=== PATIENT | male | born 1950 | race Hispanic/Latino ===

== ENCOUNTER 2023-02-06 12:44 | Emergency (ER) | payer MEDICARE ==
--- OUTSIDE RECORDS SUMMARY | 2023-02-06 12:53 | XMS REPORT | Continuity of Care Document ---
:1950 Author Organization [facility] t Address [address] [place] [address] [address] [place] [address] Care Team Providers Name Role Phone Teja Morin Primary Care Physician REYES RICHARDS Attending Clinician Unavailable CANDACE ARMAS Attending Clinician Unavailable Doctor Unassigned, [place] Attending Clinician Unavailable Jennifer DIALLO, Kemal Khan Attending Clinician Unavailable Leanna Messer DO Attending Clinician Juvencio Love MD Attending Clinician Jazmin Chandler MD Attending Clinician Jessica RAMSEY, Isak Attending Clinician LEANNA MESSER Attending Clinician Unavailable Jillian Cabrera Attending Clinician Unavailable Tejinder Macedo Attending Clinician Unavailable Reyes Richards MD Attending Clinician Candace Armas MD Attending Clinician Only, Adc Test Attending Clinician Unavailable Nakul RAMSEY, Jose Attending Clinician JOSE MOTA Attending Clinician Unavailable Johnathon TRANSMISSION BUILDER, Yandy Khan Attending Clinician Steven RAMSEY, Eva Attending Clinician EVA ALBRIGHT Attending Clinician Unavailable Sukhdev Ramirez DO Attending Clinician Christian DIALLO, Jennifer Tripathi Attending Clinician Unavailable Lab, Adc Fam Pob I Attending Clinician Unavailable Anene TRANSMISSION BUILDER, Janet Attending Clinician Pc, [facility] Vascular Room 1 - Attending Clinician Unavailable Khadar RAMSEY, Rachel Sherman Attending Clinician , [facility] Echo Room 1 - Attending Clinician Unavailable REYES RICHARDS Admitting Clinician Unavailable CANDACE ARMAS Admitting Clinician Unavailable Tawanna RAMSEY, Jazmin Admitting Clinician JAZMIN CHANDLER Admitting Clinician Unavailable Jillian Cabrera Admitting Clinician Unavailable FELIZ HENAO Admitting Clinician Unavailable Pawel RAMSEY, Candace Admitting Clinician Payers Payer Name Policy Type Policy Number Effective Date Expiration Date Khadra MCCARTHY/RAJI [id number] 2019 MEDICARE ADVANTAGE 00:00:00 [facility] [id number] 2022 (MEDICARE 00:00:00 REPLACEMENT HMO) Problems Condition Condition Condition Status Onset Resolution Last Treating Co mments Source Name Details Category Date Date Treatment Clinician Date Diarrhea, Diarrhea, Disease Active Uni vers unspecifie unspecifie 09-15 it y of d type d type 00:00: Medical Branch Elevated Elevated Disease Active Overview: Un jaida troponin troponin 7-04 Formattin ity of 00:00: g of this note Medical might be Branch different from the original. Added automatic ally from request for surgery [id number] Elevated Elevated Disease Active Overview: Un ja[place] troponin troponin 7-04 Formattin ity of 00:00: g of this note Medical might be Branch different from the original. Added automatic ally from request for surgery [id number] Acute pain Acute pain Disease Active 2020-03 Overview : Univers of right of right 1-18 Formattin ity of knee knee 00:00: g of this [place] 00 note Medical might be Branch different from the original. Added automatic ally from request for surgery [id number] Screening Screening Disease Active Overview: Univers for for 8-13 Formattin ity of colorectal colorectal 00:00: g of this [place] cancer cancer 00 note Medical might be Branch different from the original. Added automatic ally from request for surgery [id number] Allergies, Adverse Reactions, Alerts Allergy Allergy Status Severity Reaction(s) Onset Inactive Treating Comm ents Source Name Type Date Date Clinician No Known DA Active U [facility] Allergie 06-06 [facility] 00:00: [address] NO KNOWN Drug Active Univers ALLERGIE Class ity of S [facility] Social History Social Habit Start Date Stop Date Quantity Comments Source History SDOH University o f Alcohol Frequency [facility] edical Branch History SDOH University o f Alcohol Std Drinks [facility] History SDMA University o f Alcohol Binge [place] Medic al [place] [facility] to 2021-09-04 2021-09-14 Not sure [facility] SARS-CoV-2 (event) 00:00:00 01:36:00 [facility] Alcohol intake 2021-01-07 2021-01-07 Ex-drinker University 00:00:00 00:00:00 (finding) [facility] History of Social 2020-12-23 2020-12-23 Univers ity of function 00:00:00 00:00:00 [facility] Tobacco use and 2020-12-19 2020-12-19 Smokeless Universit y of exposure 00:00:00 00:00:00 tobacco non-user [facility] Alcohol Comment 2019-09-10 2019-09-10 social Universit y of 00:00:00 00:00:00 [facility] Sex Ass[birth year] At [birth year] Universit y of 00:00:00 00:00:00 [facility] Smoking Status Start Date Stop Date Source Never smoked tobacco [facility] Medications Ordered Filled Start Stop Current Ordering Indication Dosage Frequency Signature Comments Components Source Medication Medication Date Date Medication? Clinician (SIG) Name Name furosemide 2022-0 Yes 20mg Take 20 mg U nivers (LASIX) 20 7-10 by mouth ity o f mg tablet 05:15: daily. Medical Branch lansoprazol 2021-0 Yes 30mg Take 30 mg Univers e 30 mg 7-10 by mouth ity of capsule 05:15: daily. Medical Branch rOPINIRole 2021-0 Yes .5mg Take 0.5 Uni vers 0.5 mg 7-10 mg by ity of tablet 05:15: mouth [place] 05 daily. Medical Branch HYDROcodone 2021-0 Yes 1{tbl} Take 1 Un jaida -acetaminop 7-10 tablet by ity of hen (NORCO) 05:15: mouth [place] 5-325 mg 05 every 6 Medical tablet (six) Branch hours as needed. furosemide 2021-0 Yes 20mg Take 20 mg U nivers (LASIX) 20 7-10 by mouth ity o f mg tablet 05:15: daily. Medical Branch lansoprazol 2021-0 Yes 30mg Take 30 mg Univers e 30 mg 7-10 by mouth ity of capsule 05:15: daily. Medical Branch rOPINIRole 2021-0 Yes .5mg Take 0.5 Uni vers 0.5 mg 7-10 mg by ity of tablet 05:15: mouth [place] 05 daily. Medical Branch HYDROcodone 2021-0 Yes 1{tbl} Take 1 Un jaida -acetaminop 7-10 tablet by ity of hen (NORCO) 05:15: mouth [place] 5-325 mg 05 every 6 Medical tablet (six) Branch hours as needed. furosemide 2021-0 Yes 20mg Take 20 mg U nivers (LASIX) 20 7-10 by mouth ity o f mg tablet 05:15: daily. Medical Branch lansoprazol 2021-0 Yes 30mg Take 30 mg Univers e 30 mg 7-10 by mouth ity of capsule 05:15: daily. Medical Branch rOPINIRole 2021-0 Yes .5mg Take 0.5 Uni vers 0.5 mg 7-10 mg by ity of tablet 05:15: mouth [place] 05 daily. Medical Branch HYDROcodone 2021-0 Yes 1{tbl} Take 1 Un jaida -acetaminop 7-10 tablet by ity of hen (NORCO) 05:15: mouth [place] 5-325 mg 05 every 6 Medical tablet (six) Branch hours as needed. furosemide 2021-0 Yes 20mg Take 20 mg U nivers (LASIX) 20 7-10 by mouth ity o f mg tablet 05:15: daily. [place] Medical Branch lansoprazol 2021-0 Yes 30mg Take 30 mg Univers e 30 mg 7-10 by mouth ity of capsule 05:15: daily. [place] [address] Medical Branch rOPINIRole 0 Yes .5mg Take 0.5 Uni vers 0.5 mg 7-10 mg by ity of tablet 05:15: mouth [place] 05 daily. Medical Branch HYDROcodone 0 Yes 1{tbl} Take 1 Un jaida -acetaminop 7-10 tablet by ity of hen (NORCO) 05:15: mouth [place] 5-325 mg 05 every 6 Medical tablet (six) Branch hours as needed. furosemide 0 Yes 20mg Take 20 mg U nivers (LASIX) 20 7-10 by mouth ity o f mg tablet 05:15: daily. [place] [facility] Branch lansoprazol 0 Yes 30mg Take 30 mg Univers e 30 mg 7-10 by mouth ity of capsule 05:15: daily. [address] Branch rOPINIRole 2021-0 Yes .5mg Take 0.5 Uni vers 0.5 mg 7-10 mg by ity of tablet 05:15: mouth [place] 05 daily. Medical Branch HYDROcodone 0 Yes 1{tbl} Take 1 Un jaida -acetaminop 7-10 tablet by ity of hen (N[place]gate) 05:15: mouth [place] 5-325 mg 05 every 6 Medical tablet (six) Branch hours as needed. azithromyci 0 2021- No 500mg 500 mg, U nivers n 7-08 07-08 Oral, Q24H ity of (ZITHROMAX) 19:00: 21:19 ABX, 1 [place] as tablet 500 00 :00 dose, Medical mg First dose Branch (after last modificati on) on Tue09/18/21 at 1400, Routine&lt ;br>Reason for Anti-Infec tive: Documented Infection< br>Documen steve Infection Site: Abdominal< br>Duratio n of Therapy: Other (see Comments) metFORMIN 2-0 Yes 1000mg Take 1,000 Univers 1,000 mg 7-08 mg by ity of tablet 17:50: mouth 2 [place] 18 (two) Medical times Branch daily with meals. furosemide 2022-0 Yes 20mg Take 20 mg U nivers (LASIX) 20 7-08 by mouth ity o f mg tablet 17:50: daily. [place] [address] Medical Branch lansoprazol 2022-0 Yes 30mg Take 30 mg Univers e 30 mg 7-08 by mouth ity of capsule 17:50: daily. [place] [address] Medical Branch rOPINIRole 2-0 Yes .5mg Take 0.5 Uni vers 0.5 mg 7-08 mg by ity of tablet 17:50: mouth [place] 18 daily. Medical Branch HYDROcodone 2-0 Yes 1{tbl} Take 1 Un jaida -acetaminop 7-08 tablet by ity of hen (NORCO) 17:50: mouth [place] 5-325 mg 18 every 6 Medical tablet (six) Branch hours as needed. metFORMIN 2022-0 Yes 1000mg Take 1,000 Univers 1,000 mg 7-08 mg by ity of tablet 17:50: mouth 2 [place] [address] (two) Medical times Branch daily with meals. furosemide 2022-0 Yes 20mg Take 20 mg U nivers (LASIX) 20 7-08 by mouth ity o f mg tablet 17:50: daily. [place] [address] Medical Branch lansoprazol 2-0 Yes 30mg Take 30 mg Univers e 30 mg 7-08 by mouth ity of capsule 17:50: daily. [place] [address] Medical Branch rOPINIRole 2-0 Yes .5mg Take 0.5 Uni vers 0.5 mg 7-08 mg by ity of tablet 17:50: mouth [place] 18 daily. Medical Branch HYDROcodone 2022-0 Yes 1{tbl} Take 1 Un jaida -acetaminop 7-08 tablet by ity of hen (NORCO) 17:50: mouth [place] 5-325 mg 18 every 6 Medical tablet (six) Branch hours as needed. metFORMIN 2022-0 Yes 1000mg Take 1,000 Univers 1,000 mg 7-08 mg by ity of tablet 17:50: mouth 2 [place] 18 (two) Medical times Branch daily with meals. metFORMIN 2022-0 Yes 1000mg Take 1,000 Univers 1,000 mg 7-08 mg by ity of tablet 17:50: mouth 2 [place] 18 (two) Medical times Branch daily with meals. metFORMIN 2022-0 Yes 1000mg Take 1,000 Univers 1,000 mg 7-08 mg by ity of tablet 17:50: mouth 2 [place] 18 (two) Medical times Branch daily with meals. metFORMIN 2022-0 Yes 1000mg Take 1,000 Univers 1,000 mg 7-08 mg by ity of tablet 17:50: mouth 2 [place] 18 (two) Medical times Branch daily with meals. metFORMIN 2022-0 Yes 1000mg Take 1,000 Univers 1,000 mg 7-08 mg by ity of tablet 17:50: mouth 2 [place] 18 (two) Medical times Branch daily with meals. metFORMIN 2021-0 Yes 1000mg Take 1,000 Univers 1,000 mg 7-08 mg by ity of tablet 17:50: mouth 2 [place] 18 (two) Medical times Branch daily with meals. clopidogreL 2021-0 2021- No 75mg Take 75 mg Univers (PLAVIX) 75 7- 07-08 by mouth ity of mg tablet 07:52: 00:00 daily. [place] 57 :00 Medical Branch enalapril 2021-0 2021- No Take by [facility] ers 10 mg - 07-08 mouth ity of tablet 07:52: 00:00 daily. [place] 57 :00 Medical Branch clopidogreL 2-0 2022- No 75mg Take 75 mg Univers (PLAVIX) 75 - 07-08 by mouth ity of mg tablet 07:52: 00:00 daily. [place] 57 :00 Medical Branch enalapril 2021-0 2021- No Take by [facility] ers 10 mg 7-08 07-08 mouth ity of tablet 07:52: 00:00 daily. [place] 57 :00 Medical Branch benzonatate 2022-0 Yes [id number] 100mg Take 1 Univers 100 mg 7-08 capsule by ity of capsule 00:00: mouth [place] 00 every 8 Medical (eight) Branch hours as needed for Cough. benzonatate 2022-0 Yes [id number] 100mg Take 1 Univers 100 mg 7-08 capsule by ity of capsule 00:00: mouth [place] 00 every 8 Medical (eight) Branch hours as needed for Cough. benzonatate 2022-0 Yes [id number] 100mg Take 1 Univers 100 mg 7-08 capsule by ity of capsule 00:00: mouth [place] 00 every 8 Medical (eight) Branch hours as needed for Cough. benzonatate Yes [id number] 100mg Take 1 Univers 100 mg 7-08 capsule by ity of capsule 00:00: mouth [place] 00 every 8 Medical (eight) Branch hours as needed for Cough. benzonatate Yes [id number] 100mg Take 1 Univers 100 mg 7-08 capsule by ity of capsule 00:00: mouth [place] 00 every 8 Medical (eight) Branch hours as needed for Cough. benzonatate Yes [id number] 100mg Take 1 Univers 100 mg 7-08 capsule by ity of capsule 00:00: mouth [place] 00 every 8 Medical (eight) Branch hours as needed for Cough. benzonatate Yes [id number] 100mg Take 1 Univers 100 mg 7-08 capsule by ity of capsule 00:00: mouth [place] 00 every 8 Medical (eight) Branch hours as needed for Cough. aspirin 81 2021- No [id number] 81mg Take 1 Univers mg EC -10 21-07 tablet by ity of tablet 00:00: 04:59 mouth [place] 00 :00 daily for Medical 90 days. Branch atorvastati 2021- No [id number] 40mg Take 1 Univers n 40 mg - 10-07 tablet by ity of tablet 00:00: 04:59 mouth [place] 00 :00 daily for Medical 90 days. Branch clopidogreL 2021- No [id number] 75mg Take 1 Univers (PLAVIX) 75 09-18-07 tablet by it y of mg tablet 00:00: 04:59 mouth [place] 00 :00 daily for Medical 90 days. Branch enalapril 2021- No [id number] 10mg Take 1 U nivers 10 mg - 10-07 tablet by ity of tablet 00:00: 04:59 mouth [place] 00 :00 daily for Medical 90 days. Branch metoprolol 2021- No [id number] 12.5mg Take 0.5 Univers succinate -10 21-07 tablets by ity of XL 25 mg 24 00:00: 04:59 [place] hr tablet 00 :00 daily for Medic al 90 days. Branch aspirin 81 No [id number] 81mg Take 1 Univers mg EC 09-18 tablet by ity of tablet 00:00: 04:59 mouth [place] 00 :00 daily for Medical 90 days. Branch atorvastati No [id number] 40mg Take 1 Univers n 40 mg 09-18 tablet by ity of tablet 00:00: 04:59 mouth [place] 00 :00 daily for Medical 90 days. Branch clopidogreL No [id number] 75mg Take 1 Univers (PLAVIX) 75 09-18 tablet by it y of mg tablet 00:00: 04:59 mouth [place] 00 :00 daily for Medical 90 days. Branch enalapril No [id number] 10mg Take 1 U nivers 10 mg 09-18 tablet by ity of tablet 00:00: 04:59 mouth [place] 00 :00 daily for Medical 90 days. [place]on metoprolol No [id number] 12.5mg Take 0.5 Univers succinate 09-18 tablets by ity of XL 25 mg 24 00:00: 04:59 [place] hr tablet 00 :00 daily for Medic al 90 days. Branch aspirin 81 No [id number] 81mg Take 1 Univers mg EC 09-18 tablet by ity of tablet 00:00: 04:59 mouth [place] 00 :00 daily for Medical 90 days. Branch atorvastati No [id number] 40mg Take 1 Univers n 40 mg 09-18 tablet by ity of tablet 00:00: 04:59 mouth [place] 00 :00 daily for Medical 90 days. Branch clopidogreL No [id number] 75mg Take 1 Univers (PLAVIX) 75 09-18 tablet by it y of mg tablet 00:00: 04:59 mouth [place] 00 :00 daily for Medical 90 days. Branch enalapril No [id number] 10mg Take 1 U nivers 10 mg 09-18 tablet by ity of tablet 00:00: 04:59 mouth [place] 00 :00 daily for Medical 90 days. [place] metoprolol No [id number] 12.5mg Take 0.5 Univers succinate 09-18 tablets by ity of XL 25 mg 24 00:00: 04:59 [place] hr tablet 00 :00 daily for Medic al 90 days. Branch aspirin 81 No [id number] 81mg Take 1 Univers mg EC 09-18 tablet by ity of tablet 00:00: 04:59 mouth [place] 00 :00 daily for Medical 90 days. Branch atorvastati No [id number] 40mg Take 1 Univers n 40 mg 09-18 tablet by ity of tablet 00:00: 04:59 mouth [place] 00 :00 daily for Medical 90 days. Branch clopidogreL No [id number] 75mg Take 1 Univers (PLAVIX) 75 09-18 tablet by it y of mg tablet 00:00: 04:59 mouth [place] 00 :00 daily for Medical 90 days. [place]on enalapril No [id number] 10mg Take 1 U nivers 10 mg 09-18 tablet by ity of tablet 00:00: 04:59 mouth [place] 00 :00 daily for Medical 90 days. [place] metoprolol No [id number] 12.5mg Take 0.5 Univers succinate 09-18 tablets by ity of XL 25 mg 24 00:00: 04:59 [place] hr tablet 00 :00 daily for Medic al 90 days. Branch aspirin 81 No [id number] 81mg Take 1 Univers mg EC 09-18 tablet by ity of tablet 00:00: 04:59 mouth [place] 00 :00 daily for Medical 90 days. Branch atorvastati No [id number] 40mg Take 1 Univers n 40 mg 09-18 tablet by ity of tablet 00:00: 04:59 mouth [place] 00 :00 daily for Medical 90 days. Branch clopidogreL No [id number] 75mg Take 1 Univers (PLAVIX) 75 09-18 tablet by it y of mg tablet 00:00: 04:59 mouth [place] 00 :00 daily for Medical 90 days. Branch enalapril 2021- No [id number] 10mg Take 1 U nivers 10 mg 09-18 tablet by ity of tablet 00:00: 04:59 mouth [place] 00 :00 daily for Medical 90 days. Branch metoprolol 2021- No [id number] 12.5mg Take 0.5 Univers succinate 09-18 tablets by ity of XL 25 mg 24 00:00: 04:59 [place] hr tablet 00 :00 daily for Medic al 90 days. Branch aspirin 81 2021- No [id number] 81mg Take 1 Univers mg EC 09-18 tablet by ity of tablet 00:00: 04:59 mouth [place] 00 :00 daily for Medical 90 days. Branch atorvastati 2021- No [id number] 40mg Take 1 Univers n 40 mg 09-18 tablet by ity of tablet 00:00: 04:59 mouth [place] 00 :00 daily for Medical 90 days. Branch clopidogreL 2021- No [id number] 75mg Take 1 Univers (PLAVIX) 75 09-18 tablet by it y of mg tablet 00:00: 04:59 mouth [place] 00 :00 daily for Medical 90 days. Branch enalapril 2021- No [id number] 10mg Take 1 U nivers 10 mg 09-18 tablet by ity of tablet 00:00: 04:59 mouth [place] 00 :00 daily for Medical 90 days. Branch metoprolol 2021- No [id number] 12.5mg Take 0.5 Univers succinate 09-18 tablets by ity of XL 25 mg 24 00:00: 04:59 mouth [place] hr tablet 00 :00 daily for Medic al 90 days. Branch codeine Yes 15mg 15 mg, Univers tablet 15 09-17 Oral, ity of mg 15:48: Q6HPRN, [place] 48 Starting Medical on Kaylynn [place] 09/17/21 at 1048, Until Discontinu ed, Routine, Pain (scale 7-10) codeine 2021- No 15mg 15 mg, Univers tablet 15 09-17 Oral, ity of mg 15:48: 00:50 Q6HPRN, [place] 48 :21 Starting Medical on Kaylynn Branch 09/17/21 at 1048, Until Tue09/18/21 at 1950, Routine, Pain (scale 7-10) magnesium 0 2021- No 2g 2 g, IV Univ ers sulfate in 09-17 Piggyback, it y of water 2 13:00: 16:10 Administer [place] as gram/50 mL 00 :00 over 60 Medica l (4 %) Minutes, Branch infusion 2 Q1H, 2 g doses, First dose on Kaylynn 09/17/21 at 0800, Last dose on Tue09/17/21 at 0900, EMMIE benzonatate Yes 100mg 100 mg, Un jaida (TESSALON 09-17 Oral, ity of PERLES) 01:17: Q8HPRN, [place] capsule 100 00 Starting Medi ani mg on Tue Branch 09/16/21 at 2016, Until Discontinu ed, Routine, Cough benzonatate 2021- No 100mg 100 mg, U nivers (TESSALON 09-17 Oral, ity of PERLES) 01:17: 00:50 Q8HPRN, [place] capsule 100 00 :21 Starting Medi ani mg on Tue Branch 09/16/21 at 2016, Until Tue09/18/21 at 1950, Routine, Cough azithromyci 2021- No 500mg 500 mg, U nivers n 09-17 Oral, Q24H ity of (ZITHROMAX) 01:03: 14:59 ABX, 3 [place] as tablet 500 00 :49 doses, Medical mg First dose Branch (after last modificati on) on Tue09/16/21 at 2014, Last dose on Tue09/18/21 at 2014, EMMIE
Re ason for Anti-Infec tive: Documented Infection< br>Documen steve Infection Site: Abdominal< br>Duratio n of Therapy: Other (see Comments) heparin Yes 5000U 5,000 Univers (porcine) 09-17 Units, ity of injection 01:00: [place] 5,000 Units 00 us, Q12H, Med ical First dose Branch on Tue09/16/21 at 2000, Until Discontinu ed, Routine heparin 2021- No 5000U 5,000 Univers (porcine) 09-17 Units, ity of injection 01:00: 00:50 [place]cut[place] 5,000 Units 00 :21 us, Q12H, Med ical First dose Branch on Tue09/16/21 at 2000, Until Discontinu ed, Routine lactated 2021- No 1000mL at 100 Univ ers ringers IV 09-16 mL/hr, ity of infusion 21:00: 00:59 1,000 mL, [place] 1,000 mL 00 :00 IV Medical Infusion, Branch CONTINUOUS , Starting on Tue09/16/21 at 1600, Until Tue09/16/21 at 1959, Routine iopamidol 2021- No ONCE INTRA U nivers (ISOVUE 09-16 PROCEDURE, ity o f 370-500 mL) 15:37: 15:47 Starting [place] injection 01 :47 on Tue Medical 09/16/21 at Branch 1037, Until Tue09/16/21 at 1047, Routine, CV Intraproce dure adenosine 6 2021- No ONCE INTRA Univers mg/1000 mL 09-16 PROCEDURE, it y of INTRACORONA 15:20: 15:47 [place] RY 44 :47 on Tue Medical injection 09/16/21 at [facility] h for CATH 1020, LAB Until Tue09/16/21 at 1047, Routine, CV Intraproce dure nitroglycer 2021- No ONCE INTRA Univers in (TRIDIL) 09-16 PROCEDURE, i ty of 2 mg in 10 15:20: 15:47 [place] mL D5W for 33 :47 on Tue Medical Cardiac 09/16/21 at Branch Cath 1020, Until Tue09/16/21 at 1047, Routine, CV Intraproce dure heparin 2021- No ONCE INTRA Uni vers 1,000 09-16 PROCEDURE, ity of unit/mL 14:43: 15:47 Starting [place] injection 00 :47 on Tue Medical 09/16/21 at Branch 0943, Until Tue09/16/21 at 1047, Routine, CV Intraproce dure clopidogreL 2021- No ONCE INTRA Univers (PLAVIX) 09-16 PROCEDURE, ity of 300 mg 14:37: 15:47 Starting [place] tablet 16 :47 on Tue09/16/21 at Branch 0937, Until Tue09/16/21 at 1047, Routine, CV Intraproce dure NaCl 0.9% 2021- CONTINUOUS U nivers (NS) bolus 09-16 PRN, ity of infusion 14:08: 14:08 [place] 57 :57 on Tue09/16/21 at Branch 0908, Until Discontinu ed, STAT, CV Intraproce dure lidocaine ONCE INTRA U nivers 1% (PF) 09-16 PROCEDURE, ity o f (XYLOCAINE) 13:48: 15:47 Starting [place] injection 59 :47 on Tue09/16/21 at Branch 0848, Until Tue09/16/21 at 1047, Routine, CV Intraproce dure midazolam ONCE INTRA U nivers (VERSED) 09-16 PROCEDURE, ity of injection 13:45: 15:47 Starting [place] 24 :47 on Tue09/16/21 at Branch 0845, Until Tue09/16/21 at 1047, Routine, CV Intraproce dure FENTanyl PF ONCE INTRA Univers (SUBLIMAZE 09-16 PROCEDURE, it y of (PF)) 13:45: 15:47 Starting [place] injection 16 :47 on Tue09/16/21 at Branch 0845, Until Tue09/16/21 at 1047, Routine, CV Intraproce dure perflutren 2021- No [id number] 3mL 3 mL, IV Univers protein-A 09-15 Push, ity of microsphr 21:45: 08:45 ONCE, 1 [place] (OPTISON) 00 :00 dose, On Medica l injection 3 09/15/21 Br anch mL at 1645, Routine piperacilli 2021- No 3.375g 3.375 g, Univers n-tazobacta 09-15 07-06 IV ity of m (ZOSYN) 17:30: 18:57 Piggyback, [place] 3.375 g in 00 :43 Q8H ABX, Medic al NaCl 0.9% First dose Bran ch (NS) 50 mL on [facility] MINI-BAG 09/15/21 at 1230, Until Discontinu ed, Administer over 4 Hours, 50 mL
Reas on for Anti-Infec tive: Empiric Therapy for Suspected Infection< br>Empiric Therapy Site: Abdominal< br>Duratio n of therapy: 72 hours pantoprazol 2-0 Yes 40mg 40 mg, Univ ers e 09-15 Oral, ity of (PROTONIX) 14:00: DAILY, [place] EC tablet 00 First dose Medi ani 40 mg on [facility] 09/15/21 at 0900, Until Discontinu ed, Routine metoprolol 2021-0 Yes 12.5mg 12.5 mg, U nivers succinate 09-15 Oral, ity of XL (TOPROL 14:00: DAILY, [place] XL) tablet 00 First dose Med ical 12.5 mg (after Branch last modificati on) on [facility] 09/15/21 at 0900, Until Discontinu ed, Routine enalapril 2021-0 Yes 10mg 10 mg, Univer s (VASOTEC) 09-15 Oral, ity of tablet 10 14:00: DAILY, [place] mg 00 First dose Medical on [facility] 09/15/21 at 0900, Until Discontinu ed, Routine clopidogreL 2021-0 Yes 75mg 75 mg, Univ ers (PLAVIX) 75 09-15 Oral, ity of mg tablet 14:00: DAILY, [place] 75 mg 00 First dose Medical on [facility] 09/15/21 at 0900, Until Discontinu ed, Routine atorvastati 2021-0 Yes 40mg 40 mg, Univ ers n (LIPITOR) 09-15 Oral, ity of tablet 40 14:00: DAILY, [place] mg 00 First dose Medical on [facility] 09/15/21 at 0900, Until Discontinu ed, Routine aspirin EC 2021-0 Yes 81mg 81 mg, Unive rs tablet 81 09-15 Oral, ity of mg 14:00: DAILY, [place] 00 First dose Medical on [facility] 09/15/21 at 0900, Until Discontinu ed, Routine pantoprazol 2021- No 40mg 40 mg, Uni vers e 09-15 Oral, ity of (PROTONIX) 14:00: 00:50 DAILY, [place] EC tablet 00 :21 First dose Medi ani 40 mg on [facility] 09/15/21 at 0900, Until Discontinu ed, Routine metoprolol 2021- No 12.5mg 12.5 mg, Univers succinate 09-15 Oral, ity of XL (TOPROL 14:00: 00:50 DAILY, [place] XL) tablet 00 :21 First dose Med ical 12.5 mg (after Branch last modificati on) on [facility] 09/15/21 at 0900, Until Discontinu ed, Routine enalapril No 10mg 10 mg, Unive rs (VASOTEC) 09-15 Oral, ity of tablet 10 14:00: 00:50 DAILY, [place] mg 00 :21 First dose Medical on [facility] 09/15/21 at 0900, Until Discontinu ed, Routine clopidogreL No 75mg 75 mg, Uni vers (PLAVIX) 75 09-15 Oral, ity of mg tablet 14:00: 00:50 DAILY, [place] 75 mg 00 :21 First dose Medical on [facility] 09/15/21 at 0900, Until Discontinu ed, Routine atorvastati No 40mg 40 mg, Uni vers n (LIPITOR) 09-15 Oral, ity of tablet 40 14:00: 00:50 DAILY, [place] mg 00 :21 First dose Medical on [facility] 09/15/21 at 0900, Until Discontinu ed, Routine aspirin EC No 81mg 81 mg, Univ ers tablet 81 09-15 Oral, ity of mg 14:00: 00:50 DAILY, [place] 00 :21 First dose Medical on [facility] 09/15/21 at 0900, Until Discontinu ed, Routine furosemide No 20mg 20 mg, Univ ers (LASIX) 7-05 07-05 Oral, ity of tablet 20 14:00: 15:59 DAILY, [place] mg 00 :31 First dose Medical on [facility] 09/15/21 at 0900, Until Discontinu ed, Routine Sliding Yes Subcutaneo Univ ers Scale 09-15 , TID ity of Insulin - 13:00: MEALS+HS, [place] as Lispro 00 First dose Medical (HumaLOG) + on Tue Branch [facility] 09/15/21 at Testing 0800, Until Discontinu ed, Routine Sliding 2021- No Subcutaneo Uni vers Scale 09-15 07 , TID ity of Insulin - 13:00: 00:50 [place]ALS+HS[place] Lispro [place] :21 First dose Medical (HumaLOG) + on Tue Branch [facility] 09/15/21 at Testing 0800, Until Discontinu ed, Routine magnesium 2021- No 2g 2 g, IV Univ ers sulfate in 09-15 Piggyback, it y of water 2 11:00: 15:28 Administer [place] as gram/50 mL 00 :00 over 60 Medica l (4 %) Minutes, Branch infusion 2 Q2H, 3 g doses, First dose on Tue09/15/21 at 0600, Last dose on Tue09/15/21 at 1000, Routine HEPARIN 2021- No 4000U 4,000 Univers SODIUM 09-15 07-05 Units, IV ity of (PORCINE) 10:45: 10:54 Push, [place] 1,000 00 :00 ONCE, 1 Medical UNIT/ML dose, On Branch BOLUS ACS Tue09/15/21 ORDER SET at 0545, EMMIE heparin 2021- No 12U/kg/ 12 Univer s 25,000 09-15 07-06 h Units/kg/h ity of Units/250 10:42: 18:46 r ?66.7 kg [place] mL 15 :08 (8.004 Medical (Premixed mL/hr, Branch Bag) in rounded to 0.45 % NS 8 mL/hr), IV Infusion, TITRATE, Parameters in Admin. Instr., Starting on Tue09/15/21 at 0542
CA UTION - If LMWH given in ER, AVOID bolus and start next dose/drip 12 hrs after ER dosage.&nb sp; M ust program rate using programmab le infusion pump.&nbsp ; Alyce ck with the ordering provider first prior to any administra tion should the patient be on existing/a dditional anticoagul ant therapy. Rang e, Dosing and Testing: &nbs p;FOR [facility] ONLY &nbs p; - aPTT < 35: & nbsp;Bolus 5000 units, increase rate 300 units/hr&n bsp; - aPTT 35-44:&nbs p; Gareth sarai 3000 units, increase rate 200 units/hr&n bsp; - aPTT 45-54:&nbs p; In crease rate 100 units/hr&n bsp; - aPTT 55-85:&nbs p; NO CHANGE&nbs p; - aPTT 86-95:&nbs p; De crease rate 100 units/hr&n bsp; - aPTT 96-120:&nb sp; H old 30 minutes, decrease rate 150 units/hr&a mp;nbsp; - aPTT > 120: Hold 60 minutes, decrease rate 200 units/hr&n bsp; Check aPTT 6 hours after initiation , then Q6H after every change, aPTT Q12H once therapeuti c levels are reached.&n bsp; &nbs p; __ &n bsp;FOR [facility] ONLY - aPTT < 40: & nbsp;Bolus 5000 units, increase rate 300 units/hr&n bsp; - aPTT 40-49:&amp ;nbsp;&nbs p;Bolus 3000 units, increase rate 200 units/hr&n bsp; - aPTT 50-59:&nbs p; In crease rate 100 units/hr&n bsp; - aPTT 60-85:&nbs p; NO CHANGE&nbs p; - aPTT 86-95:&nbs p; De crease rate 100 units/hr&n bsp; - aPTT 96-120:&nb sp; H old 30 minutes, decrease rate 150 units/hr&n bsp; - aPTT > 120: Hold 60 minutes, decrease rate 200 units/hr&n bsp; Check aPTT 6 hours after initiation , then Q6H after every change, aPTT Q12H once therapeuti c levels are reached.&n bsp; DO NOT ADJUST INITIAL BOLUS OR INITIAL INFUSION RATE.
glucagon Yes 1mg 1 mg, Univers (GLUCAGEN 09-15 Intramuscu ity of DIAGNOSTIC 09:31: lar, PRN, [place] KIT) 38 Starting Medical injection 1 on e Branch mg 09/15/21 at 0431, Until Discontinu ed, EMMIE, Blood Glucose < or = 70 mg/dL and patient is unable to swallow or has mental changes. glucagon 2021- No 1mg 1 mg, Univers (GLUCAGEN 09-15 Intramuscu ity of DIAGNOSTIC 09:31: 00:50 lar, PRN, [place] KIT) 38 :21 Starting Medical injection 1 on e Branch mg 09/15/21 at 0431, Until 09/18/21 at 1950, EMMIE, Blood Glucose < or = 70 mg/dL and patient is unable to swallow or has mental changes. piperacilli 2021- No 3.375g 3.375 g, Univers n-tazobacta 09-15 IV ity of m (ZOSYN) 09:30: 10:49 Piggyback, [place] 3.375 g in 00 :00 ONCE, 1 Medica l NaCl 0.9% dose, On Branch (NS) 50 mL Tue09/15/21 MINI-BAG at 0430, Administer over 30 Minutes, 50 mL
R rick for Anti-Infec tive: Empiric Therapy for Suspected Infection< br>Empiric Therapy Site: Abdominal< br>Duratio n of therapy: 72 hours HYDROcodone 2021- No 1{tbl} 1 tablet, Univers -acetaminop 09-15 Oral, ity of hen (NORCO 08:32: 15:48 Q6HPRN, [place] as 5) 5-325 mg 14 :31 Starting Medi ani tablet 1 on Tue tablet 09/15/21 at 0332, Until Tue09/17/21 at 1048, Routine, Pain (scale 7-10) acetaminoph 2021- No 650mg 650 mg, U nivers en 09-15 Oral, ity of (TYLENOL) 08:24: 13:10 Q6HPRN, [place] tablet 650 52 :35 Starting Medic al mg on Tue Branch 09/15/21 at 0324, Until Tue09/17/21 at 0810, Routine, Pain (scale 1-3) NaCl 0.9% 2021- No 1000mL at 999 Uni vers (NS) bolus 09-15 mL/hr, ity of infusion 03:45: 04:35 1,000 mL, [place] as 1,000 mL 00 :00 IV Medical Infusion, Branch ONCE, 1 dose, On Tue09/14/21 at 2245, STAT aspirin No 324mg 324 mg, Unive rs chewable 09-15 Oral, ity of tablet 324 03:45: 02:47 ONCE, 1 [place] mg 00 :00 dose, On Medical Tue09/14/21 Branch at 2245, Routine ibuprofen 2021- No 600mg 600 mg, Uni vers (IBU) 09-15 Oral, ity of tablet 600 02:45: 02:47 ONCE, 1 [place] mg 00 :00 dose, On Medical Tue09/14/21 Branch at 2145, EMMIE NaCl 0.9% 2021- No 1000mL at 999 Uni vers (NS) bolus 09-1505 mL/hr, ity of infusion 02:30: 02:44 1,000 mL, [place] 1,000 mL 00 :00 IV Medical Infusion, Branch ONCE, 1 dose, On Tue09/14/21 at 2130, EMMIE acetaminoph 2021- No 650mg 650 mg, U nivers en 09-15 Oral, ity of (TYLENOL) 01:30: 01:34 ONCE, 1 [place] tablet 650 00 :00 dose, On Medic al mg Tue09/14/21 Branch at 2030, EMMIE NaCl 0.9% 2021- No 1000mL at 999 Uni vers (NS) bolus 09-14 mL/hr, ity of infusion 11:00: 12:03 1,000 mL, [place] as 1,000 mL 00 :00 IV Medical Infusion, Branch ONCE, 1 dose, On Tue09/14/21 at 0600, EMMIE iohexoL 2021- No [id number] 50mL 50 mL, Un jaida (OMNIPAQUE 09-14 Intravenou it y of 350 BULK-50 08:00: 07:49 s, ONCE, 1 [place] mL) 00 :00 dose, On Medical injection Tue09/14/21 Bran ch 50 mL at 0300, Routine NaCl 0.9% 2021- No 1000mL at 999 Uni vers (NS) bolus 09-14 mL/hr, ity of infusion 08:00: 07:59 1,000 mL, [place] 1,000 mL 00 :00 IV Medical Infusion, Branch ONCE, 1 dose, On Tue09/14/21 at 0300, EMMIE ibuprofen 0 2021- No 600mg 600 mg, Uni vers (IBU) 09-14 Oral, ity of tablet 600 07:00: 07:01 ONCE, 1 [place] mg 00 :00 dose, On Medical Tue09/14/21 Branch at 0200, EMMIE metFORMIN 2020- Yes 1000mg Take 1,000 Univers 1,000 mg 0-12 mg by ity of tablet 10:07: mouth 2 [place] 03 (two) Medical times Branch daily with meals. metFORMIN 2020-03 Yes 1000mg Take 1,000 Univers 1,000 mg 0-12 mg by ity of tablet 10:07: mouth 2 [place] 03 (two) Medical times Branch daily with meals. metoprolol Yes [id number] 25mg Take 1 Univers succinate 8-11 tablet by ity o f XL 25 mg 24 00:00: mouth [place] hr tablet 00 daily. Medical Branch metoprolol Yes [id number] 25mg Take 1 Univers succinate 8-11 tablet by ity o f XL 25 mg 24 00:00: mouth [place] hr tablet 00 daily. Medical Branch metoprolol 2021- No [id number] 25mg Take 1 Univers succinate 8-11 07-08 tablet by ity of XL 25 mg 24 00:00: 00:00 [place] hr tablet 00 :00 daily. Medical Branch metoprolol 2021- No [id number] 25mg Take 1 Univers succinate 8-11 07-08 tablet by ity of XL 25 mg 24 00:00: 00:00 [place] hr tablet 00 :00 daily. Medical Branch celecoxib Yes TAKE 1 Univer s 200 mg 7-14 CAPSULE BY ity of capsule 00:00: MOUTH ONCE [place] 00 DAILY Medical NEEDED Branch glimepiride Yes 2mg Take 2 mg U nivers 2 mg tablet 7-14 by mouth 2 it y of 00:00: (two) [place] 00 times Medical daily with Branch meals. celecoxib Yes TAKE 1 Univer s 200 mg 7-14 CAPSULE BY ity of capsule 00:00: MOUTH ONCE [place] 00 DAILY Medical NEEDED Branch glimepiride Yes 2mg Take 2 mg U nivers 2 mg tablet 7-14 by mouth 2 it y of 00:00: (two) [place] 00 times Medical daily with Branch meals. celecoxib Yes TAKE 1 Univer s 200 mg 7-14 CAPSULE BY ity of capsule 00:00: MOUTH ONCE [place] 00 DAILY Medical NEEDED Branch glimepiride 2020- Yes 2mg Take 2 mg U nivers 2 mg tablet 7-14 by mouth 2 it y of 00:00: (two) [place] 00 times Medical daily with Branch meals. celecoxib 2020-0 Yes TAKE 1 Univer s 200 mg 7-14 CAPSULE BY ity of capsule 00:00: MOUTH ONCE [place] 00 DAILY Medical NEEDED Branch glimepiride 1-0 Yes 2mg Take 2 mg U nivers 2 mg tablet 7-14 by mouth 2 it y of 00:00: (two) [place] 00 times Medical daily with Branch meals. celecoxib 2020-0 Yes TAKE 1 Univer s 200 mg 7-14 CAPSULE BY ity of capsule 00:00: MOUTH ONCE [place] 00 DAILY Medical NEEDED Branch glimepiride 1-0 Yes 2mg Take 2 mg U nivers 2 mg tablet 7-14 by mouth 2 it y of 00:00: (two) [place] 00 times Medical daily with Branch meals. celecoxib 2020-0 Yes TAKE 1 Univer s 200 mg 7-14 CAPSULE BY ity of capsule 00:00: MOUTH ONCE [place] 00 DAILY Medical NEEDED Branch glimepiride 2020-0 Yes 2mg Take 2 mg U nivers 2 mg tablet 7-14 by mouth 2 it y of 00:00: (two) [place] 00 times Medical daily with Branch meals. celecoxib 2020-0 Yes TAKE 1 Univer s 200 mg 7-14 CAPSULE BY ity of capsule 00:00: MOUTH ONCE [place] 00 DAILY Medical NEEDED Branch glimepiride 2020-0 Yes 2mg Take 2 mg U nivers 2 mg tablet 7-14 by mouth 2 it y of 00:00: (two) [place] 00 times Medical daily with Branch meals. celecoxib 2020-0 Yes TAKE 1 Univer s 200 mg 7-14 CAPSULE BY ity of capsule 00:00: MOUTH ONCE [place] 00 DAILY Medical NEEDED Branch glimepiride 1-0 Yes 2mg Take 2 mg U nivers 2 mg tablet 7-14 by mouth 2 it y of 00:00: (two) [place] 00 times Medical daily with Branch meals. celecoxib 1-0 Yes TAKE 1 Univer s 200 mg 7-14 CAPSULE BY ity of capsule 00:00: MOUTH ONCE [place] 00 DAILY Medical NEEDED Branch glimepiride 1-0 Yes 2mg Take 2 mg U nivers 2 mg tablet 7-14 by mouth 2 it y of 00:00: (two) [place] 00 times Medical daily with Branch meals. celecoxib 2021-0 Yes TAKE 1 Univer s 200 mg 7-14 CAPSULE BY ity of capsule 00:00: MOUTH ONCE [place] 00 DAILY Medical NEEDED Branch glimepiride Yes 2mg Take 2 mg U nivers 2 mg tablet 7-14 by mouth 2 it y of 00:00: (two) [place] 00 times Medical daily with Branch meals. aspirin 81 Yes [id number] 81mg Take 1 Univers mg EC 7-20 tablet by ity of tablet 00:00: mouth [place] 00 daily. Medical Branch atorvastati Yes [id number] 40mg Take 1 Univers n 40 mg 7-20 tablet by ity of tablet 00:00: mouth [place] 00 daily. Medical Branch aspirin 81 Yes [id number] 81mg Take 1 Univers mg EC 7-20 tablet by ity of tablet 00:00: mouth [place] 00 daily. Medical Branch atorvastati Yes [id number] 40mg Take 1 Univers n 40 mg 7-20 tablet by ity of tablet 00:00: mouth [place] 00 daily. Medical Branch aspirin 81 2021- No [id number] 81mg Take 1 Univers mg EC 7-20 07-08 tablet by ity of tablet 00:00: 00:00 mouth [place] 00 :00 daily. Medical Branch atorvastati 2021- No [id number] 40mg Take 1 Univers n 40 mg 7-20 07-08 tablet by ity of tablet 00:00: 00:00 mouth [place] 00 :00 daily. Medical Branch aspirin 81 2021- No [id number] 81mg Take 1 Univers mg EC 7-20 07-08 tablet by ity of tablet 00:00: 00:00 mouth [place] 00 :00 daily. Medical Branch atorvastati 2021- No [id number] 40mg Take 1 Univers n 40 mg 7-20 07-08 tablet by ity of tablet 00:00: 00:00 mouth [place] 00 :00 daily. Medical Branch Vital Signs Vital Name Observation Time Observation Value Comments Source Systolic blood 2021-09-18 17:06:00 119 mm[Hg] Univer sity of pressure [facility] Diastolic blood 2021-09-18 17:06:00 60 mm[Hg] Unive rsity of pressure [facility] Heart rate 2021-09-18 17:06:00 61 /min [facility] [place] [facility] Body temperature 2021-09-18 17:06:00 35.78 Meghan Univ ers[facility] [place] [facility] Respiratory rate 2021-09-18 17:06:00 18 /min [facility] ers[facility] [place] [facility] Oxygen saturation in 2021-09-18 17:06:00 98 /min University of Arterial blood by [place] SpecifiedBy ani Pulse oximetry Branch Body weight 2021-09-17 10:19:00 65 kg [facility] [place] [facility] BMI 2021-09-17 10:19:00 25.38 kg/m2 [facility] [place] [facility] Body height 2021-09-15 08:00:00 160 cm [facility] [place] [facility] Systolic blood 2021-09-16 15:39:06 115 mm[Hg] Univer sity of pressure [place] [facility] Diastolic blood 2021-09-16 15:39:06 67 mm[Hg] Unive rsity of pressure [place] [facility] Respiratory rate 2021-09-16 15:39:06 19 /min Univ ers[facility] [place] [facility] Oxygen saturation in 2021-09-16 15:39:06 97 /min University of Arterial blood by [place] SpecifiedBy ani Pulse oximetry Branch Heart rate 2021-09-16 09:15:00 79 /min [facility] [place] [facility] Body temperature 2021-09-16 09:15:00 36.94 Meghan Univ ers[facility] [place] [facility] Body height 2021-09-15 08:00:00 160 cm [facility] [place] [facility] Systolic blood 2021-09-14 11:00:00 110 mm[Hg] Univer sity of pressure [place] [facility] Diastolic blood 2021-09-14 11:00:00 65 mm[Hg] Unive rsity of pressure [place] [facility] Heart rate 2021-09-14 11:00:00 86 /min [facility] [place] [facility] Respiratory rate 2021-09-14 11:00:00 19 /min Univ ers[facility] [place] [facility] Oxygen saturation in 2021-09-14 11:00:00 98 /min University of Arterial blood by [place] SpecifiedBy ani Pulse oximetry Branch Body temperature 2021-09-14 07:58:00 37.33 Meghan Univ ersity [facility] [place] [facility] Body height 2021-09-14 06:38:00 172.7 cm Universi ty of [facility] Body weight 2021-09-14 06:38:00 66.679 kg Universi ty of [facility] BMI 2021-09-14 06:38:00 22.35 kg/m2 Universi ty of [facility] Systolic blood 2021-01-15 13:55:00 170 mm[Hg] Univer sity of pressure [facility] Diastolic blood 2021-01-15 13:55:00 65 mm[Hg] Unive rsity of pressure [facility] Heart rate 2021-01-15 13:55:00 78 /min Universi ty [facility] [place] [facility] Respiratory rate 2021-01-15 13:55:00 20 /min Univ ersity [facility] [place] [facility] Body height 2021-01-15 13:55:00 157.5 cm Universi ty [facility] [place] [facility] Body weight 2021-01-15 13:55:00 72.167 kg Universi ty [facility] [place] [facility] BMI 2021-01-15 13:55:00 29.10 kg/m2 Universi ty [facility] [place] [facility] Oxygen saturation in 2021-01-15 13:55:00 98 /min [facility] Arterial blood by [facility] [place] [facility] Pulse oximetry Branch Procedures Procedure Date / Time Performing Clinician Source Performed REFERRAL- REQUEST/RESPONSE 2021-10-14 05:01:00 Doctor Unassigned , [facility] Name [facility] EXTERNAL PROVIDER RECORDS 2021-10-01 05:01:00 Doctor Unassigned, [facility] Name [facility] EXTERNAL PROVIDER RECORDS 2021-09-23 05:01:00 Doctor Unassigned, [facility] Name [facility] POCT GLUCOSE (AUTOMATED) 2021-09-18 19:00:00 Anais Chandler [facility] POCT GLUCOSE (AUTOMATED) 2021-09-18 19:00:00 Anais Chandler [facility] POCT GLUCOSE (AUTOMATED) 2021-09-18 13:30:00 Tawanna Uni [facility] POCT GLUCOSE (AUTOMATED) 2021-09-18 13:30:00 Anais Chandler [facility] MAGNESIUM 2021-09-18 10:03:[address] [facility] BASIC METABOLIC PANEL (NA, 2021-09-18 10:03:00 Mykel [facility] K, CL, CO2, GLUCOSE, BUN, Medica l Branch CREATININE, [place]) MAGNESIUM 2021-09-18 10:03:[address] [facility] BASIC METABOLIC PANEL (NA, 2021-09-18 10:03:00 Mykel [facility] K, CL, CO2, GLUCOSE, BUN, Medica l Branch CREATININE, CA) POCT GLUCOSE (AUTOMATED) 2021-09-18 01:03:00 Zacknthan, [facility] POCT GLUCOSE (AUTOMATED) 2021-09-18 01:03:00 Zacknthan, [facility] POCT GLUCOSE (AUTOMATED) 2021-09-17 23:15:00 Zacknthan, [facility] POCT GLUCOSE (AUTOMATED) 2021-09-17 23:15:00 Zacknthan, [facility] MAGNESIUM 2021-09-17 21:45:[address] [facility] BASIC METABOLIC PANEL (NA, 2021-09-17 21:45:00 Mykel [facility] K, CL, CO2, GLUCOSE, BUN, Medica l Branch CREATININE, CA) MAGNESIUM 2021-09-17 21:45:[address] [facility] BASIC METABOLIC PANEL (NA, 2021-09-17 21:45:00 Mykel [facility] K, CL, CO2, GLUCOSE, BUN, Medica l Branch CREATININE, CA) POCT GLUCOSE (AUTOMATED) 2021-09-17 18:14:00 Zacknthan, [facility] POCT GLUCOSE (AUTOMATED) 2021-09-17 18:14:00 Srikanthan, [facility] POCT GLUCOSE (AUTOMATED) 2021-09-17 14:32:00 Sribangnthan, [facility] POCT GLUCOSE (AUTOMATED) 2021-09-17 14:32:00 Tawanna Uni [facility] MAGNESIUM 2021-09-17 10:05:00 Saravanan [facility] BASIC METABOLIC PANEL (NA, 2021-09-17 10:05:00 Saravanan [facility] K, CL, CO2, GLUCOSE, BUN, Medica l Branch CREATININE, CA) CBC WITH DIFF 2021-09-17 10:05:00 Saravanan [facility] MAGNESIUM 2021-09-17 10:05:00 Saravanan [facility] BASIC METABOLIC PANEL (NA, 2021-09-17 10:05:00 Saravanan [facility] K, CL, CO2, GLUCOSE, BUN, Medica l Branch CREATININE, CA) CBC WITH DIFF 2021-09-17 10:05:00 Saravanan [facility] POCT GLUCOSE (AUTOMATED) 2021-09-17 01:49:00 Tawanna [facility] POCT GLUCOSE (AUTOMATED) 2021-09-17 01:49:00 Tawanna [facility] POCT GLUCOSE (AUTOMATED) 2021-09-16 23:01:00 Tawanna [facility] POCT GLUCOSE (AUTOMATED) 2021-09-16 23:01:00 Tawanna [facility] CARDIAC CATHETERIZATION 2021-09-16 15:26:17 Cong [facility] CARDIAC CATHETERIZATION 2021-09-16 15:26:17 Cong [facility] CARDIAC CATHETERIZATION 2021-09-16 15:26:17 Cong [facility] CARDIAC CATHETERIZATION 2021-09-16 15:26:17 Cong [facility] CARDIAC CATHETERIZATION 2021-09-16 15:26:17 Cong [facility] CARDIAC CATHETERIZATION 2021-09-16 15:26:17 Chelsea [facility]ad [facility] CARDIAC CATHETERIZATION 2021-09-16 15:26[facility]17 [facility] 2021-09-16 15:26:[address] [facility] POCT ACT LOW RANGE 2021-09-16 15:14:00 [facility] POCT ACT LOW RANGE 2021-09-16 15:14:00 [facility] POCT ACT LOW RANGE 2021-09-16 14:42:00 [facility] POCT ACT LOW RANGE 2021-09-16 14:42:00 [facility] CATH PROCEDURE LOG 2021-09-16 13:49:09 [facility] 2021-09-16 13:49:09 [facility] [place] [facility] TROPONIN I 2021-09-16 08:42:00 Saravanan [facility] TROPONIN I 2021-09-16 08:42:00 Saravanan [facility] PHOSPHORUS 2021-09-16 05:15:00 Saravanan [facility] MAGNESIUM 2021-09-16 05:15:00 Saravanan [facility] BASIC METABOLIC PANEL (NA, 2021-09-16 05:15:00 Chilango [facility] K, CL, CO2, GLUCOSE, BUN, Medica l Branch CREATININE, CA) CBC WITH DIFF 2021-09-16 05:15:00 Saravanan [facility] PROTHROMBIN TIME / INR 2021-09-16 05:15:00 Saravanan [facility] ACTIVATED PARTIAL THRMPLAS 2021-09-16 05:15:00 Stanley Pearson [facility] PHOSPHORUS 2021-09-16 05:15:00 Saravanan [facility] MAGNESIUM 2021-09-16 05:15:00 Saravanan [facility] BASIC METABOLIC PANEL (NA, 2021-09-16 05:15:00 Chilango [facility] K, CL, CO2, GLUCOSE, BUN, Medica l Branch CREATININE, CA) CBC WITH DIFF 2021-09-16 05:15:00 Saravanan [facility] PROTHROMBIN TIME / INR 2021-09-16 05:15:00 [facility] ACTIVATED PARTIAL THRMPLAS 2021-09-16 05:15:00 Stanley Pearson [facility] HB ECG ROUTINE & RHYTHM 2021-09-16 04:05:[address] [facility] HB ECG ROUTINE & RHYTHM 2021-09-16 04:05:[address] [facility] POCT GLUCOSE (AUTOMATED) 2021-09-16 02:56:00 Leanna Messer [facility] POCT GLUCOSE (AUTOMATED) 2021-09-16 02:56:00 Leanna Messer [facility] TROPONIN I 2021-09-16 02:36:00 Saravanan [facility] TROPONIN I 2021-09-16 02:36:00 Saravanan [facility] FECAL PATHOGENS BY PCR 2021-09-16 01:59[facility] FECAL PATHOGENS BY PCR 2021-09-16 01:59:00 Tawanna [facility] POCT GLUCOSE (AUTOMATED) 2021-09-15 23:23:00 Leanna Messer [facility] POCT GLUCOSE (AUTOMATED) 2021-09-15 23:23:00 Leanna Messer [facility] TRANSTHORACIC ECHO (TTE) 2021-09-15 20:54:00 Urban Rubalcava [facility] W/ CONTRAST Medical [facility] TRANSTHORACIC ECHO (TTE) 2021-09-15 20:54:00 RubalcavaUrban marques Uni [facility] W/ CONTRAST Medical [facility] TROPONIN I 2021-09-15 20:30:00 Sulemankhil, [facility] TROPONIN I 2021-09-15 20:30:00 Carm[facility]il[facility] HB ECG ROUTINE & RHYTHM 2021-09-15 17:45:50 Anil Coe [facility] [place] HB ECG ROUTINE & RHYTHM 2021-09-15 17:45:50 Anil Coe [facility] [place] CLOSTRIDIUM DIFFICILE 2021-09-15 17:42:00 Anil Coe [facility] CLOSTRIDIUM DIFFICILE 2021-09-15 17:42:00 Anil Coe [facility] POCT GLUCOSE (AUTOMATED) 2021-09-15 17:34:00 Leanna Messer [facility] POCT GLUCOSE (AUTOMATED) 2021-09-15 17:34:00 Leanna Messer [facility] TROPONIN I 2021-09-15 16:29:00 [facility] [place] [facility] ACTIVATED PARTIAL THRMPLAS 2021-09-15 16:29:00 Stanley Pearson [facility] TROPONIN I 2021-09-15 16:29:00 [facility] ACTIVATED PARTIAL THRMPLAS 2021-09-15 16:29:00 Stanley Pearson [facility] POCT GLUCOSE (AUTOMATED) 2021-09-15 14:22:00 Leanna Messer [facility] POCT GLUCOSE (AUTOMATED) 2021-09-15 14:22:00 Leanna Messer [facility] HB ECG ROUTINE & RHYTHM 2021-09-15 13:36:[address] [facility] HB ECG ROUTINE & RHYTHM 2021-09-15 13:36:[address] [facility] XR KUB 2021-09-15 10:32:00 Michel [facility] XR KUB 2021-09-15 10:32:00 Michel [facility] LACTIC ACID WHOLE BLOOD 2021-09-15 09:06:00 Stanley Pearson [facility] LACTIC ACID WHOLE BLOOD 2021-09-15 09:06:00 Stanley Pearson [facility] BLOOD CULTURE SCREEN 2021-09-15 09:03:00 Stanley Pearson [facility] BLOOD CULTURE SCREEN 2021-09-15 09:03:00 Stanley Pearson [facility] BLOOD CULTURE SCREEN 2021-09-15 09:01:00 Stanley Pearson [facility] LIPASE 2021-09-15 09:01:00 Michel [facility] MAGNESIUM 2021-09-15 09:01:00 Michel [facility] C-REACTIVE PROTEIN 2021-09-15 09:01:00 Michel [facility] TROPONIN I 2021-09-15 09:01:00 Michel [facility] THYROID STIMULATING 2021-09-15 09:01:00 Stanley [facility] HORMONE [facility] HEPATIC FUNCTION PANEL 2021-09-15 09:01:00 Stanley Pearson [facility] ([id number]) (ALB,T.PRO,BILI Medical [place] T,BU/BC,ALT,AST,ALK PHOS) BASIC METABOLIC PANEL (NA, 2021-09-15 09:01:00 Stanley Pearson [facility] K, CL, CO2, GLUCOSE, BUN, Medica l Branch CREATININE, CA) SEDIMENTATION RATE 2021-09-15 09:01:00 Stanley Pearson [facility] CBC WITH DIFF 2021-09-15 09:01:00 Stanley Pearson [facility] GLYCOSYLATED HEMOGLOBIN 2021-09-15 09:01:00 Stanley Pearson [facility] (A1C) [facility] PROTHROMBIN TIME / INR 2021-09-15 09:01:00 Stanley Pearson [facility] ACTIVATED PARTIAL THRMPLAS 2021-09-15 09:01:00 Stanley Pearson [facility] RACHELL [facility] BLOOD CULTURE SCREEN 2021-09-15 09:01:00 Stanley Pearson [facility] LIPASE 2021-09-15 09:01:00 Michel [facility] MAGNESIUM 2021-09-15 09:01:00 Stanley Pearson [facility] C-REACTIVE PROTEIN 2021-09-15 09:01:00 Stanley Pearson [facility] TROPONIN I 2021-09-15 09:01:00 Stanley Pearson [facility] THYROID STIMULATING 2021-09-15 09:01:00 Stanley Pearson [facility] HORMONE [facility] HEPATIC FUNCTION PANEL 2021-09-15 09:01:00 Stanley Pearson [facility] ([id number]) (ALB,T.PRO,BILI Medical Branch T,BU/BC,ALT,AST,ALK PHOS) BASIC METABOLIC PANEL (NA, 2021-09-15 09:01:00 Stanley Pearson [facility] K, CL, CO2, GLUCOSE, BUN, Medica l Branch CREATININE, CA) SEDIMENTATION RATE 2021-09-15 09:01:00 Stanley Pearson [facility] CBC WITH DIFF 2021-09-15 09:01:00 Stanley Pearson [facility] GLYCOSYLATED HEMOGLOBIN 2021-09-15 09:01:00 Stanley Pearson [facility] (A1C) [facility] PROTHROMBIN TIME / INR 2021-09-15 09:01:00 Stanley Pearson [facility] ACTIVATED PARTIAL THRMPLAS 2021-09-15 09:01:00 Stanley Pearson [facility] HB ECG ROUTINE & RHYTHM 2021-09-15 08:48:[address] [facility] HB ECG ROUTINE & RHYTHM 2021-09-15 08:48:[address] [facility] LACTIC ACID WHOLE BLOOD 2021-09-15 05:36:00 Leanna Messer [facility] LACTIC ACID WHOLE BLOOD 2021-09-15 05:36:00 Leanna Messer [facility] RAPID INFLUENZA A/B 2021-09-15 01:44:00 [facility] RAPID INFLUENZA A/B 2021-09-15 01:44:00 [facility] LACTIC ACID WHOLE BLOOD 2021-09-15 01:41:00 Leanna Messer [facility] LACTIC ACID WHOLE BLOOD 2021-09-15 01:41:00 Leanna Messer [facility] TROPONIN I 2021-09-15 01:40:00 Leanna Messer [facility] COMP. METABOLIC PANEL 2021-09-15 01:40:00 Leanna Messer [facility] ([id number]) Medical Branch LIPID PANEL (13587)(TOTAL 2021-09-15 01:40:00 Stanley Pearson [facility] CHOLESTEROL, Medical Branch TRIGLYCERIDES, HDL) SALICYLATE 2021-09-15 01:40:00 [facility] 2021-09-15 01:40:00 Leanna Messer [facility] COMP. METABOLIC PANEL 2021-09-15 01:40:00 Leanna Messer [facility] ([id number]) Medical Branch LIPID PANEL (38039)(TOTAL 2021-09-15 01:40:00 Stanley Pearson [facility] CHOLESTEROL, Medical Branch TRIGLYCERIDES, HDL) SALICYLATE 2021-09-15 01:40:00 [facility] ROUTINE & RHYTHM 2021-09-15 01:36:49 Anil Coe [facility] [place] HB ECG ROUTINE & RHYTHM 2021-09-15 01:36:49 Anil Coe [facility] [place] CONSENT/REFUSAL FOR 2021-09-15 01:03:02 Doctor Unassigned, [facility] DIAGNOSIS AND TREATMENT [place] [facility] [place] CONSENT/REFUSAL FOR 2021-09-15 01:03:02 Doctor Unassigned, [facility] DIAGNOSIS AND TREATMENT [place] [facility] [place] LACTIC ACID WHOLE BLOOD 2021-09-14 11:56:00 Leanna Messer [facility] LACTIC ACID WHOLE BLOOD 2021-09-14 09:28:00 Leanna Messer [facility] CT ABDOMEN PELVIS W 2021-09-14 07:54:43 Leanna Messer [facility] XR CHEST 1 VW 2021-09-14 07:48:23 Leanna Messer [facility] TROPONIN I 2021-09-14 06:58:00 Leanna Messer [facility] COMP. METABOLIC PANEL 2021-09-14 06:58:00 Leanna Messer [facility] ([id number]) [facility] CBC WITH DIFF 2021-09-14 06:58:00 Leanna Messer [facility] URINALYSIS 2021-09-14 06:58:00 Leanna Messer [facility] COVID-19 (ID NOW RAPID 2021-09-14 06:58:00 [facility] LACTIC ACID WHOLE BLOOD 2021-09-14 06:57:00 [facility]REFUSAL FOR 2021-09-14 06:28:41 Doctor Unassigned, [facility] DIAGNOSIS AND TREATMENT [place] [facility] [id number] 2021-06-11 00:00:00 [facility] [id number] 2021-06-11 00:00:00 [facility] [id number] 2021-06-11 00:00[facility] [id number] 2021-06-11 00:00:00 [facility] [id number] 2021-06-11 00:00:00 KRO [facility] [id number] 2021-06-11 00:00:00 MCKRO [facility] [id number] 2021-06-11 00:00:00 KRO [facility] [id number] 2021-06-11 00:00:00 KRO [facility] [id number] 2021-06-11 00:00:00 [facility] [id number] 2021-06-11 00:00:00 [facility] [id number] 2021-06-11 00:00:00 SHASA.06 [facility] [id number] 2021-06-11 00:00:00 SHASA.06 [facility] Encounters Start End Encounter Admission Attending Care Care Encounter Source Date/Time Date/Time Type Type Clinicians Facility Department ID 2021-01-29 Outpatient SUSIE [facility] SOR [id number] Univers 16:44:26 REYES [facility] 2021-01-13 Outpatient Desean ARMAS [facility] DALY [id number] Univers 02:18:45 CANDACE [facility] 2022-07-17 2022-07-17 Outpatient DMG DM [id number] Devoted 00:00:00 00:00:00 [id number] [facility] 2022-07-17 2022-07-17 Outpatient DMG DMG [id number] [facility]oted 00:00:00 00:00:00 [id number] Medica l Group 2021-12-29 2021-12-29 Outpatient DMG DMG [id number] [facility] 00:00:00 00:00:00 [id number] Medica l Group 2021-10-23 2021-10-23 Patient Doctor [facility] 1.2.840.114 [id number] Univers 00:00:00 00:00:00 Secure Msg Unassigned, HEALTH 350.1.13.10 [place] of [place] ORR 4.2.7.2.686 Jerry as LENORE?BLEA [phone] [address] MEDICAL OFFICE BUILDING 2021-10-14 2021-10-14 Orders Doctor SG 1.2.840.114 [id number] Univers 00:00:00 00:00:00 Only Unassigned, NAHEED 350.1.13.10 it[place] [facility] [place] [facility] 4.2.7.2.686 Jerry as [phone] [address] 2021-10-01 2021-10-01 Orders Doctor SG 1.2.840.114 [id number] Univers 00:00:00 00:00:00 Only Unassigned, NAHEED 350.1.13.10 ity of [place] [facility] 4.2.7.2.686 Jerry as [phone] [address] 2021-09-23 2021-09-23 Orders Doctor SG 1.2.840.114 [id number] Univers 00:00:00 00:00:00 Only Unassigned, NAHEED 350.1.13.10 ity of [place] [facility] 4.2.7.2.686 Jerry as [phone] [facility] 009 Branch 2021-09-21 2021-09-21 Transition JUN Rodriguez 1.2.840.114 [id number] Univers 00:00:00 00:00:00 of Care Kemal MARQUEZ 350.1.13.10 ity of [place] [phone] [facility] 403 Branch 2021-09-14 2021-09-18 Hospital Leanna Messer 1.2.84 0.114 [id number] Univers 20:29:00 17:15:00 Encounter Juvencio Love 350.1.13. 10 ity of [facility] 4.2.7.2.[address] [place] [address] [id number] [facility] 089 Branch 2021-09-16 2021-09-16 Surgery SHALOM Lopez 1.2.007.952 [id number] Univers 08:40:00 10:40:00 Afaq NAHEED 350.1.13.10 [facility] 4.2.7.2.686 Jerry as [phone] [facility] 840 Branch 2021-09-14 2021-09-14 [facility] [id number] Univers 01:31:00 07:15:00 LEANNA ity [facility] 2021-09-14 2021-09-14 Emergency Ayde [facility] 1.2.840.114 [id number] Univers 01:31:00 07:15:00 Leanna CANO 350.1.13.10 it[place] [phone] [facility] 084 Branch 2021-09-14 2021-09-14 Emergency [facility] [id number] Univers 01:31:00 07:15:00 LEANNA ity of [facility] 2021-06-11 2021-06-17 Inpatient NOAM RojoWU INTE [id number] [facility] 11:58:00 11:50:00 Jillian 43 [facility] 2021-06-06 2021-06-06 Outpatient NOAM BecerraWU SURG [id number] [facility] 04:31:00 04:31:00 Salirandal 67 [facility] 2021-01-19 2021-01-19 Prep For [facility] 1.2.840.114 [id number] Univers 00:00:00 00:00:00 Surgery Reyes Chaney HEALTH 350.1.13.10 it y of [place] 4.2.7.2.686 Jerry as LENORE?BLEA [phone] La christian SKINNER [address] [place] MEDICAL OFFICE BUILDING 2021-01-19 2021-01-19 Orders Doctor SG 1.2.840.114 [id number] Univers 00:00:00 00:00:00 Only Unassigned, NAHEED 350.1.13.10 it[place] [facility] 4.2.7.2.686 Jerry as [phone] [address] 2021-01-15 2021-01-15 Hospital [facility] 1.2.840.114 [id number] Univers 08:56:03 23:59:00 Encounter Reyes Chaney HEALTH 350.1.13.10 ity of [place] 4.2.7.2.686 Jerry as LENORE?BLEA [phone] La christian WEEKS [address] [place] MEDICAL OFFICE BUILDING 2021-01-15 2021-01-15 [facility] [id number] Univers 09:30:00 09:16:48 REYES dutcharben [facility] 2021-01-15 2021-01-15 [facility] [id number] Univers 09:30:00 09:16:48 REYESFELIBERTO levine [facility] 2021-01-15 2021-01-15 Office [facility] [id number] [id number] Univers 08:46:00 09:16:48 Visit Reyes Chaney HEALTH 350.1.13.10 it y of [place] 4.2.7.2.686 Jerry as LENORE?BLEA [phone] La dical KNEY [address] [place] MEDICAL OFFICE BUILDING 2021-01-12 2021-01-12 [facility] [id number] Univers 10:12:52 23:59:00 CANDACE levine [facility] 2021-01-12 2021-01-12 [facility] 1.2.840.114 [id number] Univers 10:00:00 23:59:00 Encounter Candace BUSTAMANTEANY 350.1.13.10 ity of [place] C[place] [phone] [facility] [address] [place] 2021-01-10 2021-01-10 Patient Doctor SG 1.2.840.114 [id number] Univers 00:00:00 00:00:00 Secure Msg Unassigned, NAHEED 350.1.13.10 ity of [place] [facility] 4.2.7.2.686 Jerry as [phone] [facility] 019 [place] 2021-01-06 2021-01-06 Office [facility] 1.2.991.182 [id number] Univers 15:36:33 16:29:25 Visit Candace Bustamanteton 350.1.13.10 i ty [place] Profess[place] [phone] La christian nal 188 Branch [facility] 2021-01-06 2021-01-06 [facility] [id number] Univers 16:00:00 16:00:00 CANDACE levine [facility] 2020-12-23 2020-12-23 [facility] 1.2.840.114 [id number] Univers 06:43:00 10:05:00 Encounter Candace Bustamanteton 350.1.13.10 it[place] of [place] Surgical [phone] [facility] [address] [place] 2020-12-23 2020-12-23 Surgery [facility] [id number] Univers 07:30:00 08:25:00 Candace Cano 350.1.13.10 i ty [place] [phone] [facility] 020 Branch 2020-12-22 2020-12-22 Laboratory Only, Adc Test [facility] 1.2.840. 114 [id number] Univers 10:28:09 10:43:09 Only Jose oMta 350.1.13.10 ity of [place] [phone] [facility] [address] [place] 2020-12-22 2020-12-22 Outpatient R NAKUL [facility] [id number] Univers 10:00:00 10:00:00 JOSE levine [facility] 2020-12-19 2020-12-19 Laboratory Only, Adc Test [facility] 1.2.840. 114 [id number] Univers 09:09:28 09:24:28 Only Candace Armas 350.1.13.10 ity of [place] [phone] [facility] [address] [place] 2020-12-19 2020-12-19 Outpatient R PAWEL [facility] [id number] Univers 09:00:00 09:00:00 CANDACE levine [facility] 2020-12-19 2020-12-19 Orders Doctor SG 1.2.840.114 [id number] Univers 00:00:00 00:00:00 Only Unassigned, NAHEED 350.1.13.10 ity of [place] [facility] 4.2.7.2.686 Jerry as [phone] [facility] 009 Branch 2020-10-23 2020-10-23 Prep For Johnathon, [facility] 1.2.840.114 [id number] Univers 00:00:00 00:00:00 Surgery Yandy Cano 350.1.13.10 [place] of [place] [phone] La dicvalor health 204 [facility] 2020-10-22 2020-10-22 Office Steven, [facility] 1.2.840.114 [id number] Univers 10:57:14 11:22:47 Visit Jamisirena Cano 350.1.13.10 ity of [place] [phone] La dical nal 059 [facility] 2020-10-22 2020-10-22 Outpatient R STEVEN [facility] [id number] Univers 11:20:00 11:20:00 EVA juddy o f [facility] 2020-10-21 2020-10-21 [facility] [id number] [id number] [facility] 13:45:48 15:46:29 Visit Candace Cano 350.1.13.10 i ty of [place] [phone] La dical nal 188 [facility] 2020-10-21 2020-10-21 [facility] [id number] Univers 14:00:00 14:00:00 CANDACE levine [facility] 2020-10-21 2020-10-21 Orders Doctor SG 1.2.840.114 [id number] Univers 00:00:00 00:00:00 Only Unassigned, NAHEED 350.1.13.10 ity of [place] [facility] 4.2.7.2.686 Jerry as [phone] [facility] [address] [place] 2020-05-19 2020-05-19 Patient James [facility] 1.2.840.114 [id number] Univers 00:00:00 00:00:00 Outreach Sukhdev PRIMARY 350.1.13.10 i ty of [facility] 4.2.7.2.[place] [phone] La dical 388 Branch 2019-10-31 2019-10-31 Letter SG Gonzales 1.2.840.114 [id number] Univers 00:00:00 00:00:00 (Out) Jennifer FARFAN 350.1.13.10 [facility] 4.2.7.2.686 Jerry as [phone] [facility] [address] [place] 2019-10-30 2019-10-30 Laboratory Lab, Adc Fam Pob I [facility] 1.2. 840.114 [id number] Univers 09:16:13 09:36:13 Only Janet [facility] 350.1.13.10 ity of [place] 4.2.7.2.686 Jerry as Professio [phone] La dicny nal [address] [place] Office [facility] 2019-10-30 2019-10-30 Outpatient R [facility] [id number] Univers 09:20:00 09:20:00 ity of [facility] 2019-10-30 2019-10-30 Letter Doctor SG 1.2.840.114 [id number] Univers 00:00:00 00:00:00 (Out) Unassigned, NAHEED 350.1.13.10 [facility] 4.2.7.2.686 Jerry as [phone] [address] 2019-10-02 2019-10-05 Software Writer Pc, Adc Vascular Room 1 [facility] 1.2.840.114 [id number] Univers 13:03:11 13:58:39 Visit Rachel Rubalcava 350.1.13. 10 ity of [place] [phone] La dical nal 059 [facility] 2019-10-02 2019-10-02 Laboratory Pc, Adc Echo Room 1 - [facility] 1 .2.840.114 [id number] Univers 13:00:13 13:51:47 Only Rachel Rubalcava 350.1.13. 10 it[place] of [place] [phone] La dical nal 059 [facility] 2019-10-02 2019-10-02 Outpatient R [facility] [id number] Univers 13:00:00 13:00:00 ity of [facility] 2019-09-10 2019-10-01 Office Steven, [facility] 1.2.840.114 [id number] Univers 09:39:07 15:14:38 Visit Eva Cano 350.1.13.10 it[place] of [place] [phone] La dical nal 059 [facility] 2019-09-27 2019-09-27 Outpatient [facility] [id number] Univers 09:30:00 09:30:00 QIANGJUN ity o f [facility] 2019-09-27 2019-09-27 [facility] 1.2.840.114 [id number] Univers 08:54:00 08:58:00 Encounter Eva [place] 350.1.13.10 ity of [place] [phone] [address] 2019-09-27 2019-09-27 [facility] 1.2.840.114 [id number] Univers 08:52:00 08:53:00 Encounter Qiangjun [place] 350.1.13.10 ity of [place].2.[place] [phone] [address] 2019-09-27 2019-09-27 [facility] 1.2.840.114 [id number] Univers 08:51:00 08:51:00 Encounter Qiangjun [place] 350.1.13.10 ity of [place]2.[place].2.[place] [phone] [address] 2019-09-27 2019-09-27 [facility] 1.2.840.114 [id number] Univers 08:50:00 08:50:00 Encounter Qiangluis daniel [place] 350.1.13.10 ity of [place]2.[place].2.[place] [phone] [address] 2019-09-10 2019-09-10 Outpatient R [facility] [id number] Univers 10:40:00 10:40:00 QIAARNELJUN ity o f [facility] 2019-08-20 2019-08-20 Orders Doctor SG 1.2.840.114 [id number] Univers 00:00:00 00:00:00 Only Unassigned, NAHEED 350.1.13.10 it[place] of [place] [facility] 4.2.7.2.686 Jerry as [phone] [place] [address] Branch Results Test Description Test Time Test Comments Results Result Comments Source POCT GLUCOSE (AUTOMATED) 2021-09-18 19:20:02 Test Item Value Reference Range Interpretation Comme nts POCT GLU (test code = 5892006352) 201 mg/dL 70-110 H Lab Interpretation (test code = 93677-3) Abnormal [facility] GLUCOSE (AUTOMATED)2021-09-18 19:20:02 Test Item Value Reference Range Interpretation Comments POCT GLU (test code = 8016617557) 201 mg/dL 70-110 H Lab Interpretation (test code = Abnormal 31648-7) [facility] GLUCOSE (AUTOMATED)2021-09-18 13:30:51 Test Item Value Reference Range Interpretation Comments POCT GLU (test code = 4171586830) 156 mg/dL 70-110 H Lab Interpretation (test code = Abnormal 49756-0) [facility] GLUCOSE (AUTOMATED)2021-09-18 13:30:51 Test Item Value Reference Range Interpretation Comments POCT GLU (test code = 9054363504) 156 mg/dL 70-110 H Lab Interpretation (test code = Abnormal 84033-7) [facility] METABOLIC PANEL (NA, K, CL, CO2, GLUCOSE, BUN, CREATININE, CA)2021-09-18 11:12:49 Test Item Value Reference Range Interpretation Comments NA (test code = 138 mmol/L 135-145 8984259780) K (test code = 3.5 mmol/L 3.5-5.0 9654937092) CL (test code = 109 mmol/L 98-108 H 7787354395) CO2 TOTAL (test code = 20 mmol/L 23-31 L 6009696187) AGAP (test code = 2-16 9133865228) BUN (test code = 7 mg/dL 7-23 2180881408) GLUCOSE (test code = 133 mg/dL 70-110 H 1749400630) CREATININE (test code = 0.52 mg/dL 0.60-1.25 L 7943128351) CALCIUM (test code = 8.3 mg/dL 8.6-10.6 L 8536863459) eGFR (test code = mL/min/1.73m2 9005109147) ANGELA (test code = ANGELA) Association of Glomerular Filtration Rate (GFR) and Staging of Kidney Disease* + --+ --+ ------+| GFR (mL/min/1.73 m2) ?| With Kidney Damage ?| ?Without Kidney Damage+ --------+ --------+ +| ?>90 ?| ?Stage one ?| ? Normal ?+ ---+ ---+ -------+| ?60-89 ?| ?Stage two ?| ? Decreased GFR ? + --+ --+ ------+| ?30-59 ?| ?Stage three ?| ? Stage three ? + --+ --+ ------+| ?15-29 ?| ?Stage four ? | ? Stage four ?+ ---+ ---+ -------+| ?<15 (or dialysis) ? ?| ?Stage five ? | ? Stage five ?+ ---+ ---+ -------+ *Each stage assumes the associated GFR level has been in effect for at least three months. ?Stages 1 to 5, with or without kidney disease, indicate chronic kidney disease. Notes: Determination of stages one and two (with eGFR >59mL/min/1.73 m2) requires estimation of kidney damage for at least three months as defined by structural or functional abnormalities of the kidney, manifested by either:Pathological abnormalities or Markers of kidney damage (including abnormalities in the composition of the blood or urine or abnormalities in imaging tests). Lab Interpretation Abnormal (test code = 45838-2) [facility] 11:12:49 Test Item Value Reference Range Interpretation Comments MAGNESIUM (test code = 9262397144) 1.8 mg/dL 1.7-2.4 Lab Interpretation (test code = Normal 43367-5) [facility] (NA, K, CL, CO2, GLUCOSE, BUN, CREATININE, CA)2021-09-18 11:12:49 Test Item Value Reference Range Interpretation Comments NA (test code = 138 mmol/L 135-145 5221989496) K (test code = 3.5 mmol/L 3.5-5.0 8913849798) CL (test code = 109 mmol/L 98-108 H 3229011389) CO2 TOTAL (test code = 20 mmol/L 23-31 L 0092824206) AGAP (test code = 2-16 2613569217) BUN (test code = 7 mg/dL 7-23 8254303568) GLUCOSE (test code = 133 mg/dL 70-110 H 4478602598) CREATININE (test code = 0.52 mg/dL 0.60-1.25 L 5245699777) CALCIUM (test code = 8.3 mg/dL 8.6-10.6 L 4824230498) eGFR (test code = mL/min/1.73m2 3850036175) ANGELA (test code = ANGELA) Association of Glomerular Filtration Rate (GFR) and Staging of Kidney Disease* + --+ --+ ------+| GFR (mL/min/1.73 m2) ?| With Kidney Damage ?| ?Without Kidney Damage+ --------+ --------+ +| ?>90 ?| ?Stage one ?| ? Normal ?+ ---+ ---+ -------+| ?60-89 ?| ?Stage two ?| ? Decreased GFR ? + --+ --+ ------+| ?30-59 ?| ?Stage three ?| ? Stage three ? + --+ --+ ------+| ?15-29 ?| ?Stage four ? | ? Stage four ?+ ---+ ---+ -------+| ?<15 (or dialysis) ? ?| ?Stage five ? | ? Stage five ?+ ---+ ---+ -------+ *Each stage assumes the associated GFR level has been in effect for at least three months. ?Stages 1 to 5, with or without kidney disease, indicate chronic kidney disease. Notes: Determination of stages one and two (with eGFR >59mL/min/1.73 m2) requires estimation of kidney damage for at least three months as defined by structural or functional abnormalities of the kidney, manifested by either:Pathological abnormalities or Markers of kidney damage (including abnormalities in the composition of the blood or urine or abnormalities in imaging tests). Lab Interpretation Abnormal (test code = 88195-5) [facility] 11:12:49 Test Item Value Reference Range Interpretation Comments MAGNESIUM (test code = 7828427275) 1.8 mg/dL 1.7-2.4 Lab Interpretation (test code = Normal 96322-0) [facility]2021-09-18 01:03:42 Test Item Value Reference Range Interpretation Comments POCT GLU (test code = 2077806273) 275 mg/dL 70-110 H Lab Interpretation (test code = Abnormal 63299-5) [facility] GLUCOSE (AUTOMATED)2021-09-18 01:03:42 Test Item Value Reference Range Interpretation Comments POCT GLU (test code = 3499931036) 275 mg/dL 70-110 H Lab Interpretation (test code = Abnormal 69279-2) [facility] GLUCOSE (AUTOMATED)2021-09-17 23:17:19 Test Item Value Reference Range Interpretation Comments POCT GLU (test code = 1295821816) 179 mg/dL 70-110 H Lab Interpretation (test code = Abnormal 85299-8) [facility] GLUCOSE (AUTOMATED)2021-09-17 23:17:19 Test Item Value Reference Range Interpretation Comments POCT GLU (test code = 4072610871) 179 mg/dL 70-110 H Lab Interpretation (test code = Abnormal 04085-6) [facility] [facility] METABOLIC PANEL (NA, K, CL, CO2, GLUCOSE, BUN, CREATININE, CA)2021-09-17 22:42:54 Test Item Value Reference Range Interpretation Comments NA (test code = 135 mmol/L 135-145 9791086194) K (test code = 3.6 mmol/L 3.5-5.0 3439716506) CL (test code = 104 mmol/L 98-108 3140639757) CO2 TOTAL (test code = 22 mmol/L 23-31 L 8053616413) AGAP (test code = 2-16 1668901320) BUN (test code = 9 mg/dL 7-23 5549033432) GLUCOSE (test code = 203 mg/dL 70-110 H 5171093120) CREATININE (test code = 0.61 mg/dL 0.60-1.25 2617318526) CALCIUM (test code = 8.5 mg/dL 8.6-10.6 L 8882899482) eGFR (test code = mL/min/1.73m2 4640836501) ANGELA (test code = ANGELA) Association of Glomerular Filtration Rate (GFR) and Staging of Kidney Disease* + --+ --+ ------+| GFR (mL/min/1.73 m2) ?| With Kidney Damage ?| ?Without Kidney Damage+ --------+ --------+ +| ?>90 ?| ?Stage one ?| ? Normal ?+ ---+ ---+ -------+| ?60-89 ?| ?Stage two ?| ? Decreased GFR ? + --+ --+ ------+| ?30-59 ?| ?Stage three ?| ? Stage three ? + --+ --+ ------+| ?15-29 ?| ?Stage four ? | ? Stage four ?+ ---+ ---+ -------+| ?<15 (or dialysis) ? ?| ?Stage five ? | ? Stage five ?+ ---+ ---+ -------+ *Each stage assumes the associated GFR level has been in effect for at least three months. ?Stages 1 to 5, with or without kidney disease, indicate chronic kidney disease. Notes: Determination of stages one and two (with eGFR >59mL/min/1.73 m2) requires estimation of kidney damage for at least three months as defined by structural or functional abnormalities of the kidney, manifested by either:Pathological abnormalities or Markers of kidney damage (including abnormalities in the composition of the blood or urine or abnormalities in imaging tests). Lab Interpretation Abnormal (test code = 98647-0) [facility] Test Item Value Reference Range Interpretation Comments MAGNESIUM (test code = 5353869053) 2.2 mg/dL 1.7-2.4 Lab Interpretation (test code = Normal 00497-7) [facility] (NA, K, CL, CO2, GLUCOSE, BUN, CREATININE, CA)2021-09-17 22:42:54 Test Item Value Reference Range Interpretation Comments NA (test code = 135 mmol/L 135-145 2497975594) K (test code = 3.6 mmol/L 3.5-5.0 9072257325) CL (test code = 104 mmol/L 98-108 9280488142) CO2 TOTAL (test code = 22 mmol/L 23-31 L 8739084073) AGAP (test code = 2-16 0770865020) BUN (test code = 9 mg/dL 7-23 5581222670) GLUCOSE (test code = 203 mg/dL 70-110 H 6243819125) CREATININE (test code = 0.61 mg/dL 0.60-1.25 9700762472) CALCIUM (test code = 8.5 mg/dL 8.6-10.6 L 4374790289) eGFR (test code = mL/min/1.73m2 0284437621) ANGELA (test code = ANGELA) Association of Glomerular Filtration Rate (GFR) and Staging of Kidney Disease* + --+ --+ ------+| GFR (mL/min/1.73 m2) ?| With Kidney Damage ?| ?Without Kidney Damage+ --------+ --------+ +| ?>90 ?| ?Stage one ?| ? Normal ?+ ---+ ---+ -------+| ?60-89 ?| ?Stage two ?| ? Decreased GFR ? + --+ --+ ------+| ?30-59 ?| ?Stage three ?| ? Stage three ? + --+ --+ ------+| ?15-29 ?| ?Stage four ? | ? Stage four ?+ ---+ ---+ -------+| ?<15 (or dialysis) ? ?| ?Stage five ? | ? Stage five ?+ ---+ ---+ -------+ *Each stage assumes the associated GFR level has been in effect for at least three months. ?Stages 1 to 5, with or without kidney disease, indicate chronic kidney disease. Notes: Determination of stages one and two (with eGFR >59mL/min/1.73 m2) requires estimation of kidney damage for at least three months as defined by structural or functional abnormalities of the kidney, manifested by either:Pathological abnormalities or Markers of kidney damage (including abnormalities in the composition of the blood or urine or abnormalities in imaging tests). Lab Interpretation Abnormal (test code = 47536-5) [facility] 22:42:54 Test Item Value Reference Range Interpretation Comments MAGNESIUM (test code = 5568167863) 2.2 mg/dL 1.7-2.4 Lab Interpretation (test code = Normal 05405-2) [facility]21-[facility]-17 18:15:15 Test Item Value Reference Range Interpretation Comments POCT GLU (test code = 8429478237) 181 mg/dL 70-110 H Lab Interpretation (test code = Abnormal 58674-7) [facility] GLUCOSE (AUTOMATED)2021-09-17 18:15:15 Test Item Value Reference Range Interpretation Comments POCT GLU (test code = 1559187058) 181 mg/dL 70-110 H Lab Interpretation (test code = Abnormal 13347-4) [facility] GLUCOSE (AUTOMATED)2021-09-17 14:33:57 Test Item Value Reference Range Interpretation Comments POCT GLU (test code = 163 mg/dL 70-110 H Notifi ed Provider [id number]) Lab Interpretation (test Abnormal code = 30319-9) [facility] GLUCOSE (AUTOMATED)2021-09-17 14:33:57 Test Item Value Reference Range Interpretation Comments POCT GLU (test code = 163 mg/dL 70-110 H Notifi ed Provider [id number]) Lab Interpretation (test Abnormal code = 69813-2) [facility] WITH [id number] 11:34:12 Test Item Value Reference Range Interpretation Comments WBC (test code = See_Comment [Automated 6690-2) message] The system which generated this result transmitted reference range : 4.20 - 10.70 10*3/?L. The reference range was not used to interpret this result as normal/abnormal . RBC (test code = See_Comment L [Automated 789-8) message] The system which generated this result transmitted reference range : 4.26 - 5.52 10*6/?L. The reference range was not used to interpret this result as normal/abnormal . HGB (test code = 10.8 g/dL 12.2-16.4 L 718-7) HCT (test code = 31.5 % 38.4-49.3 L 4544-3) MCV (test code = 87.3 fL 81.7-95.6 787-2) MCH (test code = 29.9 pg 26.1-32.7 785-6) MCHC (test code = 34.3 g/dL 31.2-35.0 786-4) RDW-SD (test code = 45.2 fL 38.5-51.6 77909-4) RDW-CV (test code = 14.1 % 12.1-15.4 788-0) PLT (test code = See_Comment [Automated 777-3) message] The system which generated this result transmitted reference range : 150 - 328 10*3/?L. The reference range was not used to interpret this result as normal/abnormal . MPV (test code = 10.4 fL 9.8-13.0 67209-2) NRBC/100 WBC (test See_Comment [Automat ed code = 3521259280) message] The system which generated this result transmitted reference range : 0.0 - 10.0 /100 WBCs. The reference range was not used to interpret this result as normal/abnormal . NRBC x10^3 (test code <0.01 See_Comment [Auto mated = 7830589828) message] The system which generated this result transmitted reference range : 10*3/?L. The reference range was not used to interpret this result as normal/abnormal . GRAN MAT (NEUT) % 71.9 % (test code = 770-8) IMM GRAN % (test code 0.30 % = 4845514759) LYMPH % (test code = 18.1 % 736-9) MONO % (test code = 9.3 % 5905-5) EOS % (test code = 0.1 % 713-8) BASO % (test code = 0.3 % 706-2) GRAN MAT x10^3(ANC) 4.93 10*3/uL 1.99-6.95 (test code = 6825498586) IMM GRAN x10^3 (test <0.03 0.00-0.06 code = 7156588617) LYMPH x10^3 (test 1.24 10*3/uL 1.09-3.23 code = 731-0) MONO x10^3 (test code 0.64 10*3/uL 0.36-1.02 = 742-7) EOS x10^3 (test code <0.03 0.06-0.53 L = 711-2) BASO x10^3 (test code <0.03 0.01-0.09 = 704-7) NANCY CELLS (test code 2+ See_Comment A [Auto mated = 4790-9) message] The system which generated this result transmitted reference range : (none). The reference range was not used to interpret this result as normal/abnormal . BANDS (test code = MARKED INCREASED A 4597864070) DOHLE BODIES (test Present A code = 7792-5) Lab Interpretation Abnormal (test code = 34691-6) [facility] WITH [id number] 11:34:12 Test Item Value Reference Range Interpretation Comments WBC (test code = See_Comment [Automated 6690-2) message] The system which generated this result transmitted reference range : 4.20 - 10.70 10*3/?L. The reference range was not used to interpret this result as normal/abnormal . RBC (test code = See_Comment L [Automated 789-8) message] The system which generated this result transmitted reference range : 4.26 - 5.52 10*6/?L. The reference range was not used to interpret this result as normal/abnormal . HGB (test code = 10.8 g/dL 12.2-16.4 L 718-7) HCT (test code = 31.5 % 38.4-49.3 L 4544-3) MCV (test code = 87.3 fL 81.7-95.6 787-2) MCH (test code = 29.9 pg 26.1-32.7 785-6) MCHC (test code = 34.3 g/dL 31.2-35.0 786-4) RDW-SD (test code = 45.2 fL 38.5-51.6 15975-1) RDW-CV (test code = 14.1 % 12.1-15.4 788-0) PLT (test code = See_Comment [Automated 777-3) message] The system which generated this result transmitted reference range : 150 - 328 10*3/?L. The reference range was not used to interpret this result as normal/abnormal . MPV (test code = 10.4 fL 9.8-13.0 35636-9) NRBC/100 WBC (test See_Comment [Automat ed code = 7979161205) message] The system which generated this result transmitted reference range : 0.0 - 10.0 /100 WBCs. The reference range was not used to interpret this result as normal/abnormal . NRBC x10^3 (test code <0.01 See_Comment [Auto mated = 6217227113) message] The system which generated this result transmitted reference range : 10*3/?L. The reference range was not used to interpret this result as normal/abnormal . GRAN MAT (NEUT) % 71.9 % (test code = 770-8) IMM GRAN % (test code 0.30 % = 6106671371) LYMPH % (test code = 18.1 % 736-9) MONO % (test code = 9.3 % 5905-5) EOS % (test code = 0.1 % 713-8) BASO % (test code = 0.3 % 706-2) GRAN MAT x10^3(ANC) 4.93 10*3/uL 1.99-6.95 (test code = 1315944157) IMM GRAN x10^3 (test <0.03 0.00-0.06 code = 9898608644) LYMPH x10^3 (test 1.24 10*3/uL 1.09-3.23 code = 731-0) MONO x10^3 (test code 0.64 10*3/uL 0.36-1.02 = 742-7) EOS x10^3 (test code <0.03 0.06-0.53 L = 711-2) BASO x10^3 (test code <0.03 0.01-0.09 = 704-7) NANCY CELLS (test code 2+ See_Comment A [Auto mated = 0165-0) message] The system which generated this result transmitted reference range : (none). The reference range was not used to interpret this result as normal/abnormal . BANDS (test code = MARKED INCREASED A 9416409293) DOHLE BODIES (test Present A code = 7792-5) Lab Interpretation Abnormal (test code = 94821-1) [facility] METABOLIC PANEL (NA, K, CL, CO2, GLUCOSE, BUN, CREATININE, CA)2021-09-17 10:41:04 Test Item Value Reference Range Interpretation Comments NA (test code = 139 mmol/L 135-145 7690622310) K (test code = 3.8 mmol/L 3.5-5.0 5434815208) CL (test code = 110 mmol/L 98-108 H 1029462696) CO2 TOTAL (test code = 23 mmol/L 23-31 1639603213) AGAP (test code = 2-16 1776696966) BUN (test code = 7 mg/dL 7-23 3693631446) GLUCOSE (test code = 140 mg/dL 70-110 H 9883718181) CREATININE (test code = 0.63 mg/dL 0.60-1.25 8821060016) CALCIUM (test code = 8.4 mg/dL 8.6-10.6 L 8493140089) eGFR (test code = mL/min/1.73m2 8092734515) ANGELA (test code = ANGELA) Association of Glomerular Filtration Rate (GFR) and Staging of Kidney Disease* + --+ --+ ------+| GFR (mL/min/1.73 m2) ?| With Kidney Damage ?| ?Without Kidney Damage+ --------+ --------+ +| ?>90 ?| ?Stage one ?| ? Normal ?+ ---+ ---+ -------+| ?60-89 ?| ?Stage two ?| ? Decreased GFR ? + --+ --+ ------+| ?30-59 ?| ?Stage three ?| ? Stage three ? + --+ --+ ------+| ?15-29 ?| ?Stage four ? | ? Stage four ?+ ---+ ---+ -------+| ?<15 (or dialysis) ? ?| ?Stage five ? | ? Stage five ?+ ---+ ---+ -------+ *Each stage assumes the associated GFR level has been in effect for at least three months. ?Stages 1 to 5, with or without kidney disease, indicate chronic kidney disease. Notes: Determination of stages one and two (with eGFR >59mL/min/1.73 m2) requires estimation of kidney damage for at least three months as defined by structural or functional abnormalities of the kidney, manifested by either:Pathological abnormalities or Markers of kidney damage (including abnormalities in the composition of the blood or urine or abnormalities in imaging tests). Lab Interpretation Abnormal (test code = 94643-6) [facility] Test Item Value Reference Range Interpretation Comments MAGNESIUM (test code = 7492893754) 1.5 mg/dL 1.7-2.4 L Lab Interpretation (test code = Abnormal 64128-2) [facility] METABOLIC PANEL (NA, K, CL, CO2, GLUCOSE, BUN, CREATININE, CA)2021-09-17 10:41:04 Test Item Value Reference Range Interpretation Comments NA (test code = 139 mmol/L 135-145 2885768116) K (test code = 3.8 mmol/L 3.5-5.0 3821050659) CL (test code = 110 mmol/L 98-108 H 7459801393) CO2 TOTAL (test code = 23 mmol/L 23-31 0332300697) AGAP (test code = 2-16 4432237694) BUN (test code = 7 mg/dL 7-23 4564039456) GLUCOSE (test code = 140 mg/dL 70-110 H 4283367948) CREATININE (test code = 0.63 mg/dL 0.60-1.25 2953877768) CALCIUM (test code = 8.4 mg/dL 8.6-10.6 L 1767946588) eGFR (test code = mL/min/1.73m2 6617627716) ANGELA (test code = ANGELA) Association of Glomerular Filtration Rate (GFR) and Staging of Kidney Disease* + --+ --+ ------+| GFR (mL/min/1.73 m2) ?| With Kidney Damage ?| ?Without Kidney Damage+ --------+ --------+ +| ?>90 ?| ?Stage one ?| ? Normal ?+ ---+ ---+ -------+| ?60-89 ?| ?Stage two ?| ? Decreased GFR ? + --+ --+ ------+| ?30-59 ?| ?Stage three ?| ? Stage three ? + --+ --+ ------+| ?15-29 ?| ?Stage four ? | ? Stage four ?+ ---+ ---+ -------+| ?<15 (or dialysis) ? ?| ?Stage five ? | ? Stage five ?+ ---+ ---+ -------+ *Each stage assumes the associated GFR level has been in effect for at least three months. ?Stages 1 to 5, with or without kidney disease, indicate chronic kidney disease. Notes: Determination of stages one and two (with eGFR >59mL/min/1.73 m2) requires estimation of kidney damage for at least three months as defined by structural or functional abnormalities of the kidney, manifested by either:Pathological abnormalities or Markers of kidney damage (including abnormalities in the composition of the blood or urine or abnormalities in imaging tests). Lab Interpretation Abnormal (test code = 26405-8) [facility] Test Item Value Reference Range Interpretation Comments MAGNESIUM (test code = 9785125797) 1.5 mg/dL 1.7-2.4 L Lab Interpretation (test code = Abnormal 21516-1) [facility] GLUCOSE (AUTOMATED)2021-09-17 01:50:10 Test Item Value Reference Range Interpretation Comments POCT GLU (test code = 7869449486) 154 mg/dL 70-110 H Lab Interpretation (test code = Abnormal 13347-4) [facility] GLUCOSE (AUTOMATED)2021-09-17 01:50:10 Test Item Value Reference Range Interpretation Comments POCT GLU (test code = 7381969583) 154 mg/dL 70-110 H Lab Interpretation (test code = Abnormal 95810-2) [facility] GLUCOSE (AUTOMATED)2021-09-16 23:02:38 Test Item Value Reference Range Interpretation Comments POCT GLU (test code = 186 mg/dL 70-110 H Notifi ed Provider [id number]) Lab Interpretation (test Abnormal code = 78021-5) [facility] GLUCOSE (AUTOMATED)2021-09-16 23:02:38 Test Item Value Reference Range Interpretation Comments POCT GLU (test code = 186 mg/dL 70-110 H Notifi ed Provider [id number]) Lab Interpretation (test Abnormal code = 90059-1) [facility] ACT LOW [id number] 15:26:05 Test Item Value Reference Range Interpretation Comments ACTLR (test code = See_Comment H [Automat ed message] 9397568660) The system [employer] generated this result transmitted ref erence range: 89 - 169 Seconds. The reference range was not used to int erpret this result as normal/abnormal . Lab Interpretation (test Abnormal code = 60140-8) [facility] ACT LOW [id number] 15:26:05 Test Item Value Reference Range Interpretation Comments ACTLR (test code = See_Comment H [Automat ed message] 6552226275) The system [employer] generated this result transmitted ref erence range: 89 - 169 Seconds. The reference range was not used to int erpret this result as normal/abnormal . Lab Interpretation (test Abnormal code = 14545-2) [facility] ACT LOW [id number] 14:54:07 Test Item Value Reference Range Interpretation Comments ACTLR (test code = See_Comment H [Automat ed message] 2708970451) The system [employer] generated this result transmitted ref erence range: 89 - 169 Seconds. The reference range was not used to int erpret this result as normal/abnormal . Lab Interpretation (test Abnormal code = 63483-5) [facility] ACT LOW [id number] 14:54:07 Test Item Value Reference Range Interpretation Comments ACTLR (test code = See_Comment H [Automat ed message] 2070074855) The system [employer] generated this result transmitted ref erence range: 89 - 169 Seconds. The reference range was not used to int erpret this result as normal/abnormal . Lab Interpretation (test Abnormal code = 42431-0) [id number] 09:32:52 Test Item Value Reference Interpretation Comments Range TROPONIN I (test 6.630 ng/mL See_Comment H [Automated code = 3395360960) message] The system which generated this result transmitted reference range : <=0.034. The reference range was not used to interpret this result as normal/abnormal . ANGELA (test code = Reference (Normal) ANGELA) Range (defined by the 99th percentile reference limit): <= 0.034 ng/mL Note: Cardiac troponin begins to rise 3-4 hours after the onset of ischemia. Repeat in 4-6 hours if the sample was drawn within 3-4 hours of the onset of the symptom and found normal. Diagnosis of myocardial injury is made with acute changes in cTn concentrations with at least one serial sample above the 99th percentile upper reference limit (URL), taken together with the patient's clinical presentation. Biotin has been reported to cause a negative bias, interpret results relative to patient's use of biotin. Lab Interpretation Abnormal (test code = 17083-8) [facility] [id number] 09:32:52 Test Item Value Reference Interpretation Comments Range TROPONIN I (test 6.630 ng/mL See_Comment H [Automated code = 0009151229) message] The system which generated this result transmitted reference range : <=0.034. The reference range was not used to interpret this result as normal/abnormal . ANGELA (test code = Reference (Normal) ANGELA) Range (defined by the 99th percentile reference limit): <= 0.034 ng/mL Note: Cardiac troponin begins to rise 3-4 hours after the onset of ischemia. Repeat in 4-6 hours if the sample was drawn within 3-4 hours of the onset of the symptom and found normal. Diagnosis of myocardial injury is made with acute changes in cTn concentrations with at least one serial sample above the 99th percentile upper reference limit (URL), taken together with the patient's clinical presentation. Biotin has been reported to cause a negative bias, interpret results relative to patient's use of biotin. Lab Interpretation Abnormal (test code = 59763-9) [facility] WITH [id number] 06:14:40 Test Item Value Reference Range Interpretation Comments WBC (test code = See_Comment [Automated 2742-2) message] The system which generated this result transmitted reference range : 4.20 - 10.70 10*3/?L. The reference range was not used to interpret this result as normal/abnormal . RBC (test code = See_Comment L [Automated 399-8) message] The system which generated this result transmitted reference range : 4.26 - 5.52 10*6/?L. The reference range was not used to interpret this result as normal/abnormal . HGB (test code = 11.1 g/dL 12.2-16.4 L 718-7) HCT (test code = 32.3 % 38.4-49.3 L 4544-3) MCV (test code = 86.1 fL 81.7-95.6 787-2) MCH (test code = 29.6 pg 26.1-32.7 785-6) MCHC (test code = 34.4 g/dL 31.2-35.0 786-4) RDW-SD (test code = 45.2 fL 38.5-51.6 68670-8) RDW-CV (test code = 14.4 % 12.1-15.4 788-0) PLT (test code = See_Comment [Automated 777-3) message] The system which generated this result transmitted reference range : 150 - 328 10*3/?L. The reference range was not used to interpret this result as normal/abnormal . MPV (test code = 10.7 fL 9.8-13.0 58686-6) NRBC/100 WBC (test See_Comment [Automat ed code = 5244632527) message] The system which generated this result transmitted reference range : 0.0 - 10.0 /100 WBCs. The reference range was not used to interpret this result as normal/abnormal . NRBC x10^3 (test code <0.01 See_Comment [Auto mated = 2034359796) message] The system which generated this result transmitted reference range : 10*3/?L. The reference range was not used to interpret this result as normal/abnormal . GRAN MAT (NEUT) % 64.6 % (test code = 770-8) IMM GRAN % (test code 0.20 % = 3491073064) LYMPH % (test code = 25.1 % 736-9) MONO % (test code = 9.3 % 5905-5) EOS % (test code = 0.0 % 713-8) BASO % (test code = 0.8 % 706-2) GRAN MAT x10^3(ANC) 4.17 10*3/uL 1.99-6.95 (test code = 6240469527) IMM GRAN x10^3 (test <0.03 0.00-0.06 code = 8101667069) LYMPH x10^3 (test 1.62 10*3/uL 1.09-3.23 code = 731-0) MONO x10^3 (test code 0.60 10*3/uL 0.36-1.02 = 742-7) EOS x10^3 (test code <0.03 0.06-0.53 L = 711-2) BASO x10^3 (test code 0.05 10*3/uL 0.01-0.09 = 704-7) BANDS (test code = MARKED INCREASED A 7566668424) DOHLE BODIES (test Present A code = 7792-5) Lab Interpretation Abnormal (test code = 41792-2) [facility] WITH [id number] 06:14:40 Test Item Value Reference Range Interpretation Comments WBC (test code = See_Comment [Automated 6690-2) message] The system which generated this result transmitted reference range : 4.20 - 10.70 10*3/?L. The reference range was not used to interpret this result as normal/abnormal . RBC (test code = See_Comment L [Automated 789-8) message] The system which generated this result transmitted reference range : 4.26 - 5.52 10*6/?L. The reference range was not used to interpret this result as normal/abnormal . HGB (test code = 11.1 g/dL 12.2-16.4 L 718-7) HCT (test code = 32.3 % 38.4-49.3 L 4544-3) MCV (test code = 86.1 fL 81.7-95.6 787-2) MCH (test code = 29.6 pg 26.1-32.7 785-6) MCHC (test code = 34.4 g/dL 31.2-35.0 786-4) RDW-SD (test code = 45.2 fL 38.5-51.6 05332-5) RDW-CV (test code = 14.4 % 12.1-15.4 788-0) PLT (test code = See_Comment [Automated 777-3) message] The system which generated this result transmitted reference range : 150 - 328 10*3/?L. The reference range was not used to interpret this result as normal/abnormal . MPV (test code = 10.7 fL 9.8-13.0 18303-8) NRBC/100 WBC (test See_Comment [Automat ed code = 8580915826) message] The system which generated this result transmitted reference range : 0.0 - 10.0 /100 WBCs. The reference range was not used to interpret this result as normal/abnormal . NRBC x10^3 (test code <0.01 See_Comment [Auto mated = 4165144785) message] The system which generated this result transmitted reference range : 10*3/?L. The reference range was not used to interpret this result as normal/abnormal . GRAN MAT (NEUT) % 64.6 % (test code = 770-8) IMM GRAN % (test code 0.20 % = 2436800224) LYMPH % (test code = 25.1 % 736-9) MONO % (test code = 9.3 % 5905-5) EOS % (test code = 0.0 % 713-8) BASO % (test code = 0.8 % 706-2) GRAN MAT x10^3(ANC) 4.17 10*3/uL 1.99-6.95 (test code = 9289201883) IMM GRAN x10^3 (test <0.03 0.00-0.06 code = 2714567283) LYMPH x10^3 (test 1.62 10*3/uL 1.09-3.23 code = 731-0) MONO x10^3 (test code 0.60 10*3/uL 0.36-1.02 = 742-7) EOS x10^3 (test code <0.03 0.06-0.53 L = 711-2) BASO x10^3 (test code 0.05 10*3/uL 0.01-0.09 = 704-7) BANDS (test code = MARKED INCREASED A 7941403469) DOHLE BODIES (test Present A code = 7792-5) Lab Interpretation Abnormal (test code = 52353-6) [facility] METABOLIC PANEL (NA, K, CL, CO2, GLUCOSE, BUN, CREATININE, CA)2021-09-16 06:06:31 Test Item Value Reference Range Interpretation Comments NA (test code = 134 mmol/L 135-145 L 4332954501) K (test code = 3.5 mmol/L 3.5-5.0 8902022457) CL (test code = 109 mmol/L 98-108 H 4557571665) CO2 TOTAL (test code = 20 mmol/L 23-31 L 0720299124) AGAP (test code = 2-16 0256099490) BUN (test code = 8 mg/dL 7-23 8288402446) GLUCOSE (test code = 128 mg/dL 70-110 H 5554236275) CREATININE (test code = 0.66 mg/dL 0.60-1.25 4833443304) CALCIUM (test code = 8.0 mg/dL 8.6-10.6 L [id number]) eGFR (test code = mL/min/1.73m2 4046914046) ANGELA (test code = ANGELA) Association of Glomerular Filtration Rate (GFR) and Staging of Kidney Disease* + --+ --+ ------+| GFR (mL/min/1.73 m2) ?| With Kidney Damage ?| ?Without Kidney Damage+ --------+ --------+ +| ?>90 ?| ?Stage one ?| ? Normal ?+ ---+ ---+ -------+| ?60-89 ?| ?Stage two ?| ? Decreased GFR ? + --+ --+ ------+| ?30-59 ?| ?Stage three ?| ? Stage three ? + --+ --+ ------+| ?15-29 ?| ?Stage four ? | ? Stage four ?+ ---+ ---+ -------+| ?<15 (or dialysis) ? ?| ?Stage five ? | ? Stage five ?+ ---+ ---+ -------+ *Each stage assumes the associated GFR level has been in effect for at least three months. ?Stages 1 to 5, with or without kidney disease, indicate chronic kidney disease. Notes: Determination of stages one and two (with eGFR >59mL/min/1.73 m2) requires estimation of kidney damage for at least three months as defined by structural or functional abnormalities of the kidney, manifested by either:Pathological abnormalities or Markers of kidney damage (including abnormalities in the composition of the blood or urine or abnormalities in imaging tests). Lab Interpretation Abnormal (test code = 81181-7) [facility] Test Item Value Reference Range Interpretation Comments MAGNESIUM (test code = 8869807366) 1.9 mg/dL 1.7-2.4 Lab Interpretation (test code = Normal 94295-5) [facility] 06:06:31 Test Item Value Reference Range Interpretation Comments PHOSPHORUS (test code = 4866037638) 2.6 mg/dL 2.5-5.0 Lab Interpretation (test code = Normal 34381-0) [facility] METABOLIC PANEL (NA, K, CL, CO2, GLUCOSE, BUN, CREATININE, CA)2021-09-16 06:06:31 Test Item Value Reference Range Interpretation Comments NA (test code = 134 mmol/L 135-145 L 5805171858) K (test code = 3.5 mmol/L 3.5-5.0 2553346566) CL (test code = 109 mmol/L 98-108 H 9362394892) CO2 TOTAL (test code = 20 mmol/L 23-31 L 4802675372) AGAP (test code = 2-16 9152621030) BUN (test code = 8 mg/dL 7-23 0381453376) GLUCOSE (test code = 128 mg/dL 70-110 H 6159536628) CREATININE (test code = 0.66 mg/dL 0.60-1.25 7188488424) CALCIUM (test code = 8.0 mg/dL 8.6-10.6 L 3073553023) eGFR (test code = mL/min/1.73m2 6723705849) ANGLEA (test code = ANGELA) Association of Glomerular Filtration Rate (GFR) and Staging of Kidney Disease* + --+ --+ ------+| GFR (mL/min/1.73 m2) ?| With Kidney Damage ?| ?Without Kidney Damage+ --------+ --------+ +| ?>90 ?| ?Stage one ?| ? Normal ?+ ---+ ---+ -------+| ?60-89 ?| ?Stage two ?| ? Decreased GFR ? + --+ --+ ------+| ?30-59 ?| ?Stage three ?| ? Stage three ? + --+ --+ ------+| ?15-29 ?| ?Stage four ? | ? Stage four ?+ ---+ ---+ -------+| ?<15 (or dialysis) ? ?| ?Stage five ? | ? Stage five ?+ ---+ ---+ -------+ *Each stage assumes the associated GFR level has been in effect for at least three months. ?Stages 1 to 5, with or without kidney disease, indicate chronic kidney disease. Notes: Determination of stages one and two (with eGFR >59mL/min/1.73 m2) requires estimation of kidney damage for at least three months as defined by structural or functional abnormalities of the kidney, manifested by either:Pathological abnormalities or Markers of kidney damage (including abnormalities in the composition of the blood or urine or abnormalities in imaging tests). Lab Interpretation Abnormal (test code = 04950-0) [facility] Test Item Value Reference Range Interpretation Comments MAGNESIUM (test code = 3935625008) 1.9 mg/dL 1.7-2.4 Lab Interpretation (test code = Normal 67746-4) [facility] 06[facility]06:31 Test Item Value Reference Range Interpretation Comments PHOSPHORUS (test code = 4664176038) 2.6 mg/dL 2.5-5.0 Lab Interpretation (test code = Normal 63305-7) [facility]2021-09-16 05:44:45 Test Item Value Reference Range Interpretation Comments APTT Patient (test code See_Comment H [Au tomated message] = 3173-2) The system [employer] generated this result transmitted ref erence range: 26 - 36 Seconds. The reference range was not used to int erpret this result as normal/abnormal . Lab Interpretation (test Abnormal code = 75617-8) [facility]2021-09-16 05:44:45 Test Item Value Reference Range Interpretation Comments APTT Patient (test code See_Comment H [Au tomated message] = 3173-2) The system [employer] generated this result transmitted ref erence range: 26 - 36 Seconds. The reference range was not used to int erpret this result as normal/abnormal . Lab Interpretation (test Abnormal code = 36891-0) [facility] CenterProth[facility] / [id number] 05:44:25 Test Item Value Reference Range Interpretation Comments PROTIME PATIENT (test See_Comment H [Auto mated message] code = 5964-2) The system [employer] generated this result transmitted ref erence range: 10.1 - 1 2.6 Seconds. The reference range was not used to int erpret this result as normal/abnormal . INR (test code = 6301-6) Nor mal INR <1.1; Warfarin Therap eutic range 2.0 to 3. 0 or 2.5 to 3.5, dep ending upon the indica tions. Lab Interpretation (test Abnormal code = 69630-8) [facility] CenterProth[facility] / [id number] 05:44:25 Test Item Value Reference Range Interpretation Comments PROTIME PATIENT (test See_Comment H [Auto mated message] code = 5964-2) The system wh ich generated this result transmitted ref erence range: 10.1 - 1 2.6 Seconds. The reference range was not used to int erpret this result as normal/abnormal . INR (test code = 6301-6) Nor mal INR <1.1; Warfarin Therap eutic range 2.0 to 3. 0 or 2.5 to 3.5, dep ending upon the indica tions. Lab Interpretation (test Abnormal code = 18432-4) [facility] [id number] 03:12:11 Test Item Value Reference Interpretation Comments Range TROPONIN I (test 7.770 ng/mL See_Comment H [Automated code = 3826607632) message] The system which generated this result transmitted reference range : <=0.034. The reference range was not used to interpret this result as normal/abnormal . ANGELA (test code = Reference (Normal) ANGELA) Range (defined by the 99th percentile reference limit): <= 0.034 ng/mL Note: Cardiac troponin begins to rise 3-4 hours after the onset of ischemia. Repeat in 4-6 hours if the sample was drawn within 3-4 hours of the onset of the symptom and found normal. Diagnosis of myocardial injury is made with acute changes in cTn concentrations with at least one serial sample above the 99th percentile upper reference limit (URL), taken together with the patient's clinical presentation. Biotin has been reported to cause a negative bias, interpret results relative to patient's use of biotin. Lab Interpretation Abnormal (test code = 65177-7) [facility] [id number] 03:12:11 Test Item Value Reference Interpretation Comments Range TROPONIN I (test 7.770 ng/mL See_Comment H [Automated code = 6393490434) message] The system which generated this result transmitted reference range : <=0.034. The reference range was not used to interpret this result as normal/abnormal . ANGELA (test code = Reference (Normal) ANGELA) Range (defined by the 99th percentile reference limit): <= 0.034 ng/mL Note: Cardiac troponin begins to rise 3-4 hours after the onset of ischemia. Repeat in 4-6 hours if the sample was drawn within 3-4 hours of the onset of the symptom and found normal. Diagnosis of myocardial injury is made with acute changes in cTn concentrations with at least one serial sample above the 99th percentile upper reference limit (URL), taken together with the patient's clinical presentation. Biotin has been reported to cause a negative bias, interpret results relative to patient's use of biotin. Lab Interpretation Abnormal (test code = 00023-4) [facility] GLUCOSE (AUTOMATED)2021-09-16 02:57:44 Test Item Value Reference Range Interpretation Comments POCT GLU (test code = 2727907165) 144 mg/dL 70-110 H Lab Interpretation (test code = Abnormal 85721-7) [facility] GLUCOSE (AUTOMATED)2021-09-16 02:57:44 Test Item Value Reference Range Interpretation Comments POCT GLU (test code = 4119183144) 144 mg/dL 70-110 H Lab Interpretation (test code = Abnormal 70928-8) [facility] GLUCOSE (AUTOMATED)2021-09-15 23:36:41 Test Item Value Reference Range Interpretation Comments POCT GLU (test code = 5048927115) 128 mg/dL 70-110 H Lab Interpretation (test code = Abnormal 10591-1) [facility] GLUCOSE (AUTOMATED)2021-09-15 23:36:41 Test Item Value Reference Range Interpretation Comments POCT GLU (test code = 0486100793) 128 mg/dL 70-110 H Lab Interpretation (test code = Abnormal 88793-5) [facility] ([facility]2021-09-15 22:17:43 Test Item Value Reference Range Interpretation Comments Height (test code = in 7153986549) Weight (test code = lbs 9214163256) Systolic BP (test code = mmHg 8611180312) Diastolic BP (test code mmHg = 9558914781) Heart Rate (test code = bpm 0087652494) EF(Teich) (test code = 62.90 % 0863775788) LVIDD (test code = 4.30 cm 1095362739) LVIDS (test code = 2.90 cm 9903037519) IVS (test code = 0.92 cm 0708968441) LVPWD (test code = 0.92 cm 0453629081) LVOT diameter (test code 1.94 cm = 2035604319) FS (test code = 34 % 4879049232) MV Peak E Clarice (test code 71.6 cm/s = 9850431821) MV Peak A Clarice (test code 59.1 cm/s = 0460264408) E/A ratio (test code = ratio 5227070250) E wave decelartion time 0.15 s (test code = 1234001453) LA Volume Index (BP) 18.6 mL/m2 (test code = 2256295578) LA volume (BP) (test 31.5 mL code = 8090382707) LVOT peak clarice (test code 82.7 cm/s = 4686747109) BSA (test code = 1.70 m2 2276400840) LA size (test code = 4.0 cm 7506302126) LAV(MOD-sp2) (test code 29.30 mL = 9737857627) LAV(MOD-sp4) (test code 29.70 mL = 2742933829) Tapse (test code = 1.02 cm 5495744777) Ao peak clarice (test code = 109.4 cm/s 3649072816) AV LVOT peak gradient mmHg (test code = 4811103258) LVOT peak VTI (test code 12.5 cm = 2395441795) AV area peak clarice (test 2.2 cm2 code = 1324054199) Ao max PG (test code = 4.80 mm[Hg] 5105747821) MV Prop V (test code = 59.00 cm/s 8105528038) TR Peak Clarice (test code = 229.2 cm/s 2724112118) Triscuspid Valve mmHg Regurgitation Peak Gradient (test code = 5743503061) Ao root annulus (test 3.0 cm code = 3162728604) Ao root diam (test code 3.00 cm = 3288044934) AV peak gradient (test mmHg code = 8546778015) Aortic root (test code = 3.0 cm 1040020407) PW (test code = 0.92 cm 0.6-1.0 1544867914) EF - 2D (test code = 62.90 % 94289736) Interventricular Septum 0.92 cm Diastolic Thickness by 2D (test code = 3783736) Aortic valve mean 73.0 cm/s velocity (test code = 3849097063) Ao VTI (test code = 18.2 cm 4942705685) AV mean gradient (test mmHg code = 7305997273) LVOT stroke volume (test 36.70 cm3 code = 2580773842) LVOT mn grad (test code mmHg = 3750764284) LV V1 mean (test code = 52.10 cm/s 1775100706) Radiology Study observation (narrative) (test code = 78777-0) ANGELA (test code = ANGELA) ?Left?Ventricle: Left ventricle size is normal. LV mass 127 g, LVMI 74 g/m2 with 0.43, indicates concentric LV remodeling. Normal wall thickness. Regional wall motion abnormalities present. Please see diagram Normal systolic function with a visually estimated EF of 50 - 55%. There is grade 1 diastolic dysfunction. ?Right?Ventricle: Normal systolic function. Right ventricular systolic pressure is 20-25 mmHg. RA pressure is 0-5 mmHg. ?Left?Atrium: Left atrium size is normal. Left atrium volume index is 18.6 mL/m2. ?Tricuspid?Valve: Tricuspid valve structure is normal. Trace transvalvular regurgitation. Right ventricular systolic pressure is 20-25 mmHg. ?RA pressure is 0-5 mmHg. [facility]21-[facility]-15 22:17:43 Test Item Value Reference Range Interpretation Comments Height (test code = in 5145475242) Weight (test code = lbs 9711327847) Systolic BP (test code = mmHg 6373439672) Diastolic BP (test code mmHg = 8350594015) Heart Rate (test code = bpm 0624632817) EF(Teich) (test code = 62.90 % 6397968546) LVIDD (test code = 4.30 cm 7478246437) LVIDS (test code = 2.90 cm 4491561327) IVS (test code = 0.92 cm 8868571790) LVPWD (test code = 0.92 cm 3140113716) LVOT diameter (test code 1.94 cm = 8402482263) FS (test code = 34 % 4691498818) MV Peak E Clarice (test code 71.6 cm/s = 8472351730) MV Peak A Clarice (test code 59.1 cm/s = 1387485961) E/A ratio (test code = ratio 3800924907) E wave decelartion time 0.15 s (test code = 1553040311) LA Volume Index (BP) 18.6 mL/m2 (test code = 1716668159) LA volume (BP) (test 31.5 mL code = 4281111179) LVOT peak clarice (test code 82.7 cm/s = 2622240363) BSA (test code = 1.70 m2 4678240407) LA size (test code = 4.0 cm 8475049852) LAV(MOD-sp2) (test code 29.30 mL = 9550564794) LAV(MOD-sp4) (test code 29.70 mL = 9375528286) Tapse (test code = 1.02 cm 6969814075) Ao peak clarice (test code = 109.4 cm/s 9897805652) AV LVOT peak gradient mmHg (test code = 4864400720) LVOT peak VTI (test code 12.5 cm = 5400388832) AV area peak clarice (test 2.2 cm2 code = 5454840208) Ao max PG (test code = 4.80 mm[Hg] 7670248170) MV Prop V (test code = 59.00 cm/s 8776543053) TR Peak Clarice (test code = 229.2 cm/s 7296000950) Triscuspid Valve mmHg Regurgitation Peak Gradient (test code = 8769236268) Ao root annulus (test 3.0 cm code = 2753011122) Ao root diam (test code 3.00 cm = 3365398743) AV peak gradient (test mmHg code = 7935253861) Aortic root (test code = 3.0 cm 9243916554) PW (test code = 0.92 cm 0.6-1.0 7752715175) EF - 2D (test code = 62.90 % 24104889) Interventricular Septum 0.92 cm Diastolic Thickness by 2D (test code = 9048582) Aortic valve mean 73.0 cm/s velocity (test code = 6963131425) Ao VTI (test code = 18.2 cm 3158160243) AV mean gradient (test mmHg code = 5169118511) LVOT stroke volume (test 36.70 cm3 code = 9072602235) LVOT mn grad (test code mmHg = 4546678704) LV V1 mean (test code = 52.10 cm/s 7444949423) Radiology Study observation (narrative) (test code = 67074-2) ANGELA (test code = ANGELA) ?Left?Ventricle: Left ventricle size is normal. LV mass 127 g, LVMI 74 g/m2 with 0.43, indicates concentric LV remodeling. Normal wall thickness. Regional wall motion abnormalities present. Please see diagram Normal systolic function with a visually estimated EF of 50 - 55%. There is grade 1 diastolic dysfunction. ?Right?Ventricle: Normal systolic function. Right ventricular systolic pressure is 20-25 mmHg. RA pressure is 0-5 mmHg. ?Left?Atrium: Left atrium size is normal. Left atrium volume index is 18.6 mL/m2. ?Tricuspid?Valve: Tricuspid valve structure is normal. Trace transvalvular regurgitation. Right ventricular systolic pressure is 20-25 mmHg. ?RA pressure is 0-5 mmHg. [facility] [id number] 21:21:13 Test Item Value Reference Interpretation Comments Range TROPONIN I (test 4.460 ng/mL See_Comment H [Automated code = 4115248788) message] The system which generated this result transmitted reference range : <=0.034. The reference range was not used to interpret this result as normal/abnormal . ANGELA (test code = Reference (Normal) ANGELA) Range (defined by the 99th percentile reference limit): <= 0.034 ng/mL Note: Cardiac troponin begins to rise 3-4 hours after the onset of ischemia. Repeat in 4-6 hours if the sample was drawn within 3-4 hours of the onset of the symptom and found normal. Diagnosis of myocardial injury is made with acute changes in cTn concentrations with at least one serial sample above the 99th percentile upper reference limit (URL), taken together with the patient's clinical presentation. Biotin has been reported to cause a negative bias, interpret results relative to patient's use of biotin. Lab Interpretation Abnormal (test code = 10464-1) [facility] [id number] 21:21:13 Test Item Value Reference Interpretation Comments Range TROPONIN I (test 4.460 ng/mL See_Comment H [Automated code = 3394282431) message] The system which generated this result transmitted reference range : <=0.034. The reference range was not used to interpret this result as normal/abnormal . ANGELA (test code = Reference (Normal) ANGELA) Range (defined by the 99th percentile reference limit): <= 0.034 ng/mL Note: Cardiac troponin begins to rise 3-4 hours after the onset of ischemia. Repeat in 4-6 hours if the sample was drawn within 3-4 hours of the onset of the symptom and found normal. Diagnosis of myocardial injury is made with acute changes in cTn concentrations with at least one serial sample above the 99th percentile upper reference limit (URL), taken together with the patient's clinical presentation. Biotin has been reported to cause a negative bias, interpret results relative to patient's use of biotin. Lab Interpretation Abnormal (test code = 94076-4) [facility] GLUCOSE (AUTOMATED)2021-09-15 17:35:57 Test Item Value Reference Range Interpretation Comments POCT GLU (test code = 3399493788) 214 mg/dL 70-110 H Lab Interpretation (test code = Abnormal 93970-8) [facility] GLUCOSE (AUTOMATED)2021-09-15 17:35:57 Test Item Value Reference Range Interpretation Comments POCT GLU (test code = 9993481829) 214 mg/dL 70-110 H Lab Interpretation (test code = Abnormal 13719-8) [facility] [id number] 17:04:46 Test Item Value Reference Interpretation Comments Range TROPONIN I (test 3.170 ng/mL See_Comment H [Automated code = 6708750218) message] The system which generated this result transmitted reference range : <=0.034. The reference range was not used to interpret this result as normal/abnormal . ANGELA (test code = Reference (Normal) ANGELA) Range (defined by the 99th percentile reference limit): <= 0.034 ng/mL Note: Cardiac troponin begins to rise 3-4 hours after the onset of ischemia. Repeat in 4-6 hours if the sample was drawn within 3-4 hours of the onset of the symptom and found normal. Diagnosis of myocardial injury is made with acute changes in cTn concentrations with at least one serial sample above the 99th percentile upper reference limit (URL), taken together with the patient's clinical presentation. Biotin has been reported to cause a negative bias, interpret results relative to patient's use of biotin. Lab Interpretation Abnormal (test code = 51172-1) [facility] Center[facility] [id number] 17:04:46 Test Item Value Reference Interpretation Comments Range TROPONIN I (test 3.170 ng/mL See_Comment H [Automated code = 0693788641) message] The system which generated this result transmitted reference range : <=0.034. The reference range was not used to interpret this result as normal/abnormal . ANGELA (test code = Reference (Normal) ANGELA) Range (defined by the 99th percentile reference limit): <= 0.034 ng/mL Note: Cardiac troponin begins to rise 3-4 hours after the onset of ischemia. Repeat in 4-6 hours if the sample was drawn within 3-4 hours of the onset of the symptom and found normal. Diagnosis of myocardial injury is made with acute changes in cTn concentrations with at least one serial sample above the 99th percentile upper reference limit (URL), taken together with the patient's clinical presentation. Biotin has been reported to cause a negative bias, interpret results relative to patient's use of biotin. Lab Interpretation Abnormal (test code = 54371-4) [facility] (for use with [facility] In[facility]2021-09-15 16:51:24 Test Item Value Reference Range Interpretation Comments APTT Patient (test code See_Comment H [Au tomated message] = 3173-2) The system [employer] generated this result transmitted ref erence range: 26 - 36 Seconds. The reference range was not used to int erpret this result as normal/abnormal . Lab Interpretation (test Abnormal code = 84189-6) [facility] (for use with Heparin Infusion)2021-09-15 16:51:24 Test Item Value Reference Range Interpretation Comments APTT Patient (test code See_Comment H [Au tomated message] = 3173-2) The system [employer] generated this result transmitted ref erence range: 26 - 36 Seconds. The reference range was not used to int erpret this result as normal/abnormal . Lab Interpretation (test Abnormal code = 60574-8) [facility]-REACTIVE [id number] 15:50:09 Test Item Value Reference Range Interpretation Comments CRP (test code = 2500227628) 15.8 mg/dL <0.8 H Lab Interpretation (test code = Abnormal 72641-3) [facility]-REACTIVE [id number] 15:50:09 Test Item Value Reference Range Interpretation Comments CRP (test code = 9905965634) 15.8 mg/dL <0.8 H Lab Interpretation (test code = Abnormal 83927-1) [facility] GLUCOSE (AUTOMATED)2021-09-15 14:23:44 Test Item Value Reference Range Interpretation Comments POCT GLU (test code = 8023587997) 209 mg/dL 70-110 H Lab Interpretation (test code = Abnormal 49031-7) [facility] GLUCOSE (AUTOMATED)2021-09-15 14:23:44 Test Item Value Reference Range Interpretation Comments POCT GLU (test code = 4767542172) 209 mg/dL 70-110 H Lab Interpretation (test code = Abnormal 20333-7) [facility]EN[facility] 13:30:32 Test Item Value Reference Range Interpretation Comments ACETAMINOP (test code = <10.0 10.0-30.0 L 1207094977) ANGELA (test code = ANGELA) Toxic: Greater than 200 ug/mL @ 4 hour post ingestion or greater than 50 ug/mL @ 12 hour post ingestion Lab Interpretation (test Abnormal code = 59147-9) [facility] 13:30:32 Test Item Value Reference Range Interpretation Comments SALICYLATE (test code <10 mg/L = 7902263554) ANGELA (test code = ANGELA) Therapeutic Range: ? Analgesic and Antipyretic Use ? 20-100 mg/L ? ? Anti-Inflammatory Use ? 100-250 mg/L Toxic Range: ? Greater than 300 mg/L [facility] 13:30:32 Test Item Value Reference Range Interpretation Comments ACETAMINOP (test code = <10.0 10.0-30.0 L 9171487362) ANGELA (test code = ANGELA) Toxic: Greater than 200 ug/mL @ 4 hour post ingestion or greater than 50 ug/mL @ 12 hour post ingestion Lab Interpretation (test Abnormal code = 36473-0) [facility] 13:30:32 Test Item Value Reference Range Interpretation Comments SALICYLATE (test code <10 mg/L = 4374852710) ANGELA (test code = ANGELA) Therapeutic Range: ? Analgesic and Antipyretic Use ? 20-100 mg/L ? ? Anti-Inflammatory Use ? 100-250 mg/L Toxic Range: ? Greater than 300 mg/L [facility] CenterLIP[facility] PANEL (48105)(TOTAL CHOLESTEROL, TRIGLYCERIDES, HDL)2021-09-15 12:53:38 Test Item Value Reference Range Interpretation Comments CHOL (test code = 86 mg/dL 120-200 L 6476727347) HDL (test code = 40 mg/dL >40 L 7990497613) HDLC RATIO (test code = See_Comment [Au tomated message] 5365889537) The system [employer] generated this result transmitted ref erence range: <=5.0. T he reference range was not used to int erpret this result as normal/abnormal . TRIG (test code = 64 mg/dL 30-170 9699553894) LDL CHOL (test code = 33 mg/dL See_Comment [Auto mated message] 27865-9) The system [employer] generated this result transmitted ref erence range: <=160. T he reference range was not used to int erpret this result as normal/abnormal . VLDL (test code = 13 mg/dL 5-60 0227850093) Lab Interpretation (test Abnormal code = 37767-1) [facility] CenterL[facility] (90138)(TOTAL CHOLESTEROL, TRIGLYCERIDES, HDL)2021-09-15 12:53:38 Test Item Value Reference Range Interpretation Comments CHOL (test code = 86 mg/dL 120-200 L 5796145501) HDL (test code = 40 mg/dL >40 L 2145268357) HDLC RATIO (test code = See_Comment [Au tomated message] 1877427909) The system [employer] generated this result transmitted ref erence range: <=5.0. T he reference range was not used to int erpret this result as normal/abnormal . TRIG (test code = 64 mg/dL 30-170 9152964273) LDL CHOL (test code = 33 mg/dL See_Comment [Auto mated message] 67844-2) The system [employer] generated this result transmitted ref erence range: <=160. T he reference range was not used to int erpret this result as normal/abnormal . VLDL (test code = 13 mg/dL 5-60 1391145315) Lab Interpretation (test Abnormal code = 61344-1) [facility] Test Item Value Reference Range Interpretation Comments LIPASE (test code = 7949978950) 39 U/L 0-220 Lab Interpretation (test code = Normal 40901-5) [facility] 11[facility]04:34 Test Item Value Reference Range Interpretation Comments LIPASE (test code = 7639308646) 39 U/L 0-220 Lab Interpretation (test code = Normal 73168-4) [facility] [id number] 10:51:53 Test Item Value Reference Range Interpretation Comments ESR (test code = See_Comment H [Automated message] 3498690489) The system [employer] generated this result transmitted ref erence range: 0 - 10 m m/HR. The reference r bolivar was not used to interpret this result as normal/abnor mal. Lab Interpretation (test Abnormal code = 38384-1) [facility] [id number] 10:51:53 Test Item Value Reference Range Interpretation Comments ESR (test code = See_Comment H [Automated message] 9094185814) The system [employer] generated this result transmitted ref erence range: 0 - 10 m m/HR. The reference r bolivar was not used to interpret this result as normal/abnor mal. Lab Interpretation (test Abnormal code = 01808-2) [facility] [id number] 10:45:10 Test Item Value Reference Range Interpretation Comments TSH (test code = See_Comment [Automated message] 5667150937) The system [employer] generated this result transmitted ref erence range: 0.45 - 4 .70 mIU/L. The refe rence range was not u sed to interpret this result as normal/abnor mal. Lab Interpretation (test Normal code = 41531-3) [facility] [id number] 10:45:10 Test Item Value Reference Range Interpretation Comments TSH (test code = See_Comment [Automated message] 8378786420) The system [employer] generated this result transmitted ref erence range: 0.45 - 4 .70 mIU/L. The refe rence range was not u sed to interpret this result as normal/abnor mal. Lab Interpretation (test Normal code = 96134-4) [facility] WITH [id number] 10:37:17 Test Item Value Reference Range Interpretation Comments WBC (test code = See_Comment [Automated 6690-2) message] The system which generated this result transmitted reference range : 4.20 - 10.70 10*3/?L. The reference range was not used to interpret this result as normal/abnormal . RBC (test code = See_Comment L [Automated 789-8) message] The system which generated this result transmitted reference range : 4.26 - 5.52 10*6/?L. The reference range was not used to interpret this result as normal/abnormal . HGB (test code = 12.3 g/dL 12.2-16.4 718-7) HCT (test code = 36.6 % 38.4-49.3 L 4544-3) MCV (test code = 88.4 fL 81.7-95.6 787-2) MCH (test code = 29.7 pg 26.1-32.7 785-6) MCHC (test code = 33.6 g/dL 31.2-35.0 786-4) RDW-SD (test code = 45.2 fL 38.5-51.6 58469-4) RDW-CV (test code = 14.0 % 12.1-15.4 788-0) PLT (test code = See_Comment [Automated 777-3) message] The system which generated this result transmitted reference range : 150 - 328 10*3/?L. The reference range was not used to interpret this result as normal/abnormal . MPV (test code = 10.7 fL 9.8-13.0 11294-9) NRBC/100 WBC (test See_Comment [Automat ed code = 0417726575) message] The system which generated this result transmitted reference range : 0.0 - 10.0 /100 WBCs. The reference range was not used to interpret this result as normal/abnormal . NRBC x10^3 (test code <0.01 See_Comment [Auto mated = 2353966618) message] The system which generated this result transmitted reference range : 10*3/?L. The reference range was not used to interpret this result as normal/abnormal . GRAN MAT (NEUT) % 80.5 % (test code = 770-8) IMM GRAN % (test code 0.30 % = 2428162833) LYMPH % (test code = 9.3 % 736-9) MONO % (test code = 9.6 % 5905-5) EOS % (test code = 0.0 % 713-8) BASO % (test code = 0.3 % 706-2) GRAN MAT x10^3(ANC) 6.32 10*3/uL 1.99-6.95 (test code = 3210001230) IMM GRAN x10^3 (test <0.03 0.00-0.06 code = 3984992313) LYMPH x10^3 (test 0.73 10*3/uL 1.09-3.23 L code = 731-0) MONO x10^3 (test code 0.75 10*3/uL 0.36-1.02 = 742-7) EOS x10^3 (test code <0.03 0.06-0.53 L = 711-2) BASO x10^3 (test code <0.03 0.01-0.09 = 704-7) BANDS (test code = MARKED INCREASED A 6197267249) Lab Interpretation Abnormal (test code = 53902-7) [facility] WITH [id number] 10:37:17 Test Item Value Reference Range Interpretation Comments WBC (test code = See_Comment [Automated 6690-2) message] The system which generated this result transmitted reference range : 4.20 - 10.70 10*3/?L. The reference range was not used to interpret this result as normal/abnormal . RBC (test code = See_Comment L [Automated 789-8) message] The system which generated this result transmitted reference range : 4.26 - 5.52 10*6/?L. The reference range was not used to interpret this result as normal/abnormal . HGB (test code = 12.3 g/dL 12.2-16.4 718-7) HCT (test code = 36.6 % 38.4-49.3 L 4544-3) MCV (test code = 88.4 fL 81.7-95.6 787-2) MCH (test code = 29.7 pg 26.1-32.7 785-6) MCHC (test code = 33.6 g/dL 31.2-35.0 786-4) RDW-SD (test code = 45.2 fL 38.5-51.6 84081-1) RDW-CV (test code = 14.0 % 12.1-15.4 788-0) PLT (test code = See_Comment [Automated 777-3) message] The system which generated this result transmitted reference range : 150 - 328 10*3/?L. The reference range was not used to interpret this result as normal/abnormal . MPV (test code = 10.7 fL 9.8-13.0 65916-3) NRBC/100 WBC (test See_Comment [Automat ed code = 0521269382) message] The system which generated this result transmitted reference range : 0.0 - 10.0 /100 WBCs. The reference range was not used to interpret this result as normal/abnormal . NRBC x10^3 (test code <0.01 See_Comment [Auto mated = 3636529220) message] The system which generated this result transmitted reference range : 10*3/?L. The reference range was not used to interpret this result as normal/abnormal . GRAN MAT (NEUT) % 80.5 % (test code = 770-8) IMM GRAN % (test code 0.30 % = 3265875986) LYMPH % (test code = 9.3 % 736-9) MONO % (test code = 9.6 % 5905-5) EOS % (test code = 0.0 % 713-8) BASO % (test code = 0.3 % 706-2) GRAN MAT x10^3(ANC) 6.32 10*3/uL 1.99-6.95 (test code = 9683992398) IMM GRAN x10^3 (test <0.03 0.00-0.06 code = 7251578190) LYMPH x10^3 (test 0.73 10*3/uL 1.09-3.23 L code = 731-0) MONO x10^3 (test code 0.75 10*3/uL 0.36-1.02 = 742-7) EOS x10^3 (test code <0.03 0.06-0.53 L = 711-2) BASO x10^3 (test code <0.03 0.01-0.09 = 704-7) BANDS (test code = MARKED INCREASED A 1437174377) Lab Interpretation Abnormal (test code = 43960-7) [facility] Test Item Value Reference Range Interpretation Comments MAGNESIUM (test code = 7565280581) 1.1 mg/dL 1.7-2.4 L Lab Interpretation (test code = Abnormal 59780-7) [facility] Test Item Value Reference Range Interpretation Comments MAGNESIUM (test code = 6556799723) 1.1 mg/dL 1.7-2.4 L Lab Interpretation (test code = Abnormal 12209-7) [facility] Center[facility] [id number] 10:26:28 Test Item Value Reference Interpretation Comments Range TROPONIN I (test 0.786 ng/mL See_Comment H [Automated code = 5646330176) message] The system which generated this result transmitted reference range : <=0.034. The reference range was not used to interpret this result as normal/abnormal . ANGELA (test code = Reference (Normal) ANGELA) Range (defined by the 99th percentile reference limit): <= 0.034 ng/mL Note: Cardiac troponin begins to rise 3-4 hours after the onset of ischemia. Repeat in 4-6 hours if the sample was drawn within 3-4 hours of the onset of the symptom and found normal. Diagnosis of myocardial injury is made with acute changes in cTn concentrations with at least one serial sample above the 99th percentile upper reference limit (URL), taken together with the patient's clinical presentation. Biotin has been reported to cause a negative bias, interpret results relative to patient's use of biotin. Lab Interpretation Abnormal (test code = 04135-4) [facility] Center[facility] [id number] 10:26:28 Test Item Value Reference Interpretation Comments Range TROPONIN I (test 0.786 ng/mL See_Comment H [Automated code = 0462257012) message] The system which generated this result transmitted reference range : <=0.034. The reference range was not used to interpret this result as normal/abnormal . ANGELA (test code = Reference (Normal) ANGELA) Range (defined by the 99th percentile reference limit): <= 0.034 ng/mL Note: Cardiac troponin begins to rise 3-4 hours after the onset of ischemia. Repeat in 4-6 hours if the sample was drawn within 3-4 hours of the onset of the symptom and found normal. Diagnosis of myocardial injury is made with acute changes in cTn concentrations with at least one serial sample above the 99th percentile upper reference limit (URL), taken together with the patient's clinical presentation. Biotin has been reported to cause a negative bias, interpret results relative to patient's use of biotin. Lab Interpretation Abnormal (test code = 62345-9) [facility] CenterHEPAT[facility] FUNCTION PAN[facility] (57575) (ALB,T.PRO,BILI T,BU/BC,ALT,AST,ALK PHOS)2021-09-15 10:13:11 Test Item Value Reference Range Interpretation Comments TOTAL BILI (test code = 1623812112) 0.3 mg/dL 0.1-1.1 BILI UNCON (test code = 3044539383) 0.2 mg/dL 0.1-1.1 BILI CONJ (test code = 1683883451) 0.0 mg/dL 0.0-0.3 T PROTEIN (test code = 5618303459) 6.4 g/dL 6.3-8.2 ALBUMIN (test code = 3204675806) 3.8 g/dL 3.5-5.0 ALK PHOS (test code = 7540591266) 67 U/L 34-122 ALTv (test code = 1742-6) 20 U/L 5-50 AST(SGOT) (test code = 6241913479) 30 U/L 13-40 Lab Interpretation (test code = Normal 28951-2) [facility] METABOLIC PANEL (NA, K, CL, CO2, GLUCOSE, BUN, CREATININE, CA)2021-09-15 10:13:11 Test Item Value Reference Range Interpretation Comments NA (test code = 138 mmol/L 135-145 6230907376) K (test code = 3.7 mmol/L 3.5-5.0 2890296705) CL (test code = 110 mmol/L 98-108 H 1068898328) CO2 TOTAL (test code = 17 mmol/L 23-31 L 1164264852) AGAP (test code = 2-16 0676779337) BUN (test code = 10 mg/dL 7-23 6465360125) GLUCOSE (test code = 175 mg/dL 70-110 H 8502975410) CREATININE (test code = 0.66 mg/dL 0.60-1.25 4276447063) CALCIUM (test code = 8.5 mg/dL 8.6-10.6 L 7191483821) eGFR (test code = mL/min/1.73m2 4084458480) ANGELA (test code = ANGELA) Association of Glomerular Filtration Rate (GFR) and Staging of Kidney Disease* + --+ --+ ------+| GFR (mL/min/1.73 m2) ?| With Kidney Damage ?| ?Without Kidney Damage+ --------+ --------+ +| ?>90 ?| ?Stage one ?| ? Normal ?+ ---+ ---+ -------+| ?60-89 ?| ?Stage two ?| ? Decreased GFR ? + --+ --+ ------+| ?30-59 ?| ?Stage three ?| ? Stage three ? + --+ --+ ------+| ?15-29 ?| ?Stage four ? | ? Stage four ?+ ---+ ---+ -------+| ?<15 (or dialysis) ? ?| ?Stage five ? | ? Stage five ?+ ---+ ---+ -------+ *Each stage assumes the associated GFR level has been in effect for at least three months. ?Stages 1 to 5, with or without kidney disease, indicate chronic kidney disease. Notes: Determination of stages one and two (with eGFR >59mL/min/1.73 m2) requires estimation of kidney damage for at least three months as defined by structural or functional abnormalities of the kidney, manifested by either:Pathological abnormalities or Markers of kidney damage (including abnormalities in the composition of the blood or urine or abnormalities in imaging tests). Lab Interpretation Abnormal (test code = 20318-8) [facility] (13467[facility] (ALB,T.PRO,BILI T,BU/BC,ALT,AST,ALK PHOS)2021-09-15 10:13:11 Test Item Value Reference Range Interpretation Comments TOTAL BILI (test code = 0526485166) 0.3 mg/dL 0.1-1.1 BILI UNCON (test code = 5900083157) 0.2 mg/dL 0.1-1.1 BILI CONJ (test code = 8570578990) 0.0 mg/dL 0.0-0.3 T PROTEIN (test code = 2744538081) 6.4 g/dL 6.3-8.2 ALBUMIN (test code = 0210378290) 3.8 g/dL 3.5-5.0 ALK PHOS (test code = 9307522246) 67 U/L 34-122 ALTv (test code = 1742-6) 20 U/L 5-50 AST(SGOT) (test code = 8990936948) 30 U/L 13-40 Lab Interpretation (test code = Normal 00009-2) [facility] Center[facility] (NA, K, CL, CO2, GLUCOSE, BUN, CREATININE, CA)2021-09-15 10:13:11 Test Item Value Reference Range Interpretation Comments NA (test code = 138 mmol/L 135-145 5512658367) K (test code = 3.7 mmol/L 3.5-5.0 7633630776) CL (test code = 110 mmol/L 98-108 H 5602578166) CO2 TOTAL (test code = 17 mmol/L 23-31 L 1911684236) AGAP (test code = 2-16 8221503048) BUN (test code = 10 mg/dL 7-23 3184466724) GLUCOSE (test code = 175 mg/dL 70-110 H 1004886636) CREATININE (test code = 0.66 mg/dL 0.60-1.25 8400871076) CALCIUM (test code = 8.5 mg/dL 8.6-10.6 L 6142777719) eGFR (test code = mL/min/1.73m2 8822673523) ANGELA (test code = ANGELA) Association of Glomerular Filtration Rate (GFR) and Staging of Kidney Disease* + --+ --+ ------+| GFR (mL/min/1.73 m2) ?| With Kidney Damage ?| ?Without Kidney Damage+ --------+ --------+ +| ?>90 ?| ?Stage one ?| ? Normal ?+ ---+ ---+ -------+| ?60-89 ?| ?Stage two ?| ? Decreased GFR ? + --+ --+ ------+| ?30-59 ?| ?Stage three ?| ? Stage three ? + --+ --+ ------+| ?15-29 ?| ?Stage four ? | ? Stage four ?+ ---+ ---+ -------+| ?<15 (or dialysis) ? ?| ?Stage five ? | ? Stage five ?+ ---+ ---+ -------+ *Each stage assumes the associated GFR level has been in effect for at least three months. ?Stages 1 to 5, with or without kidney disease, indicate chronic kidney disease. Notes: Determination of stages one and two (with eGFR >59mL/min/1.73 m2) requires estimation of kidney damage for at least three months as defined by structural or functional abnormalities of the kidney, manifested by either:Pathological abnormalities or Markers of kidney damage (including abnormalities in the composition of the blood or urine or abnormalities in imaging tests). Lab Interpretation Abnormal (test code = 31134-8) [facility] CenterProthrombin Time / [id number] 10:12:11 Test Item Value Reference Range Interpretation Comments PROTIME PATIENT (test See_Comment H [Auto mated message] code = 5964-2) The system [employer] generated this result transmitted ref erence range: 10.1 - 1 2.6 Seconds. The reference range was not used to int erpret this result as normal/abnormal . INR (test code = 6301-6) Nor mal INR <1.1; Warfarin Therap eutic range 2.0 to 3. 0 or 2.5 to 3.5, dep ending upon the indica tions. Lab Interpretation (test Abnormal code = 59991-1) [facility] 10:12:11 Test Item Value Reference Range Interpretation Comments APTT Patient (test code = See_Comment [ Automated message] 3173-2) The system [employer] generated this result transmitted ref erence range: 26 - 36 Seconds. The re ference range was not u sed to interpret this result as normal/abnor mal. Lab Interpretation (test Normal code = 36151-7) [facility] CenterProthrombin Time / [id number] 10:12:11 Test Item Value Reference Range Interpretation Comments PROTIME PATIENT (test See_Comment H [Auto mated message] code = 5964-2) The system [employer] generated this result transmitted ref erence range: 10.1 - 1 2.6 Seconds. The reference range was not used to int erpret this result as normal/abnormal . INR (test code = 6301-6) Nor mal INR <1.1; Warfarin Therap eutic range 2.0 to 3. 0 or 2.5 to 3.5, dep ending upon the indica tions. Lab Interpretation (test Abnormal code = 34508-1) [facility] 10:12:11 Test Item Value Reference Range Interpretation Comments APTT Patient (test code = See_Comment [ Automated message] 3173-2) The system [employer] generated this result transmitted ref erence range: 26 - 36 Seconds. The re ference range was not u sed to interpret this result as normal/abnor mal. Lab Interpretation (test Normal code = 32814-4) [facility] CenterGlycosylated Hemoglobin (A1C)2021-09-15 10:06:37 Test Item Value Reference Range Interpretation Comments HGB A1C (test code = 8.0 % 4.0-5.7 H 4548-4) ANGELA (test code = ANGELA) Reference RangesNormal: <5.7%Prediabetes: 5.7 - 6.4%Diabetes: > 6.5% Lab Interpretation (test Abnormal code = 10216-5) [facility] CenterGlycosylated Hemoglobin (A1C)2021-09-15 10:06:37 Test Item Value Reference Range Interpretation Comments HGB A1C (test code = 8.0 % 4.0-5.7 H 4548-4) ANGELA (test code = ANGELA) Reference RangesNormal: <5.7%Prediabetes: 5.7 - 6.4%Diabetes: > 6.5% Lab Interpretation (test Abnormal code = 70764-6) [facility] CenterLactic Acid Whole [id number] 09:29:32 Test Item Value Reference Range Interpretation Comments LACTIC ACID (test code = 1.87 mmol/L 0.50-2.20 3563946242) Lab Interpretation (test code = Normal 55609-1) [facility] [id number] 09:29:32 Test Item Value Reference Range Interpretation Comments LACTIC ACID (test code = 1.87 mmol/L 0.50-2.20 7986789791) Lab Interpretation (test code = Normal 88898-3) [facility] CenterL[facility] Acid Whole [id number] 05:43:40 Test Item Value Reference Range Interpretation Comments LACTIC ACID (test code = 1.52 mmol/L 0.50-2.20 2960926398) Lab Interpretation (test code = Normal 10408-7) [facility] CenterL[facility] Acid Whole [id number] 05:43:40 Test Item Value Reference Range Interpretation Comments LACTIC ACID (test code = 1.52 mmol/L 0.50-2.20 7703484791) Lab Interpretation (test code = Normal 70436-8) [facility] CenterTROPONIN [id number] 02:28:48 Test Item Value Reference Interpretation Comments Range TROPONIN I (test 0.074 ng/mL See_Comment H [Automated code = 9323854608) message] The system which generated this result transmitted reference range : <=0.034. The reference range was not used to interpret this result as normal/abnormal . ANGELA (test code = Reference (Normal) ANGELA) Range (defined by the 99th percentile reference limit): <= 0.034 ng/mL Note: Cardiac troponin begins to rise 3-4 hours after the onset of ischemia. Repeat in 4-6 hours if the sample was drawn within 3-4 hours of the onset of the symptom and found normal. Diagnosis of myocardial injury is made with acute changes in cTn concentrations with at least one serial sample above the 99th percentile upper reference limit (URL), taken together with the patient's clinical presentation. Biotin has been reported to cause a negative bias, interpret results relative to patient's use of biotin. Lab Interpretation Abnormal (test code = 99544-0) [facility] CenterTROPONIN [id number] 02:28:48 Test Item Value Reference Interpretation Comments Range TROPONIN I (test 0.074 ng/mL See_Comment H [Automated code = 3167067315) message] The system which generated this result transmitted reference range : <=0.034. The reference range was not used to interpret this result as normal/abnormal . ANGELA (test code = Reference (Normal) ANGELA) Range (defined by the 99th percentile reference limit): <= 0.034 ng/mL Note: Cardiac troponin begins to rise 3-4 hours after the onset of ischemia. Repeat in 4-6 hours if the sample was drawn within 3-4 hours of the onset of the symptom and found normal. Diagnosis of myocardial injury is made with acute changes in cTn concentrations with at least one serial sample above the 99th percentile upper reference limit (URL), taken together with the patient's clinical presentation. Biotin has been reported to cause a negative bias, interpret results relative to patient's use of biotin. Lab Interpretation Abnormal (test code = 97554-9) [facility] CenterCOMP. METABOLIC PANEL (91690)2021-09-15 02:18:46 Test Item Value Reference Range Interpretation Comments NA (test code = 135 mmol/L 135-145 9840843086) K (test code = 4.6 mmol/L 3.5-5.0 9424739728) CL (test code = 101 mmol/L 98-108 8538922884) CO2 TOTAL (test code = 17 mmol/L 23-31 L 3233586225) AGAP (test code = 2-16 H 5048627471) BUN (test code = 11 mg/dL 7-23 3280533030) GLUCOSE (test code = 281 mg/dL 70-110 H 5824963515) CREATININE (test code = 0.80 mg/dL 0.60-1.25 4062244742) TOTAL BILI (test code = 0.4 mg/dL 0.1-1.2 6202176352) CALCIUM (test code = 9.2 mg/dL 8.6-10.6 5060672133) T PROTEIN (test code = 7.1 g/dL 6.3-8.2 8759577467) ALBUMIN (test code = 4.5 g/dL 3.5-5.0 6535754942) ALK PHOS (test code = 81 U/L 34-122 0664892339) ALTv (test code = 25 U/L 5-50 1741-6) AST(SGOT) (test code = 23 U/L 13-40 1080631686) eGFR (test code = mL/min/1.73m2 7378326330) ANGELA (test code = ANGELA) Association of Glomerular Filtration Rate (GFR) and Staging of Kidney Disease* + --+ --+ ------+| GFR (mL/min/1.73 m2) ?| With Kidney Damage ?| ?Without Kidney Damage+ --------+ --------+ +| ?>90 ?| ?Stage one ?| ? Normal ?+ ---+ ---+ -------+| ?60-89 ?| ?Stage two ?| ? Decreased GFR ? + --+ --+ ------+| ?30-59 ?| ?Stage three ?| ? Stage three ? + --+ --+ ------+| ?15-29 ?| ?Stage four ? | ? Stage four ?+ ---+ ---+ -------+| ?<15 (or dialysis) ? ?| ?Stage five ? | ? Stage five ?+ ---+ ---+ -------+ *Each stage assumes the associated GFR level has been in effect for at least three months. ?Stages 1 to 5, with or without kidney disease, indicate chronic kidney disease. Notes: Determination of stages one and two (with eGFR >59mL/min/1.73 m2) requires estimation of kidney damage for at least three months as defined by structural or functional abnormalities of the kidney, manifested by either:Pathological abnormalities or Markers of kidney damage (including abnormalities in the composition of the blood or urine or abnormalities in imaging tests). Lab Interpretation Abnormal (test code = 95886-4) [facility]. METABOLIC PANEL (73731)2021-09-15 02:18:46 Test Item Value Reference Range Interpretation Comments NA (test code = 135 mmol/L 135-145 5741998643) K (test code = 4.6 mmol/L 3.5-5.0 3833277282) CL (test code = 101 mmol/L 98-108 9885552750) CO2 TOTAL (test code = 17 mmol/L 23-31 L 3484813337) AGAP (test code = 2-16 H 4726919028) BUN (test code = 11 mg/dL 7-23 6465730873) GLUCOSE (test code = 281 mg/dL 70-110 H 8625183016) CREATININE (test code = 0.80 mg/dL 0.60-1.25 2113249348) TOTAL BILI (test code = 0.4 mg/dL 0.1-1.3 8196395688) CALCIUM (test code = 9.2 mg/dL 8.6-10.6 9673622420) T PROTEIN (test code = 7.1 g/dL 6.3-8.2 1551394863) ALBUMIN (test code = 4.5 g/dL 3.5-5.0 2453049858) ALK PHOS (test code = 81 U/L 34-122 1357115565) ALTv (test code = 25 U/L 5-50 2-6) AST(SGOT) (test code = 23 U/L 13-40 3579684279) eGFR (test code = mL/min/1.73m2 7395896227) ANGELA (test code = ANGELA) Association of Glomerular Filtration Rate (GFR) and Staging of Kidney Disease* + --+ --+ ------+| GFR (mL/min/1.73 m2) ?| With Kidney Damage ?| ?Without Kidney Damage+ --------+ --------+ +| ?>90 ?| ?Stage one ?| ? Normal ?+ ---+ ---+ -------+| ?60-89 ?| ?Stage two ?| ? Decreased GFR ? + --+ --+ ------+| ?30-59 ?| ?Stage three ?| ? Stage three ? + --+ --+ ------+| ?15-29 ?| ?Stage four ? | ? Stage four ?+ ---+ ---+ -------+| ?<15 (or dialysis) ? ?| ?Stage five ? | ? Stage five ?+ ---+ ---+ -------+ *Each stage assumes the associated GFR level has been in effect for at least three months. ?Stages 1 to 5, with or without kidney disease, indicate chronic kidney disease. Notes: Determination of stages one and two (with eGFR >59mL/min/1.73 m2) requires estimation of kidney damage for at least three months as defined by structural or functional abnormalities of the kidney, manifested by either:Pathological abnormalities or Markers of kidney damage (including abnormalities in the composition of the blood or urine or abnormalities in imaging tests). Lab Interpretation Abnormal (test code = 02076-4) [facility] CenterL[facility] Acid Whole [id number] 01:48:05 Test Item Value Reference Range Interpretation Comments LACTIC ACID (test code = 3.89 mmol/L 0.50-2.20 H 0056324960) Lab Interpretation (test code = Abnormal 12471-7) [facility] [id number] 01:48:05 Test Item Value Reference Range Interpretation Comments LACTIC ACID (test code = 3.89 mmol/L 0.50-2.20 H 2754502382) Lab Interpretation (test code = Abnormal 17917-6) [facility] [id number] 08:09:51 Test Item Value Reference Interpretation Comments Range TROPONIN I (test 0.024 ng/mL See_Comment [Automated code = [id number]) message] The system which generated this result transmitted reference range : <=0.034. The reference range was not used to interpret this result as normal/abnormal . ANGELA (test code = Reference (Normal) ANGELA) Range (defined by the 99th percentile reference limit): <= 0.034 ng/mL Note: Cardiac troponin begins to rise 3-4 hours after the onset of ischemia. Repeat in 4-6 hours if the sample was drawn within 3-4 hours of the onset of the symptom and found normal. Diagnosis of myocardial injury is made with acute changes in cTn concentrations with at least one serial sample above the 99th percentile upper reference limit (URL), taken together with the patient's clinical presentation. Biotin has been reported to cause a negative bias, interpret results relative to patient's use of biotin. Lab Interpretation Normal (test code = 67810-0) [facility]. METABOLIC PANEL (48191)2021-09-14 07:58:33 Test Item Value Reference Range Interpretation Comments NA (test code = 134 mmol/L 135-145 L 4526251685) K (test code = 4.5 mmol/L 3.5-5.0 3564934878) CL (test code = 99 mmol/L 98-108 2018206881) CO2 TOTAL (test code = 18 mmol/L 23-31 L 7376703905) AGAP (test code = 2-16 H 4003800359) BUN (test code = 13 mg/dL 7-23 9449653856) GLUCOSE (test code = 182 mg/dL 70-110 H 2955439526) CREATININE (test code = 0.69 mg/dL 0.60-1.25 2027732689) TOTAL BILI (test code = 0.6 mg/dL 0.1-1.4 1689606917) CALCIUM (test code = 9.5 mg/dL 8.6-10.6 0105610972) T PROTEIN (test code = 7.4 g/dL 6.3-8.2 8324107701) ALBUMIN (test code = 4.7 g/dL 3.5-5.0 7152204870) ALK PHOS (test code = 85 U/L 34-122 0742884266) ALTv (test code = 22 U/L 5-50 1742-6) AST(SGOT) (test code = 23 U/L 13-40 3324161233) eGFR (test code = mL/min/1.73m2 8694051442) ANGELA (test code = ANGELA) Association of Glomerular Filtration Rate (GFR) and Staging of Kidney Disease* + --+ --+ ------+| GFR (mL/min/1.73 m2) ?| With Kidney Damage ?| ?Without Kidney Damage+ --------+ --------+ +| ?>90 ?| ?Stage one ?| ? Normal ?+ ---+ ---+ -------+| ?60-89 ?| ?Stage two ?| ? Decreased GFR ? + --+ --+ ------+| ?30-59 ?| ?Stage three ?| ? Stage three ? + --+ --+ ------+| ?15-29 ?| ?Stage four ? | ? Stage four ?+ ---+ ---+ -------+| ?<15 (or dialysis) ? ?| ?Stage five ? | ? Stage five ?+ ---+ ---+ -------+ *Each stage assumes the associated GFR level has been in effect for at least three months. ?Stages 1 to 5, with or without kidney disease, indicate chronic kidney disease. Notes: Determination of stages one and two (with eGFR >59mL/min/1.73 m2) requires estimation of kidney damage for at least three months as defined by structural or functional abnormalities of the kidney, manifested by either:Pathological abnormalities or Markers of kidney damage (including abnormalities in the composition of the blood or urine or abnormalities in imaging tests). Lab Interpretation Abnormal (test code = 32372-7) [facility] WITH [id number] 07:42:13 Test Item Value Reference Range Interpretation Comments WBC (test code = See_Comment H [Automated 0038-2) message] The sy stem which generated this result transmitted reference range : 4.20 - 10.70 10*3/?L. The reference range was not used to interpret this result as normal/abnormal . RBC (test code = See_Comment [Automated 504-8) message] The sy stem which generated this result transmitted reference range : 4.26 - 5.52 10*6/?L. The reference range was not used to interpret this result as normal/abnormal . HGB (test code = 13.2 g/dL 12.2-16.4 718-7) HCT (test code = 38.4 % 38.4-49.3 4544-3) MCV (test code = 87.1 fL 81.7-95.6 787-2) MCH (test code = 29.9 pg 26.1-32.7 785-6) MCHC (test code = 34.4 g/dL 31.2-35.0 786-4) RDW-SD (test code = 43.5 fL 38.5-51.6 55167-6) RDW-CV (test code = 13.5 % 12.1-15.4 788-0) PLT (test code = See_Comment [Automated 777-3) message] The sy stem which generated this result transmitted reference range : 150 - 328 10*3/ ?L. The reference r bolivar was not used to interpret this result as normal/abnormal . MPV (test code = 10.6 fL 9.8-13.0 27235-4) NRBC/100 WBC (test See_Comment [Automat ed code = 7266438322) message] The system which generated this result transmitted reference range : 0.0 - 10.0 /100 WBCs. The refer ence range was not u sed to interpret th is result as normal/abnormal . NRBC x10^3 (test code <0.01 See_Comment [Auto mated = 9831554410) message] The s ystem which generated this result transmitted reference range : 10*3/?L. The reference range was not used to interpret this result as normal/abnormal . GRAN MAT (NEUT) % 80.2 % (test code = 770-8) IMM GRAN % (test code 0.30 % = 5286173140) LYMPH % (test code = 13.2 % 736-9) MONO % (test code = 5.8 % 5905-5) EOS % (test code = 0.0 % 713-8) BASO % (test code = 0.5 % 706-2) GRAN MAT x10^3(ANC) 8.77 10*3/uL 1.99-6.95 H (test code = 9662992100) IMM GRAN x10^3 (test 0.03 10*3/uL 0.00-0.06 code = 5983457401) LYMPH x10^3 (test code 1.44 10*3/uL 1.09-3.23 = 731-0) MONO x10^3 (test code 0.63 10*3/uL 0.36-1.02 = 742-7) EOS x10^3 (test code = <0.03 0.06-0.53 L 711-2) BASO x10^3 (test code 0.05 10*3/uL 0.01-0.09 = 704-7) Lab Interpretation Abnormal (test code = 13776-1) [facility] [id number] 11:01:00 Test Item Value Reference Range Interpretation Comments GLUCOSE BEDSIDE TESTING (test code 180 MG/DL 60-99 H = GLUBED) BASIC METABOLIC [id number] 07:25:00 Test Item Value Reference Range Interpretation Comments SODIUM (test code = 138 MMOL/L 137-145 N NA) POTASSIUM (test code = 4.1 MMOL/L 3.5-5.1 N K) CHLORIDE (test code = 104 MMOL/L 98-107 N CL) CARBON DIOXIDE (test 25 MMOL/L 22-30 N code = CO2) GLUCOSE (test code = 130 MG/DL 74-106 H GLU) BLOOD UREA NITROGEN 12 MG/DL 9-20 N (test code = BUN) GLOMERULAR FILTRATION > 60 Report ing units: RATE (test code = GFR) ml/mi n/1.73 m2 (Modified MDRD Formula)Referen ce Range: > or = 6 0 ml/min/1.73 m2 CREATININE (test code 0.60 MG/DL 0.66-1.25 L = CREAT) CALCIUM (test code = 8.8 MG/DL 8.4-10.2 N CA) [id number] 07:25:00 Test Item Value Reference Range Interpretation Comments MAGNESIUM (test code = MAG) 2.0 MG/DL 1.6-2.3 N CBC W/AUTO [id number] 07:00:00 Test Item Value Reference Range Interpretation Comments WHITE BLOOD CELL (test code = 6.7 K/MM3 3.8-9.8 N WBC) RED BLOOD CELL (test code = 2.84 M/MM3 3.95-5.67 L RBC) HEMOGLOBIN (test code = HGB) 8.8 G/DL 12.4-16.7 L HEMATOCRIT (test code = HCT) 27.5 % 35.9-49.5 L MEAN CELL VOLUME (test code = 97 fL 81.7-96.1 H MCV) MEAN CELL HGB (test code = MCH) 31.0 pg 27.6-33.2 N MEAN CELL HGB CONCETRATION 32.0 % 32.9-35.5 L (test code = MCHC) RED CELL DISTRIBUTION WIDTH 13.1 % 12.1-15.2 N (test code = RDW) PLATELET COUNT (test code = 264 K/MM3 129-368 N PLT) MEAN PLATELET VOLUME (test code 10.0 fl 7.4-10.4 N = MPV) NEUTROPHIL % (test code = NT%) 59.4 % 43-75 N IMMATURE GRANULOCYTE % (test 0.5 % 0.0-2.0 N code = IG%) LYMPHOCYTE % (test code = LY%) 29.3 % 14-44 N MONOCYTE % (test code = MO%) 8.6 % 4-13 N EOSINOPHIL % (test code = EO%) 1.1 % 0-6 N BASOPHIL % (test code = BA%) 1.1 % 0-2 N NUCLEATED RBC % (test code = 0.5 % 0-1.0 N NRBC%) NEUTROPHIL # (test code = NT#) 3.97 K/mm3 2.0-7.6 N IMMATURE GRANULOCYTE # (test 0.03 x10 3/uL 0-0.03 N code = IG#) LYMPHOCYTE # (test code = LY#) 1.95 K/mm3 1.0-3.8 N MONOCYTE # (test code = MO#) 0.57 K/mm3 0.1-0.8 N EOSINOPHIL # (test code = EO#) 0.07 K/mm3 0.0-0.2 N BASOPHIL # (test code = BA#) 0.07 K/mm3 0.0-0.2 N NUCLEATED RBC # (test code = 0.03 K/mm3 0.0-0.1 N NRBC#) GLUCOSE BEDSIDE [id number] 06:50:00 Test Item Value Reference Range Interpretation Comments GLUCOSE BEDSIDE TESTING (test code = 91 MG/DL 60-99 N GLUBED) GLUCOSE BEDSIDE [id number] 19:50:00 Test Item Value Reference Range Interpretation Comments GLUCOSE BEDSIDE TESTING (test code 195 MG/DL 60-99 H = GLUBED) GLUCOSE BEDSIDE [id number] 17:47:00 Test Item Value Reference Range Interpretation Comments GLUCOSE BEDSIDE TESTING (test code 166 MG/DL 60-99 H = GLUBED) GLUCOSE BEDSIDE [id number] 11:26:00 Test Item Value Reference Range Interpretation Comments GLUCOSE BEDSIDE TESTING (test code 163 MG/DL 60-99 H = GLUBED) GLUCOSE BEDSIDE [id number] 06:32:00 Test Item Value Reference Range Interpretation Comments GLUCOSE BEDSIDE TESTING (test code 166 MG/DL 60-99 H = GLUBED) GLUCOSE BEDSIDE [id number] 19:40:00 Test Item Value Reference Range Interpretation Comments GLUCOSE BEDSIDE TESTING (test code 221 MG/DL 60-99 H = GLUBED) GLUCOSE BEDSIDE [id number] 15:38:00 Test Item Value Reference Range Interpretation Comments GLUCOSE BEDSIDE TESTING (test code 149 MG/DL 60-99 H = GLUBED) GLUCOSE BEDSIDE [id number] 11:01:00 Test Item Value Reference Range Interpretation Comments GLUCOSE BEDSIDE TESTING (test code 255 MG/DL 60-99 H = GLUBED) - XR CHEST [id number] 08:32:00 [facility] 1950 Sex: MPatient Name: DIALLO COCHRAN Unit No: [id number] EXAMS: CPT CODE: [id number] XR CHEST 1V 10656 EXAMINATION: - XR CHEST 1V HISTORY: Postop COMPARISON: Chest x-ray performed the previous day LOCATION CODE: C3 FINDINGS: Single frontal view of the chest is submitted for evaluation. Life support apparatus is unchanged. Mild atelectatic changes in the left lung base appear stable, and no new abnorm alities are identified. IMPRESSION: No significant change from the prior at 0832 Reported and signed by: Josey Rojo MD CC: Technologist: Chuyita Mayers, RT (R) Transcrpt Date/Tm/Trnsp: 06/15/2021 (0832) AddisonR.[email or web address] Orig Print D/T: S: 06/15/2021 (0835) [facility] NAME: DIALLO COCHRAN [id number] PHYS: [place] [address] : 1950 AGE: 71 SEX: M LOC: Z.SI02 A PHONE #: [phone] EXAM DATE: 06/15/2021 STATUS: ADM IN FAX #: [phone] RADIOLOGY NO: PAGE 1 Signed ReportGLUCOSE BEDSIDE [id number] 08:02:00 Test Item Value Reference Range Interpretation Comments GLUCOSE BEDSIDE TESTING (test code 198 MG/DL 60-99 H = GLUBED) GLUCOSE BEDSIDE [id number] 20:31:00 Test Item Value Reference Range Interpretation Comments GLUCOSE BEDSIDE TESTING (test code 254 MG/DL 60-99 H = GLUBED) GLUCOSE BEDSIDE [id number] 17:13:00 Test Item Value Reference Range Interpretation Comments GLUCOSE BEDSIDE TESTING (test code 187 MG/DL 60-99 H = GLUBED) GLUCOSE BEDSIDE [id number] 11:04:00 Test Item Value Reference Range Interpretation Comments GLUCOSE BEDSIDE TESTING (test code 312 MG/DL 60-99 HH = GLUBED) - XR CHEST [id number] 08:09:00 [facility] : 1950 Sex: M Patient Name: DIALLO COCHRAN Unit No: [id number] EXAMS: CPT CODE: [id number] XR CHEST 1V 55817 Location Code: C3 CHEST AP HISTORY: Follow-up CABG COMPARISON: Chest radiograph from prior day FINDINGS: Right subclavian catheter tip is at the mid SVC. Mild left basilar atelectasis remains. Lungs are otherwise clear. No sizable pleural effusion or pneumothorax. Cardiomediastinal silhouette is stab le. Sternal wires are noted. IMPRESSION: Mild left basilar atelectasis. at 0809 Reported and signed by: Jessica Arriaga MD CC: Technologist: Lydia Reynolds (RT)(R) Transcrpt Date/Tm/Trnsp: 06/14/2021 (808) t.[email or web address] Orig Print D/T: S: 06/14/2021 (812) [facility] NAME: FANY COCHRANIO [id number] PHYS: [place] [address] : 1950 AGE: 71 SEX: M : Z.SI02 A PHONE #: [phone] EXAM DATE: 06/14/2021 STATUS: ADM IN FAX #: [phone] RADIOLOGY NO: PAGE 1 Signed Report GLUCOSE BEDSIDE [id number] 06:36:00 Test Item Value Reference Range Interpretation Comments GLUCOSE BEDSIDE TESTING (test code 210 MG/DL 60-99 H = GLUBED) BASIC METABOLIC [id number] 06:01:00 Test Item Value Reference Range Interpretation Comments SODIUM (test code = 136 MMOL/L 137-145 L NA) POTASSIUM (test code = 4.1 MMOL/L 3.5-5.1 N K) CHLORIDE (test code = 104 MMOL/L 98-107 N CL) CARBON DIOXIDE (test 25 MMOL/L 22-30 N code = CO2) GLUCOSE (test code = 205 MG/DL 74-106 H GLU) BLOOD UREA NITROGEN 17 MG/DL 9-20 N (test code = BUN) GLOMERULAR FILTRATION > 60 Report ing units: RATE (test code = GFR) ml/mi n/1.73 m2 (Modified MDRD Formula)Referen ce Range: > or = 6 0 ml/min/1.73 m2 CREATININE (test code 0.70 MG/DL 0.66-1.25 N = CREAT) CALCIUM (test code = 8.9 MG/DL 8.4-10.2 N CA) [id number] 06:01:00 Test Item Value Reference Range Interpretation Comments MAGNESIUM (test code = MAG) 2.1 MG/DL 1.6-2.3 N CBC W/AUTO [id number] 05:48:00 Test Item Value Reference Range Interpretation Comments WHITE BLOOD CELL (test code = 11.5 K/MM3 3.8-9.8 H WBC) RED BLOOD CELL (test code = 2.71 M/MM3 3.95-5.67 L RBC) HEMOGLOBIN (test code = HGB) 8.6 G/DL 12.4-16.7 L HEMATOCRIT (test code = HCT) 25.8 % 35.9-49.5 L MEAN CELL VOLUME (test code = 95 fL 81.7-96.1 N MCV) MEAN CELL HGB (test code = MCH) 31.7 pg 27.6-33.2 N MEAN CELL HGB CONCETRATION 33.3 % 32.9-35.5 N (test code = MCHC) RED CELL DISTRIBUTION WIDTH 13.0 % 12.1-15.2 N (test code = RDW) PLATELET COUNT (test code = 139 K/MM3 129-368 N PLT) MEAN PLATELET VOLUME (test code 10.8 fl 7.4-10.4 H = MPV) NEUTROPHIL % (test code = NT%) 76.9 % 43-75 H IMMATURE GRANULOCYTE % (test 0.5 % 0.0-2.0 N code = IG%) LYMPHOCYTE % (test code = LY%) 13.4 % 14-44 L MONOCYTE % (test code = MO%) 8.7 % 4-13 N EOSINOPHIL % (test code = EO%) 0.1 % 0-6 N BASOPHIL % (test code = BA%) 0.4 % 0-2 N NUCLEATED RBC % (test code = 0.2 % 0-1.0 N NRBC%) NEUTROPHIL # (test code = NT#) 8.79 K/mm3 2.0-7.6 H IMMATURE GRANULOCYTE # (test 0.06 x10 3/uL 0-0.03 H code = IG#) LYMPHOCYTE # (test code = LY#) 1.54 K/mm3 1.0-3.8 N MONOCYTE # (test code = MO#) 1.00 K/mm3 0.1-0.8 H EOSINOPHIL # (test code = EO#) 0.01 K/mm3 0.0-0.2 N BASOPHIL # (test code = BA#) 0.05 K/mm3 0.0-0.2 N NUCLEATED RBC # (test code = 0.02 K/mm3 0.0-0.1 N NRBC#) GLUCOSE BEDSIDE [id number] 20:09:00 Test Item Value Reference Range Interpretation Comments GLUCOSE BEDSIDE TESTING (test code 309 MG/DL 60-99 HH = GLUBED) GLUCOSE BEDSIDE [id number] 17:09:00 Test Item Value Reference Range Interpretation Comments GLUCOSE BEDSIDE TESTING (test code 237 MG/DL 60-99 H = GLUBED) GLUCOSE BEDSIDE [id number] 14:04:00 Test Item Value Reference Range Interpretation Comments GLUCOSE BEDSIDE TESTING (test code 141 MG/DL 60-99 H = GLUBED) GLUCOSE BEDSIDE [id number] 11:27:00 Test Item Value Reference Range Interpretation Comments GLUCOSE BEDSIDE TESTING (test code 261 MG/DL 60-99 H = GLUBED) - XR CHEST [id number] 07:10:00 [facility] : 1950 Sex: M Patient Name: DIALLO COCHRAN Unit No: [id number] EXAMS: CPT CODE: [id number] XR CHEST 1V 17782 - XR CHEST 1V, 06/13/2021 5:00 AM Reason For Examination: S/P CABG Comparison: exam of one day priorLocation: P16 Findings Support devices: Unchanged PLEURA: No pleural effusions LUNGS: No definite pulmonary edema or consolidation CARDIOMEDIASTINAL SILHOUETTE No significant interval change IMPRESSION: Support devices as above No significant interval change at 0710 Reported and signed by: Parish Luis CC: Technologist: Francois Méndez, RT(R) Transcrpt Date/Tm/Trnsp: 06/13/2021 (07) [id number] Orig Print D/T: S: 06/13/2021 (0713) [facility] NAME: DIALLO COCHRAN [id number] PHYS: [place] [address] : 1950 AGE: 71 SEX: M LOC: Z.SI02 A PHONE #: [phone] EXAM DATE: 06/13/2021 STATUS: ADM IN FAX #: [phone] RADIOLOGY NO: PAGE 1 Signed Repor tGLUCOSE BEDSIDE [id number] 05:46:00 Test Item Value Reference Range Interpretation Comments GLUCOSE BEDSIDE TESTING (test code 221 MG/DL 60-99 H = GLUBED) [id number] 21:12:00 Test Item Value Reference Range Interpretation Comments POTASSIUM (test code = K) 4.6 MMOL/L 3.5-5.1 N [id number] 21:12:00 Test Item Value Reference Range Interpretation Comments CALCIUM (test code = CA) 8.7 MG/DL 8.4-10.2 N [id number] 21:12:00 Test Item Value Reference Range Interpretation Comments MAGNESIUM (test code = MAG) 2.1 MG/DL 1.6-2.3 GLUCOSE BEDSIDE [id number] 20:21:00 Test Item Value Reference Range Interpretation Comments GLUCOSE BEDSIDE TESTING (test code 139 MG/DL 60-99 H = GLUBED) GLUCOSE BEDSIDE [id number] 13:40:00 Test Item Value Reference Range Interpretation Comments GLUCOSE BEDSIDE TESTING (test code = 95 MG/DL 60-99 N GLUBED) GLUCOSE BEDSIDE [id number] 13:40:00 Test Item Value Reference Range Interpretation Comments GLUCOSE BEDSIDE TESTING (test code 122 MG/DL 60-99 H = GLUBED) GLUCOSE BEDSIDE [id number] 11:08:00 Test Item Value Reference Range Interpretation Comments GLUCOSE BEDSIDE TESTING (test code 153 MG/DL 60-99 H = GLUBED) GLUCOSE BEDSIDE [id number] 09:49:00 Test Item Value Reference Range Interpretation Comments GLUCOSE BEDSIDE TESTING (test code 220 MG/DL 60-99 H = GLUBED) - XR CHEST [id number] 08:11:00 [facility] : 1950 Sex: M Patient Name: DIALLO COCHRAN Unit No: [id number] EXAMS: CPT CODE: [id number] XR CHEST 1V 04650 EXAMINATION: - XR CHEST 1V. LOCATION: B2. HISTORY: S/P CABG. COMPARISON: Radiograph dated 06/11/2021. TECHNIQUE: Single AP view of the chest was obtained. FINDINGS: There has been interval removal of the endotracheal tube and esophagogastric tube. Right IJ [place]-Sully catheter, right subclavian line, mediastinal drain, and left chest tube unchanged in position. The heart is normal in size. Median sternotomy wires are present. Mild bibasilar opacities are present, increased since prior exam. No new osseous abnormality is identified. IMPRESSION: Interval increase of mild bibasilar opacities, likely representing atelectasis. at 0811 Reportedand signed by: Joseph Mendez MD CC: Technologist: Chuyita Mayers, RT (R) Transcrpt Date/Tm/Trnsp: 06/12/2021 (810) AmbrocioPR7 Orig Print D/T: S: 06/12/2021 (813) [facility] NAME: DIALLO COCHRAN [address] PHYS: [place] [address] : 1950 AGE: 71 SEX: M LOC: Z.SI02 A PHONE #: [phone] EXAM DATE: 06/12/2021 STATUS: ADM IN FAX #: [phone] RADIOLOGY NO: PAGE 1 Signed Report GLUCOSE BEDSIDE [id number] 08:05:00 Test Item Value Reference Range Interpretation Comments GLUCOSE BEDSIDE TESTING (test code 210 MG/DL 60-99 H = GLUBED) BASIC METABOLIC [id number] 06:58:00 Test Item Value Reference Range Interpretation Comments SODIUM (test code = 138 MMOL/L 137-145 N NA) POTASSIUM (test code = 4.5 MMOL/L 3.5-5.1 N K) CHLORIDE (test code = 109 MMOL/L 98-107 H CL) CARBON DIOXIDE (test 24 MMOL/L 22-30 N code = CO2) ANION GAP (test code = 10 MMOL/L 14-24 L GAP) GLUCOSE (test code = 121 MG/DL 74-106 H GLU) BLOOD UREA NITROGEN 20 MG/DL 9-20 (test code = BUN) GLOMERULAR FILTRATION > 60 Report ing units: RATE (test code = GFR) ml/mi n/1.73 m2 (Modified MDRD Formula)Referen ce Range: > or = 6 0 ml/min/1.73 m2 CREATININE (test code 0.80 MG/DL 0.66-1.25 N = CREAT) CALCIUM (test code = 8.7 MG/DL 8.4-10.2 N CA) [id number] 06:58:00 Test Item Value Reference Range Interpretation Comments MAGNESIUM (test code = MAG) 2.5 MG/DL 1.6-2.3 H CBC W/AUTO [id number] 06:42:00 Test Item Value Reference Range Interpretation Comments WHITE BLOOD CELL (test code = 15.4 K/MM3 3.8-9.8 H WBC) RED BLOOD CELL (test code = 3.21 M/MM3 3.95-5.67 L RBC) HEMOGLOBIN (test code = HGB) 10.2 G/DL 12.4-16.7 L HEMATOCRIT (test code = HCT) 30.9 % 35.9-49.5 L MEAN CELL VOLUME (test code = 96 fL 81.7-96.1 N MCV) MEAN CELL HGB (test code = MCH) 31.8 pg 27.6-33.2 N MEAN CELL HGB CONCETRATION 33.0 % 32.9-35.5 N (test code = MCHC) RED CELL DISTRIBUTION WIDTH 13.1 % 12.1-15.2 N (test code = RDW) PLATELET COUNT (test code = 138 K/MM3 129-368 PLT) MEAN PLATELET VOLUME (test code 10.6 fl 7.4-10.4 H = MPV) NEUTROPHIL % (test code = NT%) 74.8 % 43-75 N IMMATURE GRANULOCYTE % (test 0.4 % 0.0-2.0 N code = IG%) LYMPHOCYTE % (test code = LY%) 11.8 % 14-44 L MONOCYTE % (test code = MO%) 12.8 % 4-13 N EOSINOPHIL % (test code = EO%) 0.0 % 0-6 N BASOPHIL % (test code = BA%) 0.2 % 0-2 N NUCLEATED RBC % (test code = 0.0 % 0-1.0 N NRBC%) NEUTROPHIL # (test code = NT#) 11.53 K/mm3 2.0-7.6 H IMMATURE GRANULOCYTE # (test 0.06 x10 3/uL 0-0.03 H code = IG#) LYMPHOCYTE # (test code = LY#) 1.81 K/mm3 1.0-3.8 N MONOCYTE # (test code = MO#) 1.97 K/mm3 0.1-0.8 H EOSINOPHIL # (test code = EO#) 0.00 K/mm3 0.0-0.2 N BASOPHIL # (test code = BA#) 0.03 K/mm3 0.0-0.2 N NUCLEATED RBC # (test code = 0.00 K/mm3 0.0-0.1 N [facility]#) GLUCOSE BEDSIDE [id number] 06:16:00 Test Item Value Reference Range Interpretation Comments GLUCOSE BEDSIDE TESTING (test code 126 MG/DL 60-99 H = GLUBED) GLUCOSE BEDSIDE [id number] 05:05:00 Test Item Value Reference Range Interpretation Comments GLUCOSE BEDSIDE TESTING (test code 136 MG/DL 60-99 H = GLUBED) GLUCOSE BEDSIDE [id number] 04:12:00 Test Item Value Reference Range Interpretation Comments GLUCOSE BEDSIDE TESTING (test code 170 MG/DL 60-99 H = GLUBED) GLUCOSE BEDSIDE [id number] 03:10:00 Test Item Value Reference Range Interpretation Comments GLUCOSE BEDSIDE TESTING (test code 205 MG/DL 60-99 H = GLUBED) GLUCOSE BEDSIDE [id number] 02:33:00 Test Item Value Reference Range Interpretation Comments GLUCOSE BEDSIDE TESTING (test code 110 MG/DL 60-99 H = GLUBED) GLUCOSE BEDSIDE [id number] 22:45:00 Test Item Value Reference Range Interpretation Comments GLUCOSE BEDSIDE TESTING (test code 142 MG/DL 60-99 H = GLUBED) GLUCOSE BEDSIDE [id number] 21:36:00 Test Item Value Reference Range Interpretation Comments GLUCOSE BEDSIDE TESTING (test code 184 MG/DL 60-99 H = GLUBED) GLUCOSE BEDSIDE [id number] 20:22:00 Test Item Value Reference Range Interpretation Comments GLUCOSE BEDSIDE TESTING (test code 190 MG/DL 60-99 H = GLUBED) GLUCOSE BEDSIDE [id number] 19:44:00 Test Item Value Reference Range Interpretation Comments GLUCOSE BEDSIDE TESTING (test code 204 MG/DL 60-99 H = GLUBED) GLUCOSE BEDSIDE [id number] 19:44:00 Test Item Value Reference Range Interpretation Comments GLUCOSE BEDSIDE TESTING (test code 193 MG/DL 60-99 H = GLUBED) GLUCOSE BEDSIDE [id number] 19:44:00 Test Item Value Reference Range Interpretation Comments GLUCOSE BEDSIDE TESTING (test code 193 MG/DL 60-99 H = GLUBED) GLUCOSE BEDSIDE [id number] 19:44:00 Test Item Value Reference Range Interpretation Comments GLUCOSE BEDSIDE TESTING (test code 146 MG/DL 60-99 H = GLUBED) GLUCOSE BEDSIDE [id number] 19:44:00 Test Item Value Reference Range Interpretation Comments GLUCOSE BEDSIDE TESTING (test code = 86 MG/DL 60-99 N GLUBED) BASIC METABOLIC [id number] 19:18:00 Test Item Value Reference Range Interpretation Comments SODIUM (test code = 143 MMOL/L 137-145 N NA) POTASSIUM (test code = 3.5 MMOL/L 3.5-5.1 N K) CHLORIDE (test code = 110 MMOL/L 98-107 H CL) CARBON DIOXIDE (test 20 MMOL/L 22-30 L code = CO2) ANION GAP (test code = 17 MMOL/L 14-24 N GAP) GLUCOSE (test code = 236 MG/DL 74-106 H GLU) BLOOD UREA NITROGEN 17 MG/DL 9-20 N (test code = BUN) GLOMERULAR FILTRATION > 60 Report ing units: RATE (test code = GFR) ml/mi n/1.73 m2 (Modified MDRD Formula)Referen ce Range: > or = 6 0 ml/min/1.73 m2 CREATININE (test code 0.90 MG/DL 0.66-1.25 = CREAT) CALCIUM (test code = 8.9 MG/DL 8.4-10.2 N CA) UNABLE TO DRAW BLOOD, REASON: CBNNOTIFIED PATIENT CARE STAFF: [facility] 06/11/21 AT 1713 BY Olinda [id number] 19:18:00 Test Item Value Reference Range Interpretation Comments MAGNESIUM (test code = MAG) 2.7 MG/DL 1.6-2.3 H UNABLE TO DRAW BLOOD, REASON: CBNNOTIFIED PATIENT CARE STAFF: [facility] 06/11/21 AT 1713 BY Sophie HurtadoOTHROMBIN [id number] 19:13:00 Test Item Value Reference Range Interpretation Comments PROTHROMBIN TIME 12.5 SECONDS 9.4-12.7 PATIENT (test code = PTP) INTERNATIONAL NORMAL 1.1 0.86-1.14 N The INR is to be RATIO (test code = used only for INR) monitoring oral anticoagulantth erap y. INDICATION I NR VALUE ---- ---- ---- -------1. Prophylaxis, de ep venous thrombos is, including high risk surgery. 2.0 - 3.0 2. Prophylaxis, deep venous thrombosis, hip surgery, treatm ent for deep venous thrombosis or pulmonary prevention of systemic emboli sm in patients wit h valvular heart disease, atrial fibrillation, tissue heart va lve, or acute myocar dial infarction. 2. 0 - 3.0 3. Mine Surveyor al prosthesis hear t valves, recurre nt systemic emboli sm. 3.0 - 4.5 UNABLE TO DRAW BLOOD, REASON: CBNNOTIFIED PATIENT CARE STAFF: [facility] 06/11/21 AT 1713 BY Maura HurtadoaPTT [id number] 19:13:00 Test Item Value Reference Range Interpretation Comments PTT ACTIVATED (test code = APTT) 37.8 SECONDS 26.2-35.4 H UNABLE TO DRAW BLOOD, REASON: CBNNOTIFIED PATIENT CARE STAFF: [facility] 06/11/21 AT 1713 BY Andrea HurtadoBC W/AUTO [id number] 19:00:00 Test Item Value Reference Range Interpretation Comments WHITE BLOOD CELL (test code = 23.4 K/MM3 3.8-9.8 H WBC) RED BLOOD CELL (test code = 3.99 M/MM3 3.95-5.67 N RBC) HEMOGLOBIN (test code = HGB) 12.5 G/DL 12.4-16.7 N HEMATOCRIT (test code = HCT) 37.0 % 35.9-49.5 N MEAN CELL VOLUME (test code = 93 fL 81.7-96.1 N MCV) MEAN CELL HGB (test code = MCH) 31.3 pg 27.6-33.2 N MEAN CELL HGB CONCETRATION 33.8 % 32.9-35.5 N (test code = MCHC) RED CELL DISTRIBUTION WIDTH 12.9 % 12.1-15.2 N (test code = RDW) PLATELET COUNT (test code = 182 K/MM3 129-368 PLT) MEAN PLATELET VOLUME (test code 10.1 fl 7.4-10.4 N = MPV) NEUTROPHIL % (test code = NT%) 83.9 % 43-75 H IMMATURE GRANULOCYTE % (test 0.6 % 0.0-2.0 N code = IG%) LYMPHOCYTE % (test code = LY%) 8.7 % 14-44 L MONOCYTE % (test code = MO%) 6.6 % 4-13 N EOSINOPHIL % (test code = EO%) 0.0 % 0-6 N BASOPHIL % (test code = BA%) 0.2 % 0-2 N NUCLEATED RBC % (test code = 0.0 % 0-1.0 N NRBC%) NEUTROPHIL # (test code = NT#) 19.64 K/mm3 2.0-7.6 H IMMATURE GRANULOCYTE # (test 0.15 x10 3/uL 0-0.03 H code = IG#) LYMPHOCYTE # (test code = LY#) 2.03 K/mm3 1.0-3.8 N MONOCYTE # (test code = MO#) 1.55 K/mm3 0.1-0.8 H EOSINOPHIL # (test code = EO#) 0.00 K/mm3 0.0-0.2 N BASOPHIL # (test code = BA#) 0.05 K/mm3 0.0-0.2 N NUCLEATED RBC # (test code = 0.00 K/mm3 0.0-0.1 N NRBC#) UNABLE TO DRAW BLOOD, REASON: CBNNOTIFIED PATIENT CARE STAFF: [facility] 06/11/21 AT 1713 BY Jose Hurtado BLOOD [id number] 16:46:00 Test Item Value Reference Range Interpretation Comments ARTERIAL BLOOD GAS PH 7.42 mmHg 7.35-7.45 N (test code = PHA) ARTERIAL BLOOD GAS 33.7 mmHg 35.0-45.0 L PCO2 (test code = PCO2A) ARTERIAL BLOOD GAS 451.2 mmol/L 80.0-100.0 H PO2 (test code = PO2A) BICARBONATE TOTAL 21.4 mmol/L 20.0-26.0 N HCO3 (test code = HCO3) BASE EXCESS (test -2.2 mmol/L -3.0-3.0 N code = [place]) ABG O2 SATURATION 99.9 % 95.0-100.0 N (test code = SATA) ABG DELIVERY (test VENT code = ASHVIN) ABG VENT MODE (test A/C code = MODEA) ABG VENT RESP RATE 12.0 /MIN (test code = RRA) ABG TIDAL VOLUME 500.0 ml (test code = TVA) ABG PEEP (test code = 5.0 cmH2O PEEPA) ABG TEMPERATURE (test 37.0 C See_Comment [Auto mated message] code = TEMPA) The system [employer] generated this result transmit steve reference range : 37. The reference r boliv[place] was not used to interpret this result as normal/abnormal . ABG SITE (test code = LINE SITEA) ALLENS TEST (test NA CHECK code = ALLENS) FIO2 (test code = 100 % COHBGFFIO2) - XR CHEST [id number] 14:50:00 [facility] 1950 Sex: M Patient Name: DIALLO COCHRAN Unit No: [id number] EXAMS: CPT CODE: [id number] XR CHEST 1V [id number] EXAMINATION: - XR CHEST 1V. LOCATION: B2. HISTORY: S/P CABG. COMPARISON: Radiograph dated 06/10/2021. TECHNIQUE: Single AP view of the chest was obtained. FINDINGS: Endotracheal tube tip is 3.9 cm above the level of the emelina. Esophagogastric tube extends below left hemidiaphragm. Right subclavian line tip is in the distal SVC and right IJ [place]-Sully catheter tip is in the right main pulmonary artery. Mediastinal drain and left chest tube are also noted. The heart is normal in size. Median sternotomy wires are present. Mild bibasilar opacities are seen. The left lung appears clear. There is no pneum othorax. Small amount of subcutaneous emphysema is seen in the left subclavicular region. IMPRESSION: Mild bibasilar atelectasis. at 1450 Reported and signed by: Joseph Mendez MD CC: Technologist: Chuyita Mayers, RT (R) Transcrpt Date/Tm/Trnsp: 0 06/11/2021 (2280) AddisonRZairaPR7 Orig Print D/T: S: 06/11/2021 (3336) [facility] NAME: DIALLO COCHRAN [id number] PHYS: [place] [address] : 1950 AGE: 71 SEX: M LOC: [id number].[id number] A PHONE #: [phone] EXAM DATE: 06/11/2021 STATUS: ADM IN FAX #: [phone] RADIOLOGY NO: PAGE 1 Signed ReportCBC W/AUTO [id number] 14:30:00 Test Item Value Reference Range Interpretation Comments WHITE BLOOD CELL (test code = 14.5 K/MM3 3.8-9.8 H WBC) RED BLOOD CELL (test code = 3.72 M/MM3 3.95-5.67 L RBC) HEMOGLOBIN (test code = HGB) 11.7 G/DL 12.4-16.7 L HEMATOCRIT (test code = HCT) 34.2 % 35.9-49.5 L MEAN CELL VOLUME (test code = 92 fL 81.7-96.1 N MCV) MEAN CELL HGB (test code = MCH) 31.5 pg 27.6-33.2 N MEAN CELL HGB CONCETRATION 34.2 % 32.9-35.5 N (test code = MCHC) RED CELL DISTRIBUTION WIDTH 12.6 % 12.1-15.2 N (test code = RDW) PLATELET COUNT (test code = 146 K/MM3 129-368 PLT) MEAN PLATELET VOLUME (test code 10.3 fl 7.4-10.4 N = MPV) NEUTROPHIL % (test code = NT%) 72.1 % 43-75 N IMMATURE GRANULOCYTE % (test 0.7 % 0.0-2.0 N code = IG%) LYMPHOCYTE % (test code = LY%) 22.0 % 14-44 N MONOCYTE % (test code = MO%) 4.3 % 4-13 N EOSINOPHIL % (test code = EO%) 0.4 % 0-6 N BASOPHIL % (test code = BA%) 0.5 % 0-2 N NUCLEATED RBC % (test code = 0.0 % 0-1.0 N NRBC%) NEUTROPHIL # (test code = NT#) 10.44 K/mm3 2.0-7.6 H IMMATURE GRANULOCYTE # (test 0.10 x10 3/uL 0-0.03 H code = IG#) LYMPHOCYTE # (test code = LY#) 3.19 K/mm3 1.0-3.8 N MONOCYTE # (test code = MO#) 0.62 K/mm3 0.1-0.8 N EOSINOPHIL # (test code = EO#) 0.06 K/mm3 0.0-0.2 N BASOPHIL # (test code = BA#) 0.07 K/mm3 0.0-0.2 N NUCLEATED RBC # (test code = 0.00 K/mm3 0.0-0.1 N NRBC#) PLEASE CALL RESULTS TO PHONE #: [phone] STATBASIC METABOLIC [id number] 14:25:00 Test Item Value Reference Range Interpretation Comments SODIUM (test code = 140 MMOL/L 137-145 N NA) POTASSIUM (test code = 4.2 MMOL/L 3.5-5.1 N K) CHLORIDE (test code = 109 MMOL/L 98-107 H CL) CARBON DIOXIDE (test 24 MMOL/L 22-30 N code = CO2) ANION GAP (test code = 11 MMOL/L 14-24 L GAP) GLUCOSE (test code = 119 MG/DL 74-106 H GLU) BLOOD UREA NITROGEN 17 MG/DL 9-20 N (test code = BUN) GLOMERULAR FILTRATION > 60 Report ing units: RATE (test code = GFR) ml/mi n/1.73 m2 (Modified MDRD Formula)Referen ce Range: > or = 6 0 ml/min/1.73 m2 CREATININE (test code 0.70 MG/DL 0.66-1.25 N = CREAT) CALCIUM (test code = 9.1 MG/DL 8.4-10.2 N CA) PLEASE CALL RESULTS TO PHONE #: [phone] STATPROTHROMBIN [id number] 14:22:00 Test Item Value Reference Range Interpretation Comments PROTHROMBIN TIME 15.6 SECONDS 9.4-12.7 H PATIENT (test code = PTP) INTERNATIONAL NORMAL 1.4 0.86-1.14 H The INR is to be RATIO (test code = used only for INR) monitoring oral anticoagulantth erap y. INDICATION I NR VALUE ---- ---- ---- -------1. Prophylaxis, de ep venous thrombos is, including high risk surgery. 2.0 - 3.0 2. Prophylaxis, deep venous thrombosis, hip surgery, treatm ent for deep venous thrombosis or pulmonary prevention of systemic emboli sm in patients wit h valvular heart disease, atrial fibrillation, tissue heart va lve, or acute myocar dial infarction. 2.0 - 3.0 3. Mine Surveyor al prosthesis hear t valves, recurre nt systemic emboli sm. 3.0 - 4.5 PLEASE CALL RESULTS TO PHONE #: [phone] STATPTT [id number] 14:22:00 Test Item Value Reference Range Interpretation Comments PTT ACTIVATED (test code = APTT) 37.1 SECONDS 26.2-35.4 H PLEASE CALL RESULTS TO PHONE #: [phone] STATPOC ARTERIAL BLOOD [id number] 13:54:00 Test Item Value Reference Range Interpretation Comments POC ARTERIAL BLOOD GAS PH 7.426 7.35-7.45 N (test code = POCPHA) POC ARTERIAL BLOOD GAS PCO2 38.1 mmHg 35.0-45.0 N (test code = [id number]) POC ARTERIAL BLOOD GAS PO2 379.9 75.0-100.0 HH (test code = AAMUY1G) POC HCO3 ARTERIAL (test 25.0 MMOL/L 20.0-26.0 N code = [id number]) POC BASE EXCESS (test code 0.7 MMOL/L -3.0-3.0 N = POCBEA) POC O2 SATURATION (test 100.0 % 92.0-98.5 H code = POCO2S) SODIUM (test code = NA/ABG) 143 MMOL/L 135-141 H POTASSIUM (test code = 4.3 MMOL/L 3.7-4.7 N K/ABG) CHLORIDE (test code = 107 MEQ/L CL/ABG) POC IONIZED CALCIUM (test 1.31 MMOL/L 1.13-1.32 N code = POCCA) POC GLUCOSE (test code = 110 MG/DL 60-99 H POCGLU) POC SAMPLE SOURCE (test Arterial Descript Specimen code = POCSAMPLE) LACTIC ACID POC (test code 1.66 mmol/L 0.7-2.0 N = LACTP) POC ARTERIAL BLOOD [id number] 13:04:00 Test Item Value Reference Range Interpretation Comments POC ARTERIAL BLOOD GAS PH 7.329 7.35-7.45 L (test code = POCPHA) POC ARTERIAL BLOOD GAS PCO2 41.1 mmHg 35.0-45.0 N (test code = DFULPH9S) POC ARTERIAL BLOOD GAS PO2 215.8 75.0-100.0 HH (test code = XSQUK5N) POC HCO3 ARTERIAL (test 21.6 MMOL/L 20.0-26.0 N code = HDBHBH9N) POC BASE EXCESS (test code -4.1 MMOL/L -3.0-3.0 L = POCBEA) POC O2 SATURATION (test 99.7 % 92.0-98.5 H code = POCO2S) FIO2 (test code = FIO2A) 80 % 21-100 PaO2/FiO2 (test code = 269.75 mm/Hg [id number]) SODIUM (test code = NA/ABG) 138 MMOL/L 135-141 N POTASSIUM (test code = 5.1 MMOL/L 3.7-4.7 H K/ABG) CHLORIDE (test code = 104 MEQ/L CL/ABG) POC IONIZED CALCIUM (test 1.13 MMOL/L 1.13-1.32 N code = POCCA) POC GLUCOSE (test code = 124 MG/DL 60-99 H POCGLU) POC SAMPLE SOURCE (test Arterial Descript Specimen code = POCSAMPLE) LACTIC ACID POC (test code 1.61 mmol/L 0.7-2.0 N = LACTP) POC ARTERIAL BLOOD [id number] 12:12:00 Test Item Value Reference Range Interpretation Comments POC ARTERIAL BLOOD GAS PH 7.356 7.35-7.45 N (test code = POCPHA) POC ARTERIAL BLOOD GAS PCO2 45.0 mmHg 35.0-45.0 N (test code = [id number]) POC ARTERIAL BLOOD GAS PO2 441.9 75.0-100.0 HH (test code = EIXWN3Z) POC HCO3 ARTERIAL (test 25.2 MMOL/L 20.0-26.0 N code = WZWHLP3W) POC BASE EXCESS (test code -0.4 MMOL/L -3.0-3.0 N = POCBEA) POC O2 SATURATION (test 100.0 % 92.0-98.5 H code = POCO2S) FIO2 (test code = FIO2A) 65 % 21-100 N PaO2/FiO2 (test code = 679.84 mm/Hg [id number]) SODIUM (test code = NA/ABG) 138 MMOL/L 135-141 N POTASSIUM (test code = 4.3 MMOL/L 3.7-4.7 N K/ABG) CHLORIDE (test code = 102 MEQ/L CL/ABG) POC IONIZED CALCIUM (test 1.08 MMOL/L 1.13-1.32 L code = POCCA) POC GLUCOSE (test code = 140 MG/DL 60-99 H POCGLU) POC SAMPLE SOURCE (test Arterial Descript Specimen code = POCSAMPLE) LACTIC ACID POC (test code 2.20 mmol/L 0.7-2.0 HH = LACTP) POC ARTERIAL BLOOD [id number] 11:25:00 Test Item Value Reference Range Interpretation Comments POC ARTERIAL BLOOD GAS PH 7.372 7.35-7.45 N (test code = POCPHA) POC ARTERIAL BLOOD GAS PCO2 40.8 mmHg 35.0-45.0 N (test code = LUKQFR7V) POC ARTERIAL BLOOD GAS PO2 423.0 75.0-100.0 HH (test code = EZLLD9N) POC HCO3 ARTERIAL (test 23.7 MMOL/L 20.0-26.0 N code = QMHXBE2B) POC BASE EXCESS (test code -1.4 MMOL/L -3.0-3.0 N = POCBEA) POC O2 SATURATION (test 100.0 % 92.0-98.5 H code = POCO2S) SODIUM (test code = NA/ABG) 139 MMOL/L 135-141 N POTASSIUM (test code = 4.4 MMOL/L 3.7-4.7 N K/ABG) CHLORIDE (test code = 105 MEQ/L CL/ABG) POC IONIZED CALCIUM (test 1.18 MMOL/L 1.13-1.32 N code = POCCA) POC GLUCOSE (test code = 215 MG/DL 60-99 H POCGLU) POC SAMPLE SOURCE (test Arterial Descript Specimen code = POCSAMPLE) LACTIC ACID POC (test code 1.63 mmol/L 0.7-2.0 N = LACTP) BASIC METABOLIC [id number] 10:42:00 Test Item Value Reference Range Interpretation Comments SODIUM (test code = 141 MMOL/L 137-145 N NA) POTASSIUM (test code = 4.5 MMOL/L 3.5-5.1 N K) CHLORIDE (test code = 107 MMOL/L 98-107 N CL) CARBON DIOXIDE (test 22 MMOL/L 22-30 N code = CO2) ANION GAP (test code = 17 MMOL/L 14-24 N GAP) GLUCOSE (test code = 159 MG/DL 74-106 H GLU) BLOOD UREA NITROGEN 18 MG/DL 9-20 N (test code = BUN) GLOMERULAR FILTRATION > 60 Report ing units: RATE (test code = GFR) ml/mi n/1.73 m2 (Modified MDRD Formula)Referen ce Range: > or = 6 0 ml/min/1.73 m2 CREATININE (test code 0.70 MG/DL 0.66-1.25 N = CREAT) CALCIUM (test code = 9.3 MG/DL 8.4-10.2 N CA) PLEASE CALL RESULTS TO PHONE #: [phone] ZetrOZ W/AUTO [id number] 10:20:00 Test Item Value Reference Range Interpretation Comments WHITE BLOOD CELL (test code = 6.9 K/MM3 3.8-9.8 N WBC) RED BLOOD CELL (test code = 4.21 M/MM3 3.95-5.67 N RBC) HEMOGLOBIN (test code = HGB) 13.1 G/DL 12.4-16.7 N HEMATOCRIT (test code = HCT) 38.3 % 35.9-49.5 N MEAN CELL VOLUME (test code = 91 fL 81.7-96.1 N MCV) MEAN CELL HGB (test code = MCH) 31.1 pg 27.6-33.2 N MEAN CELL HGB CONCETRATION 34.2 % 32.9-35.5 N (test code = MCHC) RED CELL DISTRIBUTION WIDTH 12.7 % 12.1-15.2 N (test code = RDW) PLATELET COUNT (test code = 243 K/MM3 129-368 N PLT) MEAN PLATELET VOLUME (test code 9.9 fl 7.4-10.4 N = MPV) NEUTROPHIL % (test code = NT%) 57.2 % 43-75 N IMMATURE GRANULOCYTE % (test 0.1 % 0.0-2.0 N code = IG%) LYMPHOCYTE % (test code = LY%) 35.0 % 14-44 N MONOCYTE % (test code = MO%) 6.0 % 4-13 N EOSINOPHIL % (test code = EO%) 0.7 % 0-6 N BASOPHIL % (test code = BA%) 1.0 % 0-2 N NUCLEATED RBC % (test code = 0.0 % 0-1.0 N NRBC%) NEUTROPHIL # (test code = NT#) 3.91 K/mm3 2.0-7.6 N IMMATURE GRANULOCYTE # (test 0.01 x10 3/uL 0-0.03 N code = IG#) LYMPHOCYTE # (test code = LY#) 2.40 K/mm3 1.0-3.8 N MONOCYTE # (test code = MO#) 0.41 K/mm3 0.1-0.8 N EOSINOPHIL # (test code = EO#) 0.05 K/mm3 0.0-0.2 N BASOPHIL # (test code = BA#) 0.07 K/mm3 0.0-0.2 N NUCLEATED RBC # (test code = 0.00 K/mm3 0.0-0.1 N NRBC#) PLEASE CALL RESULTS TO PHONE #: [phone] STATGLUCOSE BEDSIDE [id number] 08:56:00 Test Item Value Reference Range Interpretation Comments GLUCOSE BEDSIDE TESTING (test code 159 MG/DL 60-99 H = GLUBED) POC ARTERIAL BLOOD [id number] 08:25:00 Test Item Value Reference Range Interpretation Comments POC ARTERIAL BLOOD GAS PH 7.405 7.35-7.45 N (test code = POCPHA) POC ARTERIAL BLOOD GAS PCO2 40.3 mmHg 35.0-45.0 N (test code = MFVZNL4J) POC ARTERIAL BLOOD GAS PO2 67.7 75.0-100.0 L (test code = VKFFN6I) POC HCO3 ARTERIAL (test 25.2 MMOL/L 20.0-26.0 N code = XDFICW1D) POC BASE EXCESS (test code 0.4 MMOL/L -3.0-3.0 N = POCBEA) POC O2 SATURATION (test 93.3 % 92.0-98.5 N code = POCO2S) SODIUM (test code = NA/ABG) 141 MMOL/L 135-141 N POTASSIUM (test code = 3.8 MMOL/L 3.7-4.7 N K/ABG) CHLORIDE (test code = 104 MEQ/L CL/ABG) POC IONIZED CALCIUM (test 1.29 MMOL/L 1.13-1.32 N code = POCCA) POC GLUCOSE (test code = 278 MG/DL 60-99 H POCGLU) POC SAMPLE SOURCE (test Arterial Descript Specimen code = POCSAMPLE) LACTIC ACID POC (test code 1.01 mmol/L 0.7-2.0 N = LACTP) GLUCOSE BEDSIDE [id number] 07:10:00 Test Item Value Reference Range Interpretation Comments GLUCOSE BEDSIDE TESTING (test code 285 MG/DL 60-99 H = GLUBED) GLYCOSYLATED HEMOGLOBIN [id number] 14:22:00 Test Item Value Reference Range Interpretation Comments GLYCOSYLATED 11.4 % 4.8-5.9 H Any condition t hat HEMOGLOBIN (HA1C) shortens e rythocyte (test code = survival or dec reasesmean GLYHGB) erythrocyte age (e.g., recovery from a cute blood loss,hemolytic anemia) will falsely lo wer HGBA1c resultsregardle ss of the method used. HG BA1c results from nilda brennan HbSS, HbCC, and HbSc must be interpreted with cautiongiven th e pathological pr ocesses, including anemia,increase d red cell turnover, trans fusion requirements, thatadversely i mpact HGBA1c as a mar ker of long-term glycemiccontrol . Alternative for ms of testing such as fructosaminesho uld be considered for these patients. MEAN BLOOD GLUCOSE 280 MG/DL 70-110 H (test code = MBG) HIV 12 AB [id number] 14:06:00 Test Item Value Reference Range Interpretation Comments HIV 1 2 COMBO AG/AB SCREEN AB/AG NON REACTIVE NONREACTIVE (test code = [id number]) COMPREHENSIVE METABOLIC [id number] 13:29:00 Test Item Value Reference Range Interpretation Comments SODIUM (test code 138 MMOL/L 137-145 N = NA) POTASSIUM (test 4.3 MMOL/L 3.5-5.1 N code = K) CHLORIDE (test 105 MMOL/L 98-107 N code = CL) CARBON DIOXIDE 23 MMOL/L 22-30 N (test code = CO2) GLUCOSE (test 208 MG/DL 74-106 H code = GLU) BLOOD UREA 15 MG/DL 9-20 N NITROGEN (test code = BUN) GLOMERULAR > 60 Reporting units : FILTRATION RATE ml/min/1.73 m2 (Modified (test code = GFR) MDRD Formu la)Reference Range: > or = 6 0 ml/min/1.73 m2 CREATININE (test 0.70 MG/DL 0.66-1.25 N code = CREAT) TOTAL PROTEIN 8.3 G/DL 6.2-7.6 H [facility] Clinical Diagnostic (test code = has made us shelby re of PROT) newinformation regarding the potential i nterference ofEltrombopag ( a bone marrow stimulan t used to treatthrombocyt onmenia and aplastic anemia ) with specific assays on the Vitros 5600 of which Total Protein is one of thoseassays per formed in our lab.Interfe rence testing perform ed at Orth[facility] determined that Eltrombopag does interfere with Vitros Total Protein asfollowsEltrom bopag Interference fo r Vitros Product Total Protein:======= Eltrombopag Max Observed Av g. BiasConcentrati on Concentration Concentration== ==== 2.5 mg/dl 6.0 g/dl +0.41 +0.34 3.5 mg/dl 6.0 g /dl +0.50 +0.45 5 mg/dl 6 .0 g/dl +0.73 +0.65 2.5 mg/dl 8.0 g/dl +0.44 +0.4 1 3.5 mg/dl 8.0 g/dl +0.55 +0.52 5 mg/dl 8.0 g/dl +0.86 +0.77 ALBUMIN (test 4.8 G/DL 3.5-5.0 N code = ALB) CALCIUM (test 10.0 MG/DL 8.4-10.2 N code = CA) BILIRUBIN TOTAL 0.5 MG/DL 0.2-1.3 N Eltrombopag Interference (test code = for Vitros Prod uct TBil, BILT) BuBc: Assa y Eltrombopag Gisella lyte/ Max Observed Avg. B ias Concentration C oncentration Concentration== ====TBil 7mg/dl TBil/ 1. 2mg/dl +0.23mg.dl +0.2 0mg/dlBuBc 3.5mg/dl Bu/0.8 mg/dl +0.25mg/dl +0.2 4mg/dlBuBc 7 mg/dl Bu/14.2m g/dl +0.38mg/dl +0.2 5mg/dlBuBc 5mg/dl Bc/0mg/d l +0.25mg/dl +0.15mg/dlBuBc 3.5mg/dl Bc/2.8mg/dl +0. 25mg/dl +0.23mg/dl SGOT/AST (test 52 UNITS/L 17-59 N code = AST) SGPT/ALT (test 91 UNITS/L 0-49 H code = ALT) ALKALINE 92 UNITS/L 38-126 N PHOSPHATASE (test code = ALKP) PLT RESPONSE TO [id number] 13:14:00 Test Item Value Reference Range Interpretation Comments PLT RESPONSE TO 242 PRU 194-418 N P2Y12 Result s PLAVIX (test code = Interpre tation: Test PLAVRES) results are in P2Y12 Reaction Units (PRU). Pre-Drug Refere nce Range is 194-418. Pre -drug platelet functi on estimates the t otal possible platel et aggregation ind ependent of P2Y12 inhibi tor drugs. Values <194 cou ld be due to low HCT, low platelet count, or prese nce of IIb/IIIa inhibi tors. Post-Drug Resul ts: Lower PRU levels are associated with expected antiplatelet ef fect. Values may be b elow the stated referenc e range. Studies show th at patients with < 230 PRU had fewer adver se events. IS PATIENT ON ANTICOAGULANTS: YLIST ANTICOAGULANTS: AspirinPTT ACTIVATED 2021-06-10 12:44:00 Test Item Value Reference Range Interpretation Comments PTT ACTIVATED (test code = APTT) 40.1 SECONDS 25.1-36.5 H PROTHROMBIN [id number] 12:44:00 Test Item Value Reference Range Interpretation Comments PROTHROMBIN TIME 11.5 SECONDS 9.5-12.7 N PATIENT (test code = PTP) INTERNATIONAL NORMAL 1.0 0.86-1.14 N The INR is to be RATIO (test code = used only for INR) monitoring oral anticoagulantth erap y. INDICATION I NR VALUE ---- ---- ---- -------1. Prophylaxis, de ep venous thrombos is, including high risk surgery. 2.0 - 3.0 2. Prophylaxis, deep venous thrombosis, hip surgery, treatm ent for deep venous thrombosis or pulmonary prevention of systemic emboli sm in patients wit h valvular heart disease, atrial fibrillation, tissue heart va lve, or acute myocar dial infarction. 2.0 - 3.0 3. Mine Surveyor al prosthesis hear t valves, recurre nt systemic emboli sm. 3.0 - 4.5 CBC W/AUTO [id number] 12:33:00 Test Item Value Reference Range Interpretation Comments WHITE BLOOD CELL (test code = 7.4 K/MM3 3.8-9.8 N WBC) RED BLOOD CELL (test code = 4.51 M/MM3 3.95-5.67 N RBC) HEMOGLOBIN (test code = HGB) 14.3 G/DL 12.4-16.7 N HEMATOCRIT (test code = HCT) 41.2 % 35.9-49.5 N MEAN CELL VOLUME (test code = 91 fL 81.7-96.1 N MCV) MEAN CELL HGB (test code = MCH) 31.7 pg 27.6-33.2 N MEAN CELL HGB CONCETRATION 34.7 % 32.9-35.5 N (test code = MCHC) RED CELL DISTRIBUTION WIDTH 12.5 % 12.1-15.2 N (test code = RDW) PLATELET COUNT (test code = 257 K/MM3 129-368 N PLT) MEAN PLATELET VOLUME (test code 10.0 fl 7.4-10.4 N = MPV) NEUTROPHIL % (test code = NT%) 57.9 % 43-75 N IMMATURE GRANULOCYTE % (test 0.1 % 0.0-2.0 N code = IG%) LYMPHOCYTE % (test code = LY%) 35.8 % 14-44 N MONOCYTE % (test code = MO%) 4.8 % 4-13 N EOSINOPHIL % (test code = EO%) 0.3 % 0-6 N BASOPHIL % (test code = BA%) 1.1 % 0-2 N NUCLEATED RBC % (test code = 0.0 % 0-1.0 N NRBC%) NEUTROPHIL # (test code = NT#) 4.26 K/mm3 2.0-7.6 N IMMATURE GRANULOCYTE # (test 0.01 x10 3/uL 0-0.03 N code = IG#) LYMPHOCYTE # (test code = LY#) 2.63 K/mm3 1.0-3.8 N MONOCYTE # (test code = MO#) 0.35 K/mm3 0.1-0.8 N EOSINOPHIL # (test code = EO#) 0.02 K/mm3 0.0-0.2 N BASOPHIL # (test code = BA#) 0.08 K/mm3 0.0-0.2 N NUCLEATED RBC # (test code = 0.00 K/mm3 0.0-0.1 N NRBC#) - XR CHEST 2 [id number] 12:28:00 [facility] 1950 Sex: M Patient Name: DIALLO COCHRAN Unit No: [id number] EXAMS: CPT CODE: [id number] XR CHEST 2 V [id number] HISTORY: Preoperative evaluation Location: C3 COMPARISON:None FINDINGS: 2 views of the chest are provided. Heart size and vascularity are within normal limits. The lungs are clear of focal consolidation. No effusion, pneumothorax, or acute osseous abnormality. IMPRESSION: 1. No focal consolidation. No other acute abnormalities. at 1228 Reported and signed by: Tree Reeder MD CC: Technologist: Lydia Reynolds (RT)(R) Transcrpt Date/Tm/Trnsp: 06/10/2021 (1228) [email or web address] Orig Print D/T: S: 06/10/2021 (1231) [facility] NAME: DIALLO COCHRAN [id number] PHYS: [place] [address] : 1950 AGE: 71 SEX: M LOC: [id number] PHONE #: [phone] EXAM DATE: 06/10/2021 STATUS: PRE IN FAX #: [phone] RADIOLOGY NO: PAGE 1 Signed ReportBASIC METABOLIC [id number] 05:24:00 Test Item Value Reference Range Interpretation Comments SODIUM (test code = 139 MMOL/L 137-145 N NA) POTASSIUM (test code = 4.4 MMOL/L 3.5-5.1 N K) CHLORIDE (test code = 104 MMOL/L 98-107 N CL) CARBON DIOXIDE (test 23 MMOL/L 22-30 N code = CO2) ANION GAP (test code = 16 MMOL/L 14-24 N GAP) GLUCOSE (test code = 277 MG/DL 74-106 H GLU) BLOOD UREA NITROGEN 14 MG/DL 9-20 N (test code = BUN) GLOMERULAR FILTRATION > 60 Report ing units: RATE (test code = GFR) ml/mi n/1.73 m2 (Modified MDRD Formula)Referen ce Range: > or = 6 0 ml/min/1.73 m2 CREATININE (test code 0.80 MG/DL 0.66-1.25 N = CREAT) CALCIUM (test code = 10.2 MG/DL 8.4-10.2 N CA) LIPID PROFILE (CORONARY RISK)2021-06-06 05:24:00 Test Item Value Reference Range Interpretation Comments TRIGLYCERIDES (test 90 MG/DL 150-199 L TRIGLYCE RIDES code = TRIG) REFERENCE RANGE:Normal: < 150 mg/dLBorderline High: 150-199 mg/dLHi gh: 200-499 mg/dLVe ry High: >=500 mg/ dL CHOLESTEROL (test code 154 MG/DL <200 = CHOL) HDL CHOLESTEROL (test 48 MG/DL 40-59 N code = HDL) LIPOPROTEIN LDL (test 77 MG/DL 0-99 N OPTIM AL.........<100 code = LDL) mg/dLNEAR OPTIMAL/ABOVE OPTIMAL........ .100-12 9 mg/dL BORDERL INE HIGH.........13 0-159 mg/dL HIGH.........16 0-189 mg/dL VERY HIGH.........>/ = 190 mg/dL [id number] 05:24:00 Test Item Value Reference Range Interpretation Comments MAGNESIUM (test code = MAG) 2.1 MG/DL 1.6-2.3 N PROTHROMBIN [id number] 05:13:00 Test Item Value Reference Range Interpretation Comments PROTHROMBIN TIME 11.1 SECONDS 9.5-12.7 N PATIENT (test code = PTP) INTERNATIONAL NORMAL 1.0 0.86-1.14 N The INR is to be RATIO (test code = used only for INR) monitoring oral anticoagulantth erap y. INDICATION I NR VALUE ---- ---- ---- -------1. Prophylaxis, de ep venous thrombos is, including high risk surgery. 2.0 - 3.0 2. Prophylaxis, deep venous thrombosis, hip surgery, treatm ent for deep venous thrombosis or pulmonary prevention of systemic emboli sm in patients wit h valvular heart disease, atrial fibrillation, tissue heart va lve, or acute myocar dial infarction. 2.0 - 3.0 3. Mine Surveyor al prosthesis hear t valves, recurre nt systemic emboli sm. 3.0 - 4.5 PTT [id number] 05:13:00 Test Item Value Reference Range Interpretation Comments PTT ACTIVATED (test code = APTT) 40.7 SECONDS 25.1-36.5 H CBC W/AUTO [id number] 04:57:00 Test Item Value Reference Range Interpretation Comments WHITE BLOOD CELL (test code = 8.1 K/MM3 3.8-9.8 N WBC) RED BLOOD CELL (test code = 4.63 M/MM3 3.95-5.67 N RBC) HEMOGLOBIN (test code = HGB) 14.6 G/DL 12.4-16.7 N HEMATOCRIT (test code = HCT) 42.3 % 35.9-49.5 N MEAN CELL VOLUME (test code = 91 fL 81.7-96.1 N MCV) MEAN CELL HGB (test code = MCH) 31.5 pg 27.6-33.2 N MEAN CELL HGB CONCETRATION 34.5 % 32.9-35.5 N (test code = MCHC) RED CELL DISTRIBUTION WIDTH 12.6 % 12.1-15.2 N (test code = RDW) PLATELET COUNT (test code = 307 K/MM3 129-368 N PLT) MEAN PLATELET VOLUME (test code 9.7 fl 7.4-10.4 N = MPV) NEUTROPHIL % (test code = NT%) 52.8 % 43-75 N IMMATURE GRANULOCYTE % (test 0.2 % 0.0-2.0 N code = IG%) LYMPHOCYTE % (test code = LY%) 37.7 % 14-44 N MONOCYTE % (test code = MO%) 7.2 % 4-13 N EOSINOPHIL % (test code = EO%) 0.7 % 0-6 N BASOPHIL % (test code = BA%) 1.4 % 0-2 N NUCLEATED RBC % (test code = 0.0 % 0-1.0 N NRBC%) NEUTROPHIL # (test code = NT#) 4.27 K/mm3 2.0-7.6 N IMMATURE GRANULOCYTE # (test 0.02 x10 3/uL 0-0.03 N code = IG#) LYMPHOCYTE # (test code = LY#) 3.05 K/mm3 1.0-3.8 N MONOCYTE # (test code = MO#) 0.58 K/mm3 0.1-0.8 N EOSINOPHIL # (test code = EO#) 0.06 K/mm3 0.0-0.2 N BASOPHIL # (test code = BA#) 0.11 K/mm3 0.0-0.2 N NUCLEATED RBC # (test code = 0.00 K/mm3 0.0-0.1 N NRBC#) COVID 19 Asymptomatic IH [id number] 04:37:00 Test Item Value Reference Range Interpretation Comments COVID 19 NEGATIVE Negative "Negative resul ts from Asymptomatic IH AG patients with symptom (test code = onset beyondfiv e days, COVNONPUIAG) should be treat ed as presumptive, andconfirmation with a molecular assay , if necessary forpa tient management may be performed. Nega tive results do notr ule out COVID-19 and sh ould not be used as the sole basisfor treatm ent or patient managem ent decisions, includinginfect ion control decisio ns. Negative result s should beconsidered in the context of a pa tients recent exposure s,history, and the presenc e of clinical signs and symptomsconsist ent with COVID-19.This t est detects both vi able andnon-viable S ARS-CoV and SARS CoV-2. Test performance dep endson the amount of virus (antigen) in the sample." Comments to Phleb: PLS RUN TEST STAT. THANKS Notes Date/Time Note Provider Source 2021-08-24 06:57:00 [id number] [facility] [address] [address] PATIENT NAME: DIALLO COCHRAN ADMIT DATE: 06/11/21ACCOUNT NO: [id number] ROOM NO: Z.SI02 AGE: 71 REPORT TYPE: DISCHARGE SUMMAR Y REPORT SEX: M ADMITTING PHYSICIAN:Jillian Cabrera MD ATTENDING PHYSICIAN:Jillian Cabrera MD ADMISSIO N DATE: 2DISCHARGE DATE: 06/17/2021 DISCHARGE DIAGNOSES: Coronary artery disease wit h unstable angina, status postaortocoronary bypass , hypertension, hyperlipidemia, and diabetes mellitus. HOSPITAL COURSE: The patient is a 71-year-old male who was having angina-typelike symptoms and underwent a stress test by his saloonkeeper, which was foundto be positive. The patient then underwent cardiac catheterization and wasfound to have severe multivessel coronary artery disease. The patient was thenadmitted and taken to the operating room on 06/11/2021 where he underwentaortocoronary bypass x3 with FLORES to the LAD, saphenous vein to the ramus, andthe OM. The patient tolerated the procedure well, was transferred to the ICU catherine stable condition. In the ICU, the patient maintained normal sinus rhythm,stable blood pressure. He was extubated without any difficulties and followingthis, he was weaned off all drips and pressors. His chest tubes were removed. Pacer wires were removed. Th e patient remained stable postoperatively, havinghad a good outcome from surgery. He was discharged to home in a stablecondition. He was instructed to follow up with Dr. Sparks in 1 to 2 weeks. Heis also to follow up with his saloonkeeper, Dr. Macedo. The patient is tocontinue taking medications per the discharge medication reconciliation form. Dictated By: NILDA Combs for Tree Sparks MD WT: DS:ABDULLAHI/VILMA/NTSDD: 08/24/2021 06:57:41DT: 08/24/2021 07:06:06Conf#: [id number]/DID#: [id number] Authenticated by NILDA Combs On 08/25/2021 10:28:50 PM Authenticated by Tree Sparks MD On 08/26/2021 01:11:20 PM at 0111 at 1028 PATIENT NAME: GRACE COCHRAN [id number]:06:00Z.[id number] a ilable for patient [id number]:12:05 2021-06-17 10:02:00 [id number] [facility] ([facility]ENTERHospitalist Progress NoteREPORT#:[id number] REPORT STATUS: SignedDATE:06/17/21 TIME: 1002 PATIENT: DIALLO COCHRAN UNIT #: [id number]#: [id number] [address] AGE: 71 SEX: M ATTEND: Jillian Cabrera [facility] AUTHOR: Shreyas Blake DO R1 * ALL edits or amendments must be made on the electronic/computer document * Shreyas Blake 06/17/21 1002:SubjectiveChief complaint:71 y/o male w unstable angina recently diagnosed CAD, now postCABG. POD#6HPI:Patient seen and examined at bedside. No complaints. He is ready to go home. Denies fever, chills, nausea, vomiting, diarrhea, constipation, leg pain, chest pain, or abdominal pain. Review of SystemsConstitutional:Denies: chills, fatigue, fever. Eyes:Denies: visual loss/blurred, eye pain. ENT:Denies: nasal congestion, sore throat. Respiratory:Denies: CRAWFORD (dyspnea on exertion), non productive cough, productive cough (sputum), SOB, wheezing. Cardiovascular:Denies: chest pain , palpitations (v). GI:Denies: abdominal pain, constipation, diarrhea, nausea, vomiting. :Denies: dysuria, flank pain, frequency. Neuro:Denies: dizziness, headache, lightheaded, numbness. All systems rev neg: except as marked Objective GeneralVS/I O:Vital Signs: Date Time Temp Pulse Resp B/P B/P Pulse O2 O2 Flow FiO2 Mean Ox Delivery Rate 04/06 0910 71 17 114/56 80 99 04/06 0900 73 18 99 04/06 0810 89 21 126/60 8 6 97 04/06 0800 92 23 97 04/06 0739 97.7 76 20 98 Room air 04/06 0729 Room air 04/06 0710 125/60 8 7 98 04/06 0700 73 18 99 04/06 0610 68 6 118/58 83 99 04/06 0510 68 9 103/56 74 98 04/06 0410 70 14 118/59 83 99 04/06 0310 71 15 131/62 87 99 04/0 6 0200 70 15 107/58 79 99 04/06 0130 69 14 108/55 78 98 04/06 0100 72 10 110/56 80 98 04/06 0030 7 2 20 118/57 82 99 04/06 0000 98.0 04/06 0000 70 6 106/55 75 99 04/05 2330 71 17 107/55 75 98 04/05 2300 72 17 105/55 74 99 04/05 2230 73 18 108/55 76 99 04/05 2200 74 20 120/63 87 99 04/05 2130 7 7 24 116/56 80 99 04/05 2100 85 20 123/60 87 99 04/05 2041 97 Room air 21 04/05 2030 82 17 116/5 9 82 97 04/05 1999 98.0 04/05 2000 89 23 136/65 93 98 04/05 1930 85 22 128/63 89 98 04/05 1900 91 2 3 124/60 87 97 04/05 1830 90 24 129/60 86 98 04/05 1800 84 19 139/63 90 99 04/05 1700 74 18 120/60 86 99 04/05 1600 72 17 116/56 80 99 04/05 1500 75 19 110/56 79 99 04/05 1400 71 18 111/56 80 99 04/05 1300 81 19 142/61 88 99 04/05 1230 74 17 114/57 82 99 04/05 1200 79 18 122/58 83 100 04/0 5 1134 97.5 78 18 100 Room air 04/05 1130 70 17 113/55 79 99 04/05 1100 67 19 108/58 80 100 04/0 5 1030 67 17 103/56 77 100 24 hour I O ending at 0700: 06/17 0700 06/16 1900 Intake Total 830 Output Total Balance 830 Intake, Oral 830 Number 1 Bowel Movements Number Voids 3 PATIENT WEIGHT: Weight (lb): 150Weight (oz): 5.05Weight (kg): 68.039 Physical ExamGeneral appearance: alert, awake, oriented, no acute distress, pleasant, conversational, mental status normal, no respiratory distressHead/Eyes: atraumatic, clear cornea, EOMI, normal conjunctiva/scleraENT: mois t mucosal membranes, normal noseNeck: no JVDCardiovascular: normal heart sounds, regular rate rhythm, Central line Chest tubesRespiratory : aerating well, clear to auscultationAbdomen: non-tender, normal bowel sounds, soft, no distention, no mass/organomegalyExtremities: edema, no clubbing, no cyanosis, R femoral arrt line R art line radialMusculoskeletal: legs wrapped compression stockingsNeuro/BELT SANDER: alert, oriented X 3, normal speechSkin: dryWound/incision: Location:Chest Site Condition : dressing clean dry, dressing intactPsychiatry: normal affect, normal mood ResultsFindings/Data:Laboratory Tests 06/17 04/0 6 06/16 06/16 06/16 0648 0630 1949 1746 1125 Chemistry Sodium (137 - 145 MMOL/L) 138 Potassiu m (3.5 - 5.1 MMOL/L) 4.1 Chloride (98 - 107 MMOL/L ) 104 Carbon Dioxide (22 - 30 MMOL/L) 25 BUN (9 - 20 MG/DL) 12 Creatinine (0.66 - 1.25 MG/DL) 0.60 L Glomerular Filtr Rate > 60 Glucose (74 - 106 MG/DL) 130 H POC Glucose (60 - 99 MG/DL) 91 195 H 166 H 163 H Calcium (8.4 - 10.2 MG/DL) 8.8 Magnesium (1.6 - 2.3 MG/DL) 2.0 Laboratory Tests 06/17 0630 Hematology WBC (3.8 - 9.8 K/MM3) 6.7 RBC (3.95 - 5.67 M/MM3) 2.84 L Hgb (12.4 - 16.7 G/DL) 8.8 L Hct (35.9 - 49.5 %) 27.5 L MCV (81.7 - 96.1 fL) 97 H MCH (27.6 - 33.2 pg) 31.0 MCHC (32.9 - 35.5 %) 32.0 L RDW (12.1 - 15.2 %) 13.1 Plt Count (129 - 368 K/MM3) 264 MPV (7.4 - 10.4 fl) 10.0 Neut % (Auto) (43 - 75 %) 59.4 Lymph % (Auto) (14 - 44 %) 29.3 [place] % (Auto) (4 - 13 %) 8.6 Eos % (Auto) (0 - 6 %) 1.1 Baso % (Auto) (0 - 2 %) 1.1 Neut # (Auto) (2.0 - 7.6 K/mm3) 3.97 Lymph # (Auto) (1.0 - 3.8 K/mm3) 1.95 [place] # (Auto) (0.1 - 0.8 K/mm3) 0.57 Eos # (Auto) (0.0 - 0.2 K/mm3) 0.07 Baso # (Auto) (0.0 - 0.2 K/mm3) 0.07 Immature Gran % (0.0 - 2.0 %) 0.5 Nucleated RBC % (0 - 1.0 %) 0.5 Nucleated RBCs # (Man) (0. 0 - 0.1 K/mm3) 0.03 Diagnosis, Assessment PlanProblem List/A P: 1. S/P CABG (coronary artery bypass graft) Consultants: cardiology Finn e Text DxA P NotesFree text DxA P notes:Mr. Yahir rowe is a 71-year-old man with PMH HTN, HLD, DM, CAD, and Unstable Anginawho is now s/p CABG x3. 06/12:- Extubated overnight, saturating 100% on 3L NC.- Chest Tube Output 300 ccs. - Wean Epinephrine. - DC Insulin drip today. - Further management per Dr. Sparks. 2Pt is doing well, c/o abdominal bloating No BMBlood Sugars are elevated, restart oral home meds /3 Pt feels well, still no BM; continued abd bloating / constipationMiralax, dulcolax; will moniter and add suppository if necessary Restarted home insulin regimine, bG still elebated Continue to moniter DC planning per Dr. Sparks 4Pt doing well. No BM. He has been getting Miralax and Dulcolax. May consider suppository tomorrow. DC planning per Dr. Sparks. 5Pt doing well. Had a BM last night. DC planning per Dr. Sparks. 6Pt doing well. D/C today per Dr. Sparks Diet: DiabeticDVT PPX: On Aspirin, Plavix. Quality: Gen Med Crit Care VTE ProphylaxisVTE prophylaxis initiated: yes Current MedicationsCurrent medication review:I attest that the foregoing medication list in the medical record is true, accurate, and complete t o the best of my knowledge. Advanced Care Plan 65 or OlderDiscussed with: patientDiscussion included: code status AttestationsAttestation needed: supervising physician Jillian Cabrera 06/29/21 1641:Attestations Teaching Physician AttestationF/U visit w/ resident:I saw the patient with the resident and . . . agree with the resident's findings and plan. at 1007 at 1641 RPT #:[id number] OF REPORTPRProgress [id number]:02:00Z.[id number] l able for patient [id number]:08:08 2021-06-17 07:41:00 [id number] [place] [id number] PATIENT NAME: DIALLO COCHRAN ADMIT DATE: 06/11/21ACCOUNT NO: [id number] ROOM NO: [facility] AGE: 71 REPORT TYPE: ELECTROCARDIOGRA M SEX: M ADMITTING PHYSICIAN:Jillian Cabrera MD ATTENDING PHYSICIAN:Jillian Cabrera MD Order:[id number] Reason : S/P CABG Test Date/Time Stamp:TueJun 17 2021 07:41:41Blood Pressure : / mmHGVent. Rate : 077 BPM Atrial Rate : 077 BPM P-R Int : 114 ms QRS Dur : 092 ms QT Int : 398 ms P-R-T Axes : -15 012 070 degrees QTc Int : 450 ms Normal sinus rhythmNonspecific T wave abnormalityAbnormal ECGWhen compared with ECG of 16-JUN-2021 04:35,N o significant change was foundConfirmed by TEJINDER MACEDO ([id number]) on 06/17/2021 5:18:14 PM Referred By: Jillian Cabrera Confirmed by:TEJINDER MACEDO at 1718 PATIENT NAME: DIALLO COCHRAN .[id number] AVAvailable for patient [id number]:18:38 2021-06-17 06:15:00 [id number]:00 [facility] ([facility])Cardiology Progress NoteREPORT#:[id number] REPORT STATUS: SignedDATE:06/17/21 TIME: 614 PATIENT: DIALLO COCHRAN UNIT #: [id number]#: [id number] [facility]VV[facility]-XGPV: 50 AGE: 71 SEX: M ATTEND: Jillian Cabrera [facility] AUTHOR: William Estrada MD * ALL edits or amendments must be made on the electronic/computer document * SubjectiveChief complaint:CADPatient reports:No: chest pain, palpitations, shortness of breath. Objective GeneralVS/I O:24 hour I O ending at 0700: 0406 0700 04/05 1900 Intake Total 830 Output Total Balance 830 Intake, Oral 830 Number 1 Bowel Movements Number Voids 3 Vital Signs: Date Time Temp Pulse Resp B/P B/P Pulse O2 O2 Flow FiO2 Mean Ox Delivery Rate 04/06 0510 68 9 103/56 74 98 04/06 0410 70 14 118/59 83 99 04/06 0310 71 15 131/62 87 99 04/0 6 0200 70 15 107/58 79 99 04/06 0130 69 14 108/55 78 98 04/06 0100 72 10 110/56 80 98 04/06 0030 7 2 20 118/57 82 99 04/06 0000 98.0 04/06 0000 70 6 106/55 75 99 04/05 2330 71 17 107/55 75 98 04/05 2300 72 17 105/55 74 99 04/05 2230 73 18 108/55 76 99 04/05 2200 74 20 120/63 87 99 04/05 2130 7 7 24 116/56 80 99 04/05 2100 85 20 123/60 87 99 04/05 2041 97 Room air 21 04/05 2030 82 17 116/5 9 82 97 04/05 2000 98.0 04/05 2000 89 23 136/65 93 98 04/05 1930 85 22 128/63 89 98 04/05 1900 91 2 3 124/60 87 97 04/05 1830 90 24 129/60 86 98 04/05 1800 84 19 139/63 90 99 04/05 1700 74 18 120/60 86 99 04/05 1600 72 17 116/56 80 99 04/05 1500 7 5 19 110/56 79 99 04/05 1400 71 18 111/56 80 99 04/05 1300 81 19 142/61 88 99 04/05 1230 74 17 114/57 82 99 04/05 1200 79 18 122/58 83 100 04/05 1134 97.5 78 18 100 Room air 04/05 1130 70 17 113/55 79 99 04/05 1100 67 19 108/58 80 100 04/05 1030 67 17 103/56 77 100 04/05 1000 67 16 103/55 76 98 04/05 0930 66 16 110/55 79 94 04/05 0900 69 18 112/57 82 04/05 0830 81 22 145/69 99 04/05 0800 84 20 143/67 96 / 0730 72 19 121/58 84 100 04/05 0701 97.8 67 20 98 Room air / 0700 66 15 113/59 83 99 04/ 0630 71 16 117/59 83 98 PATIENT WEIGHT: Weight (lb): 150Weight (oz): 5.05Weight (kg): 68.039 Medications:Active Meds + DC'd Last 24 HrsMetformin HCl (GLUCOPHAGE) 1,000 MG BID MEALS PO Polyethylene Glycol (MIRALAX) 17 GM DAILY PO Docusate Sodium (COLACE) 100 MG BID PO Insulin Human Lispro (HumaLOG) LOW DOSE SLIDING SCALE AC HS SUBQ Famotidine (PEPCID) 20 MG BID PO Metoprolol Tartrate (LOPRESSOR) 12.5 MG Q12HR PO Aspirin (CHILDREN'S ASPIRIN) 81 MG DAILY PO Clopidogrel Bisulfate (PLAVIX) 75 MG DAILY PO Atorvastatin Calcium (LIPITOR) 20 MG BEDTIME PO Mupirocin (BACTROBAN NASAL - ADULT ICU) 1 APPLIC BID NASAL (DC) Meperidine HCl (DEMEROL (C-II)) 2 5 MG Q4H PRN PRN IM Meperidine HCl (DEMEROL (C-II) ) 50 MG Q4H PRN PRN IM Calcium Gluconate (CALCIUM GLUCONATE 10%) 1,000 MG ASDIR PRN IV Sodium Chloride (Sodium Chloride MINI-BAG) 100 MLDextrose/Water (DEXTROSE 50% IN WATER) 12.5 GM ASDIR PRN IV Dextrose/Water (DEXTROSE 50% IN WATER) 25 GM ASDIR PRN IV Dobutamine HCl/Dextros e (DOBUTamine HCL IN DEXTROSE) 250 ML ASDIR PRN IV Epinephrine (EPINEPHrine/NS 4MG/250ML) 250 ML ASDIR PRN IV Hydrocodone Bitart/Acetaminophen (NORCO 5/325 TABLET (C-II)) 1 TAB Q4H PRN PRN PO Hydrocodone Bitart/Acetaminophen (NORCO 5/325 TABLET (C-II)) 2 TAB Q4H PRN PRN PO Insulin Brenda n Regular (INSULIN DRIP) 100 ML ASDIR IV (CKD) Lidocaine HCl/Dextrose (Lidocaine 0.4% in D5w Soln) 500 ML ASDIR PRN IV (CKD) Magnesium Sulfat e (MAG SULFATE 2GM PREMIX) 50 ML ASDIR PRN IV Magnesium Sulfate/Dextrose (Magnesium Sulfate) 100 ML ASDIR PRN IV Nicardipine HCl (CARDENE I.V.) 25 MG ASDIR PRN IV (CKD) Sodium Chloride (SODIUM CHLORIDE 0.9%) 250 MLOndansetron HCl (ZOFRAN) 4 MG Q8H PRN PRN IV Potassium Chloride (Potassium Chloride) 50 ML ASDIR PRN IV Sodium Bicarbonate (Sodium Bicarbonate) 50 MEQ ASDIR CA N IV Physical ExamGeneral appearance: alert, awake, orientedHead/Eyes: atraumatic, normocephalicENT: moist mucosal membranes, ETT i n place.Neck: no JVDCardiovascular: CV assessment: regular rate and rhythmRespiratory: clear to auscultation, no distressLower extremity: LE assessment: no edemaMusculoskeletal: full range of motionNeuro/BELT SANDER: alert, oriented X 3, CN II-XII intactSkin: dry, intactPsychiatry: normal affect, normal judgment/insight, normal mood ResultsFindings/Data:Laboratory Tests 06/16 5 06/16 06/16 1949 1746 1125 0630 Chemistry POC Glucose (60 - 99 MG/DL) 195 H 166 H 163 H 166 H Diagnosis, Assessment PlanConsultants: cardiolog y Free Text DxA P NotesFree Text DxA P Notes:IMP: CAD s/p ACB 06/11/21 - FLORES to LAD, SVG to ramus, OM HTN HLP DM PLAN: Continue current medical rx. Ambulate. at 1831 RPT #:[id number] O F REPORTPRProgress [id number]:15:00Z.[id number] shiv able for patient [id number]:31:57 2021-06-16 18:38:00 [id number]:00 [facility] ([facility])Cardiovascular Surgery ProgREPORT#:[id number] REPORT STATUS: SignedDATE:06/16/21 TIME: 183 PATIENT: DIALLO COCHRAN UNIT #: [id number]#: [id number] [facility]FBEM: 50 AGE: 71 SEX: M ATTEND: Jillian Cabrera [facility] AUTHOR: Ericka Mcintosh * ALL edits or amendments must be made on the electronic/computer document * GeneralPost-op: day 5Status post:ACB X 3 SubjectivePatient reports:No: complaints. Nursin g reports:No: complaints. Comments:Pt. seen at bedside, doing wellHe denies having any chest pain or SOB Review of SystemsConstitutional:Denies: chills, fatigue, fever, generalized weakness. Respiratory:Denies: CRAWFORD (dyspnea on exertion), SOB. Cardiovascular:Denies: chest pain, CRAWFORD (dyspnea on exertion). Objective GeneralVS/I O:Last Documented: Result Date Time Pulse Ox 99 06/16 1800 B/P 139/63 06/16 1800 B/P Mean 90 06/16 1800 Pulse 84 / 1800 Resp 19 06/16 1800 O2 Delivery Room air 06/16 1134 Temp 36.4 06/16 113 4 FiO2 24 06/15 2221 O2 Flow Rate 1 06/15 2221 24 hour I O ending at 0700: 06/16 0700 04 1900 Intake Total 100 800 Output Total 1000 Balance -900 800 Intake, Oral 100 800 Number 1 Bowel Movements Number Voids 1 2 Output, Urine 1000 PATIENT WEIGHT: Weight (lb): 150Weight (oz): 5.05Weight (kg): 68.039 Medications:Active Meds + DC'd Last 24 HrsMetformin HCl (GLUCOPHAGE) 1,000 MG BID MEALS PO Polyethylene Glycol (MIRALAX) 17 GM DAILY PO Docusate Sodium (COLACE) 100 MG BID PO Gabapentin (NEURONTIN) 100 MG 2100 PO (DC) Insulin Human Lispro (HumaLOG) LOW DOSE SLIDING SCALE AC HS SUBQ Famotidine (PEPCID) 20 MG BID P O Metoprolol Tartrate (LOPRESSOR) 12.5 MG Q12HR PO Aspirin (CHILDREN'S ASPIRIN) 81 MG DAILY PO Clopidogrel Bisulfate (PLAVIX) 75 MG DAILY PO Atorvastatin Calcium (LIPITOR) 20 MG BEDTIME PO Mupirocin (BACTROBAN NASAL - ADULT ICU) 1 APPLIC BID NASAL (DC) Meperidine HCl (DEMEROL (C-II)) 2 5 MG Q4H PRN PRN IM Meperidine HCl (DEMEROL (C-II) ) 50 MG Q4H PRN PRN IM Calcium Gluconate (CALCIUM GLUCONATE 10%) 1,000 MG ASDIR PRN IV Sodium Chloride (Sodium Chloride MINI-BAG) 100 MLDextrose/Water (DEXTROSE 50% IN WATER) 12.5 GM ASDIR PRN IV Dextrose/Water (DEXTROSE 50% IN WATER) 25 GM ASDIR PRN IV Dobutamine HCl/Dextros e (DOBUTamine HCL IN DEXTROSE) 250 ML ASDIR PRN IV Epinephrine (EPINEPHrine/NS 4MG/250ML) 250 ML ASDIR PRN IV Hydrocodone Bitart/Acetaminophen (NORCO 5/325 TABLET (C-II)) 1 TAB Q4H PRN PRN PO Hydrocodone Bitart/Acetaminophen (NORCO 5/325 TABLET (C-II)) 2 TAB Q4H PRN PRN PO Insulin Brenda n Regular (INSULIN DRIP) 100 ML ASDIR IV (CKD) Lidocaine HCl/Dextrose (Lidocaine 0.4% in D5w Soln) 500 ML ASDIR PRN IV (CKD) Magnesium Sulfat e (MAG SULFATE 2GM PREMIX) 50 ML ASDIR PRN IV Magnesium Sulfate/Dextrose (Magnesium Sulfate) 100 ML ASDIR PRN IV Nicardipine HCl (CARDENE I.V.) 25 MG ASDIR PRN IV (CKD) Sodium Chloride (SODIUM CHLORIDE 0.9%) 250 MLOndansetron HCl (ZOFRAN) 4 MG Q8H PRN PRN IV Potassium Chloride (Potassium Chloride) 50 ML ASDIR PRN IV Sodium Bicarbonate (Sodium Bicarbonate) 50 MEQ ASDIR CA N IV Physical ExamGeneral appearance: alert, awake , oriented, no acute distressWound/incision: Location: median sternotomy, right lower extremity Site condition: dressing clean dry, incision intact, no drainage, no erythema, Sternum is stableNeck: non-tender, no bruit/NL carotids, no masses or swellingCardiovascular: BP/pulses equal bilat., normal heart sounds, regular rate rhythmRespiratory: aerating wellAbdomen: soft, non-tender, normal bowel soundsExtremities: no edemaNeuro/BELT SANDER: alert, oriented X 3 ResultsFindings/Data:Laboratory Tests 06/16 06/16 06/16 06/15 1746 1125 0630 193 8 Chemistry POC Glucose (60 - 99 MG/DL) 166 H 163 H 166 H 221 H Diagnosis, Assessment PlanFree Text A P:Pt. with CAD and unstable anginaS/P ACB x 3HypertensionHyperlipidemiaDiabetes mellitus PLAN:D/C Pacer WiresCheck O2 satsEncourage use o f IS and ambulationFor possible discharge home tomorrow at 1842 at 2150 RPT #:[id number] OF REPORTPRProgress [id number]:38:00Z.[id number] l able for patient [id number]:42:16 2021-06-16 07:05:00 [id number]:00 [facility] ([facility]Hospitalist Progress NoteREPORT#:[id number] REPORT STATUS: SignedDATE:06/16/21 TIME: 0705 PATIENT: DIALLO COCHRAN UNIT #: [id number]#: [id number] [address]QFOS: [address] AGE: 71 SEX: M ATTEND: Jillian Cabrera [facility] AUTHOR: Shreyas Blake DO R1 * ALL edits or amendments must be made on the electronic/computer document * Shreyas Blake 06/16/21 0705:SubjectiveChief complaint:71 y/o male w unstable angina recently diagnosed CAD, now postCABG. POD#5HPI:Patient seen and examined at bedside. Doing well. He had a BM last night. No complaints. Denies chest pain, abdominal pain, dyspnea, fever, chills, nausea, vomiting, diarrhea, constipation, headache, dizziness, or lightheadedness. Review of SystemsConstitutional:Denies: chills, fatigue , fever, generalized weakness. Allergy/Immun:Denies: itching. Eyes:Denies: visual loss/blurred. ENT:Denies: nasal congestion, sore throat. Respiratory:Denies: CRAWFORD (dyspnea on exertion), non productive cough, productive cough (sputum), SOB, wheezing. Cardiovascular:Denies: chest pain, CRAWFORD (dyspnea on exertion), edema, orthopnea, palpitations, parox nocturnal dyspnea. GI:Denies: abdominal pain, constipation, diarrhea, nausea, vomiting. :Denies: dysuria, flank pain, frequency, hematuria. Neuro:Denies: dizziness, headache, lightheaded, numbness. All systems rev neg: except as marked Objective GeneralVS/I O:Vital Signs: Date Time Temp Pulse Resp B/P B/P Pulse O 2 O2 Flow FiO2 Mean Ox Delivery Rate / 0701 97.8 67 20 98 Room air 04/05 0608 98 04/05 0600 68 14 100/56 76 97 04/05 0530 68 16 109/53 76 97 04/05 0500 70 16 115/56 80 98 04/05 0334 98.6 04/05 0330 67 14 100 04/05 0315 100 04/05 0300 6 7 14 107/58 80 100 04/05 0230 67 15 109/59 81 100 04/05 0200 66 14 109/56 77 100 04/05 0130 69 14 119/56 81 100 04/05 0100 67 15 106/57 79 100 04/05 0030 70 16 101/59 76 100 04/05 0012 100 04/05 0000 98.3 04/05 0000 68 15 106/55 75 100 04/04 2330 70 14 105/57 76 100 04/04 2300 68 16 101/57 75 100 04/04 2230 66 16 106/56 76 100 04/04 2221 100 Nasal 1 24 cannula 04/04 2200 67 19 121/61 82 100 04/04 2130 66 18 100/57 76 100 04/04 2128 67 16 100 04/04 2115 100 04/04 2100 6 8 19 106/59 79 100 04/04 2030 83 24 128/60 87 100 04/04 1999 98.6 67 16 100/57 71 100 Room air 04/04 1999 77 20 120/57 82 100 04/04 1930 75 20 129/60 86 100 04/04 1900 80 22 121/60 85 100 04/04 1830 77 23 120/59 85 100 04/04 1800 82 29 134/63 91 100 04/04 1730 69 17 117/57 82 100 04/04 1700 70 18 130/60 87 99 04/04 1630 71 17 114/57 80 100 04/04 1600 97.8 73 20 124/58 80 10 0 Nasal 1 cannula 04/04 1600 73 20 124/58 84 100 04/04 1530 72 20 121/59 85 100 04/04 1500 77 29 136/60 87 100 04/04 1430 72 16 111/56 80 100 04/04 1400 73 19 112/56 80 100 04/04 1330 79 21 113/58 82 100 04/04 1300 74 19 106/58 78 100 04/04 1230 72 17 116/58 83 100 04/04 1200 97.7 7 1 20 126/60 82 100 Nasal 2 cannula 04/04 1200 71 20 126/60 86 100 04/04 1130 82 22 135/64 92 100 04/04 1100 72 19 114/56 80 100 04/04 1030 69 19 118/60 84 100 04/04 1000 75 21 114/58 83 100 04/04 0930 77 20 106/59 80 100 04/04 0915 Nasal 2 cannula 04/04 0900 81 16 113/55 79 100 04/04 0848 100 Nasal 2 28 cannula 04/04 0830 92 25 133/63 90 100 04/04 0811 97.5 96 25 118/58 78 99 Nasal 2 cannula 04/04 0811 96 25 99 04/04 0807 88 24 118/58 83 99 04/04 0800 87 24 99 24 hour I O ending at 0700: 04/05 0700 04/04 1900 Intake Total 100 800 Output Total 1000 Balance -900 80 0 Intake, Oral 100 800 Number 1 Bowel Movements Number Voids 1 2 Output, Urine 1000 PATIENT WEIGHT: Weight (lb): 150Weight (oz): 5.05Weight (kg): 68.039 Physical ExamGeneral appearance: alert, awake, oriented, no acute distress, pleasant, conversational, mental status normal, no respiratory distressHead/Eyes: atraumaticENT: moist mucosal membranes, normal noseNeck: no JVDCardiovascular: normal heart sounds, regular rate rhythm, Central line Chest tubesRespiratory : aerating well, clear to auscultationAbdomen: non-tender, normal bowel sounds, softExtremities : edema, no clubbing, no cyanosis, R femoral arrt line R art line radialMusculoskeletal: legs wrapped compression stockingsNeuro/BELT SANDER: alert, oriented X 3, normal speechWound/incision: Location:Chest Site Condition: dressing clean dry, dressing intactPsychiatry: normal affect, normal mood ResultsFindings/Data:Laboratory Test s 06/16 06/15 06/15 06/15 06/15 0630 1938 1535 105 7 0754 Chemistry POC Glucose (60 - 99 MG/DL) 166 H 221 H 149 H 255 H 198 H Radiology data:Recent Impressions:RADIOLOGY - XR CHEST 1V 06/15 0720 * Report Impression - Status: SIGNED Entered: 06/15/2021 0835 IMPRESSION: No significant pittman e from the priorImpression By: [email or web address] - Joy Rojo MD Diagnosis, Assessment PlanConsultants: cardiology Free Text DxA P NotesFree text DxA P notes:Mr. Cochran is a 71-year-old man with PMH HTN, HLD, DM, CAD, and Unstable Anginawho is now s/p CABG x3. planThank you for the consult, will follow w youPt on Epi, to be weanedOn insulin drip for 24 hoursIntubated to be weanedDVT prophylaxis 06/12:- Extubated overnight, saturatin g 100% on 3L NC.- Chest Tube Output 300 ccs. - Wea n Epinephrine. - DC Insulin drip today. - Further management per Dr. Sparks. 4/2Pt is doing well, c/o abdominal bloating No BMBlood Sugars are elevated, restart oral home meds /3 Pt feels well, still no BM; continued abd bloating / constipationMiralax, dulcolax; will moniter and add suppository if necessary Restarted home insulin regimine, bG still elebated Continue to moniter DC planning per Dr. Sparks 4/4Pt doing well. No BM. He has been getting Miralax and Dulcolax. May consider suppository tomorrow. DC planning per Dr. Sparks. 4/5Pt doing well. Had a BM last night. DC planning per Dr. Sparks. Diet : DiabeticDVT PPX: On Aspirin, Plavix. Quality: Ge n Med Crit Care VTE ProphylaxisVTE prophylaxis initiated: yes Current MedicationsCurrent medication review:I attest that the foregoing medication list in the medical record is true, accurate, and complete to the best of my knowledge. Advanced Care Plan 65 or OlderDiscussed with: patientDiscussion included: code status AttestationsAttestation needed: supervising physician Jillian Cabrera 06/16/21 1457:Attestations Teaching Physician AttestationF/U visit w/ resident:I saw the patient with the resident and . . . agree with the resident's findings and plan. at 1354 at 1501 RPT #:[id number] OF REPORTPRProgress [id number]:05:00Z.[id number] shiv able for patient [id number]:55:05 2021-06-16 07:00:00 [id number]:00:00 [facility] ([facility]ENTERCardiology Progress NoteREPORT#:[id number] REPORT STATUS: SignedDATE:06/16/21 TIME: 0700 PATIENT: DIALLO COCHRAN UNIT #: [id number]#: [id number] [facility] AGE: 71 SEX: M ATTEND: Jillian Cabrera MDADM AUTHOR: William Estrada MD * ALL edits or amendments must be made on the electronic/computer document * SubjectiveChief complaint:CADPatient reports:No: chest pain, palpitations, shortness of breath. Objective GeneralVS/I O:24 hour I O ending at 0700: 04/05 0700 04/04 1900 Intake Total 100 800 Output Total 1000 Balance -900 80 0 Intake, Oral 100 800 Number 1 Bowel Movements Number Voids 1 2 Output, Urine 1000 Vital Signs: Date Time Temp Pulse Resp B/P B/P Pulse O2 O2 Flow FiO2 Mean Ox Delivery Rate 04/05 0608 98 04/05 0600 68 14 100/56 76 97 04/05 0530 68 16 109/53 76 97 04/05 0500 70 16 115/56 80 98 04/05 0334 98.6 04/05 0330 67 14 100 04/05 0315 100 04/05 0300 67 14 107/58 80 100 04/05 0230 67 15 109/59 81 100 04/05 0200 66 14 109/56 77 100 04/05 0130 69 14 119/56 81 100 04/05 0100 67 15 106/57 79 100 04/05 0030 70 16 101/59 76 100 04/05 0012 100 04/05 0000 98.3 04/05 0000 68 15 106/55 75 100 04/04 2330 70 14 105/57 76 100 04/04 2300 68 16 101/57 75 100 04/04 2230 66 16 106/56 76 100 04/04 2221 100 Nasal 1 24 cannula 04/04 2200 67 19 121/61 82 100 04/04 2130 66 18 100/57 76 100 04/04 2128 67 16 100 04/04 2115 10 0 04/04 2100 68 19 106/59 79 100 04/04 2030 83 24 128/60 87 100 04/04 1999 98.6 67 16 100/57 71 10 0 Room air 04/04 1999 77 20 120/57 82 100 04/04 1930 75 20 129/60 86 100 04/04 1900 80 22 121/60 85 100 04/04 1830 77 23 120/59 85 100 04/04 1800 82 29 134/63 91 100 04/04 1730 69 17 117/57 82 100 04/04 1700 70 18 130/60 87 99 04/04 1630 71 17 114/57 80 100 04/04 1600 97.8 73 20 124/58 80 100 Nasal 1 cannula 04/04 1600 73 20 124/58 84 100 04/04 1530 72 20 121/59 85 100 04/04 1500 77 29 136/60 87 100 04/04 1430 72 16 111/56 80 100 04/04 1400 73 19 112/56 80 100 04/04 1330 79 21 113/58 82 100 04/04 1300 74 19 106/58 78 100 04/04 1230 72 17 116/58 83 100 04/04 1200 97.7 7 1 20 126/60 82 100 Nasal 2 cannula 04/04 1200 71 20 126/60 86 100 04/04 1130 82 22 135/64 92 100 04/04 1100 72 19 114/56 80 100 04/04 1030 69 19 118/60 84 100 04/04 1000 75 21 114/58 83 100 04/04 0930 77 20 106/59 80 100 04/04 0915 Nasal 2 cannula 04/04 0900 81 16 113/55 79 100 04/04 0848 100 Nasal 2 28 cannula 04/04 0830 92 25 133/63 90 100 04/04 0811 97.5 96 25 118/58 78 99 Nasal 2 cannula 04/04 0811 96 25 99 04/04 0807 8 8 24 118/58 83 99 04/04 0800 87 24 99 PATIENT WEIGHT: Weight (lb): 150Weight (oz): 5.05Weight (kg): 68.039 Medications:Active Meds + DC'd Last 24 HrsAlbumin Human (ALBUMINAR-25) 25 GM .STK-ME D ONE Z (DC) Heparin Sodium (HEPARIN SODIUM) 10,00 0 UNITS .STK-MED ONE Z (DC) Heparin Sodium (Porcine) (Heparin Sodium) 1,000 UNIT .STK-MED ONE Z (DC) Lidocaine HCl (LIDOCAINE HCL) 100 MG .STK-MED ONE Z (DC) Magnesium Sulfate (MAGNESIUM SULFATE 50%) 10 GM .STK-MED ONE Z (DC) Mannitol (OSMITROL 20%) 100 GM .STK-MED ONE Z (DC) Parenteral Electrolytes (PLASMA-LYTE A PH 7.4) 1,000 ML .STK-MED ONE Z (DC) Potassium Chloride (POTASSIUM CHLORIDE) 40 MEQ .STK-MED ONE Z (DC) Sodium Chloride (SODIUM CHLORIDE 0.9% PROCESSING SOLN.) 3,000 ML .STK-MED ONE Z (DC) Sodium Chloride (SODIUM CHLORIDE 0.9%) 2,000 ML .STK-ME D ONE Z (DC) Metformin HCl (GLUCOPHAGE) 1,000 MG BID MEALS PO Polyethylene Glycol (MIRALAX) 17 GM DAILY PO Docusate Sodium (COLACE) 100 MG BID PO Gabapentin (NEURONTIN) 100 MG 2100 PO (DC) Insulin Human Lispro (HumaLOG) LOW DOSE SLIDING SCALE AC HS SUBQ Famotidine (PEPCID) 20 MG BID P O Metoprolol Tartrate (LOPRESSOR) 12.5 MG Q12HR PO Aspirin (CHILDREN'S ASPIRIN) 81 MG DAILY PO Clopidogrel Bisulfate (PLAVIX) 75 MG DAILY PO Atorvastatin Calcium (LIPITOR) 20 MG BEDTIME PO Mupirocin (BACTROBAN NASAL - ADULT ICU) 1 APPLIC BID NASAL Meperidine HCl (DEMEROL (C-II)) 25 MG Q4H PRN PRN IM Meperidine HCl (DEMEROL (C-II)) 5 0 MG Q4H PRN PRN IM Calcium Gluconate (CALCIUM GLUCONATE 10%) 1,000 MG ASDIR PRN IV Sodium Chloride (Sodium Chloride MINI-BAG) 100 MLDextrose/Water (DEXTROSE 50% IN WATER) 12.5 GM ASDIR PRN IV Dextrose/Water (DEXTROSE 50% IN WATER) 25 GM ASDIR PRN IV Dobutamine HCl/Dextrose (DOBUTamine HCL IN DEXTROSE) 250 ML ASDIR PRN IV Epinephrine (EPINEPHrine/NS 4MG/250ML) 250 ML ASDIR PRN IV Hydrocodone Bitart/Acetaminophen (NORCO 5/325 TABLET (C-II)) 1 TAB Q4H PRN PRN PO Hydrocodone Bitart/Acetaminophen (NORCO 5/325 TABLET (C-II)) 2 TAB Q4H PRN PRN PO Insulin Human Regular (INSULIN DRIP) 100 ML ASDIR IV (CKD) Lidocaine HCl/Dextrose (Lidocaine 0.4% in D5w Soln) 500 ML ASDIR PRN IV (CKD) Magnesium Sulfate (MAG SULFAT E 2GM PREMIX) 50 ML ASDIR PRN IV Magnesium Sulfate/Dextrose (Magnesium Sulfate) 100 ML ASDI R PRN IV Nicardipine HCl (CARDENE I.V.) 25 MG ASDI R PRN IV (CKD) Sodium Chloride (SODIUM CHLORIDE 0.9%) 250 MLOndansetron HCl (ZOFRAN) 4 MG Q8H CA N PRN IV Potassium Chloride (Potassium Chloride) 5 0 ML ASDIR PRN IV Sodium Bicarbonate (Sodium Bicarbonate) 50 MEQ ASDIR PRN IV Physical ExamGeneral appearance: alert, awake, orientedHead/Eyes: atraumatic, normocephalicENT: moist mucosal membranes, ETT in place.Neck: no JVDCardiovascular: CV assessment: regular rate and rhythmRespiratory: clear to auscultation, no distressLower extremity: LE assessment: no edemaMusculoskeletal: full range of motionNeuro/BELT SANDER: alert, oriented X 3, CN II-XII intactSkin: dry, intactPsychiatry: normal affect , normal judgment/insight, normal mood ResultsFindings/Data:Laboratory Tests 06/16 4 06/15 06/15 06/15 0630 1938 1535 1057 0754 Chemistry POC Glucose (60 - 99 MG/DL) 166 H 221 H 149 H 255 H 198 H Radiology data:Recent Impressions:RADIOLOGY - XR CHEST 1V 06/15 0720 * Report Impression - Status: SIGNED Entered: 06/15/2021 0835 IMPRESSION: No significant pittman e from the priorImpression By: [email or web address] - Joy Rojo MD Diagnosis, Assessment Plan Free Text Dx A P NotesFree Text DxA P Notes:IMP: CAD s/p ACB 06/11/21 - FLORES to LAD, SVG to ramus, OM HTN HLP DM PLAN: Continue current medical rx. Ambulate. at 1831 RPT #:[id number] OF REPORTPRProgress [id number]:00:00Z.[id number] shiv able for patient [id number]:31:37 2021-06-16 04:35:00 [id number] [address] PATIENT NAME: DIALLO COCHRAN ADMIT DATE: 06/11/21ACCOUNT NO: [id number] ROOM NO: Z.SI02 AGE: 71 REPORT TYPE: ELECTROCARDIOGRA M SEX: M ADMITTING PHYSICIAN:Jillian Cabrera MD ATTENDING PHYSICIAN:Jillian Cabrera MD Order:[id number] Reason : CAD/CAB Test Date/Time Stamp:TueJun 16 2021 04:35:13Blood Pressure : / mmHGVent. Rate : 070 BPM Atrial Rate : 070 BPM P-R Int : 140 ms QRS Dur : 084 ms QT Int : 410 ms P-R-T Axes : 032 027 075 degrees QTc Int : 442 ms Normal sinus rhythmNonspecific ST and T wave abnormalityAbnormal ECGWhen compared with ECG of 15-JUN-2021 05:19,No significant change was foundConfirmed by TEJINDER MACEDO ([id number]) on 06/16/2021 7:04:38 AM Referred By: Tree Sparks Confirmed by:TEJINDER MACEDO at 0704 PATIENT NAME: DIALLO COCHRAN .[id number] AVAvailable for patient [id number]:04:59 2021-06-16 04:35:00 [id number] [address] PATIENT NAME: DIALLO COCHRAN ADMIT DATE: 06/11/21ACCOUNT NO: [id number] ROOM NO: Z.SI02 AGE: 71 REPORT TYPE: ELECTROCARDIOGRA M SEX: M ADMITTING PHYSICIAN:Jillian Cabrera MD ATTENDING PHYSICIAN:Jillian Cabrera MD Order:[id number] Reason : CAD/CAB Test Date/Time Stamp:TueJun 16 2021 04:35:13Blood Pressure : / mmHGVent. Rate : 070 BPM Atrial Rate : 070 BPM P-R Int : 140 ms QRS Dur : 084 ms QT Int : 410 ms P-R-T Axes : 032 027 075 degrees QTc Int : 442 ms Normal sinus rhythmNonspecific ST and T wave abnormalityAbnormal ECGWhen compared with ECG of 15-JUN-2021 05:19,No significant change was foundConfirmed by TEJINDER MACEDO ([id number]) on 06/17/2021 5:18:03 PM Referred By: Tree Sparks Confirmed by:TEJINDER MACEDO Electronically Pattie d by Tejinder Maceod MD on 06/17/21 at 1718 PATIENT NAME: DIALLO COCHRAN .[id number] AVAvailable for patient [id number]:18:28 2021-06-15 23:58:00 [id number] [place] [address] PATIENT NAME: DIALLO COCHRAN ADMIT DATE: 06/11/21ACCOUNT NO: [id number] ROOM NO: [facility] AGE: 71 REPORT TYPE: PROGRESS NOTE SEX: M ADMITTING PHYSICIAN:Jillian Cabrera MD ATTENDING PHYSICIAN:Jillian Cabrera MD DATE: 06/15/2021 CARDIAC SURGERY SERVICE The patient i s seen at bedside in the ICU. The patient currentl y is stable. Monitoring lines have all been removed. The patient is making appropriateprogress. Dictated By: Tree Sparks MD WT: PN:ZROBYN/JOSELO/NTSDD: 06/15/2021 23:58:52DT: 06/16/2021 01:20:49Conf#: [id number]/DID#: [id number] Authenticated by Tree Sparks MD On 07/05/2021 02:55:08 PM at 2775 PATIENT NAME: DIALLO COCHRAN [id number]:20:00Z.[id number] a ble for patient [id number]:55:50 2021-06-15 14:14:00 [id number]:14:00 [facility] ([facility])Hospitalist Progress NoteREPORT#:[id number] REPORT STATUS: SignedDATE:06/15/21 TIME: 141 PATIENT: DIALLO COCHRAN UNIT #: [id number]#: [id number] ROOM/BED: MJ63-MDQY: 50 AGE: 71 SEX: M ATTEND: Jillian Cabrera [facility] AUTHOR: Shreyas Blake DO R1 * ALL edits or amendments must be made on the electronic/computer document * Shreyas Blake 06/15/21 1414:SubjectiveChief complaint:71 y/o male w unstable angina recently diagnosed CAD, now postCABGHPI:Pt was seen at bedside. He mentions being constipated since tuesday, 06/09. He has been on miralax and colace . He is no acute distress. Denies dyspnea, chest pain, nausea, vomiting, diarrhea, headache, lightheadedness, dizziness, orfever. Review of SystemsConstitutional:Denies: chills, fatigue, fever. Skin:Denies: rash. Allergy/Immun:Denies: itching. Eyes:Denies: visual loss/blurred. ENT:Denies: nasal congestion, sore throat. Respiratory:Denies: CRAWFORD (dyspnea on exertion), non productive cough, productive cough (sputum), SOB, wheezing. Cardiovascular:Denies: chest pain , CRAWFORD (dyspnea on exertion), edema, orthopnea, palpitations, parox nocturnal dyspnea. GI:Reports: constipation. Denies: abdominal pain , diarrhea, GERD, nausea, vomiting. :Denies: dysuria, flank pain, frequency. Neuro:Denies: dizziness, gait problem, headache, lightheaded, numbness. All systems rev neg: except as marked Objective GeneralVS/I O:Vital Signs: Date Time Temp Pulse Resp B/P B/P Pulse O2 O2 Flow FiO2 Mean Ox Delivery Rate 04/ 1200 71 20 126/60 8 6 100 04/04 1130 82 22 135/64 92 100 04/04 1100 72 19 114/56 80 100 04/04 1030 69 19 118/60 84 100 04/04 1000 75 21 114/58 83 100 04/04 0930 77 20 106/59 80 100 04/04 0915 Nasal 2 cannula 04/04 0900 81 16 113/55 79 100 04/04 0848 100 Nasal 2 28 cannula 04/04 0830 92 25 133/63 90 100 04/04 0811 97.5 96 25 118/58 78 99 Nasal 2 cannula 04/04 0811 96 25 99 04/04 0807 88 24 118/58 83 9 9 04/04 0800 87 24 99 04/04 0700 68 16 100 04/04 0600 71 100 04/04 0500 69 16 112/58 80 100 04/04 0400 97.3 04/04 0400 Nasal 2 cannula 04/04 0400 70 17 109/55 77 100 04/04 0300 70 16 101/57 76 100 04/04 0200 72 16 102/55 73 100 04/04 0100 70 16 97/56 73 100 04/04 0000 97.8 04/04 0000 72 17 104/59 79 100 04/03 2300 97.8 04/03 2300 71 16 111/55 77 100 04/03 2200 72 17 98/55 72 100 04/0 3 2100 77 19 106/55 75 100 04/03 2006 84 26 149/69 99 04/03 2000 98.0 04/03 1957 95 Room air 21 04/03 1900 85 22 106/52 74 99 04/03 1700 76 17 115/57 80 98 04/03 1600 79 24 122/62 86 99 04/03 1600 97.6 82 18 98 Room air 24 hour I O ending a t 0700: 04/04 0700 04/03 1900 Intake Total 120 85 0 Output Total 900 1660 Balance -780 -810 Intake, Oral 120 850 Number Voids 1 Output, Chest 30 Tub e Drainage Output, Urine 900 1630 PATIENT WEIGHT: Weight (lb): 150Weight (oz): 5.05Weight (kg): 68.039 Physical ExamGeneral appearance: alert, awake, oriented, no acute distress, pleasant, conversational, mental status normal, no respiratory distressHead/Eyes: atraumaticENT: moist mucosal membranes, normal noseNeck: no JVDCardiovascular: normal heart sounds, regular rate rhythm, Central line Chest tubesRespiratory : aerating well, clear to auscultationAbdomen: non-tender, normal bowel sounds, softExtremities : edema, no clubbing, no cyanosis, R femoral arrt line R art line radialMusculoskeletal: legs wrapped compression stockingsNeuro/BELT SANDER: alert, oriented X 3, normal speechWound/incision: Location:Chest Site Condition: dressing clean dry, dressing intactPsychiatry: normal affect, normal mood ResultsFindings/Data:Laboratory Test s 06/15 06/15 06/15 06/14 06/14 1535 1057 0754 202 9 1712 Chemistry POC Glucose (60 - 99 MG/DL) 149 H 255 H 198 H 254 H 187 H Radiology data:Recent Impressions:RADIOLOGY - XR CHEST 1V 06/15 0720 * Report Impression - Status: SIGNED Entered: 06/15/2021 0835 IMPRESSION: No significant pittman e from the priorImpression By: [email or web address] - Joy Rojo MD Diagnosis, Assessment PlanConsultants: cardiology Free Text DxA P NotesFree text DxA P notes:Mr. Cochran is a 71-year-old man with PMH HTN, HLD, DM, CAD, and Unstable Anginawho is now s/p CABG x3. planTsimeonk you for the consult, will follow w youPt on Epi, to be weanedOn insulin drip for 24 hoursIntubated to be weanedDVT prophylaxis 06/12:- Extubated overnight, saturatin g 100% on 3L NC.- Chest Tube Output 300 ccs. - Wea n Epinephrine. - DC Insulin drip today. - Further management per Dr. Sparks. 4/2Pt is doing well, c/o abdominal bloating No BMBlood Sugars are elevated, restart oral home meds / Pt feels well, still no BM; continued abd bloating / constipationMiralax, dulcolax; will moniter and add suppository if necessary Restarted home insulin regimine, bG still elebated Continue to moniter DC planning per Dr. Sparks 4/4Pt doing well. No BM. He has been getting Miralax and Dulcolax. May consider suppository tomorrow. DC planning per Dr. Sparks. Diet: DiabeticDVT PPX: On Aspirin, Plavix. Quality: Gen Med Crit Care VTE ProphylaxisVTE prophylaxis initiated: yes Current MedicationsCurrent medication review:I attest that the foregoing medication list in the medical record is true, accurate, and complete t o the best of my knowledge. Advanced Care Plan 65 or OlderDiscussed with: patientDiscussion included: code status AttestationsAttestation needed: supervising physician Jillian Cabrera 06/15/21 1655:Attestations Teaching Physician AttestationF/U visit w/ resident:I saw the patient with the resident and . . . agree with the resident's findings and plan. at 1546 at 1500 RPT #:[id number] OF REPORTPRProgress [id number]:14:00Z.[id number] l able for patient [id number]:46:46 2021-06-15 08:23:00 [id number]:23:00 [facility] ([facility]ENTERCardiology Progress NoteREPORT#:[id number] REPORT STATUS: SignedDATE:06/15/21 TIME: 822 PATIENT: DIALLO COCHRAN UNIT #: [id number]#: [id number] [facility] AGE: 71 SEX: M ATTEND: Jillian Cabrera [facility] AUTHOR: William Estrada MD * ALL edits or amendments must be made on the electronic/computer document * SubjectiveChief complaint:CADPatient reports:No: chest pain, palpitations, shortness of breath. Objective GeneralVS/I O:24 hour I O ending at 0700: 04/04 0700 04/03 1900 Intake Total 120 850 Output Total 900 1660 Balance -780 -810 Intake, Oral 120 850 Number Voids 1 Output , Chest 30 Tube Drainage Output, Urine 900 1630 Vital Signs: Date Time Temp Pulse Resp B/P B/P Pulse O2 O2 Flow FiO2 Mean Ox Delivery Rate 04/0 4 0811 97.5 96 25 118/58 78 99 Nasal 2 cannula 04/04 0811 96 25 99 04/04 0700 68 16 100 04/04 0600 71 100 04/04 0500 69 16 112/58 80 100 04/04 0400 97.3 04/04 0400 Nasal 2 cannula 04/04 0400 70 17 109/55 77 100 04/04 0300 70 16 101/57 76 100 04/04 0200 72 16 102/55 73 100 04/04 0100 7 0 16 97/56 73 100 04/04 0000 97.8 04/04 0000 72 17 104/59 79 100 04/03 2300 97.8 04/03 2300 71 16 111/55 77 100 04/03 2200 72 17 98/55 72 100 04/0 3 2100 77 19 106/55 75 100 04/03 2005 84 26 149/69 99 04/03 2000 98.0 04/03 1957 95 Room air 21 04/03 1900 85 22 106/52 74 99 04/03 1700 76 17 115/57 80 98 04/03 1600 79 24 122/62 86 99 04/0 3 1600 97.6 82 18 98 Room air 04/03 1500 75 25 112/64 83 100 04/03 1400 78 128/63 89 99 04/03 1330 81 19 100 04/03 1300 82 25 99 04/03 1230 85 21 99 04/03 1200 82 19 100 04/03 1130 91 25 100 04/03 1123 97.8 88 18 100 Room air 04/03 1045 81 27 99 04/03 1030 80 19 99 04/03 1000 79 23 98 04/03 0959 98 Room air 21 04/03 0930 82 24 99 04/03 0900 90 18 98 04/03 0830 94 25 99 PATIENT WEIGHT: Weight (lb): 150Weight (oz): 5.05Weight (kg): 68.039 Medications:Active Meds + DC'd Last 24 HrsMetformin HCl (GLUCOPHAGE) 1,000 MG BID MEALS PO Polyethylene Glycol (MIRALAX) 17 GM DAILY PO Docusate Sodium (COLACE) 100 MG BID PO Gabapentin (NEURONTIN) 100 MG 2100 PO Insulin Human Lispro (HumaLOG) LOW DOSE SLIDING SCALE AC HS SUBQ Famotidine (PEPCID) 20 MG BID PO Metoprolol Tartrate (LOPRESSOR) 12.5 MG Q12HR PO Aspirin (CHILDREN'S ASPIRIN) 81 MG DAILY PO Clopidogrel Bisulfate (PLAVIX) 75 MG DAILY PO Atorvastatin Calcium (LIPITOR) 20 MG BEDTIME PO Mupirocin (BACTROBAN NASAL - ADULT ICU) 1 APPLIC BID NASAL Meperidine HCl (DEMEROL (C-II)) 25 MG Q4H PRN PRN IM Meperidine HCl (DEMEROL (C-II)) 5 0 MG Q4H PRN PRN IM Calcium Gluconate (CALCIUM GLUCONATE 10%) 1,000 MG ASDIR PRN IV Sodium Chloride (Sodium Chloride MINI-BAG) 100 MLDextrose/Water (DEXTROSE 50% IN WATER) 12.5 GM ASDIR PRN IV Dextrose/Water (DEXTROSE 50% IN WATER) 25 GM ASDIR PRN IV Dobutamine HCl/Dextros e (DOBUTamine HCL IN DEXTROSE) 250 ML ASDIR PRN IV Epinephrine (EPINEPHrine/NS 4MG/250ML) 250 ML ASDIR PRN IV Hydrocodone Bitart/Acetaminophen (NORCO 5/325 TABLET (C-II)) 1 TAB Q4H PRN PRN PO Hydrocodone Bitart/Acetaminophen (NORCO 5/325 TABLET (C-II)) 2 TAB Q4H PRN PRN PO Insulin Brenda n Regular (INSULIN DRIP) 100 ML ASDIR IV (CKD) Lidocaine HCl/Dextrose (Lidocaine 0.4% in D5w Soln) 500 ML ASDIR PRN IV (CKD) Magnesium Sulfat e (MAG SULFATE 2GM PREMIX) 50 ML ASDIR PRN IV Magnesium Sulfate/Dextrose (Magnesium Sulfate) 100 ML ASDIR PRN IV Nicardipine HCl (CARDENE I.V.) 25 MG ASDIR PRN IV (CKD) Sodium Chloride (SODIUM CHLORIDE 0.9%) 250 MLOndansetron HCl (ZOFRAN) 4 MG Q8H PRN PRN IV Potassium Chloride (Potassium Chloride) 50 ML ASDIR PRN IV Sodium Bicarbonate (Sodium Bicarbonate) 50 MEQ ASDIR CA N IV Physical ExamGeneral appearance: alert, awake , orientedHead/Eyes: atraumatic, normocephalicENT: moist mucosal membranes, ETT in place.Neck: no JVDCardiovascular: CV assessment: regular rate and rhythmLower extremity: LE assessment: no edemaMusculoskeletal: full range of motionNeuro/BELT SANDER: alert, oriented X 3, CN II-XII intactSkin: dry, intactPsychiatry: normal affect , normal judgment/insight, normal mood ResultsFindings/Data:Laboratory Tests 06/15 06/14 06/14 06/14 0754 2029 1712 1102 Chemistry POC Glucose (60 - 99 MG/DL) 198 H 254 H 187 H 312 *H Diagnosis, Assessment PlanConsultants: cardiology Free Text DxA P NotesFree Text DxA P Notes:IMP: CAD s/p ACB 06/11/21 - FLORES to LAD, SV G to ramus, OM HTN HLP DM PLAN: Continue current medical rx. Ambulate. at 0642 RPT #:[id number] OF REPORTPRProgress [id number]:23:00Z.[id number] shiv able for patient [id number]:42:58 2021-06-15 05:19:00 [id number] [address] PATIENT NAME: DIALLO COCHRAN ADMIT DATE: 06/11/21ACCOUNT NO: [id number] ROOM NO: [id number] AGE: 71 REPORT TYPE: ELECTROCARDIOGRA M SEX: M ADMITTING PHYSICIAN:Jillian Cabrera MD ATTENDING PHYSICIAN:Jillian Cabrera MD Order:[id number] Reason : CAD/CAB Test Date/Time Stamp:TueJun 15 2021 05:19:46Blood Pressure : / mmHGVent. Rate : 071 BPM Atrial Rate : 071 BPM P-R Int : 136 ms QRS Dur : 088 ms QT Int : 412 ms P-R-T Axes : 022 018 068 degrees QTc Int : 447 ms Normal sinus rhythmST elevation, consider early repolarization, pericarditis, or injuryNonspecific ST and T wave abnormalityAbnormal ECGWhen compared with ECG of 14-JUN-2021 05:32,No significant change was foundConfirmed by TEJINDER MACEDO ([id number]) on 06/15/2021 7:15:11 AM Referred By: Tree Sparks Confirmed by:TEJINDER MACEDO at 0715 PATIENT NAME: DIALLO COCHRAN .[id number] AVAvailable for patient [id number]:15:33 2021-06-15 05:19:00 [id number] [place] [address] PATIENT NAME: DIALLO COCHRAN ADMIT DATE: 06/11/21ACCOUNT NO: [id number] ROOM NO: Z.SI02 AGE: 71 REPORT TYPE: ELECTROCARDIOGRA M SEX: M ADMITTING PHYSICIAN:Jillian Cabrera MD ATTENDING PHYSICIAN:Jillian Cabrera MD Order:[id number] Reason : CAD/CAB Test Date/Time Stamp:TueJun 15 2021 05:19:46Blood Pressure : / mmHGVent. Rate : 071 BPM Atrial Rate : 071 BPM P-R Int : 136 ms QRS Dur : 088 ms QT Int : 412 ms P-R-T Axes : 022 018 068 degrees QTc Int : 447 ms Normal sinus rhythmST elevation, consider early repolarization, pericarditis, or injuryNonspecific ST and T wave abnormalityAbnormal ECGWhen compared with ECG of 14-JUN-2021 05:32,No significant change was foundConfirmed by TEJINDER MACEDO ([id number]) on 06/16/2021 7:04:05 AM Referred By: Tree Sparks Confirmed by:TEJINDER MACEDO at 0704 PATIENT NAME: DIALLO COCHRAN .[id number] AVAvailable for patient [id number]:04:29 2021-06-15 00:08:00 [id number] [place] [address] PATIENT NAME: DIALLO COCHRAN ADMIT DATE: 06/11/21ACCOUNT NO: [id number] ROOM NO: Z.SI02 AGE: 71 REPORT TYPE: PROGRESS NOTE SEX: M ADMITTING PHYSICIAN:Jillian Cabrera MD ATTENDING PHYSICIAN:Jillian Cabrera MD DATE: 06/14/2021 The patient is seen at bedside in ICU . The patient is currently stable. Chesttubes removed. Lines have been removed. The patient is making appropriateprogress, ambulating well. Dictated By: Tree Sparks MD WT: PN:ZROBYN/JOSELO/NTSDD: 06/15/2021 00:08:40DT: 06/15/2021 00:15:01Conf#: [id number]/DID#: [id number] Authenticated by Tree Sparks MD On 07/05/2021 02:55:01 PM at 0255 PATIENT NAME: DIALLO COCHRAN oziq3654-21-86H79:15:00Z.[id number] a ble for patient yqvwRGSADNKQYRVQKL3684-85-96V58:55:30 2021-06-14 13:23:00 [id number]:23:00 [facility] ([facility])Cardiology Progress NoteREPORT#:[id number] REPORT STATUS: SignedDATE:06/14/21 TIME: 1323 PATIENT: DIALLO COCHRAN UNIT #: [id number]#: [id number] [facility]NYJM: 50 AGE: 71 SEX: M ATTEND: Jillian Cabrera [facility] AUTHOR: William Estrada MD * ALL edits or amendments must be made on the electronic/computer document * SubjectiveChief complaint:CADPatient reports:No: chest pain, palpitations, shortness of breath. Objective GeneralVS/I O:24 hour I O ending at 0700: 04/ 0700 04/02 1900 Intake Total 120 870 Output Total 2220 950 Balance -210 0 -80 Intake, Oral 120 870 Output, Chest 100 Tube Drainage Output, Urine 2220 850 Vital Signs: Lupillo e Time Temp Pulse Resp B/P B/P Pulse O2 O2 Flow FiO2 Mean Ox Delivery Rate 06/14 1123 97.8 88 18 100 Room air 04/03 1030 80 19 99 04/03 1000 79 23 98 04/03 0959 98 Room air 21 04/03 0930 82 24 99 04/03 0900 90 18 98 04/03 0830 94 25 99 04/03 0800 96 22 98 04/03 0734 98.3 61 20 100 Room ai r 04/03 0730 101 27 98 04/03 0700 87 17 97 04/03 0631 88 16 97 04/03 0630 87 16 97 04/03 0615 84 20 98 04/03 0545 99 04/03 0530 86 21 99 04/03 0515 84 16 98 04/03 0500 85 18 98 04/03 0445 83 19 98 04/03 0430 82 20 97 04/03 0415 83 19 97 04/03 0400 98.0 04/03 0400 82 24 98 04/03 0356 8 9 23 99 04/03 0345 85 21 98 04/03 0330 97 24 98 04/03 0315 86 21 98 04/03 0300 84 19 98 04/03 0245 86 18 98 04/03 0230 83 19 99 04/03 0215 83 19 98 04/03 0200 83 20 99 04/03 0145 84 20 98 04/03 0130 82 18 98 04/03 0115 83 19 99 04/03 0100 83 19 98 04/03 0045 86 20 99 04/03 0030 87 21 98 04/03 0015 82 19 98 04/03 0000 81 18 99 04/02 2345 83 19 98 04/02 2330 85 21 98 04/02 2315 79 20 99 04/02 2300 78 19 99 04/02 2245 80 20 99 04/02 2230 81 20 99 04/02 2215 81 20 99 04/02 2200 80 20 99 04/02 2145 82 21 97 04/02 2130 85 27 99 04/02 5 80 20 99 04/02 2100 85 28 99 04/02 5 81 24 99 04/02 2029 80 23 99 04/02 2014 82 24 99 04/02 1999 109 33 99 04/02 1930 93 23 99 04/02 1915 91 34 99 04/02 1900 82 23 99 04/02 1845 78 24 98 04/02 1822 92 25 99 04/02 1800 79 99 04/02 1730 79 100 04/02 1700 7 9 24 99 04/02 1630 81 25 99 04/02 1600 97.8 92 20 Room air 04/02 1530 82 23 99 04/02 1500 82 21 9 8 04/02 1430 79 21 98 04/02 1415 82 25 99 PATIENT WEIGHT: Weight (lb): 150Weight (oz): 5.05Weight (kg): 68.039 Medications:Active Meds + DC'd Last 24 HrsMetformin HCl (GLUCOPHAGE) 1,000 MG BID MEALS PO Polyethylene Glycol (MIRALAX) 17 GM DAILY PO Docusate Sodium (COLACE) 100 MG BID PO Gabapentin (NEURONTIN) 100 MG 2100 PO Insulin Human Lispro (HumaLOG) LOW DOSE SLIDING SCALE AC HS SUBQ Famotidine (PEPCID) 20 MG BID PO Metoprolol Tartrate (LOPRESSOR) 12.5 MG Q12HR PO Aspirin (CHILDREN'S ASPIRIN) 81 MG DAILY PO Clopidogrel Bisulfate (PLAVIX) 75 MG DAILY PO Atorvastatin Calcium (LIPITOR) 20 MG BEDTIME PO Mupirocin (BACTROBAN NASAL - ADULT ICU) 1 APPLIC BID NASAL Meperidine HCl (DEMEROL (C-II)) 25 MG Q4H PRN PRN IM Meperidine HCl (DEMEROL (C-II)) 5 0 MG Q4H PRN PRN IM Calcium Gluconate (CALCIUM GLUCONATE 10%) 1,000 MG ASDIR PRN IV Sodium Chloride (Sodium Chloride MINI-BAG) 100 MLDextrose/Water (DEXTROSE 50% IN WATER) 12.5 GM ASDIR PRN IV Dextrose/Water (DEXTROSE 50% IN WATER) 25 GM ASDIR PRN IV Dobutamine HCl/Dextros e (DOBUTamine HCL IN DEXTROSE) 250 ML ASDIR PRN IV Epinephrine (EPINEPHrine/NS 4MG/250ML) 250 ML ASDIR PRN IV Hydrocodone Bitart/Acetaminophen (NORCO 5/325 TABLET (C-II)) 1 TAB Q4H PRN PRN PO Hydrocodone Bitart/Acetaminophen (NORCO 5/325 TABLET (C-II)) 2 TAB Q4H PRN PRN PO Insulin Brenda n Regular (INSULIN DRIP) 100 ML ASDIR IV (CKD) Lidocaine HCl/Dextrose (Lidocaine 0.4% in D5w Soln) 500 ML ASDIR PRN IV (CKD) Magnesium Sulfat e (MAG SULFATE 2GM PREMIX) 50 ML ASDIR PRN IV Magnesium Sulfate/Dextrose (Magnesium Sulfate) 100 ML ASDIR PRN IV Nicardipine HCl (CARDENE I.V.) 25 MG ASDIR PRN IV (CKD) Sodium Chloride (SODIUM CHLORIDE 0.9%) 250 MLOndansetron HCl (ZOFRAN) 4 MG Q8H PRN PRN IV Potassium Chloride (Potassium Chloride) 50 ML ASDIR PRN IV Sodium Bicarbonate (Sodium Bicarbonate) 50 MEQ ASDIR CA N IV Physical ExamGeneral appearance: alert, awake , orientedHead/Eyes: atraumatic, normocephalicENT: moist mucosal membranes, ETT in place.Neck: no JVDCardiovascular: CV assessment: regular rate and rhythmLower extremity: LE assessment: no edemaMusculoskeletal: full range of motionNeuro/BELT SANDER: alert, oriented X 3, CN II-XII intactSkin: dry, intactPsychiatry: normal affect , normal judgment/insight, normal mood ResultsFindings/Data:Laboratory Tests 06/14 04/0 3 06/14 06/13 06/13 1102 0634 0515 2008 1708 Chemistry Sodium (137 - 145 MMOL/L) 136 L Potassium (3.5 - 5.1 MMOL/L) 4.1 Chloride (98 - 107 MMOL/L) 104 Carbon Dioxide (22 - 30 MMOL/L) 25 BUN (9 - 20 MG/DL) 17 Creatinine (0.66 - 1.25 MG/DL) 0.70 Glomerular Filtr Rate > 60 Glucose (74 - 106 MG/DL) 205 H POC Glucose (60 - 99 MG/DL) 312 *H 210 H 309 *H 237 H Calcium (8.4 - 10.2 MG/DL) 8.9 Magnesium (1.6 - 2.3 MG/DL) 2.1 Laboratory Tests 06/14 0515 Hematology WBC (3.8 - 9.8 K/MM3) 11.5 H RBC (3.95 - 5.67 M/MM3) 2.71 L Hgb (12.4 - 16.7 G/DL) 8.6 L Hct (35.9 - 49.5 %) 25.8 L MCV (81.7 - 96.1 fL) 95 MCH (27.6 - 33.2 pg) 31.7 MCHC (32.9 - 35.5 %) 33.3 RDW (12. 1 - 15.2 %) 13.0 Plt Count (129 - 368 K/MM3) 139 MPV (7.4 - 10.4 fl) 10.8 H Neut % (Auto) (43 - 7 5 %) 76.9 H Lymph % (Auto) (14 - 44 %) 13.4 L [place] % (Auto) (4 - 13 %) 8.7 Eos % (Auto) (0 - 6 %) 0.1 Baso % (Auto) (0 - 2 %) 0.4 Neut # (Auto) (2.0 - 7.6 K/mm3) 8.79 H Lymph # (Auto) (1.0 - 3.8 K/mm3) 1.54 [place] # (Auto) (0.1 - 0.8 K/mm3) 1.00 H Eos # (Auto) (0.0 - 0.2 K/mm3) 0.01 Baso # (Auto) (0.0 - 0.2 K/mm3) 0.05 Immature Gran % (0.0 - 2.0 %) 0.5 Nucleated RBC % (0 - 1.0 %) 0. 2 Nucleated RBCs # (Man) (0.0 - 0.1 K/mm3) 0.02 Laboratory Tests 06/14 0515 Chemistry Magnesium (1.6 - 2.3 MG/DL) 2.1 Radiology data:Recent Impressions:RADIOLOGY - XR CHEST 1V 06/14 0756 * Report Impression - Status: SIGNED Entered: 06/14/2021 0813 IMPRESSION: Mild left basilar atelectasis. Impression By: AmbrocioEFJessica Howell MD Diagnosis, Assessment PlanConsultants: cardiology Free Text DxA P NotesFree Text DxA P Notes:IMP: CAD s/p ACB 06/11/21 - FLORES to LAD, SVG to ramus, OM HTN HLP DM PLAN: Continue current medical rx. CT out per [facility]. at 0821 RPT #:[id number] OF REPORTPRProgress [id number]:23:00Z.[id number] l [facility] dlpbGKYOFOZWSZCLGS4976-16-32F72:21:24 2021-06-14 13:06:00 [id number] [place] [address] PATIENT NAME: DIALLO COCHRAN ADMIT DATE: 06/11/21ACCOUNT NO: [id number] [facility] NO: [facility] AGE: 71 REPORT TYPE: PROGRESS NOTE SEX: M ADMITTING PHYSICIAN:Jillian Cabrera MD ATTENDING PHYSICIAN:Jillian Cabrera MD DATE: 06/14/2021 The patient is seen at bedside in the ICU. The patient is currently stable.The patient is 2 days status post coronary artery bypass surgery. The patient is making appropriate progress. The patient is ambulating. Dictated By : Tree Sparks MD WT: PN:ABDULLAHI/JOSELO/NTSDD: 06/14/2021 13:06:27DT: 06/14/2021 13:28:06Conf#: [id number]/DID#: [id number] Authenticated and Edited Lionel Sparks MD On 07/05/21 2:54:55 PM at 0257 PATIENT NAME: DIALLO COCHRAN vkgs3018-99-24D41:28:00Z.[id number] a ble for patient suvySPDLTRLFSSPHBP4129-94-89M28:58:10 2021-06-14 08:38:00 [id number]:38:00 [facility] ([facility]ospitalist Progress NoteREPORT#:[id number] REPORT STATUS: SignedDATE:06/14/21 TIME: 08 PATIENT: DIALLO COCHRAN UNIT #: [id number]#: [id number] [address]DMNM: 50 AGE: 71 SEX: M ATTEND: Tree Sparks AUTHOR: Alexander Walls MD R1 * ALL edits or amendments must be made on the electronic/computer document * Alexander Walls 06/14/21 0838:SubjectiveChief complaint:THis is a 71 y/o male w unstable angin a recently diagnosed CAD, now post CABG, c/o abdominal discomfortComments:Patietn seen at bedside. NO acute distress. NO SOB. Patient feel s well, eating /urinating without issues. Patient says he has not had a bowel movement in the past 4-5 days. No abdominal pain. Review of SystemsGI:Reports: constipation. All systems rev neg: except as marked Objective GeneralVS/I O:Vital Signs: Date Time Temp Pulse Resp B/P B/P Pulse O2 O2 Flow FiO2 Mean Ox Delivery Rate 04/0 3 0734 36.8 61 20 100 Room air 06/14 0730 101 27 9 8 / 0700 87 17 97 / 0631 88 16 97 06/14 0630 87 16 97 06/14 0615 84 20 98 06/14 0545 99 06/14 0530 86 21 99 04/03 0515 84 16 98 04/03 0500 85 18 98 04/03 0445 83 19 98 04/03 0430 82 20 97 04/03 0415 83 19 97 04/03 0400 36.7 04/03 0400 82 24 98 04/03 0356 89 23 99 04/03 0345 85 21 98 04/03 0330 97 24 98 04/03 0315 86 21 98 04/03 0300 84 19 98 04/03 0245 86 18 98 04/03 0230 83 19 99 04/03 0215 83 19 98 04/03 0200 83 20 99 04/03 0145 84 20 98 04/03 0130 82 18 98 04/03 0115 83 19 99 04/03 0100 83 19 98 04/03 0045 86 20 99 04/03 0030 87 21 98 04/03 0015 82 19 98 04/03 0000 81 18 99 04/02 2345 83 19 98 04/02 2330 85 21 98 04/02 2315 79 20 99 04/02 2300 78 19 99 04/02 2245 80 20 99 04/02 2230 81 20 99 04/02 2215 81 20 99 04/02 2200 80 20 99 04/02 2145 82 21 97 04/02 2130 85 27 99 04/02 2115 80 20 99 04/02 2100 85 28 99 04/02 2045 81 24 99 04/02 2030 80 23 99 04/02 2014 82 24 99 04/02 1999 109 33 99 04/02 1930 93 23 99 04/02 1915 91 34 99 04/02 1900 82 23 99 04/02 1845 78 24 98 04/02 1822 92 25 99 04/02 1800 79 99 04/02 1730 79 100 04/02 1700 79 24 99 04/02 1630 81 2 5 99 04/02 1600 36.6 92 20 Room air 04/02 1530 82 23 99 04/02 1500 82 21 98 04/02 1430 79 21 98 04/02 1415 82 25 99 04/02 1300 87 99 04/02 1241 85 100 04/02 1200 77 23 100 04/02 1130 86 24 10 0 04/02 1130 36.3 82 20 100 Room air 04/02 1100 70 17 99 04/02 1030 70 17 99 04/02 1000 73 19 99 04/02 0930 74 15 98 04/02 0910 73 16 97 24 hour I O ending at 0700: 06/14 0700 06/13 1900 Intake Total 120 870 Output Total 2220 950 Balance -210 0 -80 Intake, Oral 120 870 Output, Chest 100 Tube Drainage Output, Urine 2220 850 PATIENT WEIGHT: Weight (lb): 150Weight (oz): 5.05Weight (kg): 68.039 Medications:Active Meds + DC'd Last 24 HrsMetformin HCl (GLUCOPHAGE) 1,000 MG BID MEAL S PO Polyethylene Glycol (MIRALAX) 17 GM DAILY PO Docusate Sodium (COLACE) 100 MG BID PO Gabapenti n (NEURONTIN) 100 MG 2100 PO Insulin Human Lispro (HumaLOG) LOW DOSE SLIDING SCALE AC HS SUBQ Famotidine (PEPCID) 20 MG BID PO Metoprolol Tartrate (LOPRESSOR) 12.5 MG Q12HR PO Aspirin (CHILDREN'S ASPIRIN) 81 MG DAILY PO Clopidogrel Bisulfate (PLAVIX) 75 MG DAILY PO Atorvastatin Calcium (LIPITOR) 20 MG BEDTIME PO Cefuroxime Sodium (ZINACEF) 1.5 GM Q8H IV (DC) Mupirocin (BACTROBAN NASAL - ADULT ICU) 1 APPLIC BID NASAL Meperidine HCl (DEMEROL (C-II)) 25 MG Q4H PRN CA N IM Meperidine HCl (DEMEROL (C-II)) 50 MG Q4H PRN PRN IM Calcium Gluconate (CALCIUM GLUCONATE 10% ) 1,000 MG ASDIR PRN IV Sodium Chloride (Sodium Chloride MINI-BAG) 100 MLDextrose/Water (DEXTROS E 50% IN WATER) 12.5 GM ASDIR PRN IV Dextrose/Wate r (DEXTROSE 50% IN WATER) 25 GM ASDIR PRN IV Dobutamine HCl/Dextrose (DOBUTamine HCL IN DEXTROSE) 250 ML ASDIR PRN IV Epinephrine (EPINEPHrine/NS 4MG/250ML) 250 ML ASDIR PRN IV Hydrocodone Bitart/Acetaminophen (NORCO 5/325 TABLET (C-II)) 1 TAB Q4H PRN PRN PO Hydrocodone Bitart/Acetaminophen (NORCO 5/325 TABLET (C-II)) 2 TAB Q4H PRN PRN PO Insulin Human Regular (INSULIN DRIP) 100 ML ASDIR IV (CKD) Lidocaine HCl/Dextrose (Lidocaine 0.4% in D5w Soln) 500 ML ASDIR PRN IV (CKD) Magnesium Sulfate (MAG SULFAT E 2GM PREMIX) 50 ML ASDIR PRN IV Magnesium Sulfate/Dextrose (Magnesium Sulfate) 100 ML ASDI R PRN IV Nicardipine HCl (CARDENE I.V.) 25 MG ASDI R PRN IV (CKD) Sodium Chloride (SODIUM CHLORIDE 0.9%) 250 MLOndansetron HCl (ZOFRAN) 4 MG Q8H CA N PRN IV Potassium Chloride (Potassium Chloride) 5 0 ML ASDIR PRN IV Sodium Bicarbonate (Sodium Bicarbonate) 50 MEQ ASDIR PRN IV Physical ExamGeneral appearance: alert, awake, orientedHead/Eyes: atraumaticENT: moist mucosal membranes, normal noseNeck: no JVDCardiovascular : normal heart sounds, regular rate rhythm, Centra l line Chest tubesRespiratory: aerating well, teresa r to auscultationAbdomen: non-tender, normal bowel sounds, softGenitourinary: urinary catheterExtremities: edema, no clubbing, no cyanosis, R femoral arrt line R art line radialMusculoskeletal: legs wrapped compression stockingsNeuro/BELT SANDER: altered mental statusWound/incision: Location:Chest Site Condition: dressing clean dry, dressing intactPsychiatry: normal affect, normal mood Diagnosis, Assessment PlanProblem List/A P: 1. S/P CABG (coronary artery bypass graft) 2. Diabetes 3. HLD (hyperlipidemia) 4. HTN (hypertension) Consultants: cardiology Free Text DxA P NotesFree text DxA P notes:Mr. Cochran is a 71-year-old man with PMH HTN, HLD, DM, CAD, and Unstable Anginawho is now s/p CABG x3. Kurt suazo for the consult, will follow w youPt on Epi, to be weanedOn insulin drip for 24 hoursIntubate d to be weanedDVT prophylaxis 06/12:- Extubated overnight, saturating 100% on 3L NC.- Chest Tube Output 300 ccs. - Wean Epinephrine. - DC Insulin drip today. - Further management per Dr. Sparks . 4/2Pt is doing well, c/o abdominal bloating No BMBlood Sugars are elevated, restart oral home meds /3 Pt feels well, still no BM; continued abd bloating / constipationMiralax, dulcolax; will moniter and add suppository if necessary Restarted home insulin regimine, bG still elebated Continue to moniter DC planning per Dr. Sparks Diet: DiabeticDVT PPX: On Aspirin, Plavix. Quality: Gen Med Crit Care VTE ProphylaxisVTE prophylaxis initiated: yes Curren t MedicationsCurrent medication review:I attest that the foregoing medication list in the medica l record is true, accurate, and complete to the best of my knowledge. Advanced Care Plan 65 or OlderDiscussed with: patientDiscussion included: code status Marianna Olvera 06/14/21 1305:Attestations Teaching Physician AttestationF/U visit w/ resident:I saw the patient with the resident and . . . agree with the resident's findings and plan. Still no BM , will continue Miralax at 1135 at 1306 RPT #:[id number] OF REPORTPRProgress [id number]:38:00Z.[id number] l able for patient gdooPHRWRHJWTVJVGA3039-47-24K93:36:13 2021-06-14 05:32:00 [id number] [place] [address] PATIENT NAME: DIALLO COCHRAN ADMIT DATE: 06/11/21ACCOUNT NO: [id number] ROOM NO: Z.SI02 AGE: 71 REPORT TYPE: ELECTROCARDIOGRA M SEX: M ADMITTING PHYSICIAN:Tree Sparks MD ATTENDING PHYSICIAN:Tree Sparks MD Order:[id number] Reason : S/P CABG Test Date/Time Stamp:TueJun 14 2021 05:32:24Blood Pressure : / mmHGVent. Rate : 082 BPM Atrial Rate : 082 BPM P-R Int : 132 ms QRS Dur : 084 ms QT Int : 380 ms P-R-T Axes : 038 034 068 degrees QTc Int : 443 ms Normal sinus rhythmST elevation, consider early repolarization, pericarditis, or injuryAbnormal ECGWhen compared with ECG of 13-JUN-2021 11:18,ST less elevated i n Lateral leadsNonspecific T wave abnormality now evident in Lateral leadsConfirmed by TEJINDER MACEDO ([id number]) on 06/14/2021 9:57:35 AM Referred By: Tree Sparks Confirmed by:TEJINDER MACEDO at 0957 PATIENT NAME: DIALLO COCHRAN .[id number] AVAvailable for patient otsgIASHPBZRVCRZGX2294-01-02Z20:57:56 2021-06-14 05:32:00 [id number]:[id number] [place] [address] PATIENT NAME: DIALLO COCHRAN ADMIT DATE: 06/11/21ACCOUNT NO: [id number] ROOM NO: Z.SI02 AGE: 71 REPORT TYPE: ELECTROCARDIOGRA M SEX: M ADMITTING PHYSICIAN:Jillian Cabrera MD ATTENDING PHYSICIAN:Jillian Cabrera MD Order:[id number] Reason : S/P CABG Test Date/Time Stamp:Ma[place] Jun 14 2021 05:32:24Blood Pressure : / mmHGVent. Rate : 082 BPM Atrial Rate : 082 BPM P-R Int : 132 ms QRS Dur : 084 ms QT Int : 380 ms P-R-T Axes : 038 034 068 degrees QTc Int : 443 ms Normal sinus rhythmST elevation, consider early repolarization, pericarditis, or injuryAbnormal ECGWhen compared with ECG of 13-JUN-2021 11:18,ST less elevated i n Lateral leadsNonspecific T wave abnormality now evident in Lateral leadsConfirmed by TEJINDER MACEDO ([id number]) on 06/16/2021 7:04:01 AM Referred By: Tree Sparks Confirmed by:TEJINDER MACEDO at 0704 PATIENT NAME: DIALLO COCHRAN .[id number] AVAvailable for patient nxlcXNAKUEOXVAMPIG9822-08-39B40:04:20 2021-06-13 14:29:00 [id number] [place] [address] PATIENT NAME: DIALLO COCHRAN ADMIT DATE: 06/11/21ACCOUNT NO: [id number] ROOM NO: SI02 AGE: 71 REPORT TYPE: PROGRESS NOTE SEX: M ADMITTING PHYSICIAN:Jillian Cabrera MD ATTENDING PHYSICIAN:Jillian Cabrera MD DATE: 06/13/2021 CARDIAC SURGERY SERVICE The patient i s seen at bedside in the ICU. The patient currentl y is stable. The patient is stable 1 day post coronary artery bypass surgery. The patient isambulating. The patient is making appropriate progress. Discontinued [place]. Dictated By: Tree Sparks MD WT: PN:Z.HIM/DIONKRO/NTSDD: 06/13/2021 14:29:40DT: 06/13/2021 15:36:54Conf#: [id number]/DID#: [id number] Authenticated by Tree Sparks MD On 07/05/2021 02:54:40 PM at 0254 PATIENT NAME: DIALLO COCHRAN [id number]:36:00Z.[id number] a ble for patient [id number]:55:10 2021-06-13 14:07:00 [id number]:00 [facility] ([facility])Hospitalist Progress NoteREPORT#:[id number] REPORT STATUS: SignedDATE:06/13/21 TIME: 1407 PATIENT: DIALLO COCHRAN UNIT #: [id number]#: [id number] [address]: [address] AGE: 71 SEX: M ATTEND: Tree Sparks [facility] AUTHOR: Marianna Olvera MD * ALL edits or amendments must be made on the electronic/computer document * SubjectiveChief complaint:THis is a 71 y/o male w unstable angina recently diagnosed CAD, now post CABG, c/o abdominal discomfort Review of SystemsConstitutional:Denies: chills, fatigue, lethargy. Respiratory:Denies: hemoptysis, pleurisy, pneumonia. Cardiovascular:Denies: ches t pain, palpitations. GI:Reports: constipation. Al l systems rev neg: except as marked Objective GeneralVS/I O:Vital Signs: Date Time Temp Pulse Resp B/P B/P Pulse O2 O2 Flow FiO2 Mean Ox Delivery Rate 04/ 1241 85 100 04/02 1200 77 2 3 100 04/02 1130 86 24 100 04/02 1130 97.4 82 20 100 Room air 04/02 1100 70 17 99 04/02 1030 70 1 7 99 04/02 1000 73 19 99 04/02 0930 74 15 98 04/02 0910 73 16 97 04/02 0830 78 99 04/02 0800 85 16 98 04/02 0800 97.9 75 20 99 Room air 04/02 0730 87 20 97 04/02 0709 99 Room air 21 04/02 0700 80 17 97 04/02 0630 81 18 97 04/02 0600 82 23 98 04/02 0557 79 04/02 0545 84 18 98 04/02 0530 79 97 04/02 0515 80 97 04/02 0500 85 17 99 04/02 0445 79 14 99 04/02 0430 80 04/02 0415 98 04/02 0400 98.2 04/02 0400 80 21 97 04/02 0345 82 19 98 04/02 0330 81 19 98 04/02 0315 80 19 98 04/02 0300 80 18 98 04/02 0245 78 17 98 04/02 0230 79 17 98 04/02 0215 79 19 98 04/02 0200 79 17 98 04/02 0145 79 17 98 04/02 0130 77 18 97 04/02 0115 79 18 98 04/02 0100 80 18 98 04/02 0045 79 18 98 04/02 0030 79 18 98 04/02 0015 79 17 98 04/02 0000 98.6 04/02 0000 79 18 97 04/01 2345 8 0 19 98 04/01 2330 79 18 98 04/01 2315 80 18 98 04/01 2300 81 17 98 04/01 2245 80 18 98 04/01 2230 80 19 98 04/01 2215 80 17 97 04/01 2200 80 20 97 04/01 2145 81 21 98 04/01 2130 87 24 98 04/01 2115 88 25 98 04/01 2100 82 24 98 04/01 5 84 23 98 04/01 2029 88 23 99 04/01 2014 86 28 99 04/01 1999 86 20 99 04/01 1945 89 18 98 04/01 1930 98.6 86 16 120/51 74 100 Room air 04/ 1930 86 19 98 04/01 1915 86 22 98 04/01 1900 89 22 99 04/01 1845 89 25 99 04/01 1815 87 17 98 04/01 1800 87 16 98 04/01 1745 89 16 98 04/01 1730 88 17 98 04/01 1715 87 25 99 04/01 1700 88 19 98 04/01 1645 89 23 99 04/01 1630 92 97 04/01 1600 88 22 98 04/01 1550 98.4 04/01 153 0 86 16 98 04/01 1500 87 16 98 04/01 1430 90 17 97 24 hour I O ending at 0700: 04/02 0700 04/01 190 0 Intake Total 200 1026.00 Output Total 1170 500 Balance -970 526.00 Intake, IV 226.00 Intake, Oral 200 800 Number 0 Bowel Movements Output, Chest 70 Tube Drainage Output, Urine 1100 500 Patient 68.039 kg Weight PATIENT WEIGHT: Weight (lb): 150Weight (oz): 5.05Weight (kg): 68.039 Medications:Active Meds + DC'd Last 24 HrsDocusate Sodium (COLACE) 100 MG BID PO Gabapentin (NEURONTIN) 100 MG 2100 PO Insulin Human Lispro (HumaLOG) LOW DOSE SLIDING SCALE AC HS SUBQ Famotidine (PEPCID) 20 MG BID PO Metoprolol Tartrate (LOPRESSOR) 12.5 MG Q12HR PO Aspirin (CHILDREN'S ASPIRIN) 81 MG DAILY PO Clopidogrel Bisulfate (PLAVIX) 75 MG DAILY PO Atorvastatin Calcium (LIPITOR) 20 MG BEDTIME PO Cefuroxime Sodium (ZINACEF) 1.5 GM Q8H IV (DC) Mupirocin (BACTROBAN NASAL - ADULT ICU) 1 APPLIC BID NASAL Potassium Chloride (POTASSIUM CHLORIDE ) 20 MEQ .Q17H IV (DC) Sodium Chloride (SODIUM CHLORIDE) 38.5 MEQ Sterile Water (WATER) 1,000 MLMeperidine HCl (DEMEROL (C-II)) 25 MG Q4H PRN PRN IM Meperidine HCl (DEMEROL (C-II)) 50 MG Q4H PRN PRN IM Albumin Human (ALBUMINAR-5) 250 ML ASDIR PRN IV (DC) Calcium Gluconate (CALCIUM GLUCONATE 10%) 1,000 MG ASDIR PRN IV Sodium Chloride (Sodium Chloride MINI-BAG) 100 MLDextrose/Water (DEXTROSE 50% IN WATER) 12.5 GM ASDIR PRN IV Dextrose/Water (DEXTROSE 50% IN WATER) 25 GM ASDIR PRN IV Dobutamine HCl/Dextros e (DOBUTamine HCL IN DEXTROSE) 250 ML ASDIR PRN IV Epinephrine (EPINEPHrine/NS 4MG/250ML) 250 ML ASDIR PRN IV Hydrocodone Bitart/Acetaminophen (NORCO 5/325 TABLET (C-II)) 1 TAB Q4H PRN PRN PO Hydrocodone Bitart/Acetaminophen (NORCO 5/325 TABLET (C-II)) 2 TAB Q4H PRN PRN PO Insulin Brenda n Regular (INSULIN DRIP) 100 ML ASDIR IV (CKD) Lidocaine HCl/Dextrose (Lidocaine 0.4% in D5w Soln) 500 ML ASDIR PRN IV (CKD) Magnesium Sulfat e (MAG SULFATE 2GM PREMIX) 50 ML ASDIR PRN IV Magnesium Sulfate/Dextrose (Magnesium Sulfate) 100 ML ASDIR PRN IV Morphine Sulfate (morphine SULFATE (C-II)) 2 MG Q15M PRN PRN IV (DC) Nicardipine HCl (CARDENE I.V.) 25 MG ASDIR PRN I V (CKD) Sodium Chloride (SODIUM CHLORIDE 0.9%) 250 MLOndansetron HCl (ZOFRAN) 4 MG Q8H PRN PRN IV Potassium Chloride (Potassium Chloride) 50 ML ASDIR PRN IV Insulin Human Regular (HUMULIN R) 100 UNIT ASDIR IV (DC) Sodium Chloride (SODIUM CHLORIDE 0.9%) 100 MLSodium Bicarbonate (Sodium Bicarbonate) 50 MEQ ASDIR PRN IV Physical ExamGeneral appearance: alert, awake, orientedHead/Eyes: atraumaticENT: moist mucosal membranes, normal noseNeck: no JVDCardiovascular : normal heart sounds, regular rate rhythm, Centra l line Chest tubesRespiratory: aerating well, teresa r to auscultationAbdomen: non-tender, normal bowel sounds, softExtremities: edema, no clubbing, no cyanosis, R femoral arrt line R art line radialMusculoskeletal: legs wrapped compression stockingsNeuro/BELT SANDER: altered mental statusWound/incision: Location:Chest Site Condition: dressing clean dry, dressing intactPsychiatry: normal affect, normal mood ResultsFindings/Data:Laboratory Tests 06/13 2 06/12 06/12 06/12 1125 0541 2040 2008 1843 Chemistry Potassium (3.5 - 5.1 MMOL/L) 4.6 POC Glucose (60 - 99 MG/DL) 261 H 221 H 139 H 141 H Calcium (8.4 - 10.2 MG/DL) 8.7 Magnesium (1.6 - 2.3 MG/DL) 2.1 Radiology data:Recent Impressions:RADIOLOGY - XR CHEST 1V 06/13 0537 * Report Impression - Status: SIGNED Entered: 06/13/2021 0713 IMPRESSION: Support devices as aboveNo significant interval changeImpression By : Parish Camacho Diagnosis, Assessment PlanProblem List/A P: 1. S/P CABG (coronary artery bypass graft) 2. HTN (hypertension) 3. HLD (hyperlipidemia) 4. Diabetes Consultants: cardiology Free Text DxA P NotesFree text DxA P notes:Mr. Cochran is a 71-year-old man with PMH HTN, HLD, DM, CAD, and Unstable Anginawho is now s/p CABG x3. Kurt suazo for the consult, will follow w youPt on Epi, to be weanedOn insulin drip for 24 hoursIntubate d to be weanedDVT prophylaxis 06/12:- Extubated overnight, saturating 100% on 3L NC.- Chest Tube Output 300 ccs. - Wean Epinephrine. - DC Insulin drip today. - Further management per Dr. Sparks . 4/2Pt is doing well, c/o abdominal bloating No BMBlood Sugars are elevated, restart oral home meds Diet: DiabeticDVT PPX: On Aspirin, Plavix. Quality: Gen Med Crit Care VTE ProphylaxisVTE prophylaxis initiated: yes Current MedicationsCurrent medication review:I attest that the foregoing medication list in the medica l record is true, accurate, and complete to the best of my knowledge. Advanced Care Plan 65 or OlderDiscussed with: patientDiscussion included: code status at 1409 RPT #:[id number] O F REPORTPRProgress [id number]:07:00Z.[id number] l able for patient [id number]:10:17 2021-06-13 11:18:00 [id number] [place] [address] PATIENT NAME: DIALLO COCHRAN ADMIT DATE: 06/11/21ACCOUNT NO: [id number] ROOM NO: Z.SI02 AGE: 71 REPORT TYPE: ELECTROCARDIOGRA M SEX: M ADMITTING PHYSICIAN:Tree Sparks MD ATTENDING PHYSICIAN:Tree Sparks MD Order:[id number] Reason : CAD/CAB Test Date/Time Stamp:TueJun 13 2021 11:18:01Blood Pressure : / mmHGVent. Rate : 073 BPM Atrial Rate : 073 BPM P-R Int : 122 ms QRS Dur : 078 ms QT Int : 390 ms P-R-T Axes : 000 012 022 degrees QTc Int : 429 ms Normal sinus rhythmST elevation, consider early repolarization, pericarditis, or injuryAbnormal ECGWhen compared with ECG of 12-JUN-2021 09:35,ST more elevated i n Lateral leadsNonspecific T wave abnormality no longer evident in Lateral leadsConfirmed by TEJINDER MACEDO ([id number]) on 06/13/2021 12:24:38 PM Referred By: Tree Sparks Confirmed by:TEJINDER MACEDO at 1224 PATIENT NAME: DIALLO COCHRAN .[id number] AVAvailable for patient [id number]:25:08 2021-06-13 11:18:00 [id number] [facility] [place] [address] PATIENT NAME: DIALLO COCHRAN ADMIT DATE: 06/11/21ACCOUNT NO: [id number] ROOM NO: Z.SI02 AGE: 71 REPORT TYPE: ELECTROCARDIOGRA M SEX: M ADMITTING PHYSICIAN:Jillian Cabrera MD ATTENDING PHYSICIAN:Jillian Cabrera MD Order:[id number] Reason : CAD/CAB Test Date/Time Stamp:TueJun 13 2021 11:18:01Blood Pressure : / mmHGVent. Rate : 073 BPM Atrial Rate : 073 BPM P-R Int : 122 ms QRS Dur : 078 ms QT Int : 390 ms P-R-T Axes : 000 012 022 degrees QTc Int : 429 ms Normal sinus rhythmST elevation, consider early repolarization, pericarditis, or injuryAbnormal ECGWhen compared with ECG of 12-JUN-2021 09:35,ST more elevated i n Lateral leadsNonspecific T wave abnormality no longer evident in Lateral leadsConfirmed by TEJINDER MACEDO ([id number]) on 06/16/2021 7:03:57 AM Referred By: Tree Sparks Confirmed by:TEJINDER MACEDO at 0703 PATIENT NAME: DIALLO COCHRAN .[id number] AVAvailable for patient [id number]:04:10 2021-06-13 08:26:00 [id number]:26:[id number] [facility] CenterCard[facility] Progress NoteREPORT#:[id number] REPORT STATUS: SignedDATE:06/13/21 TIME: 08 PATIENT: DIALLO COCHRAN UNIT #: [id number]#: [id number] [address]: [address] AGE: 71 SEX: M ATTEND: Jillian Cabrera [facility] AUTHOR: William Estrada MD * ALL edits or amendments must be made on the electronic/computer document * SubjectiveChief complaint:CADPatient reports:No: chest pain, palpitations, shortness of breath. Objective GeneralVS/I O:24 hour I O ending at 0700: 06/13 0700 06/12 1900 Intake Total 200 1026.00 Output Total 1170 500 Balance -970 526.00 Intake, IV 226.00 Intake, Oral 200 800 Number 0 Bowel Movements Output, Chest 70 Tube Drainage Output, Urine 1100 500 Patient 68.039 kg Weight Vital Signs: Date Time Temp Pulse Resp B/P B/P Pulse O2 O2 Flow FiO2 Mean Ox Delivery Rate 06/13 0709 99 Room air 21 06/13 0557 79 06/13 0545 84 18 98 06/13 0530 79 97 06/13 0515 80 97 06/13 0500 85 17 99 06/13 0445 79 14 99 06/13 0430 80 06/13 0415 98 06/13 0400 98.2 06/13 0400 80 21 97 04/02 0345 82 19 98 04/02 0330 81 19 98 04/02 0315 80 19 98 04/02 0300 80 18 98 04/02 0245 78 17 98 04/02 0230 79 17 98 04/02 0215 79 19 98 04/02 0200 79 17 98 04/02 0145 79 17 98 04/02 0130 77 18 97 04/02 0115 79 18 98 04/02 0100 80 18 98 04/02 0045 79 18 98 04/02 0030 79 18 98 04/02 0015 79 17 98 04/02 0000 98.6 04/02 0000 79 18 97 04/01 2345 8 0 19 98 04/01 2330 79 18 98 04/01 2315 80 18 98 04/01 2300 81 17 98 04/01 2245 80 18 98 04/01 2230 80 19 98 04/01 2215 80 17 97 04/01 2200 80 20 97 04/01 2145 81 21 98 04/01 2130 87 24 98 04/01 2115 88 25 98 04/01 2100 82 24 98 04/01 2045 84 23 98 04/01 2030 88 23 99 04/01 2014 86 28 99 04/01 1999 86 20 99 04/01 1945 89 18 98 04/01 1930 98.6 86 16 120/51 74 100 Room air 04/01 1930 86 19 98 04/01 1915 86 22 98 04/01 1900 89 22 99 04/01 1845 89 25 99 04/01 1815 87 17 98 04/01 1800 87 16 98 04/01 1745 89 16 98 04/01 1730 88 17 98 04/01 1715 87 25 99 04/01 1700 88 19 98 04/01 1645 89 23 99 04/01 1630 92 97 04/01 1600 88 22 98 04/01 1550 98.4 04/01 153 0 86 16 98 04/01 1500 87 16 98 04/01 1430 90 17 97 04/01 1400 83 21 99 04/01 1330 84 18 100 04/01 1300 87 19 100 04/01 1230 87 23 100 04/01 1200 8 4 100 04/01 1145 86 100 04/01 1130 87 23 100 04/01 1119 97.3 04/01 1115 88 26 100 04/01 1100 88 23 100 04/01 1030 88 100 04/01 1015 85 22 100 06/12 1000 86 22 100 / 0945 95 100 06/12 0930 93 18 100 06/12 0915 95 19 99 06/12 0900 101 25 99 06/12 0845 114 24 99 06/12 0832 110 21 99 06/12 0830 105 19 99 PATIENT WEIGHT: Weight (lb): 150Weight (oz): 5.05Weight (kg): 68.039 Medications:Active Meds + DC'd Last 24 HrsGabapentin (NEURONTIN) 100 MG 2100 PO Insulin Human Lispro (HumaLOG) LOW DOSE SLIDING SCALE AC HS SUBQ Famotidine (PEPCID) 20 MG BID PO Metoprolol Tartrate (LOPRESSOR) 12.5 MG Q12HR PO Aspirin (CHILDREN'S ASPIRIN) 81 MG DAILY PO Clopidogrel Bisulfate (PLAVIX) 75 MG DAILY PO Atorvastatin Calcium (LIPITOR) 20 MG BEDTIME PO Cefuroxime Sodium (ZINACEF) 1.5 GM Q8H IV Famotidine (PEPCID) 20 MG BID IV (DC) Mupirocin (BACTROBAN NASAL - ADULT ICU) 1 APPLIC BID NASAL Potassium Chloride (POTASSIUM CHLORIDE) 20 MEQ .Q17H IV (DC) Sodium Chloride (SODIUM CHLORIDE) 38.5 MEQ Sterile Water (WATER) 1,000 MLMeperidin e HCl (DEMEROL (C-II)) 25 MG Q4H PRN PRN IM Meperidine HCl (DEMEROL (C-II)) 50 MG Q4H PRN CA N IM Albumin Human (ALBUMINAR-5) 250 ML ASDIR PRN IV (DC) Calcium Gluconate (CALCIUM GLUCONATE 10% ) 1,000 MG ASDIR PRN IV Sodium Chloride (Sodium Chloride MINI-BAG) 100 MLDextrose/Water (DEXTROS E 50% IN WATER) 12.5 GM ASDIR PRN IV Dextrose/Wate r (DEXTROSE 50% IN WATER) 25 GM ASDIR PRN IV Dobutamine HCl/Dextrose (DOBUTamine HCL IN DEXTROSE) 250 ML ASDIR PRN IV Epinephrine (EPINEPHrine/NS 4MG/250ML) 250 ML ASDIR PRN IV Hydrocodone Bitart/Acetaminophen (NORCO 5/325 TABLET (C-II)) 1 TAB Q4H PRN PRN PO Hydrocodone Bitart/Acetaminophen (NORCO 5/325 TABLET (C-II)) 2 TAB Q4H PRN PRN PO Insulin Human Regular (INSULIN DRIP) 100 ML ASDIR IV (CKD) Lidocaine HCl/Dextrose (Lidocaine 0.4% in D5w Soln) 500 ML ASDIR PRN IV (CKD) Magnesium Sulfate (MAG SULFAT E 2GM PREMIX) 50 ML ASDIR PRN IV Magnesium Sulfate/Dextrose (Magnesium Sulfate) 100 ML ASDI R PRN IV Morphine Sulfate (morphine SULFATE (C-II) ) 2 MG Q15M PRN PRN IV (DC) Nicardipine HCl (CARDENE I.V.) 25 MG ASDIR PRN IV (CKD) Sodium Chloride (SODIUM CHLORIDE 0.9%) 250 MLOndansetro n HCl (ZOFRAN) 4 MG Q8H PRN PRN IV Potassium Chloride (Potassium Chloride) 50 ML ASDIR PRN IV Insulin Human Regular (HUMULIN R) 100 UNIT ASDIR IV (DC) Sodium Chloride (SODIUM CHLORIDE 0.9%) 100 MLSodium Bicarbonate (Sodium Bicarbonate) 50 MEQ ASDIR PRN IV Physical ExamGeneral appearance : alert, awake, orientedHead/Eyes: atraumatic, normocephalicENT: moist mucosal membranes, ETT i n place.Neck: no JVDCardiovascular: CV assessment: regular rate and rhythmLower extremity: LE assessment: no edemaMusculoskeletal: full range of motionNeuro/BELT SANDER: alert, oriented X 3, CN II-XII intactSkin: dry, intactPsychiatry: normal affect, normal judgment/insight, normal mood ResultsFindings/Data:Laboratory Tests 06/1341 2040 2008 1338 1211 Chemistry Potassium (3.5 - 5.1 MMOL/L) 4.6 POC Glucose (60 - 99 MG/DL) 221 H 139 H 95 122 H Calcium (8.4 - 10.2 MG/DL) 8.7 Magnesium (1.6 - 2.3 MG/DL) 2.1 06/12 06/12 1056 0942 Chemistry POC Glucose (60 - 99 MG/DL) 153 H 220 H Laboratory Tests 06/12 2040 Chemistry Magnesium (1.6 - 2.3 MG/DL) 2.1 Radiology data:Recent Impressions:RADIOLOGY - XR CHEST 1V 04/02 0537 * Report Impression - Status: SIGNED Entered: 06/13/2021 0713 IMPRESSION: Support devices as aboveNo significant interval changeImpression By : Parish Camacho Diagnosis, Assessment Plan Free Text DxA P NotesFree Text DxA P Notes:IMP: CAD s/p ACB 06/11/21 - FLORES to LAD, SVG to ramus, OM HTN HLP DM PLAN: Wean pressors Beta roger when able. at 082 0 RPT #:[id number] OF REPORTPRProgress [id number]:26:00Z.[id number] shiv able for patient [id number]:21:04 2021-06-12 09:35:00 [id number] [place] [address] PATIENT NAME: DIALLO COCHRAN ADMIT DATE: 06/11/21ACCOUNT NO: [id number] ROOM NO: Z.SI02 AGE: 71 REPORT TYPE: ELECTROCARDIOGRAM SEX: M ADMITTING PHYSICIAN:Tree Sparks MD ATTENDING PHYSICIAN:Tree Sparks MD Order:[id number] Reason : CAD POST caB Test Date/Time Stamp:TueJun 12 2021 09:35:03Blood Pressure : / mmHGVent. Rate : 091 BPM Atrial Rate : 091 BPM P-R Int : 132 ms QRS Dur : 090 ms QT Int : 366 ms P-R-T Axes : 00 0 005 047 degrees QTc Int : 450 ms Normal sinus rhythmST elevation, consider early repolarization, pericarditis, or injuryAbnormal ECGWhen compared with ECG of 11-JUN-2021 15:02,Sinus rhythm has replaced Electronic ventricular pacemakerConfirmed by TEJINDER MACEDO ([id number]) on 06/12/2021 11:02:47 AM Referred By: Tree Sparks Confirmed by:TEJINDER MACEDO at 1102 PATIENT NAME: DIALLO COCHRAN .[id number] AVAvailable for patient [id number]:03:08 2021-06-12 07:45:00 [id number] [facility] ([facility]ENTERHospitalist Progress NoteREPORT#:[id number] REPORT STATUS: SignedDATE:06/12/21 TIME: 744 PATIENT: DIALLO COCHRAN UNIT #: [id number]#: [id number] [facility] AGE: 71 SEX: M ATTEND: Tree Sparks MDA AUTHOR: Ghassan Romano MD R1 * ALL edits or amendments mus t be made on the electronic/computer document * Ghassan Romano 06/12/21 0745:SubjectiveChief complaint:THis is a 71 y/o male w unstable angin a recently diagnosed CAD, came in [facility]. POst CABG in ICU intubated on epi drip. No xtra bleeding duringsurgery.HPI:Mr. Cochran is now POD#1 after CABG x3 for management of Unstable Angina 2/2 CAD. He was extubated overnight and i s now saturating well on 3L NC. He is resting comfortably in the bedside chair. The nurse reports that he did not require Epinephrine overnight, but he was placed on a very low dose this morningafter developing some postural hypotension when transferring from the bed to thebed-side chair. He denies ant fever, chills, bleeding, or purulence at the incision site. Surgical dressings appear clean, dry, and intact . Review of SystemsConstitutional:Denies: chills, fatigue, fever. Respiratory:Denies: pleuritic pain, SOB, wheezing. Cardiovascular:Denies: ches t pain, edema, orthopnea, palpitations. GI:Denies: abdominal pain, constipation, diarrhea, nausea, vomiting. All systems rev neg: except as marked Objective GeneralVS/I O:Vital Signs: Date Time Temp Pulse Resp B/P B/P Pulse O2 O2 Flow FiO2 Mean Ox Delivery Rate 04/ 0515 102 17 100 04/01 0500 104 17 100 04/01 0445 105 17 100 04/0 1 0444 104 18 100 04/01 0430 106 18 100 04/01 0415 105 18 100 04/01 0400 Nasal 3 cannula 04/01 040 0 99.5 112 20 125/59 81 100 Nasal 2 cannula 04/01 0400 105 19 100 04/01 0345 105 19 100 04/01 033 0 103 18 100 04/01 0315 115 27 100 04/01 0300 113 20 100 04/01 0245 112 19 100 04/01 0230 112 19 100 04/01 0215 113 19 100 04/01 0200 99.5 112 19 122/57 78 100 Nasal 2 cannula 04/01 0200 112 19 100 04/01 0145 111 20 100 04/01 0130 105 19 100 04/01 0115 98 20 100 04/01 0100 96 22 100 04/01 0045 94 21 100 04/01 0030 98 21 100 04/01 0015 100 21 100 04/01 0000 100 21 100 03/ 2345 102 21 100 / 2330 105 20 100 / 2315 105 19 100 / 2300 100.0 100 20 128/61 83 100 Nasal 3 cannula 06/11 2300 103 20 100 / 2245 100 20 100 / 2230 98 21 100 06/11 2215 96 23 100 06/11 2200 100.2 101 20 127/59 81 100 Nasal 5 cannula 06/11 2200 93 25 100 / 2145 97 24 10 0 06/11 2130 111 24 100 /2114 104 27 100 03/3 1 2100 100 28 100 06/11 2054 94 21 100 06/11 2044 94 25 100 06/11 2029 90 20 100 06/11 2014 93 21 100 /1999 Ventilator 40 /1999 100.4 91 22 119/57 77 100 Ventilator 40 /1999 96 21 100 / 1945 22 100 06/11 1930 20 100 06/11 1921 100 Ventilator 40 06/11 1915 23 100 / 1915 65 100 40 06/11 1900 93 19 100 06/11 1815 93 19 100 06/11 1802 92 18 100 06/11 1800 92 19 100 06/11 1745 90 19 100 06/11 1730 89 19 100 06/11 1715 88 19 100 06/11 1707 88 20 100 06/11 1700 89 19 100 06/11 1650 92 100 40 06/11 1645 9 0 19 100 06/11 1630 90 23 100 06/11 1621 95 23 100 06/11 1615 22 100 06/11 1600 90 18 100 06/11 1545 101 21 100 06/11 1530 108 100 06/11 1515 10 5 100 06/11 1509 93 100 06/11 1500 80 100 06/11 1445 80 100 06/11 1442 80 100 06/11 1434 80 20 100 06/11 1430 99.0 06/11 1430 Ventilator 100 06/11 1425 90 100 100 24 hour I O ending at 0700: / 0700 06/11 1900 Intake Total 239.00 Output Total 660 Balance -421.00 Intake, IV 239.00 Output, Chest 120 Tube Drainage Output, Urine 540 Patient 68.182 kg Weight Weight Standing scale Measurement Method PATIENT WEIGHT : Weight (lb): 150Weight (oz): 5.05Weight (kg): 68.182 Medications:Active Meds + DC'd Last 24 HrsGabapentin (NEURONTIN) 100 MG 2100 PO Famotidine (PEPCID) 20 MG BID PO Metoprolol Tartrate (LOPRESSOR) 12.5 MG Q12HR PO Aspirin (CHILDREN'S ASPIRIN) 81 MG DAILY PO Clopidogrel Bisulfate (PLAVIX) 75 MG DAILY PO Atorvastatin Calcium (LIPITOR) 20 MG BEDTIME PO Cefuroxime Sodium (ZINACEF) 1.5 GM Q8H IV Famotidine (PEPCID) 20 MG BID IV (DC) Mupirocin (BACTROBAN NASAL - ADULT ICU) 1 APPLIC BID NASAL Potassium Chloride (POTASSIUM CHLORIDE) 20 MEQ .Q17H IV Sodium Chloride (SODIUM CHLORIDE) 38.5 MEQ Sterile Water (WATER) 1,000 MLAspirin (CHILDREN' S ASPIRIN) 162 MG ONCE ONE PO (DC) Cefuroxime Sodium (ZINACEF) 1.5 GM Q8H IV (DC) Meperidine HCl (DEMEROL (C-II)) 25 MG Q4H PRN PRN IM Meperidine HCl (DEMEROL (C-II)) 50 MG Q4H PRN CA N IM Albumin Human (ALBUMINAR-5) 250 ML ASDIR PRN IV Calcium Gluconate (CALCIUM GLUCONATE 10%) 1,000 MG ASDIR PRN IV Sodium Chloride (Sodium Chloride MINI-BAG) 100 MLDextrose/Water (DEXTROS E 50% IN WATER) 12.5 GM ASDIR PRN IV Dextrose/Wate r (DEXTROSE 50% IN WATER) 25 GM ASDIR PRN IV Dobutamine HCl/Dextrose (DOBUTamine HCL IN DEXTROSE) 250 ML ASDIR PRN IV Epinephrine (EPINEPHrine/NS 4MG/250ML) 250 ML ASDIR PRN IV Hydrocodone Bitart/Acetaminophen (NORCO 5/325 TABLET (C-II)) 1 TAB Q4H PRN PRN PO Hydrocodone Bitart/Acetaminophen (NORCO 5/325 TABLET (C-II)) 2 TAB Q4H PRN PRN PO Insulin Human Regular (INSULIN DRIP) 100 ML ASDIR IV (CKD) Lidocaine HCl/Dextrose (Lidocaine 0.4% in D5w Soln) 500 ML ASDIR PRN IV (CKD) Magnesium Sulfate (MAG SULFAT E 2GM PREMIX) 50 ML ASDIR PRN IV Magnesium Sulfate/Dextrose (Magnesium Sulfate) 100 ML ASDI R PRN IV Morphine Sulfate (morphine SULFATE (C-II) ) 2 MG Q15M PRN PRN IV Nicardipine HCl (CARDENE I.V.) 25 MG ASDIR PRN IV (CKD) Sodium Chloride (SODIUM CHLORIDE 0.9%) 250 MLOndansetron HCl (ZOFRAN) 4 MG Q8H PRN PRN IV Potassium Chloride (Potassium Chloride) 50 ML ASDIR PRN IV Potassiu m Chloride (POTASSIUM CHLORIDE 20 MEQ/100 ML) 100 ML ASDIR PRN IV (DC) Potassium Chloride/Dextrose/Sod Cl (DEXTROSE 5%-1/4NS-KCL 20MEQ) 1,000 ML .P75R52C IV (DC) Fentanyl Citrat e (SUBLIMAZE (C-II)) 0 .STK-MED ONE .ROUTE (DC) Insulin Human Regular (HUMULIN R) 100 UNIT ASDIR IV (CKD) Sodium Chloride (SODIUM CHLORIDE 0.9%) 100 MLDiphenhydramine HCl (BENADRYL) 0 .STK-MED ONE .ROUTE (DC) Famotidine (PEPCID) 0 .STK-MED ONE .ROUTE (DC) Calcium Chloride (CALCIUM CHLORIDE) 0 .STK-MED ONE .ROUTE (DC) Midazolam HCl (VERSED (C-IV)) 0 .STK-MED ONE .ROUTE (DC) Sodium Bicarbonate (Sodium Bicarbonate) 50 MEQ ASDIR PRN IV Vecuronium Upperglade (NORCURON) 0 .STK-MED ONE .ROUTE (DC) Bupivacaine HCl (SENSORCAINE 0.5%) 0 .STK-MED ONE .ROUTE (DC) Cardioplegic Solution (PLEGISOL) 5,000 ML .STK-MED ONE IV (DC) Gentamicin Sulfate/Sodium Chloride (GENTAMICIN SULFATE IN NS) 100 ML .STK-MED ONE IV (DC) Heparin Sodium/Sodium Chloride (HEPARIN 1000 UNITS/NS 500ML) 500 ML .STK-MEDONE IV (DC) Phenylephrine HCl (BREEZY-SYNEPHRINE/NS 10MG/100ML) 100 ML .STK-MED ONE IV (DC) Protamine Sulfate (PROTAMINE SULFATE ) 0 .STK-MED ONE .ROUTE (DC) Papaverine HCl (PAPAVERINE HCL) 0 .STK-MED ONE .ROUTE (DC) Dextrose/Water (DEXTROSE 50% IN WATER) 12.5 GM ASDIR PRN IV (DC) Dextrose/Water (DEXTROSE 50% I N WATER) 25 GM ASDIR PRN IV (DC) Dextrose/Water (DEXTROSE 50% IN WATER) 12.5 GM ASDIR PRN IV (DC ) Dextrose/Water (DEXTROSE 50% IN WATER) 25 GM ASDIR PRN IV (DC) Cefuroxime Sodium (ZINACEF) 1. 5 GM ONCALL IV (DC) Tranexamic Acid (CYKLOKAPRON) 1,000 MG ONCALL IV (DC) Sodium Chloride (SODIUM CHLORIDE 0.9%) 50 MLTranexamic Acid (CYKLOKAPRON ) 2,000 MG ONCALL IV (DC) Sodium Chloride (SODIUM CHLORIDE 0.9%) 250 ML Nutrition assessment:The data set between the solid lines has been imported from the dietitian's assessment. Any exceptions have been noted under Provider comments. _ BMI Calculated: 26.6Nutrition related diagnosis: Nutrition diagnosis details: Nutrition problem: Nutrition etiology: Nutrition signs and symptoms: Nutritio n prescription: Dietitian name: Assessment completed: _ Provider comments on imported dietitian assessment: Physical ExamGeneral appearance: alert, awake, oriented, no acute distress, no respiratory distressHead/Eyes: atraumaticENT: moist mucosal membranes, normal noseNeck: swanCardiovascular: normal heart sounds, regular rate rhythm, Central line Chest tubesRespiratory: aerating well, clear to auscultationAbdomen: non-tender, normal bowel sounds, softGenitourinary: urinary catheterExtremities: edema, no clubbing, no cyanosis, R femoral arrt line R art line radialMusculoskeletal: legs wrapped, compression stockingsNeuro/BELT SANDER: altered mental statusWound/incision: Location:Chest Site Condition: dressing clean dry, dressing intactPsychiatry: normal affect, normal mood ResultsFindings/Data:Laboratory Tests 06/11 05/14 1 06/11 06/11 1430 1352 1300 1203 Blood Gas Puncture Site LINE O2 Saturation (92.0 - 98.5 %) 100.0 H 99.7 H 100.0 H ABG pH (7.35 - 7.45 mmHg) 7.42 7.426 7.329 L 7.356 ABG pCO2 (35.0 - 45.0 mmHg) 33.7 L 38.1 41.1 45.0 ABG pO2 (80.0 - 100. 0 mmol/L) 451.2 H 379.9 *H 215.8 *H 441.9 *H ABG PO2/FiO2 Ratio (mm/Hg) 269.75 679.84 ABG HCO3 (20.0 - 26.0 mmol/L) 21.4 25.0 21.6 25.2 ABG O2 Saturation (95.0 - 100.0 %) 99.9 ABG Base Excess (-3.0 - 3.0 mmol/L) -2.2 0.7 -4.1 L -0.4 Twan Test (CHECK) NA Sodium (135 - 141 MMOL/L) 143 H 138 138 Potassium (3.7 - 4.7 MMOL/L) 4.3 5.1 H 4.3 Chloride (MEQ/L) 107 104 102 Ionized Calcium (1.13 - 1.32 MMOL/L) 1.31 1.13 1.08 L Temperatur e (37 C) 37.0 O2 Delivery Device VENT Vent Mode A/ C Vent Rate (/MIN) 12.0 FiO2 (%) 100 80 65 Tidal Volume (ml) 500.0 PEEP (cmH2O) 5.0 Instrument (Specimen Descript) Arterial Arterial Arterial 06/11 1118 Blood Gas O2 Saturation (92.0 - 98.5 %) 100.0 H ABG pH (7.35 - 7.45) 7.372 ABG pCO2 (35.0 - 45.0 mmHg) 40.8 ABG pO2 (75.0 - 100.0) 423.0 *H ABG HCO3 (20.0 - 26.0 MMOL/L) 23.7 ABG Base Excess (-3.0 - 3.0 MMOL/L) -1.4 Sodium (135 - 141 MMOL/L) 139 Potassium (3.7 - 4.7 MMOL/L) 4.4 Chloride (MEQ/L) 105 Ionized Calcium (1.13 - 1.32 MMOL/L) 1.18 Instrument (Specimen Descript) Arterial Laboratory Tests 06/12 06/12 06/12 06/12 06/12 0942 0803 0614 0540 0502 Chemistry Sodium (137 - 145 MMOL/L) 138 Potassium (3.5 - 5.1 MMOL/L) 4.5 Chloride (98 - 107 MMOL/L) 109 H Carbon Dioxide (22 - 30 MMOL/L) 24 Anion Gap (1 4 - 24 MMOL/L) 10 L BUN (9 - 20 MG/DL) 20 Creatinine (0.66 - 1.25 MG/DL) 0.80 Glomerular Filtr Rate > 60 Glucose (74 - 106 MG/DL) 121 H POC Glucose (60 - 99 MG/DL) 220 H 210 H 126 H 13 6 H Calcium (8.4 - 10.2 MG/DL) 8.7 Magnesium (1.6 - 2.3 MG/DL) 2.5 H 06/12 06/12 06/12 06/11 06/11 0409 0309 0059 2244 2134 Chemistry POC Glucose (60 - 99 MG/DL) 170 H 205 H 110 H 142 H 184 H 06/11 06/11 06/11 06/11 06/11 2021 1917 1851 180 0 1640 Chemistry Sodium (137 - 145 MMOL/L) 143 Potassium (3.5 - 5.1 MMOL/L) 3.5 Chloride (98 - 107 MMOL/L) 110 H Carbon Dioxide (22 - 30 MMOL/L ) 20 L Anion Gap (14 - 24 MMOL/L) 17 BUN (9 - 20 MG/DL) 17 Creatinine (0.66 - 1.25 MG/DL) 0.90 Glomerular Filtr Rate > 60 Glucose (74 - 106 MG/DL) 236 H POC Glucose (60 - 99 MG/DL) 190 H 204 H 193 H 193 H Calcium (8.4 - 10.2 MG/DL) 8.9 Magnesium (1.6 - 2.3 MG/DL) 2.7 H 06/11 06/11 06/11 06/11 06/11 1532 1434 1352 1347 1300 Chemistry Sodium (137 - 145 MMOL/L) 140 Potassiu m (3.5 - 5.1 MMOL/L) 4.2 Chloride (98 - 107 MMOL/L ) 109 H Carbon Dioxide (22 - 30 MMOL/L) 24 Anion Gap (14 - 24 MMOL/L) 11 L BUN (9 - 20 MG/DL) 17 Creatinine (0.66 - 1.25 MG/DL) 0.70 Glomerular Filtr Rate > 60 Glucose (74 - 106 MG/DL) 119 H POC Glucose (60 - 99 MG/DL) 146 H 86 110 H 124 H POC Lactic Acid (0.7 - 2.0 mmol/L) 1.66 1.61 Calcium (8.4 - 10.2 MG/DL) 9.1 06/11 06/11 1203 1118 Chemistry POC Glucose (60 - 99 MG/DL) 140 H 215 H POC Lactic Acid (0.7 - 2.0 mmol/L) 2.20 *H 1.63 Laboratory Tests 06/11 06/11 1851 1347 Coagulation INR (0.86 - 1.14) 1.1 1.4 H APTT (26.2 - 35.4 SECONDS) 37.8 H 37.1 H PT Patient/Control Mix (9.4 - 12.7 SECONDS) 12.5 15.6 H Laboratory Tests 06/12 06/11 06/11 0540 1851 1347 Hematology WBC (3.8 - 9.8 K/MM3) 15.4 H 23.4 H 14.5 H RBC (3.95 - 5.67 M/MM3) 3.21 L 3.9 9 3.72 L Hgb (12.4 - 16.7 G/DL) 10.2 L 12.5 11.7 L Hct (35.9 - 49.5 %) 30.9 L 37.0 34.2 L MCV (81.7 - 96.1 fL) 96 93 92 MCH (27.6 - 33.2 pg) 31.8 31.3 31.5 MCHC (32.9 - 35.5 %) 33.0 33.8 34.2 RDW (12.1 - 15.2 %) 13.1 12.9 12.6 Plt Count (12 9 - 368 K/MM3) 138 182 146 MPV (7.4 - 10.4 fl) 10.6 H 10.1 10.3 Neut % (Auto) (43 - 75 %) 74.8 83.9 H 72.1 Lymph % (Auto) (14 - 44 %) 11.8 L 8. 7 L 22.0 [place] % (Auto) (4 - 13 %) 12.8 6.6 4.3 Eos % (Auto) (0 - 6 %) 0.0 0.0 0.4 Baso % (Auto) (0 - 2 %) 0.2 0.2 0.5 Neut # (Auto) (2.0 - 7.6 K/mm3) 11.53 H 19.64 H 10.44 H Lymph # (Auto) (1.0 - 3. 8 K/mm3) 1.81 2.03 3.19 [place] # (Auto) (0.1 - 0.8 K/mm3) 1.97 H 1.55 H 0.62 Eos # (Auto) (0.0 - 0. 2 K/mm3) 0.00 0.00 0.06 Baso # (Auto) (0.0 - 0.2 K/mm3) 0.03 0.05 0.07 Immature Gran % (0.0 - 2. 0 %) 0.4 0.6 0.7 Nucleated RBC % (0 - 1.0 %) 0.0 0.0 0.0 Nucleated RBCs # (Man) (0.0 - 0.1 K/mm3) 0.00 0.00 0.00 Radiology data:Recent Impressions:RADIOLOGY - XR CHEST 1V 06/11 1400 * Report Impression - Status: SIGNED Entered: 06/11/2021 1453 IMPRESSION:Mild bibasilar atelectasis.Impression By: Jia Mendez MDRADIOLOGY - XR CHEST 1V 06/12 0735 Report Impression - Status: SIGNED Entered: 06/12/2021 0814 IMPRESSION:Interval increase of mild bibasilar opacities, likely representingatelectasis.Impression By: Jia Mendez MD Diagnosis, Assessment PlanProblem List/A P: 1. HTN (hypertension) 2. HLD (hyperlipidemia) 3. Diabetes 4. S/P CABG (coronary artery bypass graft) Consultants: cardiology Free Text DxA P NotesFree text DxA P notes:Mr. Cochran is a 71-year-old man with PMH HTN, HLD, DM, CAD, and Unstable Anginawho is now s/p CABG x3. planThank you for the consult, will follow w youPt on Epi, to be weanedOn insulin drip for 24 hoursIntubated to be weanedDVT prophylaxis 06/12:- Extubated overnight, saturatin g 100% on 3L NC.- Chest Tube Output 300 ccs. - Wea n Epinephrine. - DC Insulin drip today. - Further management per Dr. Sparks. Diet: Clear Liquids, Advance as tolerated.DVT PPX: On Aspirin, Plavix . Quality: Gen Med Crit Care VTE ProphylaxisVTE prophylaxis initiated: yes Current MedicationsCurrent medication review:I attest that the foregoing medication list in the medica l record is true, accurate, and complete to the best of my knowledge. Advanced Care Plan 65 or OlderDiscussed with: patientDiscussion included: code status AttestationsAttestation needed: teaching physician Marianna Olvera 06/12/21 1444:Attestations Teaching Physician AttestationF/U visit w/ resident:I saw the patient with the resident and . . . agree with the resident's findings and plan. Pt is extubate d sitting up on the chair, has central line and ar t line plan to keep him in ICU progress his care at 1421 at 1445 RPT #:[id number] OF REPORTPRProgress [id number]:45:00Z.[id number] shiv able for patient [id number]:22:19 2021-06-12 07:31:00 [id number]:31:00 [facility] ([facility])Cardiology Progress NoteREPORT#:[id number] REPORT STATUS: SignedDATE:06/12/21 TIME: 730 PATIENT: DIALLO COCHRAN UNIT #: [id number]#: [id number] [address] AGE: 71 SEX: M ATTEND: Tree Sparks MDA AUTHOR: William Estrada MD * ALL edits or amendments must be made on the electronic/computer document * SubjectiveChief complaint:CADPatient reports:No: chest pain, palpitations, shortness of breath. Objective GeneralVS/I O:24 hour I O ending at 0700: 06/12 0700 06/11 1900 Intake Total 239.00 Output Total 660 Balance -421.00 Intake, IV 239.00 Output, Chest 120 Tube Drainage Output, Urine 540 Patient 68.182 kg Weight Weight Standing scale Measurement Method Vital Signs: Date Time Temp Pulse Resp B/P B/P Pulse O2 O2 Flow FiO2 Mean Ox Delivery Rate 04/01 0515 102 17 100 04/01 0500 104 17 100 04/0 1 0445 105 17 100 04/01 0444 104 18 100 04/01 0430 106 18 100 04/01 0415 105 18 100 04/01 0400 Nasal 3 cannula 04/01 0400 99.5 112 20 125/59 81 100 Nasal 2 cannula 04/01 0400 105 19 100 04/01 0345 105 19 100 04/01 0330 103 18 100 04/01 0315 115 27 100 04/01 0300 113 20 100 04/01 0245 112 19 100 04/01 0230 112 19 100 04/01 0215 113 19 100 04/01 0200 99.5 112 19 122/57 78 100 Nasal 2 cannula 04/01 0200 112 19 100 04/01 0145 111 20 100 04/01 0130 105 19 100 04/01 0115 98 20 100 04/01 0100 96 22 100 04/01 0045 94 21 100 04/01 0030 98 21 100 04/01 0015 100 21 100 04/01 0000 100 21 100 03/ 2345 102 21 100 03/ 2330 105 20 100 03/ 2315 105 19 100 03/ 2300 100.0 10 0 20 128/61 83 100 Nasal 3 cannula 06/11 2300 103 20 100 03/ 2245 100 20 100 03/ 2230 98 21 100 03/ 2215 96 23 100 03/ 2200 100.2 101 2 0 127/59 81 100 Nasal 5 cannula / 2200 93 25 100 03/ 2145 97 24 100 03/ 2130 111 24 100 / 2115 104 27 100 03/ 2100 100 28 100 03/3 1 2054 94 21 100 03/31 2044 94 25 100 03/31 2029 90 20 100 03/31 2014 93 21 100 03/31 1999 Ventilator 40 03/1999 100.4 91 22 119/57 77 100 Ventilator 40 03/1999 96 21 100 03/ 1945 22 100 03/ 1930 20 100 / 1921 100 Ventilator 40 03/ 1915 23 100 03/ 1915 65 10 0 40 03/ 1900 93 19 100 03/ 1815 93 19 100 03/ 1802 92 18 100 03/ 1800 92 19 100 03/ 1745 90 19 100 03/ 1730 89 19 100 03/ 1715 8 8 19 100 06/11 1707 88 20 100 06/11 1700 89 19 100 06/11 1650 92 100 40 06/11 1645 90 19 100 06/11 1630 90 23 100 06/11 1621 95 23 100 06/11 1615 22 100 06/11 1600 90 18 100 06/11 1545 101 21 10 0 06/11 1530 108 100 06/11 1515 105 100 06/11 1509 93 100 06/11 1500 80 100 06/11 1445 80 100 05/14 1 1442 80 100 06/11 1434 80 20 100 06/11 1430 99.0 06/11 1430 Ventilator 100 06/11 1425 90 100 100 PATIENT WEIGHT: Weight (lb): 150Weight (oz): 5.05Weight (kg): 68.182 Medications:Active Meds + DC'd Last 24 HrsGabapentin (NEURONTIN) 100 MG 2100 PO Aspirin (CHILDREN'S ASPIRIN) 81 MG DAILY PO Clopidogrel Bisulfate (PLAVIX) 75 MG DAILY PO Atorvastatin Calcium (LIPITOR) 20 MG BEDTIME PO Cefuroxime Sodium (ZINACEF) 1.5 GM Q8H IV Famotidine (PEPCID) 20 MG BID IV Mupirocin (BACTROBAN NASAL - ADULT ICU) 1 APPLIC BID NASAL Potassium Chloride (POTASSIUM CHLORIDE) 20 MEQ .Q17H IV Sodium Chloride (SODIUM CHLORIDE) 38.5 MEQ Sterile Water (WATER) 1,000 MLAspirin (CHILDREN'S ASPIRIN) 162 MG ONCE ONE PO (DC) Cefuroxime Sodium (ZINACEF) 1.5 GM Q8H IV (DC) Meperidine HCl (DEMEROL (C-II)) 25 MG Q4H PRN CA N IM Meperidine HCl (DEMEROL (C-II)) 50 MG Q4H PRN PRN IM Albumin Human (ALBUMINAR-5) 250 ML ASDIR PRN IV Calcium Gluconate (CALCIUM GLUCONATE 10%) 1,000 MG ASDIR PRN IV Sodium Chloride (Sodium Chloride MINI-BAG) 100 MLDextrose/Water (DEXTROS E 50% IN WATER) 12.5 GM ASDIR PRN IV Dextrose/Wate r (DEXTROSE 50% IN WATER) 25 GM ASDIR PRN IV Dobutamine HCl/Dextrose (DOBUTamine HCL IN DEXTROSE) 250 ML ASDIR PRN IV Epinephrine (EPINEPHrine/NS 4MG/250ML) 250 ML ASDIR PRN IV Hydrocodone Bitart/Acetaminophen (NORCO 5/325 TABLET (C-II)) 1 TAB Q4H PRN PRN PO Hydrocodone Bitart/Acetaminophen (NORCO 5/325 TABLET (C-II)) 2 TAB Q4H PRN PRN PO Insulin Human Regular (INSULIN DRIP) 100 ML ASDIR IV (CKD) Lidocaine HCl/Dextrose (Lidocaine 0.4% in D5w Soln) 500 ML ASDIR PRN IV (CKD) Magnesium Sulfate (MAG SULFAT E 2GM PREMIX) 50 ML ASDIR PRN IV Magnesium Sulfate/Dextrose (Magnesium Sulfate) 100 ML ASDI R PRN IV Morphine Sulfate (morphine SULFATE (C-II) ) 2 MG Q15M PRN PRN IV Nicardipine HCl (CARDENE I.V.) 25 MG ASDIR PRN IV (CKD) Sodium Chloride (SODIUM CHLORIDE 0.9%) 250 MLOndansetron HCl (ZOFRAN) 4 MG Q8H PRN PRN IV Potassium Chloride (Potassium Chloride) 50 ML ASDIR PRN IV Potassiu m Chloride (POTASSIUM CHLORIDE 20 MEQ/100 ML) 100 ML ASDIR PRN IV (DC) Potassium Chloride/Dextrose/Sod Cl (DEXTROSE 5%-1/4NS-KCL 20MEQ) 1,000 ML .[id number] IV (DC) Fentanyl Citrat e (SUBLIMAZE (C-II)) 0 .STK-MED ONE .ROUTE (DC) Insulin Human Regular (HUMULIN R) 100 UNIT ASDIR IV (CKD) Sodium Chloride (SODIUM CHLORIDE 0.9%) 100 MLDiphenhydramine HCl (BENADRYL) 0 .STK-MED ONE .ROUTE (DC) Famotidine (PEPCID) 0 .STK-MED ONE .ROUTE (DC) Calcium Chloride (CALCIUM CHLORIDE) 0 .STK-MED ONE .ROUTE (DC) Midazolam HCl (VERSED (C-IV)) 0 .STK-MED ONE .ROUTE (DC) Sodium Bicarbonate (Sodium Bicarbonate) 50 MEQ ASDIR PRN IV Vecuronium Upperglade (NORCURON) 0 .STK-MED ONE .ROUTE (DC) Bupivacaine HCl (SENSORCAINE 0.5%) 0 .STK-MED ONE .ROUTE (DC) Cardioplegic Solution (PLEGISOL) 5,000 ML .STK-MED ONE IV (DC) Gentamicin Sulfate/Sodium Chloride (GENTAMICIN SULFATE IN NS) 100 ML .STK-MED ONE IV (DC) Heparin Sodium/Sodium Chloride (HEPARIN 1000 UNITS/NS 500ML) 500 ML .STK-MEDONE IV (DC) Phenylephrine HCl (BREEZY-SYNEPHRINE/NS 10MG/100ML) 100 ML .STK-MED ONE IV (DC) Protamine Sulfate (PROTAMINE SULFATE ) 0 .STK-MED ONE .ROUTE (DC) Papaverine HCl (PAPAVERINE HCL) 0 .STK-MED ONE .ROUTE (DC) Glycopyrrolate (ROBINUL IJ) 0 .STK-MED ONE .ROUT E (DC) Insulin Human Regular (HUMULIN R) 0 .STK-ME D ONE .ROUTE (DC) Insulin Human Regular (HUMULIN R ) 0 .STK-MED ONE .ROUTE (DC) Dextrose/Water (DEXTROSE 50% IN WATER) 12.5 GM ASDIR PRN IV (DC ) Dextrose/Water (DEXTROSE 50% IN WATER) 25 GM ASDIR PRN IV (DC) Insulin Human Regular (HUMULIN R) 6 UNIT STAT STA IV (DC) Vecuronium Upperglade (NORCURON) 0 .STK-MED ONE .ROUTE (DC) Etomidate (AMIDATE) 0 .STK-MED ONE .ROUTE (DC) Fentanyl Citrate (fentaNYL CITRATE (C-II)) 0 .STK-MED ONE .ROUTE (DC) Heparin Sodium (Porcine) (Heparin Sodium) 0 .STK-MED ONE .ROUTE (DC) Metoprolol Tartrate (LOPRESSOR 5MG IJ) 0 .STK-MED ONE .ROUT E (DC) Insulin Human Regular (HUMULIN R) 0 .STK-ME D ONE .ROUTE (DC) Lidocaine HCl (XYLOCAINE 1%) 5 M L .STK-MED ONE IV (DC) Midazolam HCl (VERSED (C-IV)) 0 .STK-MED ONE .ROUTE (DC) Dextrose/Wate r (DEXTROSE 50% IN WATER) 12.5 GM ASDIR PRN IV (DC ) Dextrose/Water (DEXTROSE 50% IN WATER) 25 GM ASDIR PRN IV (DC) Insulin Human Regular (HUMULIN R) 6 UNIT STAT STA IV (DC) Cefuroxime Sodium (ZINACEF) 1.5 GM ONCALL IV (DC) Tranexamic Acid (CYKLOKAPRON) 1,000 MG ONCALL IV (DC) Sodium Chloride (SODIUM CHLORIDE 0.9%) 50 MLTranexamic Acid (CYKLOKAPRON) 2,000 MG ONCALL IV (DC) Sodiu m Chloride (SODIUM CHLORIDE 0.9%) 250 ML Physical ExamGeneral appearance: alert, awake, orientedHead/Eyes: atraumatic, normocephalicENT: moist mucosal membranes, ETT in place.Neck: no JVDCardiovascular: CV assessment: regular rate and rhythmLower extremity: LE assessment: no edemaMusculoskeletal: full range of motionNeuro/BELT SANDER: alert, oriented X 3, CN II-XII intactSkin: dry, intactPsychiatry: normal affect , normal judgment/insight, normal mood ResultsFindings/Data:Laboratory Tests 06/11 06/11 06/11 06/11 1430 1352 1300 1203 Blood Gas Puncture Site LINE O2 Saturation (92.0 - 98.5 %) 100.0 H 99.7 H 100.0 H ABG pH (7.35 - 7.45 mmHg) 7.42 7.426 7.329 L 7.356 ABG pCO2 (35.0 - 45.0 mmHg) 33.7 L 38.1 41.1 45.0 ABG pO2 (80.0 - 100.0 mmol/L) 451.2 H 379.9 *H 215.8 *H 441.9 *H ABG PO2/FiO2 Ratio (mm/Hg) 269.75 679.84 ABG HCO 3 (20.0 - 26.0 mmol/L) 21.4 25.0 21.6 25.2 ABG O2 Saturation (95.0 - 100.0 %) 99.9 ABG Base Excess (-3.0 - 3.0 mmol/L) -2.2 0.7 -4.1 L -0.4 Twan Test (CHECK) NA Sodium (135 - 141 MMOL/L) 143 H 138 138 Potassium (3.7 - 4.7 MMOL/L) 4.3 5.1 H 4.3 Chloride (MEQ/L) 107 104 102 Ionized Calcium (1.13 - 1.32 MMOL/L) 1.31 1.13 1.08 L Temperatur e (37 C) 37.0 O2 Delivery Device VENT Vent Mode A/ C Vent Rate (/MIN) 12.0 FiO2 (%) 100 80 65 Tidal Volume (ml) 500.0 PEEP (cmH2O) 5.0 Instrument (Specimen Descript) Arterial Arterial Arterial 06/11 06/11 1118 0808 Blood Gas O2 Saturation (92.0 - 98.5 %) 100.0 H 93.3 ABG pH (7.35 - 7.45) 7.372 7.405 ABG pCO2 (35.0 - 45.0 mmHg) 40.8 40.3 ABG pO2 (75.0 - 100.0) 423.0 *H 67.7 L ABG HCO3 (20.0 - 26.0 MMOL/L) 23.7 25.2 ABG Base Excess (-3.0 - 3.0 MMOL/L) -1.4 0.4 Sodium (135 - 141 MMOL/L) 139 141 Potassium (3.7 - 4.7 MMOL/L) 4.4 3.8 Chloride (MEQ/L) 105 104 Ionized Calcium (1.13 - 1.32 MMOL/L) 1.18 1.29 Instrument (Specimen Descript) Arterial Arterial Laboratory Tests 06/12 06/12 06/12 06/12 06/12 0614 0540 0502 0409 0309 Chemistry Sodium (137 - 145 MMOL/L) 138 Potassium (3.5 - 5.1 MMOL/L) 4.5 Chloride (98 - 107 MMOL/L) 109 H Carbon Dioxide (22 - 30 MMOL/L) 24 Anion Gap (14 - 24 MMOL/L) 1 0 L BUN (9 - 20 MG/DL) 20 Creatinine (0.66 - 1.25 MG/DL) 0.80 Glomerular Filtr Rate > 60 Glucose (74 - 106 MG/DL) 121 H POC Glucose (60 - 99 MG/DL) 126 H 136 H 170 H 205 H Calcium (8.4 - 10.2 MG/DL) 8.7 Magnesium (1.6 - 2.3 MG/DL) 2.5 H 06/12 06/11 06/11 06/11 06/11 0059 2244 2134 2020 1917 Chemistry POC Glucose (60 - 99 MG/DL) 110 H 142 H 184 H 190 H 204 H 06/11 06/11 06/11 06/11 06/11 1851 1800 1640 1532 1434 Chemistry Sodium (137 - 145 MMOL/L) 143 Potassium (3.5 - 5.1 MMOL/L) 3.5 Chloride (98 - 107 MMOL/L) 110 H Carbon Dioxide (22 - 30 MMOL/L) 20 L Anion Gap (14 - 24 MMOL/L) 17 BUN (9 - 20 MG/DL) 17 Creatinine (0.66 - 1.25 MG/DL) 0.90 Glomerular Filtr Rate > 60 Glucose (74 - 106 MG/DL) 236 H POC Glucose (60 - 99 MG/DL) 193 H 193 H 146 H 86 Calcium (8.4 - 10.2 MG/DL) 8.9 Magnesium (1.6 - 2.3 MG/DL) 2.7 H 06/11 06/11 06/11 06/11 06/11 1352 1347 1300 1203 1118 Chemistry Sodium (137 - 145 MMOL/L) 140 Potassium (3.5 - 5.1 MMOL/L) 4.2 Chloride (98 - 107 MMOL/L) 109 H Carbon Dioxide (22 - 30 MMOL/L) 24 Anion Gap (14 - 24 MMOL/L) 11 L BUN (9 - 20 MG/DL) 17 Creatinine (0.66 - 1.25 MG/DL) 0.70 Glomerular Filtr Rate > 60 Glucose (74 - 106 MG/DL) 119 H POC Glucose (60 - 99 MG/DL) 110 H 124 H 140 H 215 H POC Lactic Aci d (0.7 - 2.0 mmol/L) 1.66 1.61 2.20 *H 1.63 Calciu m (8.4 - 10.2 MG/DL) 9.1 06/11 06/11 06/11 0958 0854 0808 Chemistry Sodium (137 - 145 MMOL/L) 14 1 Potassium (3.5 - 5.1 MMOL/L) 4.5 Chloride (98 - 107 MMOL/L) 107 Carbon Dioxide (22 - 30 MMOL/L) 22 Anion Gap (14 - 24 MMOL/L) 17 BUN (9 - 20 MG/DL) 18 Creatinine (0.66 - 1.25 MG/DL) 0.70 Glomerular Filtr Rate > 60 Glucose (74 - 106 MG/DL) 159 H POC Glucose (60 - 99 MG/DL) 159 H 278 H POC Lactic Acid (0.7 - 2.0 mmol/L) 1.01 Calcium (8.4 - 10.2 MG/DL) 9.3 Laboratory Tests 06/11 06/11 1851 1347 Coagulation INR (0.86 - 1.14) 1.1 1.4 H APTT (26.2 - 35.4 SECONDS) 37.8 H 37.1 H PT Patient/Control Mix (9.4 - 12.7 SECONDS) 12.5 15.6 H Laboratory Tests 06/12 05/14 1 06/11 06/11 0540 1851 1347 0958 Hematology WBC (3.8 - 9.8 K/MM3) 15.4 H 23.4 H 14.5 H 6.9 RBC (3.95 - 5.67 M/MM3) 3.21 L 3.99 3.72 L 4.21 Hgb (12.4 - 16.7 G/DL) 10.2 L 12.5 11.7 L 13.1 Hct (35.9 - 49.5 %) 30.9 L 37.0 34.2 L 38.3 MCV (81. 7 - 96.1 fL) 96 93 92 91 MCH (27.6 - 33.2 pg) 31.8 31.3 31.5 31.1 MCHC (32.9 - 35.5 %) 33.0 33.8 34.2 34.2 RDW (12.1 - 15.2 %) 13.1 12.9 12.6 12. 7 Plt Count (129 - 368 K/MM3) 138 182 146 243 MPV (7.4 - 10.4 fl) 10.6 H 10.1 10.3 9.9 Neut % (Auto) (43 - 75 %) 74.8 83.9 H 72.1 57.2 Lymph % (Auto) (14 - 44 %) 11.8 L 8.7 L 22.0 35.0 [place] % (Auto) (4 - 13 %) 12.8 6.6 4.3 6.0 Eos % (Auto) (0 - 6 %) 0.0 0.0 0.4 0.7 Baso % (Auto) (0 - 2 % ) 0.2 0.2 0.5 1.0 Neut # (Auto) (2.0 - 7.6 K/mm3) 11.53 H 19.64 H 10.44 H 3.91 Lymph # (Auto) (1.0 - 3.8 K/mm3) 1.81 2.03 3.19 2.40 [place] # (Auto) (0.1 - 0.8 K/mm3) 1.97 H 1.55 H 0.62 0.41 Eos # (Auto) (0.0 - 0.2 K/mm3) 0.00 0.00 0.06 0.05 Bas o # (Auto) (0.0 - 0.2 K/mm3) 0.03 0.05 0.07 0.07 Immature Gran % (0.0 - 2.0 %) 0.4 0.6 0.7 0.1 Nucleated RBC % (0 - 1.0 %) 0.0 0.0 0.0 0.0 Nucleated RBCs # (Man) (0.0 - 0.1 K/mm3) 0.00 0.00 0.00 0.00 Laboratory Tests 06/12 06/11 054 0 1851 Chemistry Magnesium (1.6 - 2.3 MG/DL) 2.5 H 2.7 H Laboratory Tests 06/11 06/11 1851 1347 Coagulation APTT (26.2 - 35.4 SECONDS) 37.8 H 37.1 H Radiology data:Recent Impressions:RADIOLOGY - XR CHEST 1V 06/11 1400 * Report Impression - Status: SIGNED Entered: 06/11/2021 1453 IMPRESSION:Mild bibasilar atelectasis.Impression By: AmbrocioPR7 - Joseph Mendez MD Diagnosis, Assessment Plan Free Text DxA P NotesFree Text DxA P Notes:IMP: CAD s/p AC B 06/11/21 - FLORES to LAD, SVG to ramus, OM HTN HLP DM PLAN: Wean pressors Beta roger when able. at 0731 RPT #:[id number] OF REPORTPRProgress [id number]:31:00Z.[id number] shiv able for patient [id number]:31:32 2021-06-12 00:33:00 [id number] [address] PATIENT NAME: DIALLO COCHRAN ADMIT DATE: 06/11/21ACCOUNT NO: [id number] ROOM NO: [facility] AGE: 71 REPORT TYPE: PROGRESS NOTE SEX: M ADMITTING PHYSICIAN:Tree Sparks MD ATTENDING PHYSICIAN:Tree Sparks MD DATE: 06/11/2021 The patient is seen at bedside in ICU . The patient currently is extubated. Thepatient i s stable, post open heart surgery. Vital signs are stable. Dictated By: Tree Sparks MD WT: PN:ABDULLAHI/JOSELO/NTSDD: 06/12/2021 00:33:06DT: 06/12/2021 00:44:10Conf#: [id number]/DID#: [id number] Authenticated and Edited by Tree Sparks MD On 06/12/21 3:22:43 PM at 0323 PATIEN T NAME: DIALLO COCHRAN [id number]:44:00Z.[id number] a ble for patient [id number]:24:29 2021-06-11 19:50:00 [id number]:50:00 [facility] ([facility])Brief Op NoteREPORT#:[id number] REPORT STATUS: SignedDATE:06/11/21 TIME: 1950 PATIENT: DIALLO COCHRAN UNIT #: [id number]#: [id number] [facility] AGE: 71 SEX: M ATTEND: Tree Sparks MDADM AUTHOR: Ericka Mcintosh * ALL edits or amendments must be made on the electronic/computer document * Op/Inv Proc Note - BriefPre-procedure diagnosis:Atherosclerosis of the [place] coronary arteries with unstable angina Post-procedure diagnosis: same as pre procedure dxProcedures performed:Aortocoronary artery bypass times 3 FLORES- LAD, SVG-Ramus and OMEVH of the right leg SVGInsertion of right subclavian central line an d left femoral arterial line using sonosite US guidance Primary Surgeon:Tree Bernabetant(s): NILDA Quesada-CAnesthesiologist:Dr. Lindsey LangeAnesthesia : general anesthesiaFindings:See detailed op reportComplications: noneEstimated blood loss in ml's: 1000 ccSpecimens removed/altered: noneDrain(s): Bolaños Catheter PlacedTube(s): Ches t tubes x 2Approach: openWound class: cleanDisposition: ICU, stable at 1956 at 2136 RPT #:[id number] OF REPORTOPOperative [id number]:50:00Z.[id number] a ilable for patient [id number]:56:16 2021-06-11 17:15:00 [id number]:15:00 [facility] ([facility])Cardiology Progress NoteREPORT#:[id number] REPORT STATUS: SignedDATE:06/11/21 TIME: 1715 PATIENT: DIALLO COCHRAN UNIT #: [id number]#: [id number] [address]IPF[address] AGE: 71 SEX: M ATTEND: Tree Sparks MDADM AUTHOR: William Estrada MD * ALL edits or amendments must be made on the electronic/computer document * SubjectiveChief complaint:CADHPI:71 year old male with CAD, ACB 06/11/21, now in SICU. Remains intubated. On epigtt. Objective GeneralVS/I O:24 hour I O ending at 0700: 06/11 0700 06/10 1900 Intake Total Output Total Balance Patient 69.09 1 kg Weight Weight Stated/Reported Measurement Method Vital Signs: Date Time Temp Pulse Resp B/ P B/P Pulse O2 O2 Flow FiO2 Mean Ox Delivery Rate 06/11 1615 22 100 06/11 1600 90 18 100 06/11 1545 101 21 100 06/11 1530 108 100 06/11 1515 10 5 100 06/11 1509 93 100 06/11 1500 80 100 06/11 1445 80 100 06/11 1442 80 100 06/11 1434 80 20 100 06/11 1430 99.0 06/11 1430 Ventilator 100 06/11 1425 90 100 100 06/11 0600 97.8 67 18 166/80 100 Room air PATIENT WEIGHT: Weight (lb): 150Weight (oz): 5.05Weight (kg): 68.182 Medications:Active Meds + DC'd Last 24 HrsGabapentin (NEURONTIN) 100 MG 2100 PO Aspirin (CHILDREN'S ASPIRIN) 81 MG DAILY PO Clopidogrel Bisulfate (PLAVIX) 75 MG DAILY PO Atorvastatin Calcium (LIPITOR) 20 MG BEDTIME PO Cefuroxime Sodium (ZINACEF) 1.5 GM Q8H IV Famotidine (PEPCID) 20 MG BID IV Mupirocin (BACTROBAN NASAL - ADULT ICU) 1 APPLIC BID NASAL Aspirin (CHILDREN'S ASPIRIN) 162 MG ONCE ONE PO (DC) Cefuroxime Sodium (ZINACEF) 1.5 GM Q8H IV (DC) Meperidine HCl (DEMEROL (C-II)) 25 MG Q4H PRN CA N IM Meperidine HCl (DEMEROL (C-II)) 50 MG Q4H PRN PRN IM Albumin Human (ALBUMINAR-5) 250 ML ASDIR PRN IV Calcium Gluconate (CALCIUM GLUCONATE 10%) 1,000 MG ASDIR PRN IV (r) Sodium Chloride (Sodiu m Chloride MINI-BAG) 100 MLDextrose/Water (DEXTROS E 50% IN WATER) 12.5 GM ASDIR PRN IV Dextrose/Wate r (DEXTROSE 50% IN WATER) 25 GM ASDIR PRN IV Dobutamine HCl/Dextrose (DOBUTamine HCL IN DEXTROSE) 250 ML ASDIR PRN IV Epinephrine (EPINEPHrine/NS 4MG/250ML) 250 ML ASDIR PRN IV Hydrocodone Bitart/Acetaminophen (NORCO 5/325 TABLET (C-II)) 1 TAB Q4H PRN PRN PO Hydrocodone Bitart/Acetaminophen (NORCO 5/325 TABLET (C-II)) 2 TAB Q4H PRN PRN PO Insulin Human Regular (INSULIN DRIP) 100 ML ASDIR IV (CKD) Lidocaine HCl/Dextrose (Lidocaine 0.4% in D5w Soln) 500 ML ASDIR PRN IV (CKD) Magnesium Sulfate (MAG SULFAT E 2GM PREMIX) 50 ML ASDIR PRN IV Magnesium Sulfate/Dextrose (Magnesium Sulfate) 100 ML ASDI R PRN IV Morphine Sulfate (morphine SULFATE (C-II) ) 2 MG Q15M PRN PRN IV Nicardipine HCl (CARDENE I.V.) 25 MG ASDIR PRN IV (CKD) Sodium Chloride (SODIUM CHLORIDE 0.9%) 250 MLOndansetron HCl (ZOFRAN) 4 MG Q8H PRN PRN IV Potassium Chloride (Potassium Chloride) 50 ML ASDIR PRN IV Potassiu m Chloride (POTASSIUM CHLORIDE 20 MEQ/100 ML) 100 ML ASDIR PRN IV (DCr) Potassium Chloride/Dextrose/Sod Cl (DEXTROSE 5%-1/4NS-KCL 20MEQ) 1,000 ML .[id number] IV Fentanyl Citrate (SUBLIMAZE (C-II)) 0 .STK-MED ONE .ROUTE (DC) Insulin Human Regular (HUMULIN R) 100 UNIT ASDIR IV (CKD) Sodium Chloride (SODIUM CHLORIDE 0.9%) 100 MLDiphenhydramine HCl (BENADRYL) 0 .STK-MED ONE .ROUTE (DC) Famotidine (PEPCID) 0 .STK-MED ONE .ROUTE (DC) Calcium Chloride (CALCIUM CHLORIDE) 0 .STK-MED ONE .ROUTE (DC) Midazolam HCl (VERSED (C-IV)) 0 .STK-MED ONE .ROUTE (DC) Sodium Bicarbonate (Sodium Bicarbonate) 50 MEQ ASDIR PRN IV Vecuronium Upperglade (NORCURON) 0 .STK-MED ONE .ROUTE (DC) Bupivacaine HCl (SENSORCAINE 0.5%) 0 .STK-MED ONE .ROUTE (DC) Cardioplegic Solution (PLEGISOL) 5,000 ML .STK-MED ONE IV (DC) Gentamicin Sulfate/Sodium Chloride (GENTAMICIN SULFATE IN NS) 100 ML .STK-MED ONE IV (DC) Heparin Sodium/Sodium Chloride (HEPARIN 1000 UNITS/NS 500ML) 500 ML .STK-MEDONE IV (DC) Phenylephrine HCl (BREEZY-SYNEPHRINE/NS 10MG/100ML) 100 ML .STK-MED ONE IV (DC) Protamine Sulfate (PROTAMINE SULFATE ) 0 .STK-MED ONE .ROUTE (DC) Papaverine HCl (PAPAVERINE HCL) 0 .STK-MED ONE .ROUTE (DC) Glycopyrrolate (ROBINUL IJ) 0 .STK-MED ONE .ROUT E (DC) Insulin Human Regular (HUMULIN R) 0 .STK-ME D ONE .ROUTE (DC) Insulin Human Regular (HUMULIN R ) 0 .STK-MED ONE .ROUTE (DC) Dextrose/Water (DEXTROSE 50% IN WATER) 12.5 GM ASDIR PRN IV (DC ) Dextrose/Water (DEXTROSE 50% IN WATER) 25 GM ASDIR PRN IV (DC) Insulin Human Regular (HUMULIN R) 6 UNIT STAT STA IV (DC) Vecuronium Upperglade (NORCURON) 0 .STK-MED ONE .ROUTE (DC) Etomidate (AMIDATE) 0 .STK-MED ONE .ROUTE (DC) Fentanyl Citrate (fentaNYL CITRATE (C-II)) 0 .STK-MED ONE .ROUTE (DC) Heparin Sodium (Porcine) (Heparin Sodium) 0 .STK-MED ONE .ROUTE (DC) Metoprolol Tartrate (LOPRESSOR 5MG IJ) 0 .STK-MED ONE .ROUT E (DC) Insulin Human Regular (HUMULIN R) 0 .STK-ME D ONE .ROUTE (DC) Lidocaine HCl (XYLOCAINE 1%) 5 M L .STK-MED ONE IV (DC) Midazolam HCl (VERSED (C-IV)) 0 .STK-MED ONE .ROUTE (DC) Dextrose/Wate r (DEXTROSE 50% IN WATER) 12.5 GM ASDIR PRN IV (DC ) Dextrose/Water (DEXTROSE 50% IN WATER) 25 GM ASDIR PRN IV (DC) Insulin Human Regular (HUMULIN R) 6 UNIT STAT STA IV (DC) Cefuroxime Sodium (ZINACEF) 0 .STK-MED ONE .ROUTE (DC) Cefuroxime Sodium (ZINACEF) 1.5 GM ONCALL IV (DC) Tranexami c Acid (CYKLOKAPRON) 1,000 MG ONCALL IV Sodium Chloride (SODIUM CHLORIDE 0.9%) 50 MLTranexamic Acid (CYKLOKAPRON) 2,000 MG ONCALL IV (CKD) Sodium Chloride (SODIUM CHLORIDE 0.9%) 250 ML Physical ExamGeneral appearance: alert, awake, orientedHead/Eyes: atraumatic, normocephalicENT: moist mucosal membranes, ETT in place.Neck: no JVDCardiovascular: CV assessment: regular rate and rhythmLower extremity: LE assessment: no edemaMusculoskeletal: full range of motionNeuro/BELT SANDER: alert, oriented X 3, CN II-XII intactSkin: dry, intactPsychiatry: normal affect , normal judgment/insight, normal mood ResultsFindings/Data:Laboratory Tests 06/11 05/14 1 06/11 06/11 1430 1352 1300 1203 Blood Gas Puncture Site LINE O2 Saturation (92.0 - 98.5 %) 100.0 H 99.7 H 100.0 H ABG pH (7.35 - 7.45 mmHg) 7.42 7.426 7.329 L 7.356 ABG pCO2 (35.0 - 45.0 mmHg) 33.7 L 38.1 41.1 45.0 ABG pO2 (80.0 - 100. 0 mmol/L) 451.2 H 379.9 *H 215.8 *H 441.9 *H ABG PO2/FiO2 Ratio (mm/Hg) 269.75 679.84 ABG HCO3 (20.0 - 26.0 mmol/L) 21.4 25.0 21.6 25.2 ABG O2 Saturation (95.0 - 100.0 %) 99.9 ABG Base Excess (-3.0 - 3.0 mmol/L) -2.2 0.7 -4.1 L -0.4 Twan Test (CHECK) NA Sodium (135 - 141 MMOL/L) 143 H 138 138 Potassium (3.7 - 4.7 MMOL/L) 4.3 5.1 H 4.3 Chloride (MEQ/L) 107 104 102 Ionized Calcium (1.13 - 1.32 MMOL/L) 1.31 1.13 1.08 L Temperature (37 C) 37.0 O2 Delivery Device VENT Vent Mode A/C Vent Rate (/MIN) 12.0 FiO2 (%) 10 0 80 65 Tidal Volume (ml) 500.0 PEEP (cmH2O) 5.0 Instrument (Specimen Descript) Arterial Arterial Arterial 06/11 06/11 1118 0808 Blood Gas O2 Saturation (92.0 - 98.5 %) 100.0 H 93.3 ABG pH (7.35 - 7.45) 7.372 7.405 ABG pCO2 (35.0 - 45.0 mmHg) 40.8 40.3 ABG pO2 (75.0 - 100.0) 423.0 *H 67.7 L ABG HCO3 (20.0 - 26.0 MMOL/L) 23.7 25.2 ABG Base Excess (-3.0 - 3.0 MMOL/L) -1.4 0.4 Sodium (135 - 141 MMOL/L) 139 141 Potassium (3.7 - 4.7 MMOL/L) 4.4 3.8 Chloride (MEQ/L) 105 104 Ionized Calcium (1.13 - 1.32 MMOL/L) 1.18 1.29 Instrument (Specimen Descript) Arterial Arterial Laboratory Tests 06/11 06/11 06/11 06/11 06/11 1352 1347 1300 1203 1118 Chemistry Sodium (137 - 145 MMOL/L) 140 Potassium (3.5 - 5.1 MMOL/L) 4.2 Chloride (98 - 107 MMOL/L) 109 H Carbon Dioxide (22 - 30 MMOL/L) 24 Anion Gap (14 - 24 MMOL/L) 1 1 L BUN (9 - 20 MG/DL) 17 Creatinine (0.66 - 1.25 MG/DL) 0.70 Glomerular Filtr Rate > 60 Glucos e (74 - 106 MG/DL) 119 H POC Glucose (60 - 99 MG/DL) 110 H 124 H 140 H 215 H POC Lactic Acid (0.7 - 2.0 mmol/L) 1.66 1.61 2.20 *H 1.63 Calciu m (8.4 - 10.2 MG/DL) 9.1 06/11 06/11 06/11 06/11 0958 0854 0808 0708 Chemistry Sodium (137 - 145 MMOL/L) 141 Potassium (3.5 - 5.1 MMOL/L) 4.5 Chloride (98 - 107 MMOL/L) 107 Carbon Dioxide (2 2 - 30 MMOL/L) 22 Anion Gap (14 - 24 MMOL/L) 17 BU N (9 - 20 MG/DL) 18 Creatinine (0.66 - 1.25 MG/DL) 0.70 Glomerular Filtr Rate > 60 Glucose (74 - 10 6 MG/DL) 159 H POC Glucose (60 - 99 MG/DL) 159 H 278 H 285 H POC Lactic Acid (0.7 - 2.0 mmol/L) 1.01 Calcium (8.4 - 10.2 MG/DL) 9.3 Laboratory Tests 06/11 1347 Coagulation INR (0.86 - 1.14) 1.4 H APTT (26.2 - 35.4 SECONDS) 37.1 H PT Patient/Control Mix (9.4 - 12.7 SECONDS) 15.6 H Laboratory Tests 06/11 06/11 1347 0958 Hematolog y WBC (3.8 - 9.8 K/MM3) 14.5 H 6.9 RBC (3.95 - 5.6 7 M/MM3) 3.72 L 4.21 Hgb (12.4 - 16.7 G/DL) 11.7 L 13.1 Hct (35.9 - 49.5 %) 34.2 L 38.3 MCV (81.7 - 96.1 fL) 92 91 MCH (27.6 - 33.2 pg) 31.5 31.1 MCHC (32.9 - 35.5 %) 34.2 34.2 RDW (12.1 - 15.2 %) 12.6 12.7 Plt Count (129 - 368 K/MM3) 146 243 MPV (7.4 - 10.4 fl) 10.3 9.9 Neut % (Auto) (43 - 75 %) 72.1 57.2 Lymph % (Auto) (14 - 44 %) 22.0 35.0 [place] % (Auto) (4 - 13 %) 4.3 6.0 Eos % (Auto) (0 - 6 %) 0.4 0.7 Baso % (Auto) (0 - 2 %) 0.5 1.0 Neut # (Auto) (2.0 - 7.6 K/mm3) 10.44 H 3.91 Lymph # (Auto) (1.0 - 3.8 K/mm3) 3.19 2.40 [place] # (Auto) (0.1 - 0.8 K/mm3) 0.62 0.41 Eos # (Auto) (0.0 - 0.2 K/mm3) 0.06 0.05 Baso # (Auto ) (0.0 - 0.2 K/mm3) 0.07 0.07 Immature Gran % (0.0 - 2.0 %) 0.7 0.1 Nucleated RBC % (0 - 1.0 %) 0.0 0.0 Nucleated RBCs # (Man) (0.0 - 0.1 K/mm3) 0.0 0 0.00 Laboratory Tests 06/11 1347 Coagulation APTT (26.2 - 35.4 SECONDS) 37.1 H Radiology data:Recent Impressions:RADIOLOGY - XR CHEST 1V 06/11 1400 Report Impression - Status: SIGNED Entered: 06/11/2021 1453 IMPRESSION:Mild bibasilar atelectasis.Impression By: AmbrocioPR7 - Joseph Mendez MD Diagnosis, Assessment Plan Free Text DxA P NotesFree Text DxA P Notes:IMP: CAD s/p ACB 06/11/21 - HTN HLP DM PLAN: Wean vent Wea n pressors Home medications when able. at 0729 RPT #:[id number] OF REPORTPRProgress [id number]:15:00Z.[id number] shiv able for patient [id number]:30:11 2021-06-11 15:37:00 [id number]:37:00 [facility] ([facility])Hospitalist ConsultationREPORT#:[id number] REPORT STATUS: SignedDATE:06/11/21 TIME: 1537 PATIENT: DIALLO COCHRAN UNIT #: [id number]#: [id number] [address] AGE: 71 SEX: M ATTEND: Tree Sparks [facility] AUTHOR: Marianna Olvera MD * ALL edits or amendments must be made on the electronic/computer document * History of Present IllnessRequesting Clinician: Dr Payne for consult:Medical treatmentChief complaint:THis is a 71 y/o male w unstable angina recently diagnosed CAD, came in for CABG. POst CABG in ICU intubated on epi drip . No xtra bleeding during surgery.PCP:PCP: Undefined Provider History - Adult longitudinalPast medical history:Reports: Coronary artery disease, Diabetes mellitus, Hypertension, Dyslipidemia. Past surgical history:Reports: Appendectomy. Family history:Reports: Heart disease. Alcohol use: Denies EtOH useDrug use: Denies recreational drugsSmoking status: Smoking status for patients 13 years old or older: Never SmokerMedications:Home Medications: Medication Dose/Rte/Freq Days Qty Entered Last Max Daily Dose Reviewed ATORVASTATIN (LIPITOR) 20 MG PO DAILY 06/06/21 Strength: 20 MG TAB 0442 metFORMI N (GLUCOPHAGE) 1,000 MG PO BID 06/10/21 Strength: 1,000 MG TAB 1445 ENALAPRIL (VASOTEC) 10 MG PO DAILY 06/06/21 Strength: 10 MG TAB 0442 Current Hospital Medications:Anti-Infective Agents Sig/[place] Start time Last Medication Dose Route Stop Time Status Admin Cefuroxime Sodium 1.5 GM Q8H 06/11 2100 AC (ZINACEF) IV 06/13 1301 Cefuroxime Sodium 1.5 GM Q8H 06/11 1500 DC (ZINACEF) IV 06/13 0701 Gentamicin Sulfate/ 100 ML .STK-MED ONE 06/11 1038 DC Sodium Chloride IV (GENTAMICIN SULFATE IN NS) Cefuroxime Sodium 0 .STK-MED ONE 06/11 0724 DC (ZINACEF) .ROUTE Cefuroxime Sodium 1.5 GM ONCALL 06/11 0700 DC (ZINACEF) IV 06/11 1500 Antihistamine Drugs Sig/[place] Start time Last Medication Dose Route Stop Time Status Admin Diphenhydramine HCl 0 .STK-MED ONE 06/11 1239 DC (BENADRYL) .ROUTE Autonomic Drugs Sig/[place] Start time Last Medication Dose Route Stop Time Status Admin Dobutamine HCl/ 250 ML ASDIR PRN 06/11 1415 AC Dextrose IV 07/11 1416 (DOBUTamine HCL IN DEXTROSE) Epinephrine 250 ML ASDIR PRN 06/11 141 5 AC (EPINEPHrine/NS 4MG/ IV 07/11 1416 250ML) Vecuronium Upperglade 0 .STK-MED ONE 06/11 1112 DC (NORCURON) .ROUTE Phenylephrine HCl 100 ML .STK-MED ONE 06/11 1038 DC (BREEZY-SYNEPHRINE/NS IV 10MG/100ML) Glycopyrrolate 0 .STK-MED ONE 06/11 1021 DC (ROBINUL IJ) .ROUTE Vecuronium Upperglade 0 .STK-MED ONE 06/11 0814 DC (NORCURON) .ROUTE Blood Derivatives Sig/Brenton Start time Last Medication Dose Route Stop Time Status Admin Albumin Human 250 ML ASDIR PRN 06/11 1415 AC (ALBUMINAR-5) IV 06/12 1416 Blood Formation,Coagulation Sig/B[place]on Start time Last Medication Dose Route Stop Time Status Admin Clopidogrel Bisulfate 75 MG DAILY 06/12 0900 AC (PLAVIX) PO 07/12 0901 Heparin Sodium/ 500 ML .STK-MED ONE 06/11 1038 DC Sodium Chloride IV (HEPARIN 1000 UNITS/ NS 500ML) Protamine Sulfat e 0 .STK-MED ONE 06/11 1038 DC (PROTAMINE SULFATE) .ROUTE Heparin Sodium 0 .STK-MED ONE 06/11 0813 DC (Porcine) .ROUTE (Heparin Sodium) Tranexamic Acid 1,000 MG ONCALL 06/11 0700 AC (CYKLOKAPRON) IV 06/11 2300 Sodium Chloride 50 ML (SODIUM CHLORIDE 0.9%) Tranexamic Acid 2,000 MG ONCALL 06/11 0700 CKD (CYKLOKAPRON) IV 06/11 2300 Sodium Chloride 250 ML (SODIUM CHLORIDE 0.9%) Cardiovascular Drugs Sig/Brent[place] Start time Last Medication Dose Route Stop Time Status Admin Atorvastatin Calcium 20 MG BEDTIME 06/11 2100 AC (LIPITOR) PO 07/11 2101 Lidocaine HCl/ 500 ML ASDIR PRN 06/11 1415 CKD Dextrose IV 07/11 1416 (Lidocaine 0.4% in D5w Soln) Nicardipine HCl 25 MG ASDIR PRN 06/11 1415 CKD (CARDENE I.V.) IV 07/11 1416 Sodium Chloride 250 ML (SODIUM CHLORIDE 0.9%) Papaverine HCl 0 .STK-MED ONE 06/11 1037 DC (PAPAVERINE HCL) .ROUTE Metoprolol Tartrate 0 .STK-MED ONE 06/11 0813 DC (LOPRESSOR 5MG IJ) .ROUTE Lidocaine HCl 5 ML .STK-MED ONE 06/11 0739 DC (XYLOCAINE 1%) IV Central Nervous System Agents Sig/[place] Start time Last Medication Dose Route Stop Time Status Admin Gabapentin 100 MG 2100 06/12 2100 AC (NEURONTIN) PO 06/15 2100 Aspirin 81 MG DAILY 06/12 0900 AC (CHILDREN'S ASPIRIN) PO 07/12 0901 Aspirin 162 MG ONCE ONE 06/11 1614 DC 06/11 (CHILDREN'S ASPIRIN) PO 06/11 1615 1625 Meperidine HCl 25 MG Q4H PRN PRN 06/11 1425 AC (DEMEROL (C-II)) IM 07/11 1416 Meperidine HCl 50 MG Q4H PRN PRN 06/11 1425 AC (DEMEROL (C-II)) IM 07/11 1416 Hydrocodone Bitart/ 1 TAB Q4H PRN PRN 06/11 1415 AC Acetaminophen PO 07/11 1416 (NORCO 5/325 TABLET (C-II)) Hydrocodone Bitart/ 2 TAB Q4H PRN PRN 06/11 1415 AC Acetaminophen PO 07/11 1416 (NORC O 5/325 TABLET (C-II)) Magnesium Sulfate/ 100 ML ASDIR PRN 06/11 1415 AC Dextrose IV 07/11 1416 (Magnesium Sulfate) Morphine Sulfate 2 MG Q15M PRN PRN 06/11 1415 AC (morphine SULFATE (C- IV 07/11 1416 II)) Fentanyl Citrate 0 .STK-MED ONE 06/11 1335 DC (SUBLIMAZE (C-II)) .ROUTE Midazola m HCl 0 .STK-MED ONE 06/11 1235 DC (VERSED (C-IV)) .ROUTE Etomidate 0 .STK-MED ONE 06/11 0813 DC (AMIDATE) .ROUTE Fentanyl Citrate 0 .STK-MED ONE 06/11 0813 DC (fentaNYL CITRATE (C- .ROUTE II)) Midazolam HCl 0 .[facility]-MED ONE 06/11 0739 DC (VERSED (C-IV)) .ROUTE Electrolytic, Caloric, An d Alexis Sig/B[place] Start time Last Medication Dose Route Stop Time Status Admin Calcium Gluconate 1,000 MG ASDIR PRN 06/11 1415 AC (CALCIUM GLUCONATE IV 07/11 141 10%) Sodium Chloride 100 ML (Sodium Chloride MINI-BAG) Dextrose/Water 12.5 GM ASDIR PRN 06/11 1415 AC (DEXTROSE 50% IN IV 07/11 141 WATER) Dextrose/Water 25 GM ASDIR PRN 06/11 1415 AC (DEXTROSE 50% IN IV 07/11 141 WATER) Potassium Chloride 50 ML ASDIR PRN 06/11 1415 AC (Potassium Chloride) IV 07/11 141 Potassium Chloride 100 ML ASDIR PRN 06/11 1415 A C (POTASSIUM CHLORIDE IV 07/11 141 20 MEQ/100 ML) Potassium Chloride/ 1,000 ML .[id number] 06/11 1415 AC 06/11 Dextrose/Sod Cl IV 07/11 1416 1549 (DEXTROSE 5%-1/4NS- KCL 20MEQ) Calcium Chloride 0 .[facility]-MED ONE 06/11 1238 DC (CALCIUM CHLORIDE) .ROUTE Cardioplegic Solution 5,000 ML .K-MED ONE 06/11 1038 DC (PLEGISOL) IV Dextrose/Water 12.5 GM ASDIR PRN 06/11 0820 DC (DEXTROSE 50% IN IV 07/11 0821 WATER) Dextrose/Water 25 GM ASDIR PRN 06/11 0820 DC (DEXTROSE 50% IN IV 07/11 082 1 WATER) Dextrose/Water 12.5 GM ASDIR PRN 06/11 0735 DC (DEXTROSE 50% IN IV 07/11 0736 WATER) Dextrose/Water 25 GM ASDIR PRN 06/11 0735 DC (DEXTROSE 50% IN IV 07/11 0736 WATER) Gastrointestinal Drugs Sig/B[place] Start time Last Medication Dose Route Stop Time Status Admin Famotidine 20 MG BID 06/11 2100 AC (PEPCID) IV 07/11 2101 Ondansetron HCl 4 MG Q8H PRN PRN 05/14 1 1415 AC (ZOFRAN) IV 07/11 1416 Famotidine 0 .STK-MED ONE 06/11 1239 DC (PEPCID) .ROUTE Sodium Bicarbonate 50 MEQ ASDIR PRN 06/11 1215 A C 06/11 (Sodium Bicarbonate) IV 07/11 1216 1617 Hormones And Synthetic Substit Sig/[place] Start rachell e Last Medication Dose Route Stop Time Status Admi n Insulin Human Regular 100 ML ASDIR 06/11 1415 CK D (INSULIN DRIP) IV 07/11 1416 Insulin Human Regular 100 UNIT ASDIR 06/11 1300 CKD (HUMULIN R ) IV 07/11 1301 Sodium Chloride 100 ML (SODIUM CHLORIDE 0.9%) Insulin Human Regular 0 .STK-MED ONE 06/11 0823 DC (HUMULIN R) .ROUTE Insulin Human Regular 0 .STK-MED ONE 06/11 0823 DC (HUMULIN R) .ROUTE Insulin Human Regular 6 UNIT STAT STA 06/11 0817 DC 06/11 (HUMULIN R) IV 05/14 1 0818 0825 Insulin Human Regular 0 .STK-MED ONE 06/11 0745 DC (HUMULIN R) .ROUTE Insulin Human Regular 6 UNIT STAT STA 06/11 0732 DC 06/11 (HUMULIN R) IV 06/11 0733 0747 Local Anesthetics (Parenteral) Sig/B[place] Start time Last Medication Dose Route Stop Time Status Admin Bupivacaine HC l 0 .STK-MED ONE 06/11 1038 DC (SENSORCAINE 0.5%) .ROUTE Miscellaneous Therapeutic Agen Sig/[place] Start time Last Medication Dose Route Stop Time Status Admin Magnesium Sulfate 50 ML ASDIR PRN 06/11 1415 AC (MAG SULFATE 2GM IV 07/11 1416 PREMIX) Skin And Mucous Membrane Agent Sig/[place] Start time Last Medication Dose Route Stop Time Status Admin Mupirocin 1 APPLIC BID 06/11 2100 AC (BACTROBAN NASAL - NASAL 06/16 0901 ADULT ICU ) Allergies:Coded Allergies:No Known Allergies (06/06/21) Review of SystemsUnable to obtain due to:intubated ObjectiveVS/I OLast Documented: Result Date Time Temp 99.0 06/11 1430 FiO2 100 06/11 1430 O2 Delivery Ventilator 06/11 1430 Pulse Ox 100 06/11 0600 B/P 166/80 06/11 0600 Pulse 67 06/11 0600 Resp 18 06/11 0600 24 hour I O ending at 0700: 06/11 0700 06/10 1900 Intake Total Output Total Balance Patient 69.091 kg Weight Weight Stated/Reported Measurement Metho d General appearance: altered mental statusHead/Eyes: atraumaticENT: intubatedNeck: swanCardiovascular: normal heart sounds, regular rate rhythm, Central line Chest tubesRespiratory : aerating well, clear to auscultationAbdomen: non-tender, normal bowel sounds, softGenitourinary: urinary catheterExtremities: edema, no clubbing, no cyanosis, R femoral arrt line R art line radialMusculoskeletal: legs wrappedNeuro/BELT SANDER: altered mental statusPsychiatry: unable to evaluate ResultsFindings/Data:Laboratory Tests: 06/11 06/11 06/11 1430 1352 1347 Blood Gas Puncture Site LINE O2 Saturation (92.0 - 98.5 %) 100.0 H ABG pH (7.35 - 7.45 mmHg) 7.42 7.426 ABG pCO2 (35.0 - 45.0 mmHg) 33.7 L 38.1 ABG pO2 (80.0 - 100.0 mmol/L) 451.2 H 379.9 *H ABG HCO3 (20.0 - 26.0 mmol/L) 21.4 25.0 ABG O2 Saturation (95.0 - 100.0 %) 99.9 ABG Base Excess (-3.0 - 3.0 mmol/L ) -2.2 0.7 Twan Test (CHECK) NA Sodium (135 - 141 MMOL/L) 143 H Potassium (3.7 - 4.7 MMOL/L) 4.3 Chloride (MEQ/L) 107 Ionized Calcium (1.13 - 1.3 2 MMOL/L) 1.31 Temperature (37 C) 37.0 O2 Delivery Device VENT Vent Mode A/C Vent Rate (/MIN) 12.0 FiO2 (%) 100 Tidal Volume (ml) 500.0 PEEP (cmH2O ) 5.0 Instrument (Specimen Descript) Arterial Chemistry Sodium (137 - 145 MMOL/L) 140 Potassiu m (3.5 - 5.1 MMOL/L) 4.2 Chloride (98 - 107 MMOL/L ) 109 H Carbon Dioxide (22 - 30 MMOL/L) 24 Anion Gap (14 - 24 MMOL/L) 11 L BUN (9 - 20 MG/DL) 17 Creatinine (0.66 - 1.25 MG/DL) 0.70 Glomerular Filtr Rate > 60 Glucose (74 - 106 MG/DL) 119 H POC Glucose (60 - 99 MG/DL) 110 H POC Lactic Aci d (0.7 - 2.0 mmol/L) 1.66 Calcium (8.4 - 10.2 MG/DL) 9.1 Coagulation INR (0.86 - 1.14) 1.4 H APTT (26.2 - 35.4 SECONDS) 37.1 H PT Patient/Control Mix (9.4 - 12.7 SECONDS) 15.6 H Hematology WBC (3.8 - 9.8 K/MM3) 14.5 H RBC (3.9 5 - 5.67 M/MM3) 3.72 L Hgb (12.4 - 16.7 G/DL) 11.7 L Hct (35.9 - 49.5 %) 34.2 L MCV (81.7 - 96.1 fL) 92 MCH (27.6 - 33.2 pg) 31.5 MCHC (32.9 - 35.5 %) 34.2 RDW (12.1 - 15.2 %) 12.6 Plt Count (129 - 368 K/MM3) 146 MPV (7.4 - 10.4 fl) 10.3 Neut % (Auto) (43 - 75 %) 72.1 Lymph % (Auto) (1 4 - 44 %) 22.0 [place] % (Auto) (4 - 13 %) 4.3 Eos % (Auto) (0 - 6 %) 0.4 Baso % (Auto) (0 - 2 %) 0.5 Neut # (Auto) (2.0 - 7.6 K/mm3) 10.44 H Lymph # (Auto) (1.0 - 3.8 K/mm3) 3.19 [place] # (Auto) (0. 1 - 0.8 K/mm3) 0.62 Eos # (Auto) (0.0 - 0.2 K/mm3) 0.06 Baso # (Auto) (0.0 - 0.2 K/mm3) 0.07 Immature Gran % (0.0 - 2.0 %) 0.7 Nucleated RBC % (0 - 1.0 %) 0.0 Nucleated RBCs # (Man) (0.0 - 0.1 K/mm3) 0.00 06/11 06/11 06/11 06/11 1300 1203 1118 0958Blood Gas O2 Saturation (92.0 - 98.5 %) 99.7 H 100.0 H 100.0 H ABG pH (7.35 - 7.45) 7.329 L 7.356 7.372 ABG pCO2 (35.0 - 45.0 mmHg) 41.1 45.0 40.8 ABG pO2 (75.0 - 100.0) 215. 8 *H 441.9 *H 423.0 *H ABG PO2/FiO2 Ratio (mm/Hg) 269.75 679.84 ABG HCO3 (20.0 - 26.0 MMOL/L) 21.6 25.2 23.7 ABG Base Excess (-3.0 - 3.0 MMOL/L) -4.1 L -0.4 -1.4 Sodium (135 - 141 MMOL/L) 138 138 139 Potassium (3.7 - 4.7 MMOL/L) 5.1 H 4.3 4.4 Chloride (MEQ/L) 104 102 105 Ionized Calcium (1.13 - 1.32 MMOL/L) 1.13 1.08 L 1.18 FiO2 (21 - 100 %) 80 65 Instrument (Specimen Descript) Arterial Arterial ArterialChemistry Sodium (137 - 145 MMOL/L) 141 Potassium (3.5 - 5.1 MMOL/L) 4.5 Chloride (98 - 107 MMOL/L) 107 Carbon Dioxide (22 - 30 MMOL/L) 22 Anion Gap (14 - 24 MMOL/L) 17 BUN (9 - 20 MG/DL) 18 Creatinine (0.66 - 1.25 MG/DL) 0.70 Glomerular Filtr Rate > 60 Glucose (74 - 106 MG/DL) 159 H POC Glucose (60 - 99 MG/DL) 124 H 140 H 215 H POC Lactic Acid (0.7 - 2.0 mmol/L) 1.61 2.20 *H 1.63 Calcium (8.4 - 10. 2 MG/DL) 9.3Hematology WBC (3.8 - 9.8 K/MM3) 6.9 RBC (3.95 - 5.67 M/MM3) 4.21 Hgb (12.4 - 16.7 G/DL) 13.1 Hct (35.9 - 49.5 %) 38.3 MCV (81.7 - 96.1 fL) 91 MCH (27.6 - 33.2 pg) 31.1 MCHC (32.9 - 35.5 %) 34.2 RDW (12.1 - 15.2 %) 12.7 Plt Count (129 - 368 K/MM3) 243 MPV (7.4 - 10.4 fl) 9.9 Neut % (Auto) (43 - 75 %) 57.2 Lymph % (Auto ) (14 - 44 %) 35.0 [place] % (Auto) (4 - 13 %) 6.0 Eos % (Auto) (0 - 6 %) 0.7 Baso % (Auto) (0 - 2 %) 1.0 Neut # (Auto) (2.0 - 7.6 K/mm3) 3.91 Lymp h # (Auto) (1.0 - 3.8 K/mm3) 2.40 [place] # (Auto) (0.1 - 0.8 K/mm3) 0.41 Eos # (Auto) (0.0 - 0.2 K/mm3) 0.05 Baso # (Auto) (0.0 - 0.2 K/mm3) 0.07 Immature Gran % (0.0 - 2.0 %) 0.1 Nucleated RBC % (0 - 1.0 %) 0.0 Nucleated RBCs # (Man) (0.0 - 0. 1 K/mm3) 0.00 06/11 06/11 06/11 0854 0808 0708 Blood Gas O2 Saturation (92.0 - 98.5 %) 93.3 ABG pH (7.35 - 7.45) 7.405 ABG pCO2 (35.0 - 45.0 mmHg) 40.3 ABG pO2 (75.0 - 100.0) 67.7 L ABG HCO3 (20.0 - 26.0 MMOL/L) 25.2 ABG Base Excess (-3.0 - 3.0 MMOL/L) 0.4 Sodium (135 - 141 MMOL/L) 141 Potassium (3.7 - 4.7 MMOL/L) 3.8 Chloride (MEQ/L) 104 Ionized Calcium (1.13 - 1.3 2 MMOL/L) 1.29 Instrument (Specimen Descript) Arterial Chemistry POC Glucose (60 - 99 MG/DL) 159 H 278 H 285 H POC Lactic Acid (0.7 - 2.0 mmol/L) 1.01 Radiology data:Recent Impressions:RADIOLOGY - XR CHEST 1V 06/11 1400 * Report Impression - Status: SIGNED Entered: 06/11/2021 1453 IMPRESSION:Mild bibasilar atelectasis.Impression By: Jia Mendez MD Diagnosis, Assessment PlanProblem List/A P: 1. S/P CABG (coronary artery bypass graft) 2. HTN (hypertension) 3. HLD (hyperlipidemia) 4. Diabetes Consultants: cardiology Free Text DxA P NotesFree Text DxA P Notes:planThank you for the consult, will follow w youPt on Epi, to be weanedOn insulin drip for 24 hoursIntubated to be weanedDVT prophylaxis Quality: Gen Med Crit Care VTE ProphylaxisVTE prophylaxis initiated: yes Current MedicationsCurrent medication review:I attest that the foregoing medication list in the medica l record is true, accurate, and complete to the best of my knowledge. Advanced Care Plan 65 or OlderDiscussed with: patientDiscussion included: code status at 1754 RPT #:[id number] O F [id number]:37:00Z.PDOC 2 [id number] for patient [id number]:54:32 2021-06-11 15:02:00 [id number] [place] [address] PATIENT NAME: DIALLO COCHRAN ADMIT DATE: 06/11/21ACCOUNT NO: [id number] ROOM NO: Z.SI02 AGE: 71 REPORT TYPE: ELECTROCARDIOGRA M SEX: M ADMITTING PHYSICIAN:Tree Sparks MD ATTENDING PHYSICIAN:Tree Sparks MD Order:[id number] Reason : CAD POST cab Test Date/Time Stamp:TueJun 11 2021 15:02:43Blood Pressure : / mmHGVent. Rate : 100 BPM Atrial Rate : 100 BPM P-R Int : 188 ms QRS Dur : 084 ms QT Int : 352 ms P-R-T Axes : 05 5 -84 075 degrees QTc Int : 454 ms Poor data quality, interpretation may be adversely affectedElectronic ventricular pacemakerWhen compared with ECG of 11-JUN-2021 07:30,Electroni c ventricular pacemaker has replaced Sinus rhythmVent. rate has increased BY 37 BPMConfirme d by TEJINDER MACEDO ([id number]) on 06/12/2021 8:54:58 AM Referred By: Tree Sparks Confirmed by:TEJINDER MACEDO at 0854 PATIENT NAME: DIALLO COCHRAN .[id number] AVAvailable for patient [id number]:55:20 2021-06-11 14:48:00 [id number] [place] [address] PATIENT NAME: DIALLO COCHRAN ADMIT DATE: 06/11/21ACCOUNT NO: [id number] ROOM NO: Z.SI02 AGE: 71 REPORT TYPE: OPERATIVE REPORT SEX: M ADMITTING PHYSICIAN:Tree Sparks MD ATTENDING PHYSICIAN:Tree Sparks MD OPERATIO N DATE: 06/11/2021 CARDIAC SURGERY SERVICE PREOPERATIVE DIAGNOSES: Coronary artery disease, hypertension, hyperlipidemia,and diabetes mellitus. POSTOPERATIVE DIAGNOSES: Coronary artery disease, hypertension, hyperlipidemia,and diabetes mellitus. PROCEDURE: Right CVP insertion, left femoral arterial monitor line insertion,ultrasound-guided access with SonoSite , right subclavian vein, left commonfemoral artery , aortocoronary bypass x3 with FLORES to the LAD, saphenous vein tothe ramus and the OM, endoscopi c harvesting right greater saphenous vein. SURGEON : Tree Sparks MD PULP REFINER OPERATOR: Ericka Mcintosh PA-C ANESTHESIA: General. COMPLICATIONS: None. DISPOSITION: The patient to surgical ICU in stable condition. DESCRIPTION OF PROCEDURE: On 06/11/2021, patient was brought to the operatingroom, placed on the operating table in supine position, prepped and draped inusual fashion. Following introduction of satisfactory general anesthesia,placement of appropriate monitoring line, Bolaños catheter, hips, shoulders , andelbows padded in usual fashion. Right subclavian CVP was placed using Seldingerpercutaneous guidewire technique and ultrasound-guided access with SonoSite,right subclavian vein. The patient was then prepped an d draped in usualfashion. Greater saphenous vein was harvested from the right leg usingendoscopic vein harvesting technique. Simultaneously, a median sternotomy wasperformed, left BENEDICTO was harvested. The patient was heparinized, cannulated, puton full bypass, cooled to 20 degrees centigrade. Topical iced saline placedpericardial well. Aorta cross clamped. Col d potassium cardioplegia solutioninfused at aortic root, re-infused after each anastomosis. The patient hadcontinuous crystalloid retrograde cardioplegia infused. During ischemic period,bypass done with 7-0 Prolene Surgicel saphenous vein to the OM1 and then to theramus, left BENEDICTO to the LAD anastomosed on running 7-0 Prolene suture. Thepatient placed in Trendelenburg. Aortic cross-clamp was removed. Air was PATIENT NAME: DIALLO COCHRAN purged through the aorti c sump cannula. Partial clamps were placed. Aortotomywas made with a 4-0 punch, proximal anastomosis with 5-0 Prolene suture, partialclam p removed. Air was purged with 27-gauge needle. Th e patient defibrillated,rewarmed, weaned from bypass, stable output rhythm, protamine infused,decannulated. All surgical sites were inspected and hemostatic. Mediastinalpleural chest tube placed. The ventriculoatrial skin wir e placed. Chest wallclosed in standard fashion. Th e patient was brought out to the surgical ICU instable condition. Dictated By: Tree Sparks MD WT: OP:Z.AMELIA/JOSELO/CHACEDD: 06/11/2021 14:48:04DT: 06/11/2021 18:04:04Conf#: [id number]/DID#: [id number] cc: Tejinder Macedo MD Authenticated by Tree Sparks MD On 06/12/2021 03:22:15 PM at 0322 PATIENT NAME: DIALLO COCHRAN [id number]:04:00Z.[id number] i lable for patient [id number]:22:40 2021-06-11 07:30:00 [id number] [place] [address] PATIENT NAME: DIALLO COCHRAN ADMIT DATE: ACCOUNT NO: [id number] BRENDA Juarez NO: AGE: 71 REPORT TYPE: ELECTROCARDIOGRAM SEX: M ADMITTING PHYSICIAN:Tree Sparks MD ATTENDING PHYSICIAN:Tree Sparks MD Order:[id number] Reason : PREOP Test Date/Time Stamp:TueJun 11 2021 07:30:28Blood Pressure : / mmHGVent. Rate : 063 BPM Atrial Rate : 063 BPM P-R Int : 144 ms QRS Dur : 088 ms QT Int : 404 ms P-R-T Axes : 025 018 048 degrees QTc Int : 413 ms Normal sinus rhythmNormal ECGWhen compared with ECG of 06-JUN-2021 05:03,No significant change was foundConfirmed by TEJINDER MACEDO ([id number]) on 06/11/2021 12:15:21 PM Referred By: Tree alfaro Confirmed by:TEJINDER MACEDO at 1215 PATIENT NAME: DIALLO COCHRAN .[id number] AVAvailable for patient [id number]:15:[id number] 2021-06-06 14:29:00 [id number] [facility] [address] [address] PATIENT NAME: DIALLO COCHRAN ADMIT DATE: 06/06/21ACCOUNT NO: [id number] ROOM NO: AGE: 71 REPORT TYPE: CONSULTATION REPORT SEX: M ADMITTING PHYSICIAN: ATTENDING PHYSICIAN:Tejinder Macedo MD CONSULTATION DATE: 06/06/2021 CONSULTING PHYSICIAN: Tree Sparks MD CARDIAC SURGERY SERVICE The patient is seen at bedside in the post-cath recovery area. The patient isstable following cardiac catheterization. This is a 71-year-old man who hasbeen having shortness of breath, some dyspnea and some angina-type symptoms whohas been seen b y Dr. Macedo a positive stress test. Echocardiogram showedabout 50% ejection fraction . The patient is ready for cardiac cath showingsevere multivessel coronary artery disease. He is not a candidate forangioplasty or stent with multivessel coronary artery bypass surgery as his bestoption. The patient has hypertension, hyperlipidemia, and diabetes . The patient is on baby aspirin 81 every day. The patient denies having historyof smoking. 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 REVIE W OF SYSTEMS: Otherwise, is negative. No history o f hemophilia,coagulopathy, varicose vein stripping or phlebitis. PHYSICAL EXAMINATION:GENERAL: Demonstrates well-nourished male, no apparent distress.NECK: No carotid bruits. Carotid pulse present. Radial pulse present.CHEST: Clear.HEART : Regular rate and rhythm without murmur.ABDOMEN: Soft, nontender, without mass.EXTREMITIES: Femoral pulse present. Popliteal pedal pulse absent.BREAST AND RECTAL: Not done.NEUROLOGIC: Physiological. ASSESSMENT: Severe multivessel coronary artery disease. RECOMMENDATION: For the patient to have coronary bypass surgery procedure. Alternatives, possible risks and complications including the inherent and otherrisks of surgery were explained to the patient and family. They understand andaccept an d want to proceed. They had a chance to ask question and want toproceed. Dictated By: Tree Sparks MD PATIENT NAME: DIALLO COCHRAN WT: CON:LebronAMELIA/JOSELO/NTSDD: 06/06/2021 14:29:03DT: 06/06/2021 16:52:25Conf#: [id number]/DID#: [id number] Authenticated by Tree Sparks MD On 07/05/2021 02:36:46 PM at 0236 PATIENT NAME: DIALLO COCHRAN :52:00Z.H I [id number] for patient [id number]:37:18 2021-06-06 09:57:00 [id number] [place] [address] PATIENT NAME: DIALLO COCHRAN ADMIT DATE: 06/06/21ACCOUNT NO: [id number] BRENDA Juarez NO: AGE: 71 REPORT TYPE: ECHOCARDIOGRAM SEX: M ADMITTING PHYSICIAN: ATTENDING PHYSICIAN:Tejinder Macedo MD *[facility]*[address] [place], [place] [address]Phone Transthoracic Echocardiogram Patient: Feliz Cochranudarben Date: 06/06/2021 BP: 133 / 70 Location: [facility]OCWUURN: [id number] : 1950 Age: 71 Height: 63 in / 160 cmAccession#: [id number] Gender: M Weight: 149.7 lb / 68 kgBMI/BSA: 26.6 kg/m 2 / 1.76 m 2 *Ordering Physician: * Tejinder Macedo MD *Interpreting Physician: * Tejinder Macedo MD*Shank Inspector: * Danielito REVELES, [facility], S - Study data: Transthoracic echocardiogram. Procedure: Transthoracicechocardiography was performed. Images were obtained using a [employer] cardiac[employer]quamarine Power d machine. Image quality was adequate. M-mode, complete 2D,complete spectral Doppler, and color Doppler. Location:Catheterization laboratory. Patient status: Outpatient. Patient roomnumber: Assessment Services Manager Holding Room 2. Study status: Routine. - Findings Left ventricle: The cavity size is normal. There is no hypertrophy.Systolic function is normal. The estimated ejection fraction is 55-59%.Wall motio n is normal; there are no regional wall motion abnormalities.The tissue Doppler parameters are normal. Doppler parameters areconsistent with abnormal left ventricular relaxation (grade 1 diastolicdysfunction).Right ventricle: The cavit y size is normal. Systolic function isnormal. Systolic pressure is within the normal range.Ventricular septum: The ventricular septum is normal. PATIENT NAME: DIALLO COCHRAN Left atrium: The atrium is luis eduardo l in size.Right atrium: The atrium is normal in size.Atrial septum: No defect or patent foramen ovale is identified.Aorta: Aortic arch: The aortic arch is not visualized.Abdominal aorta: The abdominal aorta is mildly calcified.Aortic valve: The valve is trileaflet. The leaflets are normalthickness. There is no evidence of stenosis. There is trivialregurgitation.Mitral valve: The leaflets are mildly thickened. There is no evidenceof stenosis. There is trivial regurgitation.Tricuspid valve: The leaflets are normal thickness. There is trivialregurgitation.Pulmonic valve: The leaflet s are normal thickness. There is nosignificant regurgitation.Pericardium: There is no pericardial effusion.Systemic veins:Inferior noé a cava: The vessel is normal in size. - Measurements Left ventricle Value Ref COOKIE, LAX 4.5 cm 4.2 - 5.8 ESD, LAX 2.7 cm 2.5 - 4.0 ESD/bsa, LAX 1.5 cm/m 2 1.3 - 2.1 FS, LAX 40 % 25 - 43 PW, ED 1.4 cm 0.6 - 1.0 PW, ES 1.4 cm IVS/PW, ED 0.81 EF 71 % 52 - 72 IVRT 83 ms E', lat maura, TDI 9.0 cm/sec >=10.0 E/e', lat maura, TDI 6 E', med maura, TD I 5.0 cm/sec >=7.0 E/e', med maura, TDI 11 E', avg, TDI 7.0 cm/sec E/e', avg, TDI 8 <=14 LVOT Value Ref Diam, S 2.3 1 cm Area 4.2 cm 2 Peak clarice, S 0.76 m/sec Mean clarice, S 0.52 m/sec VTI, S 18.8 cm Pea k grad, S 2 mm Hg Mean grad, S 1 mm H g SV 79 ml SV/bsa 45 ml/m 2 Ventricular septum Value Ref IVS, ED 1.1 cm 0.6 - 1.0 IVS, ES 1.6 cm Righ t ventricle Value Ref PATIENT NAME: GRACE COCHRAN COOKIE, LAX 2.9 cm Pressure, S 26 mm Hg RVO T Value Ref Peak v, S 0.5 m/sec Peak grad, S 1 mm Hg Left atrium Value Re f AP dim, ES 4.17 cm 3.00 - 4.00 Aortic valve Valu e Ref Leaflet sep, MM 2.08 cm Peak v, S 0.98 m/sec Mean v, S 0.67 m/sec VTI, S 23.3 cm Mean grad , S 2.0 mm Hg Peak grad, S 3.8 mm Hg LVOT/AV, VTI ratio 0.81 CHELA, VTI 3.37 cm 2 LVOT/AV, Vpeak ratio 0.77 CHELA, Vmax 3.15 cm 2 AR peak v 2.03 m/sec AR peak grad 16 mm Hg Mitral valve Valu e Ref Peak E 0.55 m/sec Peak A 0.7 m/sec Mean v, D 0.39 m/sec VTI leaflet coapt 22.3 cm Decel time 236 ms Mean grad, D 0.7 mm Hg Peak grad, D 2.1 m m Hg Peak E/A ratio 0.79 M R peak v 2.52 m/sec Tricuspid valve Value Ref TR peak v 1.97 m/sec <=2.8 Peak RV-RA grad, S 16 mm Hg Aortic root Value Ref Root diam, ED MM 3.31 cm Pulmonary artery Value Ref Pressure, S 24.6 mm H g Systemic veins Value Ref Estimated CVP 10 mm Hg - Conclusions Summary: 1. Left ventricle: The cavity size is normal. Systolic function is PATIENT NAME: DIALLO COCHRAN normal. The estimated ejection fraction is 55-59%. Wall motion is normal; there are no regional wall motion abnormalities. Doppler parameters are consistent with abnormal left ventricular relaxation (grade 1 diastolic dysfunction).2. Right ventricle: Systolic pressure is within the normal range. The RV pressure during systole by Doppler is 26 mm Hg.3. Atrial septum: No defect or patent foramen ovale is identified. Prepared and electronically signed by Tejinder Macedo MD06/06/2021 09:57 at 0957 PATIENT NAME: DIALLO COCHRAN :57: 0 0.[id number] for patient [id number]:58:37 2021-06-06 09:51:00 [id number] [address] PATIENT NAME: DIALLO COCHRAN ADMIT DATE: 06/06/21ACCOUNT NO: [id number] BRENDA Juarez NO: AGE: 71 REPORT TYPE: eCAROTID ULTRASOUND SEX: M ADMITTING PHYSICIAN: ATTENDING PHYSICIAN:Tejinder Macedo *[place], [place] [address]Phone Carotid Duplex Study Patient: Aline Cochran Date: 06/06/2021 BP: 143 / 74 [id number] 1950 Age: 71 Height: 63 in / 160 cmAccession#: [id number] Gender: M Weight: 149.7 lb / 68 kgBMI/BSA: 26.6 kg/m 2 / 1.76 m 2 *Ordering Physician: * Tejinder Macedo MD*Interpreting Physician: * Karmen Macedo MD*Shank Inspector: * Danielito Washington BS, RCS, RVS - Indications: CAD. - Study data: Carotid duple x study. Bilateral evaluation with pvvjfkhzp1W imaging, color Doppler imaging, and spectral Doppler analysis.Location: Catheterization laboratory. Patient status: Outpatient.Patient room number: Assessment Services Manager Holding Room 2. Procedure: A vascularevaluation was performed with the patient in the supine position. Imageswere obtained using a Jigsee vascular ultrasound machine. Image quality wasadequate. Study status: Routine . - Findings Carotid/vertebra l arteries:Right common carotid: The vessel has plaque.Right internal carotid: The vessel is normal; it has no evidence ofdisease.Right external carotid: The vessel is normal; it has n o evidence ofdisease. PATIENT NAME: GRACE COCHRAN Right vertebral: The arterial flow direction is antegrade.Left vertebral: The arterial flow direction is antegrade.Left common carotid: The vessel has plaque.Left internal carotid: The vessel is normal; it has no evidence ofdisease.Left external carotid: The vessel is normal; it has n o evidence ofdisease. - Arterial flow: Location PSV* EDV* PSV ratio Location PSV* EDV* PSV ratio R CCA, prox 69 13 --------- L CCA, prox 73 13 ---------R CCA, distal 90 16 --------- L CCA, distal 89 14 ---------R ICA, prox 49 15 0.54 L ICA, prox 32 9 0.36R ICA , mid 51 19 0.56 L ICA, mid 44 13 0.5R ICA, distal 58 22 0.64 L ICA, distal 49 17 0.56R ECA 55 4 --------- L ECA 43 4 ---------R vertebral 23 6 --------- L vertebral 31 11 --------- *Velocities are expressed in cm/sec, Diameters are expressed in cm - Conclusions 1. No evidenc e of hemodynamically significant stenosis involvin g the right common carotid artery, right external carotid artery, right internal carotid artery, left common carotid artery, left external caroti d artery, and left internal carotid artery.2. Antegrade flow noted in the right vertebral artery and left vertebral artery. Prepared and electronically signed by Tejinder Macedo MD06/06/2021 09:51 at 0951 PATIENT NAME: DIALLO COCHRAN :51: 0 0.[id number] for patient [id number]:52:16 2021-06-06 07:04:00 [id number] [place] [address] PATIENT NAME: DIALLO COCHRAN ADMIT DATE: 06/06/21ACCOUNT NO: [id number] BRENDA Juarez NO: AGE: 71 REPORT TYPE: CARDIAC CATHETERIZATION REPORT SEX: M ADMITTING PHYSICIAN: ATTENDING PHYSICIAN:Tejinder Macedo MD PROCEDURE DATE: 06/06/2021 CARDIOLOGY PROCEDURE CITY PLANNING TEACHER: Tejinder Macedo MD TITLE OF THE PROCEDURE: Left heart catheterization, selective FLORES angiogram,and closing device. INDICATION FOR THE PROCEDURE: Angina, abnormal stress test, and hig h likelihoodof significant coronary artery disease . ESTIMATED BLOOD LOSS: Minimal. COMPLICATIONS: None. CONTRAST: 60 mL. ANESTHESIA: Conscious sedation with Versed and fentanyl. A 1% lidocain e forlocal anesthesia. FINAL DIAGNOSES: Severe three-vessel coronary artery disease, calcified vessel,heavy plaque burden, and normal ejection fraction. RECOMMENDATION: Bypass. PROCEDURE IN DETAIL: After informed consent, the patient was brought to thecardiac catheterization lab in a stable fasting nonsedated state. He wasprepped and draped in the usual sterile fashion. After conscious sedation, 1%lidocaine was given to the right common femoral artery for local anesthesia . A6-Slovenian sheath was placed using standard techniques and fluoroscopy. Afterheparinization, left coronary angiogram showed calcified vessels . The LAD isdiffusely diseased in the mid vessel has about 90% lesion, then 80%, and thendistally 95%. He has like 3 diagonals 95%, 95%, and 90%. He has a ramusintermedius with 90% disease. The circumflex starts off with a 50% and then theobtuse marginal is bifurcating with 99% disease. It is like a 1.5 mm vessel. Right coronary angiogram showed a dominant vessel, 30% plaque proximal, 40% mid,and 45% distal. He has a good size posterolateral branch. He has like toosmall PDA that are diffusely diseased around 90%. Selective FLORES angiogramshowed the FLORES to be of good caliber suitable for bypass. Left ventricularangiogram showed an ejection fraction of 55%, normal wall motion, and leftventricular end-diastolic pressure of 10. No aortic valve gradient. The right PATIENT NAME: GRACE COCHRAN groin was sealed using Angio-Seal. There were no complications. The patienttolerated the procedure well. He was transferred back to the holding area forobservation. He will be getting a surgical consultation for a bypass. Thiswill be discussed in detail with the patient and his family. Dictated By: Tejinder Macedo MD WT: CATH:EDDIE/GRETTA/CHACEDD: 06/06/2021 07:04:35DT: 06/06/2021 08:21:06Conf#: [id number]/DID#: [id number] Authenticated by Tejinder Macedo MD On 06/06/2021 10:01:58 AM at 1001 PATIENT NAME: DIALLO COCHRAN [id number]:21:00Z.[id number] a ble for patient [id number]:02:36 2021-06-06 05:03:00 [id number] [place] [address] PATIENT NAME: DIALLO COCHRAN ADMIT DATE: 06/06/21ACCOUNT NO: [id number] ROOM NO: AGE: 71 REPORT TYPE: ELECTROCARDIOGRAM SEX: M ADMITTING PHYSICIAN: ATTENDING PHYSICIAN:Tejinder Macedo MD Order:[id number] Reason : PRE CATHLAB PROCEDURE Test Date/Time Stamp:TueJun 06 2021 05:03:26Blood Pressure : / mmHGVent. Rate : 061 BPM Atrial Rate : 061 BPM P-R Int : 146 ms QRS Dur : 088 ms QT Int : 408 ms P-R-T Axes : 05 3 067 072 degrees QTc Int : 410 ms Normal sinus rhythmNormal ECGNo previous ECGs availableConfirmed by TEJINDER MACEDO ([id number]) on 06/06/2021 6:19:52 AM Referred By: Tejinder Macedo Confirmed by:TEJINDER MACEDO at 0619 PATIENT NAME: DIALLO COCHRAN .[id number] AVAvailable for patient [id number]:20:17 2021-06-05 07:08:00 [id number] [place] [id number] PATIENT NAME: DIALLO COCHRAN ADMIT DATE: 06/06/21ACCOUNT NO: [id number] BRENDA Juarez NO: AGE: 71 REPORT TYPE: HISTORY AND PHYSICAL SEX: M ADMITTING PHYSICIAN: ATTENDING PHYSICIAN:Tejinder Macedo PATIENT NAME: DIALLO COCHRAN ADMIT DATE:06/06/2021DMISSION DATE: 06/06/2021 CITY PLANNING TEACHER: Tejinder Macedo M.D. REASON FOR ADMISSION: Angina, coronary artery disease, ischemia, for cardiaccatheterization and possibl e revascularization. HISTORY OF PRESENT ILLNESS: Diallo is a 71-year-old patient with no previousdocumented coronary artery disease who this month came in to see me forevaluation of what sounds like angina that has been steadily getting worse withminimal exertion. This is lit g with dyspnea and palpitations and somedizziness. Noninvasive workup was carried out with an echocardiogram thatshowed ejection fraction between 50% to 55% with mild mitral and aorticinsufficiencies, hypertensive changes. Carotid Doppler showed less than 30%plaquing. Holter monitor showed 1 short supraventricular tachycardia run.Treadmill stress test was highly positive at 3 minutes and was submaximal. Sothe patient is here for cardiac catheterization to assess his coronaries forpossible revascularization. PAST MEDICAL HISTORY: Remarkable for the above in addition to hypertension,hyperlipidemia, and diabetes. PAST SURGICAL HISTORY: None. ALLERGIES: NO KNOWN DRUG ALLERGIES. MEDICATIONS: Atorvastatin 20 mg daily , metformin is on hold, enalapril 5 mgdaily, and h e was started on aspirin 81 mg daily. The enalapri l was increasedto 10 mg daily. SOCIAL HISTORY: There is no history of smoking. There is no history of alcoholor street drug use. FAMILY HISTORY: Negative for premature atherosclerosis. REVIEW OF SYSTEMS: Remarkable for the above in addition to dizziness andfatigue. No acute GI or symptoms. No TIAs or strokes. The rest of thereview of systems is enclosed. PHYSICAL EXAMINATION:GENERAL: Reveals a pleasant elderly male in no acute distress. PATIENT NAME: DIALLO COCHRAN VITAL SIGNS: Blood pressure 128/64, pulse 62 and regular, respiratory rate 18and unlabored, and temperature afebrile.HEENT: Head atraumatic and normocephalic. Eyes and ENT examination withinnormal for age.NECK: Supple. No jugular venous distention, bruits, or lymphadenopathy.Normal upstroke.LUNGS: Clear and resonant.HEART: Regular rate and rhythm with II/ systolic and II/ diastolic murmursat the mitral and aortic area respectively. No gallops.ABDOMEN: Soft. No tenderness. No organomegaly. No masses or bruits.EXTREMITIES: 2 + distal pulses. No edema, cyanosis, or clubbing.NEUROLOGIC: Alert and oriented x3. The examination appears to be nonfocal. LABORATORY DATA: Pending. EKG normal. Noninvasive cardiovascular workupenclosed. IMPRESSION: This is a 71-year-old patient with multiple cardiovascular riskfactors who comes in with worsening angina typical for significant coronaryartery disease. He has a highly abnormal regular stress test at low exercisecapacity and it was submaximal. The patient is here for cardiac catheterizationto assess his coronaries for possible revascularization. RECOMMENDATIONS: To proceed with left heart catheterization and possiblerevascularization. The risks and benefit s of the planned procedure werediscussed in detail with the patient and his available family member s and he iswilling to proceed. Rest as per orders. Dictated By: Tejinder Macedo MD WT: HP:Z.AMELIA/GRETTA/CHACEDD: 06/05/2021 07:08:59DT: 06/05/2021 07:37:02Conf#: [id number]/DID#: [id number] and Edited by Tejinder Macedo MD On 06/06/21 6:14:50 AM at 061 6 PATIENT NAME: DIALLO COCHRAN and physical [id number]:37:00Z.[id number] A VAvailable for patient [id number]:16:36
[2023-02-06 13:14] LABS: Absolute Lymphocytes (CBC) 3.7 K/uL (0.7-4.9); Hematocrit 37.7 % (39.6-49.0); Lymphocytes % 47.4 % (15.3-44.8); MCV 92.9 fL (80-100); MPV 8.2 fL (7.6-11.3); Platelets 329 thou/uL (152-406); RBC Red Blood Cell Count 4.06 M/uL (4.33-5.43)
[2023-02-06 13:17] LABS: Protime INR 0.97
[2023-02-06] MEDS ORDERED: NA CHLORIDE 0.9% 1,000 ML ONE (13:26)
[2023-02-06] MEDS ORDERED: FAMOTIDINE 20 MG/2 ML VIAL IV ONE (13:26)
[2023-02-06] MEDS ORDERED: ONDANSETRON 4 MG/2 ML VIAL ONE (13:26)
[2023-02-06] MEDS ORDERED: MORPHINE 4 MG/ML SYR ONE (13:26)
[2023-02-06 13:33] LABS: Albumin 4.2 g/dL (3.4-5.0); Bilirubin Direct 0.2 mg/dL (0-0.2); Bilirubin Indirect, Calculated 0.3 mg/dL (0.2-0.8); Bilirubin Total 0.5 mg/dL (0.2-1.0); Potassium 3.8 mEq/L (3.5-5.1); Protein, Total 7.9 g/dL (6.4-8.2); Troponin High Sensitivity 10.4 pg/mL (<58.9)
--- NOTE | 2023-02-06 15:11 | RAD REPORT ---
EXAM DESCRIPTION: CT - Abdomen Pelvis W Contrast - 02/06/2023 2:01 pm CLINICAL HISTORY: ABD PAIN COMPARISON: No comparisons TECHNIQUE: Thin cut axial CT imaging of the abdomen and pelvis was performed following intravenous a dministration of 100 mL Isovue 300. Multiplanar reformats were generated and reviewed. All CT scans are performed using dose optimization technique as appropriate and may include automated exposure control or mA/KV adjustment according to patient size. FINDINGS: No suspicious findings in the lung bases. The liver, spleen, adrenal glands, and pancreas show no suspicious findings. Gallbladder and biliary tree are also without suspicious finding. Symmetric renal function is seen with no hydronephrosis or suspicious renal mass. No dilated bowel loops or bowel wall thickening. No free air, free fluid or inflammatory stranding. N o hernia, mass or bulky lymphadenopathy. The urinary bladder is without significant finding. Mild pro statomegaly with calcification. No suspicious bony findings. IMPRESSION: No acute intra-abdominal process. Mild prostatomegaly.
[2023-02-06 15:31] LABS: Blood Morphology Comment NOT SEEN (NOT SEEN); Platelet Estimate ADEQ
--- NOTE | 2023-02-06 15:31 | RAD REPORT ---
EXAM DESCRIPTION: US - Abdomen Exam Limited - 02/06/2023 2:24 pm CLINICAL HISTORY: ABD PAIN COMPARISON: CT abdomen pelvis of the same day TECHNIQUE: Sonographic grayscale and color flow images of the right upper abdominal quadrant were o btained. FINDINGS: The gallbladder demonstrates no gallstones. Minimal echogenic sludge layering at the neck. No pericholecystic fluid or gallbladder wall thickening. The common bile duct is normal measuring 6 mm. The liver demonstrates no findings of intrahepatic biliary dilatation. IMPRESSION: Unremarkable examination apart from minimal sludge near the neck.
--- NOTE | 2023-02-06 15:34 | RAD REPORT ---
EXAM DESCRIPTION: Carol Single View02/06/2023 1:36 pm CLINICAL HISTORY: CHEST PAIN COMPARISON: No comparisons TECHNIQUE: Portable AP view of the chest. FINDINGS: The lungs are clear. No pneumothorax or effusion. The cardiomediastinal contours are unre markable, except for sequelae of CABG. IMPRESSION: No acute cardiopulmonary process.
[2023-02-06] MEDS ORDERED: NA CHLORIDE 0.9% 100 ML ONE (16:10)
[2023-02-06] MEDS ORDERED: PIPERACIL/TAZO 3.375 GM VIAL IV ONE (16:10)
[2023-02-06] MEDS ORDERED: NA CHLORIDE 0.9% 500 ML ONE (16:10)
--- NOTE | 2023-02-06 16:13 | ER ---
Nurse's Notes [facility] Name: Ilir Cochran Age: 72 yrs Sex: Male : 1950 Arrival Date: 02/06/2023 Time: 12:44 Bed 14 Private MD: Diagnosis: Disease of biliary tract, unspecified-gallbladder sludge;Abnormal findings on diagnostic imaging of liver and biliary tract-gallbladder sludge;Abdominal tenderness;Epigastric abdominal tenderness Presentation: 02/06 12:46 Chief complaint: EMS states: toned out to parking lot of [employer] for sudden eh3 onset stabbing epigastric pain. Coronavirus screen: Vaccine status: Patient reports receiving the 2nd dose of the covid vaccine. Ebola Screen: No symptoms or risks identified at this time. Initial Sepsis Screen: Does the patient meet any 2 criteria? No. Patient's initial sepsis screen is negative. Does the patient have a suspected source of infection? No. Patient's initial sepsis screen is negative. Risk Assessment: Do you want to hurt yourself or someone else? Patient reports no desire to harm self or others. Onset of symptoms was February 06, 2023. 12:46 Method Of Arrival: EMS: [place] [id number] 12:46 Acuity: GREGORIA 2 [facility] 12:50 Care prior to arrival: Medication(s) given: ASA, 325 mg, x 1, Glucose check: 155. 3 Triage Assessment: 12:47 General: Appears distressed, uncomfortable, Behavior is cooperative, appropriate for [facility] age. Pain: Complains of pain in epigastric area Pain does not radiate. Pain currently is 10 out of 10 on a pain scale. Quality of pain is described as stabbing, Pain began suddenly, 30 min ago. Is continuous. Neuro: Level of Consciousness is awake, alert, obeys commands, Oriented to person, place, time, situation. Cardiovascular: Capillary refill < 3 seconds Patient's skin is warm and dry. Rhythm is sinus rhythm. Respiratory: Airway is patent Respiratory effort is even, unlabored, Respiratory pattern is regular, symmetrical. GI: Abdomen is round non-distended. Derm: Skin is pink, warm \T\ dry. Musculoskeletal: Circulation, motion, and sensation intact. Historical: - Allergies: 12:47 No Known Allergies; eh3 - Home Meds: 12:47 clopidogrel oral [Active]; 3 - PMHx: 12:47 Diabetes mellitus; Hypertensive disorder; Coronary atherosclerosis; 3 - PSHx: 12:47 Coronary artery bypass graft; eh3 - Immunization history:: Adult Immunizations up to date. - Social history:: Smoking status: Patient denies any tobacco usage or history of. Patient/guardian denies using alcohol. - Family history:: not pertinent. Screenin:49 [facility] ED Fall Risk Assessment (Adult) Score/Fall Risk Level 0 - 2 = Low Risk. Abuse eh3 screen: Denies threats or abuse. Denies injuries from another. Nutritional screening: No deficits noted. Tuberculosis screening: No symptoms or risk factors identified. Assessment: 12:49 Reassessment: No changes from previously documented assessment. See triage assessment. eh3 Pain: Complains of pain in epigastric area Pain does not radiate. Pain currently is 10 out of 10 on a pain scale. Quality of pain is described as stabbing, Pain began suddenly, 30 min ago. Is continuous. 13:30 Reassessment: Patient appears in no apparent distress at this time. Patient and/or 3 family updated on plan of care and expected duration. Pain level reassessed. Patient is alert, oriented x 3, equal unlabored respirations, skin warm/dry/pink. 14:30 Reassessment: Patient appears in no apparent distress at this time. Patient and/or 3 family updated on plan of care and expected duration. Pain level reassessed. Patient is alert, oriented x 3, equal unlabored respirations, skin warm/dry/pink. Patient states symptoms have improved. 15:30 Reassessment: Patient appears in no apparent distress at this time. Patient and/or 3 family updated on plan of care and expected duration. Pain level reassessed. Patient is alert, oriented x 3, equal unlabored respirations, skin warm/dry/pink. Vital Signs: 12:46 BP 171 / 68; Pulse 65; Resp 18; Temp 98.6(O); Pulse Ox 100% on R/A; Weight 61.23 kg; eh3 Height 5 ft. 3 in. ; Pain 10/10; 13:30 BP 181 / 92; Pulse 70; Resp 18; Pulse Ox 100% on R/A; eh3 14:30 BP 133 / 66; Pulse 69; Resp 16; Pulse Ox 99% on R/A; eh3 15:30 BP 122 / 68; Pulse 68; Resp 18; Pulse Ox 97% on R/A; eh3 16:30 BP 135 / 69; Pulse 61; Resp 15; Pulse Ox 99% on R/A; eh3 17:15 BP 131 / 68; Pulse 59; Resp 17; Pulse Ox 98% on R/A; eh3 12:46 Body Mass Index 23.91 (61.23 kg, 160.02 cm) eh3 12:46 Pain Scale: Adult eh3 ED Course: 12:45 Patient arrived in ED. as 12:45 Caron Herrera, RN is Primary Nurse. eh3 12:47 Triage completed. eh3 12:47 Arm band placed on. eh3 12:48 Danielito Alejandra MD is Attending Physician. nathaniel 12:49 Patient has correct armband on for positive identification. Bed in low position. Call eh3 light in reach. Side rails up X2. Adult w/ patient. Provided Education on: use of call johnson. Client placed on continuous cardiac and pulse oximetry monitoring. NIBP monitoring applied. 12:49 Patient maintains SpO2 saturation greater than 95% on room air. eh3 13:00 Inserted saline lock: 20 gauge in left upper arm, using aseptic technique. Blood eh3 collected. 13:38 XRAY Chest (1 view) In Process Unspecified. EDMS 14:03 CT Abd/Pelvis - IV Contrast Only In Process Unspecified. EDMS 14:26 US Abdomen Limited In Process Unspecified. EDMS 16:08 Angel Maguire MD is Referral Physician. nathaniel 17:31 No provider procedures requiring assistance completed. IV discontinued, intact, eh3 bleeding controlled, No redness/swelling at site. Pressure dressing applied. Administered Medications: 12:56 CANCELLED (Duplicate Order): aspirinchewable tablet 324 mg PO once; 81 mg tablets x 4 nathaniel 13:15 Drug: NS 0.9% IV 1000 ml IV at 125 ml/hr continuous Route: IV; Rate: 125 ml/hr; Site: [facility] left upper arm; 16:22 Follow up: Response: No adverse reaction; IV Status: Order to discontinue infusion; IV eh3 Intake: 300ml 13:15 Drug: Famotidine IVP 20 mg IVP once; dilute with 10 mL 0.9% NaCl; give over 2 minutes eh3 Route: IVP; Site: left upper arm; 14:35 Follow up: Response: No adverse reaction eh3 13:15 Drug: morphine IVP or IV 4 mg IVP once over 4 mins Route: IVP; Infused Over: 4 mins; eh3 Site: left upper arm; 14:35 Follow up: Response: No adverse reaction; Pain is decreased; RASS: Drowsy (-1) eh3 13:15 Drug: Ondansetron IVP 4 mg IVP once; over 2 minutes Route: IVP; Site: left upper arm; eh3 14:35 Follow up: Response: No adverse reaction eh3 16:23 Drug: Piperacillin-Tazobactam IVPB 3.375 grams IVPB once over 60 mins; (mix in NS 100 eh3 mL) Route: IVPB; Infused Over: 60 mins; Site: left antecubital; 16:59 Follow up: Response: No adverse reaction; IV Status: Completed infusion; IV Intake: eh3 100ml 16:23 Drug: NS 0.9% IV 500 ml IV at bolus once Route: IV; Rate: bolus; Site: left antecubital;eh3 17:32 Follow up: IV Status: Completed infusion; IV Intake: 500ml eh3 16:58 Not Given (BP127/67): [id number] mg IVP once eh3 16:59 Not Given (BP 127/67 HR 61 ): mg PO once eh3 Medication: 17:32 VIS not applicable for this client. eh3 Intake: 16:22 IV: 300ml; Total: 300ml. eh3 16:59 IV: 100ml; Total: 400ml. eh3 17:32 IV: 500ml; Total: 900ml. eh3 Outcome: 16:13 Discharge ordered by MD. armstrong 17:30 Discharged to home ambulatory, with family, 3 17:30 Condition: stable 17:30 Discharge instructions given to patient, family, Instructed on discharge instructions, follow up and referral plans. medication usage, Demonstrated understanding of instructions, follow-up care, medications, Prescriptions given X 3, 17:32 Patient left the ED. eh3 Signatures: Dispatcher [employer] Danielito Frias MD MD cha Martinez, Amelia as Hall, Erin, RN RN eh3 Corrections: (The following items were deleted from the chart) 13:26 12:49 Maintain EMS IV. Dressing intact. Good blood return noted. Site clean \T\ dry. eh3 Gauge \T\ site: 18g RFA. eh3
--- NOTE | 2023-02-06 16:13 | EDPHYS ---
Physician Documentation [facility] Name: Ilir Cochran Age: 72 yrs Sex: Male : 1950 Arrival Date: 02/06/2023 Time: 12:44 Bed 14 Private MD: ED Physician Danielito Alejandra HPI: 02/06 12:57 This 72 yrs old Male presents to ER via EMS with complaints of Chest Pain. [facility] 12:57 The patient or guardian reports chest pain that is located primarily in the epigastric nathaniel area. Onset: just prior to arrival, today. The pain radiates to epigastric area, right upper quadrant and left upper quadrant. The chest pain is described as a pressure. Historical: - Allergies: 12:47 No Known Allergies; eh3 - Home Meds: 12:47 clopidogrel oral [Active]; eh3 - PMHx: 12:47 Diabetes mellitus; Hypertensive disorder; Coronary atherosclerosis; eh3 - PSHx: 12:47 Coronary artery bypass graft; eh3 - Immunization history:: Adult Immunizations up to date. - Social history:: Smoking status: Patient denies any tobacco usage or history of. Patient/guardian denies using alcohol. - Family history:: not pertinent. ROS: 12:58 Constitutional: Negative for fever, chills, and weight loss, Eyes: Negative for injury, nathnaiel pain, redness, and discharge, ENT: Negative for injury, pain, and discharge, Neck: Negative for injury, pain, and swelling, Cardiovascular: Negative for chest pain, palpitations, and edema, Respiratory: Negative for shortness of breath, cough, wheezing, and pleuritic chest pain, Back: Negative for injury and pain, : Negative for injury, bleeding, discharge, and swelling, MS/Extremity: Negative for injury and deformity, Skin: Negative for injury, rash, and discoloration, Neuro: Negative for headache, weakness, numbness, tingling, and seizure, Psych: Negative for depression, anxiety, suicide ideation, homicidal ideation, and hallucinations, Allergy/Immunology: Negative for hives, rash, and allergies, Endocrine: Negative for neck swelling, polydipsia, polyuria, polyphagia, and marked weight changes, Hematologic/Lymphatic: Negative for swollen nodes, abnormal bleeding, and unusual bruising, 12:58 Abdomen/GI: Positive for abdominal pain, abdominal cramps, of the epigastric area, right upper quadrant and left upper quadrant, Exam: 12:58 Constitutional: This is a well developed, well nourished patient who is awake, alert, nathaniel and in no acute distress. Head/Face: Normocephalic, atraumatic. Eyes: Pupils equal round and reactive to light, extra-ocular motions intact. Lids and lashes normal. Conjunctiva and sclera are non-icteric and not injected. Cornea within normal limits. Periorbital areas with no swelling, redness, or edema. ENT: Nares patent. No nasal discharge, no septal abnormalities noted. Tympanic membranes are normal and external auditory canals are clear. Oropharynx with no redness, swelling, or masses, exudates, or evidence of obstruction, uvula midline. Mucous membranes moist. Neck: Trachea midline, no thyromegaly or masses palpated, and no cervical lymphadenopathy. Supple, full range of motion without nuchal rigidity, or vertebral point tenderness. No Meningismus. Chest/axilla: Normal chest wall appearance and motion. Nontender with no deformity. No lesions are appreciated. Cardiovascular: Regular rate and rhythm with a normal S1 and S2. No gallops, murmurs, or rubs. Normal PMI, no JVD. No pulse deficits. Respiratory: Lungs have equal breath sounds bilaterally, clear to auscultation and percussion. No rales, rhonchi or wheezes noted. No increased work of breathing, no retractions or nasal flaring. Back: No spinal tenderness. No costovertebral tenderness. Full range of motion. Male : Normal genitalia with no discharge or lesions. Skin: Warm, dry with normal turgor. Normal color with no rashes, no lesions, and no evidence of cellulitis. MS/ Extremity: Pulses equal, no cyanosis. Neurovascular intact. Full, normal range of motion. Neuro: Awake and alert, GCS 15, oriented to person, place, time, and situation. Cranial nerves II-XII grossly intact. Motor strength 5/5 in all extremities. Sensory grossly intact. Cerebellar exam normal. Normal gait. Psych: Awake, alert, with orientation to person, place and time. Behavior, mood, and affect are within normal limits. 12:58 Abdomen/GI: Inspection: abdomen appears normal, Bowel sounds: normal, Palpation: moderate abdominal tenderness, in the epigastric area, right upper quadrant and left upper quadrant, Liver: no appreciated palpable abnormalities, Hernia: not appreciated, 14:41 ECG was reviewed by the Attending Physician. [facility] Vital Signs: 12:46 BP 171 / 68; Pulse 65; Resp 18; Temp 98.6(O); Pulse Ox 100% on R/A; Weight 61.23 kg; eh3 Height 5 ft. 3 in. ; Pain 10/10; 13:30 BP 181 / 92; Pulse 70; Resp 18; Pulse Ox 100% on R/A; eh3 14:30 BP 133 / 66; Pulse 69; Resp 16; Pulse Ox 99% on R/A; eh3 15:30 BP 122 / 68; Pulse 68; Resp 18; Pulse Ox 97% on R/A; eh3 16:30 BP 135 / 69; Pulse 61; Resp 15; Pulse Ox 99% on R/A; eh3 17:15 BP 131 / 68; Pulse 59; Resp 17; Pulse Ox 98% on R/A; eh3 12:46 Body Mass Index 23.91 (61.23 kg, 160.02 cm) [facility] 12:46 Pain Scale: Adult 3 MDM: 12:48 Patient medically screened. [facility] 12:58 Differential diagnosis: abnormal EKG, acute myocardial infarction, acute pericarditis, nathaniel cholecystitis, Cholelithiasis costochondritis, esophagitis, pancreatitis, peptic ulcer disease, pericarditis, pneumonia, pulmonary embolus, stable angina, thoracic aortic disection, unstable angina, bowel obstruction, cholecystitis, Cholelithiasis, diverticulitis, gastritis, gastroesophageal reflux disease, GI Bleed, pancreatitis, Peptic Ulcer Disease, Peritonitis, Ureterolithiasis, urinary tract infection. HEART Score: History: Slightly Suspicious (0), ECG: Non specific repolarization disturbance / LBTB / PM (1), Age: > or = 65 years (2), Risk Factors: > or = 3 Risk factors for atherosclerotic disease (2), [Hypercholesterolemia] [Hypertension] [DM] [+ Family HX] [Obesity] Troponin: < or = 1 x Normal Limit (0). The patient was not given aspirin in the Emergency Department. Patient reports taking aspirin within the past 24 hours. AMY Risk Score: 1 - patient's age is greater or equal to 65 years, 1 - Three or more CAD risk factors, 1- Known CAD, 1 - ASA use in past 7 days, 1 - Recent [<24hrs] Severe Angina, TOTAL SCORE = 5. Data reviewed: vital signs, nurses notes, lab test result(s), EKG, radiologic studies, CT scan, plain films. Consideration of Admission/Observation Patient was admitted/placed on observation. Escalation of care including admission/observation considered. I considered the following discharge prescriptions or medication management in the emergency department Medications were administered in the Emergency Department. See MAR. Independent interpretation of the following test(s) in the Emergency Department EKG: See my EKG interpretation above. Test considered but Not performed: Ultrasound no 2 d echo. Historians other than the Patient: EMS: ems and well informed. Care significantly affected by the following chronic conditions: Diabetes, Hypertension, Obesity. Counseling: I had a detailed discussion with the patient and/or guardian regarding the historical points, exam findings, and any diagnostic results supporting the discharge/admit diagnosis, lab results, radiology results, the need for further work-up and treatment in the hospital. 02/06 12:50 Order name: Basic Metabolic Panel; Complete Time: 13:46 [facility] 02/06 12:50 Order name: CBC with Diff; Complete Time: 16:04 02/06 12:50 Order name: LFT's; Complete Time: 13:46 02/06 12:50 Order name: Magnesium; Complete Time: 13:46 [facility] 02/06 12:50 Order name: NT PRO-BNP; Complete Time: 13:46 02/06 12:50 Order name: PT-INR; Complete Time: 13:46 02/06 12:50 Order name: Troponin HS; Complete Time: 13:46 02/06 12:50 Order name: Lipase; Complete Time: 13:46 02/06 15:29 Order name: Manual Differential; Complete Time: 16:04 EDMS 02/06 12:50 Order name: XRAY Chest (1 view); Complete Time: 16:04 02/06 12:57 Order name: US Abdomen Limited; Complete Time: 16:04 [facility] 02/06 12:57 Order name: CT Abd/Pelvis - IV Contrast Only; Complete Time: 16:04 nathaniel 02/06 12:50 Order name: EKG; Complete Time: 12:51 02/06 12:50 Order name: Cardiac monitoring; Complete Time: 12:51 [facility] 02/06 12:50 Order name: EKG - Nurse/Tech; Complete Time: 13: [facility] 02/06 12:50 Order name: IV Saline Lock; Complete Time: 12:51 [facility] 02/06 12:50 Order name: Labs collected and sent; Complete Time: 13: [facility] 02/06 12:50 Order name: O2 Per Protocol; Complete Time: 12:51 [facility] 02/06 12:50 Order name: O2 Sat Monitoring; Complete Time: 12:51 [facility] EC:41 Rate is 60 beats/min. Rhythm is regular. QRS Lyle is Normal. OR interval is normal. QRS nathaniel interval is normal. QT interval is normal. No Q waves. T waves are Normal. No ST changes noted. Clinical impression: NSR w/ Non-specific ST/T Changes and No evidence of ischemia. Interpreted by me. Reviewed by me. Administered Medications: 12:56 CANCELLED (Duplicate Order): aspirinchewable tablet 324 mg PO once; 81 mg tablets x 4 [facility] 13:15 Drug: NS 0.9% IV 1000 ml IV at 125 ml/hr continuous Route: IV; Rate: 125 ml/hr; Site: [address]; 16:22 Follow up: Response: No adverse reaction; IV Status: Order to discontinue infusion; IV 3 Intake: 300ml 13:15 Drug: Famotidine IVP 20 mg IVP once; dilute with 10 mL 0.9% NaCl; give over 2 minutes 3 Route: IVP; Site: left upper arm; 14:35 Follow up: Response: No adverse reaction [facility] 13:15 Drug: morphine IVP or IV 4 mg IVP once over 4 mins Route: IVP; Infused Over: 4 mins; 3 Site: left upper arm; 14:35 Follow up: Response: No adverse reaction; Pain is decreased; RASS: Drowsy (-1) [facility] 13:15 Drug: Ondansetron IVP 4 mg IVP once; over 2 minutes Route: IVP; Site: left upper arm; [facility] 14:35 Follow up: Response: No adverse reaction [facility] 16:23 Drug: Piperacillin-Tazobactam IVPB 3.375 grams IVPB once over 60 mins; (mix in NS 100 eh3 mL) Route: IVPB; Infused Over: 60 mins; Site: left antecubital; 16:59 Follow up: Response: No adverse reaction; IV Status: Completed infusion; IV Intake: eh3 100ml 16:23 Drug: NS 0.9% IV 500 ml IV at bolus once Route: IV; Rate: bolus; Site: left antecubital;eh3 17:32 Follow up: IV Status: Completed infusion; IV Intake: 500ml eh3 16:58 Not Given (BP127/67): [id number] mg IVP once eh3 16:59 Not Given (BP 127/67 HR 61 ): [id number] mg PO once eh3 Disposition Summary: 02/06/23 16:13 Discharge Ordered Notes: Location: Home nathaniel Problem: new nathaniel Symptoms: have improved nathaniel Condition: Stable nathaniel Diagnosis - Disease of biliary tract, unspecified - gallbladder sludge nathaniel - Abnormal findings on diagnostic imaging of liver and biliary tract - gallbladder nathaniel sludge - Abdominal tenderness nathaniel - Epigastric abdominal tenderness nathaniel Followup: nathaniel - With: Private Physician - When: 2 - 3 days - Reason: Recheck today's complaints, Continuance of care, Re-evaluation by your physician Followup: nathaniel - With: Angel Maguire MD - When: 1 - 2 days - Reason: Recheck today's complaints, Re-evaluation by your physician Discharge Instructions: - Discharge Summary Sheet nathaniel - Abdominal Pain, Adult nathaniel - Biliary Colic, Adult nathaniel - Cholelithiasis nathaniel - Cholelithiasis, [id number] nathaniel - Abdominal Pain, Adult, [id number] nathaniel - Gallbladder Eating Plan [facility] Forms: - Medication Reconciliation Form [facility] - Thank You Letter [facility] - Antibiotic Education [facility] - Prescription Opioid Use [facility] - Patient Portal Instructions [facility] - Leadership Thank You Letter [facility] Prescriptions: - ondansetron 4 mg Oral Tablet,disintegrating - take 1 tablet ORAL route every 6-8 hours for 5 days; 20 tablet; Refills: 0, [facility] Product Selection Permitted - Augmentin 875-125 mg Oral Tablet - take 1 tablet ORAL route every 12 hours for 10 days; 20 tablet; Refills: 0, [facility] Product Selection Permitted - Pepcid 20 mg Oral tablet - take 1 tablet ORAL route every 12 hours for 21 days; 42 tablet; Refills: 0, [facility] Product Selection Permitted Signatures: Dispatcher [employer] Danielito Frias MD MD cha Hall, Erin, RN RN 3 Corrections: (The following items were deleted from the chart) 12:56 12:50 Aspirin PO Chewable Tablet 324 mg PO once; 81 mg tablets x 4 ordered. nathaniel armstrong
[2023-02-06 17:46] VITALS: TEMP 98.6
[2023-02-06 17:54] VITALS: BP 131/68; O2SAT 98
--- NOTE | 2023-02-10 15:33 | EKG ---
Test Date: 2023-02-06 Test Time: 13:03:33 Professor Of Business: ALISSA MEASUREMENT RESULTS: Intervals: Rate: 60 OR: 148 QRSD: 88 QT: 422 QTc: 422 [place]: P: 84 OR: 148 QRS: 34 T: 85 INTERPRETIVE STATEMENTS: Normal sinus rhythm Nonspecific ST abnormality Abnormal ECG No previous ECG available for comparison Electronically Signed On 02-10-23 15:17:42 LAW OFFICE MANAGER by Matt Bah
== END 2023-02-06 17:32 | disposition home or self-care (01) ==
LOC: ER 12:44
DX: K83.8 Other specified diseases of biliary tract (principal); R93.2 Abnormal findings on diagnostic imaging of liver and biliary tract; E11.9 Type 2 diabetes mellitus without complications; I10 Essential (primary) hypertension; Z95.1 Presence of aortocoronary bypass graft
CPT/HCPCS: 96365; 96361; 93005; 85025; 80048; 36415; 83735; 85610; 80076; 84484; 83690; 83880; 74177; 71045; 76705; 96375; 99285; Q9967; J2543; J2405; J7040; J7030

== ENCOUNTER 2023-03-07 11:07 | Inpatient (IN) | payer MEDICARE ==
--- OUTSIDE RECORDS SUMMARY | 2023-03-07 11:15 | XMS REPORT | Continuity of Care Document ---
Author Name Unknown Address [address] [facility] [address] [place] [address] [facility] Address [address] [facility] [address] [place] [address] Care Team Providers [employer] Advisor Name Role Phone Teja Morin Adeel Primary Care Physician [phone] REYES RICHARDS Attending Clinician Unavailabl CANDACE Coelho Attending Clinician Unavailable Doctor Unassigned, [place] Attending Clinician U maggie Rodriguez RN, Kemal Khan Attending Clinician Unavail able Leanna Messer DO Attending Clinician [phone] Juvencio Love MD Attending Clinician [phone] Jazmin Stacy MD Attending Clinician + [phone] Jessica RAMSEY, Afaq Attending Clinician [phone] LEANNA MESSER Attending Clinician Unavailab Reyes Holcomb MD Attending Clinician [phone] Candace Armas MD Attending Clinician [phone] Only, Adc Test Attending Clinician Unavailable Jose Torres MD Attending Clinician [phone] JOSE TORRES Attending Clinician Unavailabl e Gramm AUDIT CONTROL CLERK, Yandy A Attending Clinician [phone] Steven RAMSEY, Eva Attending Clinician [phone] EVA ALBRIGHT Attending Clinician Unavailable James CARABALLO Sukhdevsissy Caro Attending Clinician [phone] Christian RN, Jennifer Tripathi Attending Clinician Unavailab Guardado, [facility] Attending Clinician UnavailJanet Aj Attending Clinician [phone] , [facility] Vascular Room 1 - Attending Clinician Un available Khadar RAMSEY, Rachel Sherman Attending Clinician + [phone] , [facility] Echo Room 1 - Attending Clinician REYES Calle Admitting Clinician UnavailCANDACE Luis Admitting Clinician Unavailable Tawanna RAMSEY, Jazmin Admitting Clinician + [phone] JAZMIN STACY Admitting Clinician Terrie Armas MD, Candace Admitting Clinician [phone] Payers Payer Name Policy Type Policy Number Effective Date Expirati on Date Source [employer] MED[employer]ARE ADVANTAGE [id number] 2019 00:00:00 [facility] [employer] (MEDICARE REPLACEMENT HMO) [id number] 2022 00:00:00 Problems Condition Name Condition Details Condition Category Status Onset Date Resolution Date Last Treatment Date Treating Clinician Comments Source Diarrhea, unspecifie d type Diarrhea, unspecifie d type Disease Active 09-15 00:00: 00 [facility] Elevated troponin Elevated troponin Disease Active 09-14 00:00: 00 Overview: Formattin g of this note might be different from the original. Added automatic ally from request for surgery [id number] [facility] Elevated troponin Elevated troponin Disease Active 09-14 00:00: 00 Overview: Formattin g of this note might be different from the original. Added automatic ally from request for surgery [id number] [facility] Acute pain of right knee Acute pain of right knee Disease Active 2020-03 00:00: 00 Overview: Formattin g of this note might be different from the original. Added automatic ally from request for surgery [id number] [facility] Screening for colorectal cancer Screening for colorectal cancer Disease Active 8- 00:00: 00 Overview: Formattin g of this note might be different from the original. Added automatic ally from request for surgery [id number] [facility] Allergies, Adverse Reactions, Alerts Allergy Name Allergy Type Status Severity Reaction(s) Onset Date Inactive Date Treating Clinician Comments Source NO KNOWN ALLERGIE S Drug Class Active [facility] Social History Social Habit Start Date Stop Date Quantity Comments Source History SDOH Alcohol Frequency [facility] History SDOH Alcohol Std Drinks [facility] History SDOH Alcohol Binge [facility] to SARS-CoV-2 (event) 2021-09-04 00:00:00 2021-09-14 01:36:00 Not sure [facility] Alcohol intake 2021-01-07 00:00:00 2021-01-07 00:00:00 Ex-drinker (finding) [facility] History of Social function 2020-12-23 00:00:00 2020-12-23 00:00:00 [facility] Tobacco use and exposure 2020-12-19 00:00:00 2020-12-19 00:00:00 Smokeless tobacco non-user [facility] Alcohol Comment 2019-09-10 00:00:00 2019-09-10 00:00:00 social [facility] Sex Assigned At 1950 00:00:00 1950 00:00:00 [facility] Smoking Status Start Date Stop Date Source Never smoked tobacco [facility] Medications Ordered Medication Name Filled Medication Name Start Date Stop Date Current Medication? Ordering Clinician Indication Dosage Frequency Signature (SIG) Comments Components Source furosemide (LASIX) 20 mg tablet 09-20 05:15: 05 Yes 20mg Take 20 mg by mouth daily. [facility] lansoprazol e 30 mg capsule 09-20 05:15: 05 Yes 30mg Take 30 mg by mouth daily. [facility] rOPINIRole 0.5 mg tablet 09-20 05:15: 05 Yes .5mg Take 0.5 mg by mouth daily. [facility] HYDROcodone -acetaminop hen (NORCO) 5-325 mg tablet 09-20 05:15: 05 Yes 1{tbl} Take 1 tablet by mouth every 6 (six) hours as needed. [facility] furosemide (LASIX) 20 mg tablet 09-20 05:15: 05 Yes 20mg Take 20 mg by mouth daily. [facility] lansoprazol e 30 mg capsule 09-20 05:15: 05 Yes 30mg Take 30 mg by mouth daily. [facility] rOPINIRole 0.5 mg tablet 09-20 05:15: 05 Yes .5mg Take 0.5 mg by mouth daily. [facility] HYDROcodone -acetaminop hen (NORCO) 5-325 mg tablet 09-20 05:15: 05 Yes 1{tbl} Take 1 tablet by mouth every 6 (six) hours as needed. [facility] furosemide (LASIX) 20 mg tablet 09-20 05:15: 05 Yes 20mg Take 20 mg by mouth daily. [facility] lansoprazol e 30 mg capsule 09-20 05:15: 05 Yes 30mg Take 30 mg by mouth daily. [facility] rOPINIRole 0.5 mg tablet 09-20 05:15: 05 Yes .5mg Take 0.5 mg by mouth daily. [facility] HYDROcodone -acetaminop hen (NORCO) 5-325 mg tablet 09-20 05:15: 05 Yes 1{tbl} Take 1 tablet by mouth every 6 (six) hours as needed. [facility] furosemide (LASIX) 20 mg tablet 09-20 05:15: 05 Yes 20mg Take 20 mg by mouth daily. [facility] lansoprazol e 30 mg capsule 09-20 05:15: 05 Yes 30mg Take 30 mg by mouth daily. [facility] rOPINIRole 0.5 mg tablet 09-20 05:15: 05 Yes .5mg Take 0.5 mg by mouth daily. [facility] HYDROcodone -acetaminop hen (NORCO) 5-325 mg tablet 09-20 05:15: 05 Yes 1{tbl} Take 1 tablet by mouth every 6 (six) hours as needed. [facility] furosemide (LASIX) 20 mg tablet 09-20 05:15: 05 Yes 20mg Take 20 mg by mouth daily. [facility] lansoprazol e 30 mg capsule 09-20 05:15: 05 Yes 30mg Take 30 mg by mouth daily. [facility] rOPINIRole 0.5 mg tablet 09-20 05:15: 05 Yes .5mg Take 0.5 mg by mouth daily. [facility] HYDROcodone -acetaminop hen (NORCO) 5-325 mg tablet 09-20 05:15: 05 Yes 1{tbl} Take 1 tablet by mouth every 6 (six) hours as needed. [facility] azithromyci n (ZITHROMAX) tablet 500 mg 09-18 19:00: 00 09-18 21:19 :00 No 500mg 500 mg, Oral, Q24H ABX, 1 dose, First dose (after last modificati on) on Tue09/18/21 at 1400, Routine
Reason for Anti-Infec tive: Documented Infection< br>Documen steve Infection Site: Abdominal< br>Duratio n of Therapy: Other (see Comments) [facility] metFORMIN 1,000 mg tablet 09-18 17:50: 18 Yes 1000mg Take 1,000 mg by mouth 2 (two) times daily with meals. [facility] furosemide (LASIX) 20 mg tablet 09-18 17:50: 18 Yes 20mg Take 20 mg by mouth daily. [facility] lansoprazol e 30 mg capsule 09-18 17:50: 18 Yes 30mg Take 30 mg by mouth daily. [facility] rOPINIRole 0.5 mg tablet 09-18 17:50: 18 Yes .5mg Take 0.5 mg by mouth daily. [facility] HYDROcodone -acetaminop hen (NORCO) 5-325 mg tablet 09-18 17:50: 18 Yes 1{tbl} Take 1 tablet by mouth every 6 (six) hours as needed. [facility] metFORMIN 1,000 mg tablet 09-18 17:50: 18 Yes 1000mg Take 1,000 mg by mouth 2 (two) times daily with meals. [facility] furosemide (LASIX) 20 mg tablet 09-18 17:50: 18 Yes 20mg Take 20 mg by mouth daily. [facility] lansoprazol e 30 mg capsule 09-18 17:50: 18 Yes 30mg Take 30 mg by mouth daily. [facility] rOPINIRole 0.5 mg tablet 09-18 17:50: 18 Yes .5mg Take 0.5 mg by mouth daily. [facility] HYDROcodone -acetaminop hen (NORCO) 5-325 mg tablet 09-18 17:50: 18 Yes 1{tbl} Take 1 tablet by mouth every 6 (six) hours as needed. [facility] metFORMIN 1,000 mg tablet 09-18 17:50: 18 Yes 1000mg Take 1,000 mg by mouth 2 (two) times daily with meals. [facility] metFORMIN 1,000 mg tablet 09-18 17:50: 18 Yes 1000mg Take 1,000 mg by mouth 2 (two) times daily with meals. [facility] metFORMIN 1,000 mg tablet 09-18 17:50: 18 Yes 1000mg Take 1,000 mg by mouth 2 (two) times daily with meals. [facility] metFORMIN 1,000 mg tablet 09-18 17:50: 18 Yes 1000mg Take 1,000 mg by mouth 2 (two) times daily with meals. [facility] metFORMIN 1,000 mg tablet 09-18 17:50: 18 Yes 1000mg Take 1,000 mg by mouth 2 (two) times daily with meals. [facility] metFORMIN 1,000 mg tablet 09-18 17:50: 18 Yes 1000mg Take 1,000 mg by mouth 2 (two) times daily with meals. [facility] clopidogreL (PLAVIX) 75 mg tablet 09-18 07:52: 57 09-18 00:00 :00 No 75mg Take 75 mg by mouth daily. [facility] enalapril 10 mg tablet 0 09-18 07:52: 57 09-18 00:00 :00 No Take by mouth daily. [facility] clopidogreL (PLAVIX) 75 mg tablet 2021-0 09-18 07:52: 57 09-18 00:00 :00 No 75mg Take 75 mg by mouth daily. [facility] enalapril 10 mg tablet 09-18 07:52: 57 09-18 00:00 :00 No Take by mouth daily. [facility] benzonatate 100 mg capsule 2021-0 09-18 00:00: 00 Yes [id number] 100mg Take 1 capsule by mouth every 8 (eight) hours as needed for Cough. [facility] benzonatate 100 mg capsule 2021-0 09-18 00:00: 00 Yes [id number] 100mg Take 1 capsule by mouth every 8 (eight) hours as needed for Cough. [facility] benzonatate 100 mg capsule 2021-0 09-18 00:00: 00 Yes [id number] 100mg Take 1 capsule by mouth every 8 (eight) hours as needed for Cough. [facility] benzonatate 100 mg capsule 2021-0 09-18 00:00: 00 Yes [id number] 100mg Take 1 capsule by mouth every 8 (eight) hours as needed for Cough. [facility] benzonatate 100 mg capsule 2021-0 09-18 00:00: 00 Yes [id number] 100mg Take 1 capsule by mouth every 8 (eight) hours as needed for Cough. [facility] benzonatate 100 mg capsule 2-0 09-18 00:00: 00 Yes [id number] 100mg Take 1 capsule by mouth every 8 (eight) hours as needed for Cough. [facility] benzonatate 100 mg capsule 09-18 00:00: 00 Yes [id number] 100mg Take 1 capsule by mouth every 8 (eight) hours as needed for Cough. [facility] aspirin 81 mg EC tablet 09-18 00:00: 00 12-18 04:59 :00 No [id number] 81mg Take 1 tablet by mouth daily for 90 days. [facility] atorvastati n 40 mg tablet 09-18 00:00: 00 12-18 04:59 :00 No [id number] 40mg Take 1 tablet by mouth daily for 90 days. [facility] clopidogreL (PLAVIX) 75 mg tablet 09-18 00:00: 00 12-18 04:59 :00 No [id number] 75mg Take 1 tablet by mouth daily for 90 days. [facility] enalapril 10 mg tablet 09-18 00:00: 00 12-18 04:59 :00 No [id number] 10mg Take 1 tablet by mouth daily for 90 days. [facility] metoprolol succinate XL 25 mg 24 hr tablet 09-18 00:00: 00 12-18 04:59 :00 No [id number] 12.5mg Take 0.5 tablets by mouth daily for 90 days. [facility] aspirin 81 mg EC tablet 09-18 00:00: 00 12-18 04:59 :00 No [id number] 81mg Take 1 tablet by mouth daily for 90 days. [facility] atorvastati n 40 mg tablet 09-18 00:00: 00 12-18 04:59 :00 No [id number] 40mg Take 1 tablet by mouth daily for 90 days. [facility] clopidogreL (PLAVIX) 75 mg tablet 09-18 00:00: 00 12-18 04:59 :00 No [id number] 75mg Take 1 tablet by mouth daily for 90 days. [facility] enalapril 10 mg tablet 09-18 00:00: 00 12-18 04:59 :00 No [id number] 10mg Take 1 tablet by mouth daily for 90 days. [facility] metoprolol succinate XL 25 mg 24 hr tablet 09-18 00:00: 00 12-18 04:59 :00 No [id number] 12.5mg Take 0.5 tablets by mouth daily for 90 days. [facility] aspirin 81 mg EC tablet 09-18 00:00: 00 12-18 04:59 :00 No [id number] 81mg Take 1 tablet by mouth daily for 90 days. [facility] atorvastati n 40 mg tablet 09-18 00:00: 00 12-18 04:59 :00 No [id number] 40mg Take 1 tablet by mouth daily for 90 days. [facility] clopidogreL (PLAVIX) 75 mg tablet 09-18 00:00: 00 12-18 04:59 :00 No [id number] 75mg Take 1 tablet by mouth daily for 90 days. [facility] enalapril 10 mg tablet 09-18 00:00: 00 12-18 04:59 :00 No [id number] 10mg Take 1 tablet by mouth daily for 90 days. [facility] metoprolol succinate XL 25 mg 24 hr tablet 09-18 00:00: 00 12-18 04:59 :00 No [id number] 12.5mg Take 0.5 tablets by mouth daily for 90 days. [facility] aspirin 81 mg EC tablet 09-18 00:00: 00 12-18 04:59 :00 No [id number] 81mg Take 1 tablet by mouth daily for 90 days. [facility] atorvastati n 40 mg tablet 09-18 00:00: 00 12-18 04:59 :00 No [id number] 40mg Take 1 tablet by mouth daily for 90 days. [facility] clopidogreL (PLAVIX) 75 mg tablet 09-18 00:00: 00 12-18 04:59 :00 No [id number] 75mg Take 1 tablet by mouth daily for 90 days. [facility] enalapril 10 mg tablet 09-18 00:00: 00 12-18 04:59 :00 No [id number] 10mg Take 1 tablet by mouth daily for 90 days. [facility] metoprolol succinate XL 25 mg 24 hr tablet 09-18 00:00: 00 12-18 04:59 :00 No [id number] 12.5mg Take 0.5 tablets by mouth daily for 90 days. [facility] aspirin 81 mg EC tablet 09-18 00:00: 00 12-18 04:59 :00 No [id number] 81mg Take 1 tablet by mouth daily for 90 days. [facility] atorvastati n 40 mg tablet 09-18 00:00: 00 12-18 04:59 :00 No [id number] 40mg Take 1 tablet by mouth daily for 90 days. [facility] clopidogreL (PLAVIX) 75 mg tablet 09-18 00:00: 00 12-18 04:59 :00 No [id number] 75mg Take 1 tablet by mouth daily for 90 days. [facility] enalapril 10 mg tablet 09-18 00:00: 00 12-18 04:59 :00 No [id number] 10mg Take 1 tablet by mouth daily for 90 days. [facility] metoprolol succinate XL 25 mg 24 hr tablet 09-18 00:00: 00 12-18 04:59 :00 No [id number] 12.5mg Take 0.5 tablets by mouth daily for 90 days. [facility] aspirin 81 mg EC tablet 09-18 00:00: 00 12-18 04:59 :00 No [id number] 81mg Take 1 tablet by mouth daily for 90 days. [facility] atorvastati n 40 mg tablet 09-18 00:00: 00 12-18 04:59 :00 No [id number] 40mg Take 1 tablet by mouth daily for 90 days. [facility] clopidogreL (PLAVIX) 75 mg tablet 09-18 00:00: 00 12-18 04:59 :00 No [id number] 75mg Take 1 tablet by mouth daily for 90 days. [facility] enalapril 10 mg tablet 09-18 00:00: 00 12-18 04:59 :00 No [id number] 10mg Take 1 tablet by mouth daily for 90 days. [facility] metoprolol succinate XL 25 mg 24 hr tablet 09-18 00:00: 00 12-18 04:59 :00 No [id number] 12.5mg Take 0.5 tablets by mouth daily for 90 days. [facility] codeine tablet 15 mg 09-17 15:48: 48 Yes 15mg 15 mg, Oral, Q6HPRN, Starting on Tue09/17/21 at 1048, Until Discontinu ed, Routine, Pain (scale 7-10) [facility] codeine tablet 15 mg 09-17 15:48: 48 09-19 00:50 :21 No 15mg 15 mg, Oral, Q6HPRN, Starting on Tue09/17/21 at 1048, Until Tue09/18/21 at 1950, Routine, Pain (scale 7-10) [facility] magnesium sulfate in water 2 gram/50 mL (4 %) infusion 2 g 09-17 13:00: 00 09-17 16:10 :00 No 2g 2 g, IV Piggyback, Administer over 60 Minutes, Q1H, 2 doses, First dose on Tue09/17/21 at 0800, Last dose on Tue09/17/21 at 0900, EMMIE [facility] benzonatate (TESSALON PERLES) capsule 100 mg 09-17 01:17: 00 Yes 100mg 100 mg, Oral, Q8HPRN, Starting on Tue09/16/21 at 2017, Until Discontinu ed, Routine, Cough [facility] benzonatate (TESSALON PERLES) capsule 100 mg 09-17 01:17: 00 09-19 00:50 :21 No 100mg 100 mg, Oral, Q8HPRN, Starting on Tue09/16/21 at 2017, Until Tue09/18/21 at 1950, Routine, Cough [facility] azithromyci n (ZITHROMAX) tablet 500 mg 09-17 01:03: 00 09-18 14:59 :49 No 500mg 500 mg, Oral, Q24H ABX, 3 doses, First dose (after last modificati on) on Tue09/16/21 at 2014, Last dose on Tue09/18/21 at 2014, EMMIE
Re ason for Anti-Infec tive: Documented Infection< br>Documen steve Infection Site: Abdominal< br>Duratio n of Therapy: Other (see Comments) [facility] heparin (porcine) injection 5,000 Units 09-17 01:00: 00 Yes 5000U 5,000 Units, Subcutaneo us, Q12H, First dose on Tue09/16/21 at 2000, Until Discontinu ed, Routine [facility] 5,000 Units 09-17 01:00: 00 09-19 00:50 :21 No 5000U 5,000 Units, Subcutaneo us, Q12H, First dose on Tue09/16/21 at 2000, Until Discontinu ed, Routine [facility] lactated ringers IV infusion 1,000 mL 09-16 21:00: 00 09-17 00:59 :00 No 1000mL at 100 mL/hr, 1,000 mL, IV Infusion, CONTINUOUS , Starting on Tue09/16/21 at 1600, Until Tue09/16/21 at 1959, Routine [facility] iopamidol (ISOVUE 370-500 mL) injection 09-16 15:37: 01 09-16 15:47 :47 No ONCE INTRA PROCEDURE, Starting on Tue09/16/21 at 1037, Until Tue09/16/21 at 1047, Routine, CV Intraproce dure [facility] adenosine 6 mg/1000 mL INTRACORONA RY injection for [employer] 09-16 15:20: 44 09-16 15:47 :47 No ONCE INTRA PROCEDURE, Starting on Tue09/16/21 at 1020, Until Tue09/16/21 at 1047, Routine, CV Intraproce dure [facility] nitroglycer in (TRIDIL) 2 mg in 10 mL D5W for Cardiac Cath 09-16 15:20: 33 09-16 15:47 :47 No ONCE INTRA PROCEDURE, Starting on Tue09/16/21 at 1020, Until Tue09/16/21 at 1047, Routine, CV Intraproce dure [facility] heparin 1,000 unit/mL injection 09-16 14:43: 00 09-16 15:47 :47 No ONCE INTRA PROCEDURE, Starting on Tue09/16/21 at 0943, Until Tue09/16/21 at 1047, Routine, CV Intraproce dure [facility] clopidogreL (PLAVIX) 300 mg tablet 09-16 14:37: 16 09-16 15:47 :47 No ONCE INTRA PROCEDURE, Starting on Tue09/16/21 at 0937, Until Tue09/16/21 at 1047, Routine, CV Intraproce dure [facility] NaCl 0.9% (NS) bolus infusion 09-16 14:08: 57 09-16 14:08 :57 No CONTINUOUS PRN, Starting on Tue09/16/21 at 0908, Until Discontinu ed, STAT, CV Intraproce dure [facility] lidocaine 1% (PF) (XYLOCAINE) injection 09-16 13:48: 59 09-16 15:47 :47 No ONCE INTRA PROCEDURE, Starting on Tue09/16/21 at 0848, Until Tue09/16/21 at 1047, Routine, CV Intraproce dure [facility] midazolam (VERSED) injection 09-16 13:45: 24 09-16 15:47 :47 No ONCE INTRA PROCEDURE, Starting on Tue09/16/21 at 0845, Until Tue09/16/21 at 1047, Routine, CV Intraproce dure [facility] FENTanyl PF (SUBLIMAZE (PF)) injection 09-16 13:45: 16 09-16 15:47 :47 No ONCE INTRA PROCEDURE, Starting on Tue09/16/21 at 0845, Until Tue09/16/21 at 1047, Routine[facility]ph[facility] (OPTISON) injection 3 mL 09-15 21:45: 00 09-15 08:45 :00 No [id number] 3mL 3 mL, IV Push, ONCE, 1 dose, On Tue09/15/21 at 1645, Routine [facility] piperacilli n-tazobacta m (ZOSYN) 3.375 g in NaCl 0.9% (NS) 50 mL MINI-BAG 09-15 17:30: 00 09-16 18:57 :43 No 3.375g 3.375 g, IV Piggyback, Q8H ABX, First dose on Tue09/15/21 at 1230, Until Discontinu ed, Administer over 4 Hours, 50 mL
Reas on for Anti-Infec tive: Empiric Therapy for Suspected Infection< br>Empi bon Therapy Site: Abdominal< br>Duratio n of therapy: 72 hours [facility] pantoprazol e (PROTONIX) EC tablet 40 mg 09-15 14:00: 00 Yes 40mg 40 mg, Oral, DAILY, First dose on Tue09/15/21 at 0900, Until Discontinu ed, Routine [facility] metoprolol succinate XL (TOPROL XL) tablet 12.5 mg 09-15 14:00: 00 Yes 12.5mg 12.5 mg, Oral, DAILY, First dose (after last modificati on) on Tue09/15/21 at 0900, Until Discontinu ed, Routine [facility] enalapril (VASOTEC) tablet 10 mg 09-15 14:00: 00 Yes 10mg 10 mg, Oral, DAILY, First dose on Tue09/15/21 at 0900, Until Discontinu ed, Routine [facility] clopidogreL (PLAVIX) 75 mg tablet 75 mg 09-15 14:00: 00 Yes 75mg 75 mg, Oral, DAILY, First dose on Tue09/15/21 at 0900, Until Discontinu ed, Routine [facility] atorvastati n (LIPITOR) tablet 40 mg 09-15 14:00: 00 Yes 40mg 40 mg, Oral, DAILY, First dose on Tue09/15/21 at 0900, Until Discontinu ed, Routine [facility] aspirin EC tablet 81 mg 09-15 14:00: 00 Yes 81mg 81 mg, Oral, DAILY, First dose on Tue09/15/21 at 0900, Until Discontinu ed, Routine [facility] pantoprazol e (PROTONIX) EC tablet 40 mg 09-15 14:00: 00 09-19 00:50 :21 No 40mg 40 mg, Oral, DAILY, First dose on Tue09/15/21 at 0900, Until Discontinu ed, Routine [facility] metoprolol succinate XL (TOPROL XL) tablet 12.5 mg 09-15 14:00: 00 09-19 00:50 :21 No 12.5mg 12.5 mg, Oral, DAILY, First dose (after last modificati on) on Tue09/15/21 at 0900, Until Discontinu ed, Routine [facility] enalapril (VASOTEC) tablet 10 mg 09-15 14:00: 00 09-19 00:50 :21 No 10mg 10 mg, Oral, DAILY, First dose on Tue09/15/21 at 0900, Until Discontinu ed, Routine [facility] clopidogreL (PLAVIX) 75 mg tablet 75 mg 09-15 14:00: 00 09-19 00:50 :21 No 75mg 75 mg, Oral, DAILY, First dose on Tue09/15/21 at 0900, Until Discontinu ed, Routine [facility] atorvastati n (LIPITOR) tablet 40 mg 09-15 14:00: 00 09-19 00:50 :21 No 40mg 40 mg, Oral, DAILY, First dose on Tue09/15/21 at 0900, Until Discontinu ed, Routine [facility] aspirin EC tablet 81 mg 09-15 14:00: 00 09-19 00:50 :21 No 81mg 81 mg, Oral, DAILY, First dose on Tue09/15/21 at 0900, Until Discontinu ed, Routine [facility] furosemide (LASIX) tablet 20 mg 09-15 14:00: 00 09-15 15:59 :31 No 20mg 20 mg, Oral, DAILY, First dose on Tue09/15/21 at 0900, Until Discontinu ed, Routine [facility] Sliding Scale Insulin - Lispro (HumaLOG) + Fsbg Testing 09-15 13:00: 00 Yes Subcutaneo us, TID MEALS+HS, First dose on Tue09/15/21 at 0800, Until Discontinu ed, Routine [facility] - Lispro (HumaLOG) + Fsbg Testing 09-15 13:00: 00 09-19 00:50 :21 No Subcutaneo us, TID MEALS+HS, First dose on Tue09/15/21 at 0800, Until Discontinu ed, Routine [facility] magnesium sulfate in water 2 gram/50 mL (4 %) infusion 2 g 09-15 11:00: 00 09-15 15:28 :00 No 2g 2 g, IV Piggyback, Administer over 60 Minutes, Q2H, 3 doses, First dose on Tue09/15/21 at 0600, Last dose on Tue09/15/21 at 1000, Routine [facility] HEPARIN SODIUM (PORCINE) 1,000 UNIT/ML BOLUS ACS ORDER SET 09-15 10:45: 00 09-15 10:54 :00 No 4000U 4,000 Units, IV Push, ONCE, 1 dose, On Tue09/15/21 at 0545, EMMIE [facility] 25,000 Units/250 mL (Premixed Bag) in 0.45 % NS 09-15 10:42: 15 09-16 18:46 :08 No 12U/kg/ h 12 Units/kg/h r ?66.7 kg (8.004 mL/hr, rounded to 8 mL/hr), IV Infusion, TITRATE, Parameters in [...] Rang e, Dosing and Testing: &nbs p;FOR VIKING, [facility] ONLY &nbs p; - aPTT < 35: [...] increase rate 300 units/hr&n bsp; - aPTT 40-49:&nbs p; Gareth sarai 3000 units, increase rate 200 units/hr&n bsp; - aPTT 50-59:&nbs p; In crease rate 100 units/hr&n bsp; - aPTT 60-85:&nbs p; NO CHANGE&amp ;nbsp; - aPTT 86-95:&nbs p; De crease rate [...] ADJUST INITIAL BOLUS OR INITIAL INFUSION RATE.
[facility] glucagon (GLUCAGEN DIAGNOSTIC KIT) injection 1 mg 09-15 09:31: 38 Yes 1mg 1 mg, Intramuscu lar, PRN, Starting on Tue09/15/21 at 0431, Until Discontinu ed, EMMIE, Blood Glucose < or = 70 mg/dL and patient is unable to swallow or has mental changes. [facility] glucagon (GLUCAGEN DIAGNOSTIC KIT) injection 1 mg 09-15 09:31: 38 09-19 00:50 :21 No 1mg 1 mg, Intramuscu lar, PRN, Starting on Tue09/15/21 at 0431, Until Tue09/18/21 at 1950, EMMIE, Blood Glucose < or = 70 mg/dL and patient is unable to swallow or has mental changes. [facility] piperacilli n-tazobacta m (ZOSYN) 3.375 g in NaCl 0.9% (NS) 50 mL MINI-BAG 09-15 09:30: 00 09-15 10:49 :00 No 3.375g 3.375 g, IV Piggyback, ONCE, 1 dose, On Tue09/15/21 at 0430, Administer over 30 Minutes, 50 mL
Reas on for Anti-Infec tive: Empiric Therapy for Suspected Infection< br>Empiric Therapy Site: Abdominal< br>Duratio n of therapy: 72 hours [facility] HYDROcodone -acetaminop hen (NORCO 5) 5-325 mg tablet 1 tablet 09-15 08:32: 14 09-17 15:48 :31 No 1{tbl} 1 tablet, Oral, Q6HPRN, Starting on Tue09/15/21 at 0332, Until Tue09/17/21 at 1048, Routine, Pain (scale 7-10) [facility] acetaminoph en (TYLENOL) tablet 650 mg 09-15 08:24: 52 09-17 13:10 :35 No 650mg 650 mg, Oral, Q6HPRN, Starting on Tue09/15/21 at 0324, Until Tue09/17/21 at 0810, Routine, Pain (scale 1-3) [facility] NaCl 0.9% (NS) bolus infusion 1,000 mL 09-15 03:45: 00 09-15 04:35 :00 No 1000mL at 999 mL/hr, 1,000 mL, IV Infusion, ONCE, 1 dose, On Tue09/14/21 at 2245, STAT [facility] aspirin chewable tablet 324 mg 09-15 03:45: 00 09-15 02:47 :00 No 324mg 324 mg, Oral, ONCE, 1 dose, On Tue09/14/21 at 2245, Routine [facility] ibuprofen (IBU) tablet 600 mg 09-15 02:45: 00 09-15 02:47 :00 No 600mg 600 mg, Oral, ONCE, 1 dose, On Tue09/14/21 at 2145, [facility] NaCl 0.9% (NS) bolus infusion 1,000 mL 09-15 02:30: 00 09-15 02:44 :00 No 1000mL at 999 mL/hr, 1,000 mL, IV Infusion, ONCE, 1 dose, On Tue09/14/21 at 2130, [facility] acetaminoph en (TYLENOL) tablet 650 mg 09-15 01:30: 00 09-15 01:34 :00 No 650mg 650 mg, Oral, ONCE, 1 dose, On Tue09/14/21 at 2030, [facility] NaCl 0.9% (NS) bolus infusion 1,000 mL 09-14 11:00: 00 09-14 12:03 :00 No 1000mL at 999 mL/hr, 1,000 mL, IV Infusion, ONCE, 1 dose, On Tue09/14/21 at 0600, [facility] iohexoL (OMNIPAQUE 350 BULK-50 mL) injection 50 mL 09-14 08:00: 00 09-14 07:49 :00 No [id number] 50mL 50 mL, Intravenou s, ONCE, 1 dose, On Tue09/14/21 at 0300, [facility] NaCl 0.9% (NS) bolus infusion 1,000 mL 09-14 08:00: 00 09-14 07:59 :00 No 1000mL at 999 mL/hr, 1,000 mL, IV Infusion, ONCE, 1 dose, On Tue09/14/21 at 0300, EMMIE [facility] ibuprofen (IBU) tablet 600 mg 09-14 07:00: 00 09-14 07:01 :00 No 600mg 600 mg, Oral, ONCE, 1 dose, On Tue09/14/21 at 0200, EMMIE [facility] metFORMIN 1,000 mg tablet 2020-03 10:07: 03 Yes 1000mg Take 1,000 mg by mouth 2 (two) times daily with meals. [facility] metFORMIN 1,000 mg tablet 2020-03 10:07: 03 Yes 1000mg Take 1,000 mg by mouth 2 (two) times daily with meals. [facility] metoprolol succinate XL 25 mg 24 hr tablet 10-22 00:00: 00 Yes [id number] 25mg Take 1 tablet by mouth daily. [facility] metoprolol succinate XL 25 mg 24 hr tablet 10-22 00:00: 00 Yes [id number] 25mg Take 1 tablet by mouth daily. [facility] metoprolol succinate XL 25 mg 24 hr tablet 10-22 00:00: 00 09-18 00:00 :00 No [id number] 25mg Take 1 tablet by mouth daily. [facility] metoprolol succinate XL 25 mg 24 hr tablet 10-22 00:00: 00 09-18 00:00 :00 No [id number] 25mg Take 1 tablet by mouth daily. [facility] celecoxib 200 mg capsule 09-24 00:00: 00 Yes TAKE 1 CAPSULE BY MOUTH ONCE DAILY NEEDED [facility] glimepiride 2 mg tablet 09-24 00:00: 00 Yes 2mg Take 2 mg by mouth 2 (two) times daily with meals. [facility] celecoxib 200 mg capsule 09-24 00:00: 00 Yes TAKE 1 CAPSULE BY MOUTH ONCE DAILY NEEDED [facility] glimepiride 2 mg tablet 2020-0 14 00:00: 00 Yes 2mg Take 2 mg by mouth 2 (two) times daily with meals. [facility] celecoxib 200 mg capsule 2020-0 14 00:00: 00 Yes TAKE 1 CAPSULE BY MOUTH ONCE DAILY NEEDED [facility] glimepiride 2 mg tablet 2020-0 14 00:00: 00 Yes 2mg Take 2 mg by mouth 2 (two) times daily with meals. [facility] celecoxib 200 mg capsule 2020-0 14 00:00: 00 Yes TAKE 1 CAPSULE BY MOUTH ONCE DAILY NEEDED [facility] glimepiride 2 mg tablet 2020-0 14 00:00: 00 Yes 2mg Take 2 mg by mouth 2 (two) times daily with meals. [facility] celecoxib 200 mg capsule 2020-0 14 00:00: 00 Yes TAKE 1 CAPSULE BY MOUTH ONCE DAILY NEEDED [facility] glimepiride 2 mg tablet 2020-0 14 00:00: 00 Yes 2mg Take 2 mg by mouth 2 (two) times daily with meals. [facility] celecoxib 200 mg capsule 2020-0 14 00:00: 00 Yes TAKE 1 CAPSULE BY MOUTH ONCE DAILY NEEDED [facility] glimepiride 2 mg tablet 2020-0 14 00:00: 00 Yes 2mg Take 2 mg by mouth 2 (two) times daily with meals. [facility] celecoxib 200 mg capsule 2020-0 14 00:00: 00 Yes TAKE 1 CAPSULE BY MOUTH ONCE DAILY NEEDED [facility] glimepiride 2 mg tablet 2020-0 14 00:00: 00 Yes 2mg Take 2 mg by mouth 2 (two) times daily with meals. [facility] celecoxib 200 mg capsule 2020-0 14 00:00: 00 Yes TAKE 1 CAPSULE BY MOUTH ONCE DAILY NEEDED [facility] glimepiride 2 mg tablet 2020-0 14 00:00: 00 Yes 2mg Take 2 mg by mouth 2 (two) times daily with meals. [facility] celecoxib 200 mg capsule 09-24 00:00: 00 Yes TAKE 1 CAPSULE BY MOUTH ONCE DAILY NEEDED [facility] glimepiride 2 mg tablet 09-24 00:00: 00 Yes 2mg Take 2 mg by mouth 2 (two) times daily with meals. [facility] celecoxib 200 mg capsule 09-24 00:00: 00 Yes TAKE 1 CAPSULE BY MOUTH ONCE DAILY NEEDED [facility] glimepiride 2 mg tablet 09-24 00:00: 00 Yes 2mg Take 2 mg by mouth 2 (two) times daily with meals. [facility] aspirin 81 mg EC tablet 0 20 00:00: 00 Yes [id number] 81mg Take 1 tablet by mouth daily. [facility] atorvastati n 40 mg tablet 0 -20 00:00: 00 Yes [id number] 40mg Take 1 tablet by mouth daily. [facility] aspirin 81 mg EC tablet 0 -20 00:00: 00 Yes [id number] 81mg Take 1 tablet by mouth daily. [facility] atorvastati n 40 mg tablet 0 -20 00:00: 00 Yes [id number] 40mg Take 1 tablet by mouth daily. [facility] aspirin 81 mg EC tablet 0 20 00:00: 00 09-18 00:00 :00 No [id number] 81mg Take 1 tablet by mouth daily. [facility] atorvastati n 40 mg tablet 2019-0 7-20 00:00: 00 09-18 00:00 :00 No [id number] 40mg Take 1 tablet by mouth daily. [facility] aspirin 81 mg EC tablet 0 7-20 00:00: 00 09-18 00:00 :00 No [id number] 81mg Take 1 tablet by mouth daily. [facility] atorvastati n 40 mg tablet 2019-0 7-20 00:00: 00 09-18 00:00 :00 No [id number] 40mg Take 1 tablet by mouth daily. [facility] Vital Signs Vital Name Observation Time Observation Value Comments S yudy Systolic blood pressure 2021-09-18 17:06:00 119 mm[Hg] [facility] Diastolic blood pressure 2021-09-18 17:06:00 60 mm[Hg] [facility] Heart rate 2021-09-18 17:06:00 61 /min [facility] Body temperature 2021-09-18 17:06:00 35.78 [facility] Respiratory rate 2021-09-18 17:06:00 18 /min [facility] Oxygen saturation in Arterial blood by Pulse oximetry 2021-09-18 17:06:00 98 /min [facility] Body weight 2021-09-17 10:19:00 65 kg [facility] BMI 2021-09-17 10:19:00 25.38 kg/m2 [facility] Body height 2021-09-15 08:00:00 160 cm [facility] Systolic blood pressure 2021-09-16 15:39:06 115 mm[Hg] [facility] Diastolic blood pressure 2021-09-16 15:39:06 67 mm[Hg] [facility] Respiratory rate 2021-09-16 15:39:06 19 /min [facility] Oxygen saturation in Arterial blood by Pulse oximetry 2021-09-16 15:39:06 97 /min [facility] Heart rate 2021-09-16 09:15:00 79 /min [facility] Body temperature 2021-09-16 09:15:00 36.94 [facility] Body height 2021-09-15 08:00:00 160 cm [facility] Systolic blood pressure 2021-09-14 11:00:00 110 mm[Hg] [facility] Diastolic blood pressure 2021-09-14 11:00:00 65 mm[Hg] [facility] Heart rate 2021-09-14 11:00:00 86 /min [facility] Respiratory rate 2021-09-14 11:00:00 19 /min [facility] Oxygen saturation in Arterial blood by Pulse oximetry 2021-09-14 11:00:00 98 /min [facility] Body temperature 2021-09-14 07:58:00 37.33 [facility] Body height 2021-09-14 06:38:00 172.7 cm [facility] Body weight 2021-09-14 06:38:00 66.679 kg [facility] BMI 2021-09-14 06:38:00 22.35 kg/m2 [facility] Systolic blood pressure 2021-01-15 13:55:00 170 mm[Hg] [facility] Diastolic blood pressure 2021-01-15 13:55:00 65 mm[Hg] [facility] Heart rate 2021-01-15 13:55:00 78 /min [facility] Respiratory rate 2021-01-15 13:55:00 20 /min [facility] Body height 2021-01-15 13:55:00 157.5 cm [facility] Body weight 2021-01-15 13:55:00 72.167 kg [facility] BMI 2021-01-15 13:55:00 29.10 kg/m2 [facility] Oxygen saturation in Arterial blood by Pulse oximetry 2021-01-15 13:55:00 98 /min [facility] Procedures Procedure Date / Time Performed Performing Clinician Source REFERRAL- REQUEST/RESPONSE 2021-10-14 05:01:00 D octor Unassigned, [facility] EXTERNAL PROVIDER RECORDS 2021-10-01 05:01:00 Do ctor Unassigned, [facility] EXTERNAL PROVIDER RECORDS 2021-09-23 05:01:00 Do ctor Unassigned, [facility] POCT GLUCOSE (AUTOMATED) 2021-09-18 19:00:00 Jazmin Donahue [facility] POCT GLUCOSE (AUTOMATED) 2021-09-18 19:00:00 Jazmin Donahue [facility] POCT GLUCOSE (AUTOMATED) 2021-09-18 13:30:00 Jazmin Donahue [facility] POCT GLUCOSE (AUTOMATED) 2021-09-18 13:30:00 Jazmin Donahue [facility] MAGNESIUM 2021-09-18 10:03:00 Reece Hogue [facility] BASIC METABOLIC PANEL (NA, K, CL, CO2, GLUCOSE, BUN, CREATININE, CA) 2021-09-18 10:03:00 Reece Hogue [facility] MAGNESIUM 2021-09-18 10:03:00 Reece Hogue [facility] BASIC METABOLIC PANEL (NA, K, CL, CO2, GLUCOSE, BUN, CREATININE, CA) 2021-09-18 10:03:00 Reece Hogue [facility] POCT GLUCOSE (AUTOMATED) 2021-09-18 01:03:00 Jazmin Donahue [facility] POCT GLUCOSE (AUTOMATED) 2021-09-18 01:03:00 Jazmin Donahue [facility] POCT GLUCOSE (AUTOMATED) 2021-09-17 23:15:00 Sandee Donahuemichelle [facility] POCT GLUCOSE (AUTOMATED) 2021-09-17 23:15:00 Jazmin Donahue [facility] MAGNESIUM 2021-09-17 21:45:00 Reece Hogue [facility] BASIC METABOLIC PANEL (NA, K, CL, CO2, GLUCOSE, BUN, CREATININE, CA) 2021-09-17 21:45:00 Reece Hogue [facility] MAGNESIUM 2021-09-17 21:45:00 Reece Hogue [facility] BASIC METABOLIC PANEL (NA, K, CL, CO2, GLUCOSE, BUN, CREATININE, CA) 2021-09-17 21:45:00 Reece Hogue [facility] POCT GLUCOSE (AUTOMATED) 2021-09-17 18:14:00 Sandee Donahuemichelle [facility] POCT GLUCOSE (AUTOMATED) 2021-09-17 18:14:00 Jazmin Donahue [facility] POCT GLUCOSE (AUTOMATED) 2021-09-17 14:32:00 Jazmin Donahue [facility] POCT GLUCOSE (AUTOMATED) 2021-09-17 14:32:00 Jazmin Donahue [facility] MAGNESIUM 2021-09-17 10:05:00 Anil Coe [facility] BASIC METABOLIC PANEL (NA, K, CL, CO2, GLUCOSE, BUN, CREATININE, CA) 2021-09-17 10:05:00 Saravanan [facility] CBC WITH DIFF 2021-09-17 10:05:00 Anil Coe [facility] MAGNESIUM 2021-09-17 10:05:00 Saravanan [facility] BASIC METABOLIC PANEL (NA, K, CL, CO2, GLUCOSE, BUN, CREATININE, CA) 2021-09-17 10:05:00 Saravanan [facility] CBC WITH DIFF 2021-09-17 10:05:00 Anil Coe [facility] POCT GLUCOSE (AUTOMATED) 2021-09-17 01:49:00 Jazmin Donahue [facility] POCT GLUCOSE (AUTOMATED) 2021-09-17 01:49:00 Jazmin Donahue [facility] POCT GLUCOSE (AUTOMATED) 2021-09-16 23:01:00 Jazmin Donahue [facility] POCT GLUCOSE (AUTOMATED) 2021-09-16 23:01:00 Jazmin Donahue [facility] CARDIAC CATHETERIZATION 2021-09-16 15:26:17 [facility] CARDIAC CATHETERIZATION 2021-09-16 15:26:17 [facility] CARDIAC CATHETERIZATION 2021-09-16 15:26:17 [facility] CARDIAC CATHETERIZATION 2021-09-16 15:26:17 [facility] CARDIAC CATHETERIZATION 2021-09-16 15:26:17 [facility] CARDIAC CATHETERIZATION 2021-09-16 15:26:17 [facility] CARDIAC CATHETERIZATION 2021-09-16 15:26:17 [facility] CARDIAC CATHETERIZATION 2021-09-16 15:26:17 [facility] POCT ACT LOW RANGE 2021-09-16 15:14:00 [facility] 2021-09-16 15:14:00 Vernell alfaro [facility] POCT ACT LOW RANGE 2021-09-16 14:42:00 Vernell alfaro [facility] POCT ACT LOW RANGE 2021-09-16 14:42:00 Vernell alfaro [facility] CATH PROCEDURE LOG 2021-09-16 13:49:09 Cong [facility] CATH PROCEDURE LOG 2021-09-16 13:49:09 Cong [facility] TROPONIN I 2021-09-16 08:42:00 Saravanan [facility] TROPONIN I 2021-09-16 08:42:00 Saravanan [facility] PHOSPHORUS 2021-09-16 05:15:00 Anil Coe [facility] MAGNESIUM 2021-09-16 05:15:00 Anil Coe [facility] BASIC METABOLIC PANEL (NA, K, CL, CO2, GLUCOSE, BUN, CREATININE, CA) 2021-09-16 05:15:00 Anil Coe [facility] CBC WITH DIFF 2021-09-16 05:15:00 Anil Coe [facility] PROTHROMBIN TIME / INR 2021-09-16 05:15[facility]00 [facility]AS RACHELL 2021-09-16 05:15:00 Stanley Pearson [facility] PHOSPHORUS 2021-09-16 05:15:00 Orndorff, [facility] MAGNESIUM 2021-09-16 05:15:00 Saravanan [facility] BASIC METABOLIC PANEL (NA, K, CL, CO2, GLUCOSE, BUN, CREATININE, CA) 2021-09-16 05:15:00 Anil Coe [facility] CBC WITH DIFF 2021-09-16 05:15:00 Anil Coe [facility] PROTHROMBIN TIME / INR 2021-09-16 05:15:00 [facility]IV[facility] PARTIAL THRMPLAS RACHELL 2021-09-16 05:15:00 Stanley Pearson [facility] HB ECG ROUTINE & RHYTHM STRIP 2021-09-16 04:05:58 Patel [facility] HB ECG ROUTINE & RHYTHM STRIP 2021-09-16 04:05:58 Patel [facility] POCT GLUCOSE (AUTOMATED) 2021-09-16 02:56:00 Leanna Messer [facility] POCT GLUCOSE (AUTOMATED) 2021-09-16 02:56:00 Leanna Messer [facility] TROPONIN I 2021-09-16 02:36:00 Saravanan [facility] TROPONIN I 2021-09-16 02:36:00 Saravanan [facility] FECAL PATHOGENS BY PCR 2021-09-16 01:59:00 [facility] 2021-09-16 01:59:00 Jazmin Tovar [facility] POCT GLUCOSE (AUTOMATED) 2021-09-15 23:23:00 Leanna Messer [facility] POCT GLUCOSE (AUTOMATED) 2021-09-15 23:23:00 Leanna Messer [facility] TRANSTHORACIC ECHO (TTE) COMPLETE W/ CONTRAST 2021-09-15 20:54:00 Urban Rubalcava [facility] TRANSTHORACIC ECHO (TTE) COMPLETE W/ CONTRAST 2021-09-15 20:54:00 Urban Rubalcava [facility] TROPONIN I 2021-09-15 20:30:[address] [facility] TROPONIN I 2021-09-15 20:30:[address] [facility] HB ECG ROUTINE & RHYTHM STRIP 2021-09-15 17:45:50 Saravanan [facility] HB ECG ROUTINE & RHYTHM STRIP 2021-09-15 17:45:50 Saravanan [facility] CLOSTRIDIUM DIFFICILE TOXIN 2021-09-15 17:42:00 Saravanan [facility] CLOSTRIDIUM DIFFICILE TOXIN 2021-09-15 17:42:00 Saravanan [facility] POCT GLUCOSE (AUTOMATED) 2021-09-15 17:34:00 Leanna Messer [facility] POCT GLUCOSE (AUTOMATED) 2021-09-15 17:34:00 Leanna Messer [facility] TROPONIN I 2021-09-15 16:29:00 Jazmin Stacy [facility] ACTIVATED PARTIAL THRMPLAS RACHELL 2021-09-15 16:29:00 Stanley Pearson [facility] TROPONIN I 2021-09-15 16:29:00 Jazmin Stacy [facility] ACTIVATED PARTIAL THRMPLAS RACHELL 2021-09-15 16:29:00 Stanley Pearson [facility] POCT GLUCOSE (AUTOMATED) 2021-09-15 14:22:00 Leanna Messer [facility] POCT GLUCOSE (AUTOMATED) 2021-09-15 14:22:00 Leanna Mesesr [facility] HB ECG ROUTINE & RHYTHM STRIP 2021-09-15 13:36:30 Rahul Cho [facility] HB ECG ROUTINE & RHYTHM STRIP 2021-09-15 13:36:30 Rahul Cho [facility] XR KUB 2021-09-15 10:32:00 Stanley Pearson [facility] XR KUB 2021-09-15 10:32:00 Michel [facility] LACTIC ACID WHOLE BLOOD 2021-09-15 09:06:00 Basia Pearson [facility] LACTIC ACID WHOLE BLOOD 2021-09-15 09:06:00 Basia Pearson [facility] BLOOD CULTURE SCREEN 2021-09-15 09:03:00 Foster Pearson [facility] BLOOD CULTURE SCREEN 2021-09-15 09:03:00 Foster Pearson [facility] BLOOD CULTURE SCREEN 2021-09-15 09:01:00 Foster Pearson [facility] LIPASE 2021-09-15 09:01:00 Stanley Pearson [facility] MAGNESIUM 2021-09-15 09:01:00 [facility] C-REACTIVE PROTEIN 2021-09-15 09:01:00 Michel [facility] TROPONIN I 2021-09-15 09:01:00 Stanley Pearson [facility] THYROID STIMULATING HORMONE 2021-09-15 09:01:00 Michel [facility] HEPATIC FUNCTION PANEL ([id number]) (ALB,T.PRO,BILI T,BU/BC,ALT,AST,ALK PHOS) 2021-09-15 09:01:00 Michel [facility] BASIC METABOLIC PANEL (NA, K, CL, CO2, GLUCOSE, BUN, CREATININE, CA) 2021-09-15 09:01:00 Michel [facility] SEDIMENTATION RATE 2021-09-15 09:01:00 Michel [facility] CBC WITH DIFF 2021-09-15 09:01:00 Stanley Pearson [facility] GLYCOSYLATED HEMOGLOBIN (A1C) 2021-09-15 09:01:00 Michel [facility] PROTHROMBIN TIME / INR 2021-09-15 09:01:00 Yovani Pearson [facility] ACTIVATED PARTIAL THRMPLAS RACHELL 2021-09-15 09:01:00 Michel [facility] BLOOD CULTURE SCREEN 2021-09-15 09:01:00 Foster Pearson [facility] LIPASE 2021-09-15 09:01:00 Stanley Pearson [facility] MAGNESIUM 2021-09-15 09:01:00 Pearson, Stanley [facility] C-REACTIVE PROTEIN 2021-09-15 09:01:00 Michel [facility] TROPONIN I 2021-09-15 09:01:00 Stanley Pearson [facility] THYROID STIMULATING HORMONE 2021-09-15 09:01:00 Michel [facility] HEPATIC FUNCTION PANEL ([id number]) (ALB,T.PRO,BILI T,BU/BC,ALT,AST,ALK PHOS) 2021-09-15 09:01:00 Michel [facility] BASIC METABOLIC PANEL (NA, K, CL, CO2, GLUCOSE, BUN, CREATININE, CA) 2021-09-15 09:01:00 Michel [facility] SEDIMENTATION RATE 2021-09-15 09:01:00 Michel [facility] CBC WITH DIFF 2021-09-15 09:01:00 PearsonStanley [facility] GLYCOSYLATED HEMOGLOBIN (A1C) 2021-09-15 09:01:00 Michel [facility] PROTHROMBIN TIME / INR 2021-09-15 09:01:00 Yovani Pearson [facility] ACTIVATED PARTIAL THRMPLAS RACHELL 2021-09-15 09:01:00 Pearson [facility] HB ECG ROUTINE & RHYTHM STRIP 2021-09-15 08:48:58 Pearson [facility] HB ECG ROUTINE & RHYTHM STRIP 2021-09-15 08:48:58 Michel [facility] LACTIC ACID WHOLE BLOOD 2021-09-15 05:36:00 Leanna Messer [facility] LACTIC ACID WHOLE BLOOD 2021-09-15 05:36:00 Leanna Messer [facility] RAPID INFLUENZA A/B 2021-09-15 01:44:00 Deysi Messer ra [facility] RAPID INFLUENZA A/B 2021-09-15 01:44:00 Deysi Messer ra [facility] LACTIC ACID WHOLE BLOOD 2021-09-15 01:41:00 Leanna Messer [facility] LACTIC ACID WHOLE BLOOD 2021-09-15 01:41:00 Leanna Messer [facility] TROPONIN I 2021-09-15 01:40:[address] [facility] COMP. METABOLIC PANEL ([id number]) 2021-09-15 01:40:00 Leanna Messer [facility] LIPID PANEL ([id number])(TOTAL CHOLESTEROL, TRIGLYCERIDES, HDL) 2021-09-15 01:40:00 Michel Stanley [facility] SALICYLATE 2021-09-15 01:40:00 Jazmin Stacy [facility] TROPONIN I 2021-09-15 01:40:[address] [facility] COMP. METABOLIC PANEL ([id number]) 2021-09-15 01:40:00 Leanna Messer [facility] LIPID PANEL ([id number])(TOTAL CHOLESTEROL, TRIGLYCERIDES, HDL) 2021-09-15 01:40:00 Stanley Pearson [facility] SALICYLATE 2021-09-15 01:40:00 Jazmin Stacy [facility] HB ECG ROUTINE & RHYTHM STRIP 2021-09-15 01:36:49 Saravanan [facility] HB ECG ROUTINE & RHYTHM STRIP 2021-09-15 01:36:49 Saravanan [facility] CONSENT/REFUSAL FOR DIAGNOSIS AND TREATMENT 2021-09-15 01:03:02 Doctor Unassigned, [facility] CONSENT/REFUSAL FOR DIAGNOSIS AND TREATMENT 2021-09-15 01:03:02 Doctor Unassigned, [facility] LACTIC ACID WHOLE BLOOD 2021-09-14 11:56:00 Leanna Messer [facility] LACTIC ACID WHOLE BLOOD 2021-09-14 09:28:00 Leanna Messer [facility] CT ABDOMEN PELVIS W CONTRAST 2021-09-14 07:54:43 Leanna Messer [facility] XR CHEST 1 VW 2021-09-14 07:48:23 [facility] 2021-09-14 06:58:[address] [facility] COMP. METABOLIC PANEL ([id number]) 2021-09-14 06:58:00 Leanna Messer [facility] CBC WITH DIFF 2021-09-14 06:58:00 [facility] 2021-09-14 06:58:00 [facility] (ID NOW RAPID TESTING) 2021-09-14 06:58:00 Leanna Messer [facility] LACTIC ACID WHOLE BLOOD 2021-09-14 06:57:00 Leanna Messer [facility] CONSENT/REFUSAL FOR DIAGNOSIS AND TREATMENT 2021-09-14 06:28:41 Doctor Unassigned, [facility] Encounters Start Date/Time End Date/Time Encounter Type Admission Type Attending Clinicians Care Facility Care Department Encounter ID Source 2021-01-29 16:44:26 Outpatient REYES RICHARDS [facility] SOR [id number] [facility] 2021-01-13 02:18:45 Outpatient CANDACE KENDRICK [facility] DALY [id number] [facility] 2022-07-17 00:00:00 2022-07-17 00:00:00 Outpatient DMG DMG [id number] [facility] 2022-07-17 00:00:00 2022-07-17 00:00:00 Outpatient DMG DMG [id number] [facility] 2021-12-29 00:00:00 2021-12-29 00:00:00 Outpatient DMG DMG [id number] [facility] 2021-10-23 00:00:00 2021-10-23 00:00:00 Patient Secure Msg Doctor Unassigned, [facility] [id number] [facility] 2021-10-14 00:00:00 2021-10-14 00:00:00 Orders Only Doctor Unassigned, [place] [facility] 1.840.114 350.1.13.10 4.2.7.2.686 [id number] [facility] 2021-10-01 00:00:00 2021-10-01 00:00:00 Orders Only Doctor Unassigned, [place] [facility] 1.2.840.114 350.1.13.10 4.2.7.2.686 [id number] [facility] 2021-09-23 00:00:00 2021-09-23 00:00:00 Orders Only Doctor Unassigned, [place] [facility] 1.2.840.114 350.1.13.10 4.2.7.2.686 [id number] [facility] 2021-09-21 00:00:00 2021-09-21 00:00:00 Transition of Care Kemal Rodriguez [facility] 1.2.840.114 350.1.13.10 4.2.7.2.686 [id number] [facility] 2021-09-14 20:29:00 2021-09-18 17:15:00 Hospital Encounter Leanna Messer Owen Li-Young Srikanthan, Jeyanthan [facility] 1.2.840.114 350.1.13.10 4.2.7.2.686 [id number] [facility] 2021-09-16 08:40:00 2021-09-16 10:40:00 Surgery Motkathrin, Afaq [facility] 1.2.840.114 350.1.13.10 4.2.7.2.686 [id number] [facility] 2021-09-14 01:31:00 2021-09-14 07:15:00 Emergency X LEANNA MESSER [facility] E[facility] [id number] [facility] 2021-09-14 01:31:00 2021-09-14 07:15:00 Emergency Leanna Messer [facility] 1.2.840.114 350.1.13.10 4.2.7.2.686 [id number] [facility] 2021-09-14 01:31:00 2021-09-14 07:15:00 Emergency X LEANNA MESSER [facility] ERT [id number] [facility] 2021-01-19 00:00:00 2021-01-19 00:00:00 Prep For Surgery Reyes Richards [facility] 1..840.114 350.1.13.10 4.2.7.2.686 [id number] [facility] 2021-01-19 00:00:00 2021-01-19 00:00:00 Orders Only Doctor Unassigned, [place] [facility] 1.840.114 350.1.13.10 4.2.7.2.686 [id number] [id number] [facility] 2021-01-15 08:56:03 2021-01-15 23:59:00 Hospital Encounter Reyes Richards [facility] 1.84.114 350.1.13.10 4.2.7.2.686 [id number] [facility] 2021-01-15 09:30:00 2021-01-15 09:16:48 Outpatient R SUSIE REYES [facility] [id number] [facility] 2021-01-15 09:30:00 2021-01-15 09:16:48 Outpatient R SUSIE REYES [facility] [id number] [facility] 2021-01-15 08:46:00 2021-01-15 09:16:48 Office Visit Reyes Richards [facility] 1.840.114 350.1.13.10 4.2.7.2.686 [id number] [facility] 2021-01-12 10:12:52 2021-01-12 23:59:00 Outpatient R CANDACE ARMAS [facility] [id number] [facility] 2021-01-12 10:00:00 2021-01-12 23:59:00 Hospital Encounter Candace Armas [facility] 1.2.840.114 350.1.13.10 4.2.7.2.686 [id number] [facility] 2021-01-10 00:00:00 2021-01-10 00:00:00 Patient Secure Msg Doctor Unassigned, [place] [facility] 1.2840.114 350.1.13.10 4.2.7.2.686 [id number] [facility] 2021-01-06 15:36:33 2021-01-06 16:29:25 Office Visit Candace Armas [facility] Professio Count includes the [facility] 1.2840.114 350.1.13.10 4.2.7.2.686 [id number] [facility] 2021-01-06 16:00:00 2021-01-06 16:00:00 Outpatient R CANDACE ARMAS [facility] [id number] [facility] 2020-12-23 06:43:00 2020-12-23 10:05:00 Hospital Encounter Candace Armas [facility] [place] 1.2.840.114 350.1.13.10 4.2.7.2.686 [id number] [facility] 2020-12-23 07:30:00 2020-12-23 08:25:00 Surgery Candace Armas [facility] [place] 1.2.840.114 350.1.13.10 4.2.7.2.686 [id number] [facility] 2020-12-22:28:09 2020-12-22 10:43:09 Laboratory Only Only, Adc Test Jose Torres [facility] 1.20.114 350.1.13.10 4.2.7.2.686 [id number] [facility] 2020-12-22 10:00:00 2020-12-22 10:00:00 Outpatient R JOSE TORRES [facility] [id number] [facility] 2020-12-19 09:09:28 2020-12-19 09:24:28 Laboratory Only Only, Adc Test Candace Armas [facility] 1..114 350.1.13.10 4.2.7.2.686 [id number] [facility] 2020-12-19 09:00:00 2020-12-19 09:00:00 Outpatient Desean CANDACE ARMAS [facility] [id number] [facility] 2020-12-19 00:00:00 2020-12-19 00:00:00 Orders Only Doctor Unassigned, [place] [facility] 1.840.114 350.1.13.10 4.2.7.2.686 [id number] [facility] 2020-10-23 00:00:00 2020-10-23 00:00:00 Prep For Surgery Yandy Diego [facility] 1..114 350.1.13.10 4.2.7.2.686 [id number] [facility] 2020-10-22 10:57:14 2020-10-22 11:22:47 Office Visit Eva Albright [facility] 1.2840.114 350.1.13.10 4.2.7.2.686 [id number] [facility] 2020-10-22 11:20:00 2020-10-22 11:20:00 Outpatient R EVA ALBRIGHT [facility] [id number] [facility] 2020-10-21 13:45:48 2020-10-21 15:46:29 Office Visit Armas Candace [facility] Building 1.114 350.1.13.10 4.2.7.2.686 [id number] [facility] 2020-10-21 14:00:00 2020-10-21 14:00:00 Outpatient R FRIDA ARMASEL [facility] [id number] [facility] 2020-10-21 00:00:00 2020-10-21 00:00:00 Orders Only Doctor Unassigned, [place] [facility] 1..114 350.1.13.10 4.2.7.2.686 [id number] [facility] 2020-05-19 00:00:00 2020-05-19 00:00:00 Patient Outreach Sukhdev Ramirez [facility] 1..114 350.1.13.10 4.2.7.2.686 [id number] [facility] 2019-10-31 00:00:00 2019-10-31 00:00:00 Letter (Out) Jennifer Gonzales [facility] 1..114 350.1.13.10 4.2.7.2.686 [id number] [facility] 2019-10-30 09:16:13 2019-10-30 09:36:13 Laboratory Only Lab, Adc Fam Larsb Janet Penn [facility] Office Building One 1.114 350.1.13.10 4.2.7.2.686 [id number] [facility] 2019-10-30 09:20:00 2019-10-30 09:20:00 Outpatient R [facility] [id number] [facility] 2019-10-30 00:00:00 2019-10-30 00:00:00 Letter (Out) Doctor Unassigned, [place] [facility] 1.2.840.114 350.1.13.10 4.2.7.2.686 [id number] [facility] 2019-10-02 13:03:11 2019-10-05 13:58:39 Master Control Operator Visit Pc, Adc [facility] 1.2.840.114 350.1.13.10 4.2.7.2.686 [id number] [facility] 2019-10-02 13:00:13 2019-10-02 13:51:47 Laboratory Only Pc, Adc Echo Room 1 - [facility] Rachel GilmoreZaira [facility] Count includes the [facility] 1.2.840.114 350.1.13.10 4.2.7.2.686 [id number] [facility] 2019-10-02 13:00:00 2019-10-02 13:00:00 Outpatient R [facility] [id number] [facility] 2019-09-10 09:39:07 2019-10-01 15:14:38 [facility] 1.2.840.114 350.1.13.10 4.2.7.2.686 [id number] [facility] 2019-09-27 09:30:00 2019-09-27 09:30:00 [id number] 2019-09-27 08:54:00 2019-09-27 08:58:00 [facility] 1.2840.114 350.1.13.10 4.2.7.2.686 [id number] [facility] 2019-09-27 08:52:00 2019-09-27 08:53:00 [facility] 1.2.840.114 350.1.13.10 4.2.7.2.686 [id number] [facility] 2019-09-27 08:51:00 2019-09-27 08:51:00 Hospital Encounter Steven [facility] 1.2.840.114 350.1.13.10 4.2.7.2.686 [id number] [facility] 2019-09-27 08:50:00 2019-09-27 08:50:00 Hospital Encounter Steven [facility] 1.2.840.114 350.1.13.10 4.2.7.2.686 [id number] [facility] 2019-09-10 10:40:00 2019-09-10 10:40:00 Outpatient R STEVEN [facility] [id number] [facility] 2019-08-20 00:00:00 2019-08-20 00:00:00 Orders Only Doctor Unassigned, [place] [facility] 1.2.840.114 350.1.13.10 4.2.7.2.686 [id number] [facility] Results Test Description Test Time Test Comments Results Result Co mments Source [facility] GLUCOSE (AUTOMATED)2021-09-18 19:20:02* Test Item Value Reference Range Interpretation Comme [facility] POCT GLU (test code = 5456390559) 201 mg/dL 70-110 H Lab Interpretation (test cod e = 78146-3) Abnormal [facility] GLUCOSE (AUTOMATED)2021-09-18 13:30:51* Test Item Value Reference Range Interpretation Comme [facility] POCT GLU (test code = 3594870053) 156 mg/dL 70-110 H Lab Interpretation (test cod e = 09311-2) [facility] 13:30:51* Test Item Value Reference Range Interpretation Comme nts POCT GLU (test code = 6360079629) 156 mg/dL 70-110 H Lab Interpretation (test cod e = 40860-5) Abnormal [facility] METABOLIC PANEL (NA, K, CL, CO2, GLUCOSE, BUN, CREATININE, CA)2021-09-18 11:12:49* Test Item Value Reference Range Interpretation Comme [facility] NA (test code = 5906067842) 138 mmol/L 135-145 K (test code = 8220267986) 3.5 mmol/L 3.5-5.0 CL (test code = 3620991772) 109 mmol/L 98-108 H CO2 TOTAL (test code = 8754742627) 20 mmol/L 23-31 L AGAP (test code = 5286369418) 2-16 BUN (test code = 3188374668) 7 mg/dL 7-23 GLUCOSE (test code = 2791138780) 133 mg/dL 70-110 H CREATININE (test code = 8537921782) 0.52 mg/dL 0.60-1.25 L CALCIUM (test code = 3225736364) 8.3 mg/dL 8.6-10.6 L eGFR (test code = 4120110925) mL/min/1.73m2 ANGELA (test code = ANGELA) Association of [...] or abnormalities in imaging tests). Lab Interpretation (test code = 87574-4) [facility] 11:12:49* Test Item Value Reference Range Interpretation Comme nts MAGNESIUM (test code = 1535688217) 1.8 mg/dL 1.7-2.4 Lab Interpretation (test cod e = 71074-6) Normal [facility] (NA, K, CL, CO2, GLUCOSE, BUN, CREATININE, CA)2021-09-18 11:12:49* Test Item Value Reference Range Interpretation Comme nts NA (test code = 7601971485) 138 mmol/L 135-145 K (test code = 7585854951) 3.5 mmol/L 3.5-5.0 CL (test code = 5712880425) 109 mmol/L 98-108 H CO2 TOTAL (test code = 2442863962) 20 mmol/L 23-31 L AGAP (test code = 9837878563) 2-16 BUN (test code = 3454240937) 7 mg/dL 7-23 GLUCOSE (test code = 8136024753) 133 mg/dL 70-110 H CREATININE (test code = 7345979462) 0.52 mg/dL 0.60-1.25 L CALCIUM (test code = 1811355905) 8.3 mg/dL 8.6-10.6 L eGFR (test code = 9788691362) mL/min/1.73m2 ANGELA (test code = ANGELA) Association of [...] or abnormalities in imaging tests). Lab Interpretation (test code = 94290-1) [facility] 11:12:49* Test Item Value Reference Range Interpretation Comme nts MAGNESIUM (test code = 7499387735) 1.8 mg/dL 1.7-2.4 Lab Interpretation (test cod e = 66098-1) Normal [facility] GLUCOSE (AUTOMATED)2021-09-18 01:03:42* Test Item Value Reference Range Interpretation Comme nts POCT GLU (test code = 3214989514) 275 mg/dL 70-110 H Lab Interpretation (test cod e = 90257-5) Abnormal [facility] GLUCOSE (AUTOMATED)2021-09-18 01:03:42* Test Item Value Reference Range Interpretation Comme nts POCT GLU (test code = 3753527629) 275 mg/dL 70-110 H Lab Interpretation (test cod e = 28166-1) Abnormal [facility] GLUCOSE (AUTOMATED)2021-09-17 23:17:19* Test Item Value Reference Range Interpretation Comme nts POCT GLU (test code = 2615215733) 179 mg/dL 70-110 H Lab Interpretation (test cod e = 99847-7) [facility]2021-[facility]-17 23:17:19* Test Item Value Reference Range Interpretation Comme [facility] POCT GLU (test code = 2643760394) 179 mg/dL 70-110 H Lab Interpretation (test cod e = 92025-0) Abnormal [facility] METABOLIC PANEL (NA, K, CL, CO2, GLUCOSE, BUN, CREATININE, CA)2021-09-17 22:42:54* Test Item Value Reference Range Interpretation Comme [facility] NA (test code = 3536509379) 135 mmol/L 135-145 K (test code = 4928948759) 3.6 mmol/L 3.5-5.0 CL (test code = 6618963365) 104 mmol/L 98-108 CO2 TOTAL (test code = 8415988935) 22 mmol/L 23-31 L AGAP (test code = 9862701153) 2-16 BUN (test code = 3700023688) 9 mg/dL 7-23 GLUCOSE (test code = 5011834619) 203 mg/dL 70-110 H CREATININE (test code = 7106748159) 0.61 mg/dL 0.60-1.25 CALCIUM (test code = 2942331651) 8.5 mg/dL 8.6-10.6 L eGFR (test code = 2621461723) mL/min/1.73m2 ANGELA (test code = ANGELA) Association of [...] or abnormalities in imaging tests). Lab Interpretation (test code = 51579-1) [facility] 22:42:54* Test Item Value Reference Range Interpretation Comme nts MAGNESIUM (test code = 7567048003) 2.2 mg/dL 1.7-2.4 Lab Interpretation (test cod e = 86838-5) Normal [facility] (NA, K, CL, CO2, GLUCOSE, BUN, CREATININE, CA)2021-09-17 22:42:54* Test Item Value Reference Range Interpretation Comme nts NA (test code = 6577412213) 135 mmol/L 135-145 K (test code = 5123442275) 3.6 mmol/L 3.5-5.0 CL (test code = 4592258393) 104 mmol/L 98-108 CO2 TOTAL (test code = 4760843953) 22 mmol/L 23-31 L AGAP (test code = 0178815106) 2-16 BUN (test code = 0106251153) 9 mg/dL 7-23 GLUCOSE (test code = 2305729190) 203 mg/dL 70-110 H CREATININE (test code = 8878121609) 0.61 mg/dL 0.60-1.25 CALCIUM (test code = 4194626206) 8.5 mg/dL 8.6-10.6 L eGFR (test code = 9019544616) mL/min/1.73m2 ANGELA (test code = ANGELA) Association of [...] or abnormalities in imaging tests). Lab Interpretation (test code = 28947-9) [facility] 22:42:54* Test Item Value Reference Range Interpretation Comme nts MAGNESIUM (test code = 7956288399) 2.2 mg/dL 1.7-2.4 Lab Interpretation (test cod e = 77394-8) Normal [facility] GLUCOSE (AUTOMATED)2021-09-17 18:15:15* Test Item Value Reference Range Interpretation Comme nts POCT GLU (test code = 5408942061) 181 mg/dL 70-110 H Lab Interpretation (test cod e = 00349-5) Abnormal [facility] GLUCOSE (AUTOMATED)2021-09-17 18:15:15* Test Item Value Reference Range Interpretation Comme nts POCT GLU (test code = 4994198108) 181 mg/dL 70-110 H Lab Interpretation (test cod e = 86304-9) Abnormal [facility] GLUCOSE (AUTOMATED)2021-09-17 14:33:57* Test Item Value Reference Range Interpretation Comme nts POCT GLU (test code = 2842890648) 163 mg/dL 70-110 H Notified Provide r Lab Interpretation (test code = 85080-7) [facility] 14:33:57* Test Item Value Reference Range Interpretation Comme nts POCT GLU (test code = 8889594332) 163 mg/dL 70-110 H Notified Provide r Lab Interpretation (test code = 91923-6) [facility]normal [facility] [id number] 11:34:12* Test Item Value Reference Range Interpretation Comme nts WBC (test code = 6690-2) See_Comment [Automated message] The system which generated this result transmitted reference range: 4.20 - 10.70 10*3/?L. The reference range was not used to interpret this result as normal/abnormal. RBC (test code = 789-8) See_Comment L [Automated message] The system which generated this result transmitted reference range: 4.26 - 5.52 10*6/?L. The reference range was not used to interpret this result as normal/abnormal. HGB (test code = 718-7) 10.8 g/dL 12.2-16.4 L HCT (test code = 4544-3) 31.5 % 38.4-49.3 L MCV (test code = 787-2) 87.3 fL 81.7-95.6 MCH (test code = 785-6) 29.9 pg 26.1-32.7 MCHC (test code = 786-4) 34.3 g/dL 31.2-35.0 RDW-SD (test code = 45381-6) 45.2 fL 38.5-51.6 RDW-CV (test code = 788-0) 14.1 % 12.1-15.4 PLT (test code = 777-3) See_Comment [Automated message] The system which generated this result transmitted reference range: 150 - 328 10*3/?L. The reference range was not used to interpret this result as normal/abnormal. MPV (test code = 91718-9) 10.4 fL 9.8-13.0 NRBC/100 WBC (test code = 4161079424) See_Comment [Automated message] The system which generated this result transmitted reference range: 0.0 - 10.0 /100 WBCs. The reference range was not used to interpret this result as normal/abnormal. NRBC x10^3 (test code = 5763138745) <0.01 See_Comment [Automated message] The system which generated this result transmitted reference range: 10*3/?L. The reference range was not used to interpret this result as normal/abnormal. GRAN MAT (NEUT) % (test code = 770-8) 71.9 % IMM GRAN % (test code = 8269379922) 0.30 % LYMPH % (test code = 736-9) 18.1 % MONO % (test code = 5905-5) 9.3 % EOS % (test code = 713-8) 0.1 % BASO % (test code = 706-2) 0.3 % GRAN MAT x10^3(ANC) (test code = 5481538689) 4.93 10*3/uL 1.99-6.95 IMM GRAN x10^3 (test code = 0529329284) <0.03 0.00-0.06 LYMPH x10^3 (test code = 731-0) 1.24 10*3/uL 1.09-3.23 MONO x10^3 (test code = 742-7) 0.64 10*3/uL 0.36-1.02 EOS x10^3 (test code = 711-2) <0.03 0.06-0.53 L BASO x10^3 (test code = 704-7) <0.03 0.01-0.09 NANCY CELLS (test code = 7790-9) 2+ See_Comment A [Automated message] The system which generated this result transmitted reference range: (none). The reference range was not used to interpret this result as normal/abnormal. BANDS (test code = 4656228621) MARKED INCREASED A DOHLE BODIES (test code = 7792-5) Present A Lab Interpretation (test code = 76756-9) Abnormal [facility] WITH [id number] 11:34:12* Test Item Value Reference Range Interpretation Comme nts WBC (test code = 6690-2) See_Comment [Automated message] The system which generated this result transmitted reference range: 4.20 - 10.70 10*3/?L. The reference range was not used to interpret this result as normal/abnormal. RBC (test code = 789-8) See_Comment L [Automated message] The system which generated this result transmitted reference range: 4.26 - 5.52 10*6/?L. The reference range was not used to interpret this result as normal/abnormal. HGB (test code = 718-7) 10.8 g/dL 12.2-16.4 L HCT (test code = 4544-3) 31.5 % 38.4-49.3 L MCV (test code = 787-2) 87.3 fL 81.7-95.6 MCH (test code = 785-6) 29.9 pg 26.1-32.7 MCHC (test code = 786-4) 34.3 g/dL 31.2-35.0 RDW-SD (test code = 97683-4) 45.2 fL 38.5-51.6 RDW-CV (test code = 788-0) 14.1 % 12.1-15.4 PLT (test code = 777-3) See_Comment [Automated message] The system which generated this result transmitted reference range: 150 - 328 10*3/?L. The reference range was not used to interpret this result as normal/abnormal. MPV (test code = 36374-9) 10.4 fL 9.8-13.0 NRBC/100 WBC (test code = 6250179175) See_Comment [Automated message] The system which generated this result transmitted reference range: 0.0 - 10.0 /100 WBCs. The reference range was not used to interpret this result as normal/abnormal. NRBC x10^3 (test code = 0630113604) <0.01 See_Comment [Automated message] The system which generated this result transmitted reference range: 10*3/?L. The reference range was not used to interpret this result as normal/abnormal. GRAN MAT (NEUT) % (test code = 770-8) 71.9 % IMM GRAN % (test code = 0866805992) 0.30 % LYMPH % (test code = 736-9) 18.1 % MONO % (test code = 5905-5) 9.3 % EOS % (test code = 713-8) 0.1 % BASO % (test code = 706-2) 0.3 % GRAN MAT x10^3(ANC) (test code = 4115448208) 4.93 10*3/uL 1.99-6.95 IMM GRAN x10^3 (test code = 6914098104) <0.03 0.00-0.06 LYMPH x10^3 (test code = 731-0) 1.24 10*3/uL 1.09-3.23 MONO x10^3 (test code = 742-7) 0.64 10*3/uL 0.36-1.02 EOS x10^3 (test code = 711-2) <0.03 0.06-0.53 L BASO x10^3 (test code = 704-7) <0.03 0.01-0.09 NANCY CELLS (test code = 7790-9) 2+ See_Comment A [Automated message] The system which generated this result transmitted reference range: (none). The reference range was not used to interpret this result as normal/abnormal. BANDS (test code = 6095407636) MARKED INCREASED A DOHLE BODIES (test code = 7792-5) Present A Lab Interpretation (test code = 33814-8) Abnormal [facility] METABOLIC PANEL (NA, K, CL, CO2, GLUCOSE, BUN, CREATININE, CA)2021-09-17 10:41:04* Test Item Value Reference Range Interpretation Comme nts NA (test code = 8233681786) 139 mmol/L 135-145 K (test code = 4641288192) 3.8 mmol/L 3.5-5.0 CL (test code = 5551138991) 110 mmol/L 98-108 H CO2 TOTAL (test code = 7652650551) 23 mmol/L 23-31 AGAP (test code = 5676351499) 2-16 BUN (test code = 7492728864) 7 mg/dL 7-23 GLUCOSE (test code = 2686342281) 140 mg/dL 70-110 H CREATININE (test code = 0841242155) 0.63 mg/dL 0.60-1.25 CALCIUM (test code = 5983863940) 8.4 mg/dL 8.6-10.6 L eGFR (test code = 1418306971) mL/min/1.73m2 ANGELA (test code = ANGELA) Association of [...] or abnormalities in imaging tests). Lab Interpretation (test code = 91499-8) [facility] 10:41:04* Test Item Value Reference Range Interpretation Comme nts MAGNESIUM (test code = 5212141595) 1.5 mg/dL 1.7-2.4 L Lab Interpretation (test cod e = 33670-6) [facility] (NA, K, CL, CO2, GLUCOSE, BUN, CREATININE, CA)2021-09-17 10:41:04* Test Item Value Reference Range Interpretation Comme nts NA (test code = 3597755269) 139 mmol/L 135-145 K (test code = 8084977313) 3.8 mmol/L 3.5-5.0 CL (test code = 8995075665) 110 mmol/L 98-108 H CO2 TOTAL (test code = 1198771528) 23 mmol/L 23-31 AGAP (test code = 9925798407) 2-16 BUN (test code = 3221077453) 7 mg/dL 7-23 GLUCOSE (test code = 0357056061) 140 mg/dL 70-110 H CREATININE (test code = 8440516290) 0.63 mg/dL 0.60-1.25 CALCIUM (test code = 7800967641) 8.4 mg/dL 8.6-10.6 L eGFR (test code = 8138653339) mL/min/1.73m2 ANGELA (test code = ANGELA) Association of [...] or abnormalities in imaging tests). Lab Interpretation (test code = 62413-2) Abnormal [facility]2022-07-07 10:41:04* Test Item Value Reference Range Interpretation Comme nts MAGNESIUM (test code = 0748142469) 1.5 mg/dL 1.7-2.4 L Lab Interpretation (test cod e = 03878-0) Abnormal [facility] GLUCOSE (AUTOMATED)2021-09-17 01:50:10* Test Item Value Reference Range Interpretation Comme nts POCT GLU (test code = 5781698945) 154 mg/dL 70-110 H Lab Interpretation (test cod e = 32126-2) Abnormal [facility] GLUCOSE (AUTOMATED)2021-09-17 01:50:10* Test Item Value Reference Range Interpretation Comme nts POCT GLU (test code = 6287094698) 154 mg/dL 70-110 H Lab Interpretation (test cod e = 24582-9) Abnormal [facility] GLUCOSE (AUTOMATED)2021-09-16 23:02:38* Test Item Value Reference Range Interpretation Comme nts POCT GLU (test code = 4965625158) 186 mg/dL 70-110 H Notified Provide r Lab Interpretation (test code = 57341-9) Abnormal [facility] GLUCOSE (AUTOMATED)2021-09-16 23:02:38* Test Item Value Reference Range Interpretation Comme nts POCT GLU (test code = [id number]) 186 mg/dL 70-110 H Notified Provide r Lab Interpretation (test code = 90010-0) Abnormal [facility] ACT LOW [id number] 15:26:05* Test Item Value Reference Range Interpretation Comme nts ACTLR (test code = 0323235413) See_Comment H [Automated messa ge] The system which generated this result transmitted reference range: 89 - 169 Seconds. The reference range was not used to interpret this result as normal/abnormal. Lab Interpretation (test code = 12502-1) Abnormal [facility] ACT LOW [id number] 15:26:05* Test Item Value Reference Range Interpretation Comme nts ACTLR (test code = 1017857428) See_Comment H [Automated messa ge] The system which generated this result transmitted reference range: 89 - 169 Seconds. The reference range was not used to interpret this result as normal/abnormal. Lab Interpretation (test code = 93903-7) Abnormal [facility] ACT LOW [id number] 14:54:07* Test Item Value Reference Range Interpretation Comme nts ACTLR (test code = 5097260907) See_Comment H [Automated messa ge] The system which generated this result transmitted reference range: 89 - 169 Seconds. The reference range was not used to interpret this result as normal/abnormal. Lab Interpretation (test code = 23437-3) Abnormal [facility] ACT LOW [id number] 14:54:07* Test Item Value Reference Range Interpretation Comme nts ACTLR (test code = 9434130833) See_Comment H [Automated messa ge] The system which generated this result transmitted reference range: 89 - 169 Seconds. The reference range was not used to interpret this result as normal/abnormal. Lab Interpretation (test code = 11689-0) Abnormal [facility] [id number] 09:32:52* Test Item Value Reference Range Interpretation Comments TROPONIN I (test code = 1956572788) 6.630 ng/mL See_Comment H [Automated message] The system which generated this result transmitted reference range: <=0.034. The reference range was not used to interpret this result as normal/abnormal. ANGELA (test code = ANGELA) Reference (Normal) Range (defined by the 99th percentile reference [...] to patient's use of biotin. Lab Interpretation (test code = 86392-4) Abnormal [facility] [id number] 09:32:52* Test Item Value Reference Range Interpretation Comments TROPONIN I (test code = 9038170918) 6.630 ng/mL See_Comment H [Automated message] The system which generated this result transmitted reference range: <=0.034. The reference range was not used to interpret this result as normal/abnormal. ANGELA (test code = ANGELA) Reference (Normal) Range (defined by the 99th percentile reference [...] to patient's use of biotin. Lab Interpretation (test code = 23780-6) Abnormal [facility] WITH [id number] 06:14:40* Test Item Value Reference Range Interpretation Comme nts WBC (test code = 6690-2) See_Comment [Automated message] The system which generated this result transmitted reference range: 4.20 - 10.70 10*3/?L. The reference range was not used to interpret this result as normal/abnormal. RBC (test code = 789-8) See_Comment L [Automated message] The system which generated this result transmitted reference range: 4.26 - 5.52 10*6/?L. The reference range was not used to interpret this result as normal/abnormal. HGB (test code = 718-7) 11.1 g/dL 12.2-16.4 L HCT (test code = 4544-3) 32.3 % 38.4-49.3 L MCV (test code = 787-2) 86.1 fL 81.7-95.6 MCH (test code = 785-6) 29.6 pg 26.1-32.7 MCHC (test code = 786-4) 34.4 g/dL 31.2-35.0 RDW-SD (test code = 17569-0) 45.2 fL 38.5-51.6 RDW-CV (test code = 788-0) 14.4 % 12.1-15.4 PLT (test code = 777-3) See_Comment [Automated message] The system which generated this result transmitted reference range: 150 - 328 10*3/?L. The reference range was not used to interpret this result as normal/abnormal. MPV (test code = 90630-7) 10.7 fL 9.8-13.0 NRBC/100 WBC (test code = 6677975839) See_Comment [Automated message] The system which generated this result transmitted reference range: 0.0 - 10.0 /100 WBCs. The reference range was not used to interpret this result as normal/abnormal. NRBC x10^3 (test code = 8287895313) <0.01 See_Comment [Automated message] The system which generated this result transmitted reference range: 10*3/?L. The reference range was not used to interpret this result as normal/abnormal. GRAN MAT (NEUT) % (test code = 770-8) 64.6 % IMM GRAN % (test code = 8996100370) 0.20 % LYMPH % (test code = 736-9) 25.1 % MONO % (test code = 5905-5) 9.3 % EOS % (test code = 713-8) 0.0 % BASO % (test code = 706-2) 0.8 % GRAN MAT x10^3(ANC) (test code = 7943272624) 4.17 10*3/uL 1.99-6.95 IMM GRAN x10^3 (test code = 8955968429) <0.03 0.00-0.06 LYMPH x10^3 (test code = 731-0) 1.62 10*3/uL 1.09-3.23 MONO x10^3 (test code = 742-7) 0.60 10*3/uL 0.36-1.02 EOS x10^3 (test code = 711-2) <0.03 0.06-0.53 L BASO x10^3 (test code = 704-7) 0.05 10*3/uL 0.01-0.09 BANDS (test code = 7409016282) MARKED INCREASED A DOHLE BODIES (test code = 7792-5) Present A Lab Interpretation (test code = 65945-5) Abnormal [facility] WITH [id number] 06:14:40* Test Item Value Reference Range Interpretation Comme nts WBC (test code = 6690-2) See_Comment [Automated message] The system which generated this result transmitted reference range: 4.20 - 10.70 10*3/?L. The reference range was not used to interpret this result as normal/abnormal. RBC (test code = 789-8) See_Comment L [Automated message] The system which generated this result transmitted reference range: 4.26 - 5.52 10*6/?L. The reference range was not used to interpret this result as normal/abnormal. HGB (test code = 718-7) 11.1 g/dL 12.2-16.4 L HCT (test code = 4544-3) 32.3 % 38.4-49.3 L MCV (test code = 787-2) 86.1 fL 81.7-95.6 MCH (test code = 785-6) 29.6 pg 26.1-32.7 MCHC (test code = 786-4) 34.4 g/dL 31.2-35.0 RDW-SD (test code = 67360-3) 45.2 fL 38.5-51.6 RDW-CV (test code = 788-0) 14.4 % 12.1-15.4 PLT (test code = 777-3) See_Comment [Automated message] The system which generated this result transmitted reference range: 150 - 328 10*3/?L. The reference range was not used to interpret this result as normal/abnormal. MPV (test code = 80998-7) 10.7 fL 9.8-13.0 NRBC/100 WBC (test code = 6136990073) See_Comment [Automated message] The system which generated this result transmitted reference range: 0.0 - 10.0 /100 WBCs. The reference range was not used to interpret this result as normal/abnormal. NRBC x10^3 (test code = 0822590683) <0.01 See_Comment [Automated message] The system which generated this result transmitted reference range: 10*3/?L. The reference range was not used to interpret this result as normal/abnormal. GRAN MAT (NEUT) % (test code = 770-8) 64.6 % IMM GRAN % (test code = 1646353700) 0.20 % LYMPH % (test code = 736-9) 25.1 % MONO % (test code = 5905-5) 9.3 % EOS % (test code = 713-8) 0.0 % BASO % (test code = 706-2) 0.8 % GRAN MAT x10^3(ANC) (test code = 6978233957) 4.17 10*3/uL 1.99-6.95 IMM GRAN x10^3 (test code = 3681942494) <0.03 0.00-0.06 LYMPH x10^3 (test code = 731-0) 1.62 10*3/uL 1.09-3.23 MONO x10^3 (test code = 742-7) 0.60 10*3/uL 0.36-1.02 EOS x10^3 (test code = 711-2) <0.03 0.06-0.53 L BASO x10^3 (test code = 704-7) 0.05 10*3/uL 0.01-0.09 BANDS (test code = 8261576257) MARKED INCREASED A DOHLE BODIES (test code = 7792-5) Present A Lab Interpretation (test code = 01903-6) Abnormal [facility] METABOLIC PANEL (NA, K, CL, CO2, GLUCOSE, BUN, CREATININE, CA)2021-09-16 06:06:31* Test Item Value Reference Range Interpretation Comme nts NA (test code = 0861688991) 134 mmol/L 135-145 L K (test code = 3591566334) 3.5 mmol/L 3.5-5.0 CL (test code = 6159816670) 109 mmol/L 98-108 H CO2 TOTAL (test code = 7506544402) 20 mmol/L 23-31 L AGAP (test code = 3720546591) 2-16 BUN (test code = 8605529146) 8 mg/dL 7-23 GLUCOSE (test code = 0511680653) 128 mg/dL 70-110 H CREATININE (test code = 7375569492) 0.66 mg/dL 0.60-1.25 CALCIUM (test code = 5167275605) 8.0 mg/dL 8.6-10.6 L eGFR (test code = 4956929862) mL/min/1.73m2 ANGELA (test code = ANGELA) Association of [...] or abnormalities in imaging tests). Lab Interpretation (test code = 53897-9) [facility] Test Item Value Reference Range Interpretation Comme nts MAGNESIUM (test code = 4608625708) 1.9 mg/dL 1.7-2.4 Lab Interpretation (test cod e = 57206-9) [facility]* Test Item Value Reference Range Interpretation Comme nts PHOSPHORUS (test code = 4098330175) 2.6 mg/dL 2.5-5.0 Lab Interpretation (test cod e = 12503-3) [facility] (NA, K, CL, CO2, GLUCOSE, BUN, CREATININE, CA)2021-09-16 06:06:31* Test Item Value Reference Range Interpretation Comme nts NA (test code = 4674268699) 134 mmol/L 135-145 L K (test code = 1027326204) 3.5 mmol/L 3.5-5.0 CL (test code = 8570689988) 109 mmol/L 98-108 H CO2 TOTAL (test code = 1735608862) 20 mmol/L 23-31 L AGAP (test code = 4404717213) 2-16 BUN (test code = 4449479618) 8 mg/dL 7-23 GLUCOSE (test code = 2552494975) 128 mg/dL 70-110 H CREATININE (test code = 0053807565) 0.66 mg/dL 0.60-1.25 CALCIUM (test code = 3834763921) 8.0 mg/dL 8.6-10.6 L eGFR (test code = 0258581730) mL/min/1.73m2 ANGELA (test code = ANGELA) Association of [...] or abnormalities in imaging tests). Lab Interpretation (test code = 15721-6) [facility] 06:06:31* Test Item Value Reference Range Interpretation Comme nts MAGNESIUM (test code = 3701531158) 1.9 mg/dL 1.7-2.4 Lab Interpretation (test cod e = 81509-9) [facility] 06:06:31* Test Item Value Reference Range Interpretation Comme nts PHOSPHORUS (test code = 0762751207) 2.6 mg/dL 2.5-5.0 Lab Interpretation (test cod e = 07650-4) [facility]2021-09-16 05:44:45* Test Item Value Reference Range Interpretation Comme nts APTT Patient (test code = 3173-2) See_Comment H [Automated messa ge] The system which generated this result transmitted reference range: 26 - 36 Seconds. The reference range was not used to interpret this result as normal/abnormal. Lab Interpretation (test code = 21927-9) [facility]2021-09-16 05:44:45* Test Item Value Reference Range Interpretation Comme nts APTT Patient (test code = 3173-2) See_Comment H [Automated messa ge] The system which generated this result transmitted reference range: 26 - 36 Seconds. The reference range was not used to interpret this result as normal/abnormal. Lab Interpretation (test code = 29960-3) [facility] / [id number] 05:44:25* Test Item Value Reference Range Interpretation Comme nts PROTIME PATIENT (test code = 5964-2) See_Comment H [Automated messa ge] The system which generated this result transmitted reference range: 10.1 - 12.6 Seconds. The reference range was not used to interpret this result as normal/abnormal. INR (test code = 6301-6) Normal INR <1.1; Warfarin Therapeutic range 2.0 to 3.0 or 2.5 to 3.5, depending upon the indications. Lab Interpretation (test code = 80579-5) [facility] [id number] 05:44:25* Test Item Value Reference Range Interpretation Comme nts PROTIME PATIENT (test code = 5964-2) See_Comment H [Automated [employer]] The system which generated this result transmitted reference range: 10.1 - 12.6 Seconds. The reference range was not used to interpret this result as normal/abnormal. INR (test code = 6301-6) Normal INR <1.1; Warfarin Therapeutic range 2.0 to 3.0 or 2.5 to 3.5, depending upon the indications. Lab Interpretation (test code = 56105-5) Abnormal [facility] [id number] 03:12:11* Test Item Value Reference Range Interpretation Comments TROPONIN I (test code = 2132637667) 7.770 ng/mL See_Comment H [Automated message] The system which generated this result transmitted reference range: <=0.034. The reference range was not used to interpret this result as normal/abnormal. ANGELA (test code = ANGELA) Reference (Normal) Range (defined by the 99th percentile reference [...] to patient's use of biotin. Lab Interpretation (test code = 36861-5) Abnormal [facility] [id number] 03:12:11* Test Item Value Reference Range Interpretation Comments TROPONIN I (test code = 8107042727) 7.770 ng/mL See_Comment H [Automated message] The system which generated this result transmitted reference range: <=0.034. The reference range was not used to interpret this result as normal/abnormal. ANGELA (test code = ANGELA) Reference (Normal) Range (defined by the 99th percentile reference [...] to patient's use of biotin. Lab Interpretation (test code = 07761-0) Abnormal [facility] GLUCOSE (AUTOMATED)2021-09-16 02:57:44* Test Item Value Reference Range Interpretation Comme nts POCT GLU (test code = 5841574143) 144 mg/dL 70-110 H Lab Interpretation (test cod e = 98874-5) Abnormal [facility] GLUCOSE (AUTOMATED)2021-09-16 02:57:44* Test Item Value Reference Range Interpretation Comme nts POCT GLU (test code = 0085148185) 144 mg/dL 70-110 H Lab Interpretation (test cod e = 15008-0) Abnormal [facility] GLUCOSE (AUTOMATED)2021-09-15 23:36:41* Test Item Value Reference Range Interpretation Comme nts POCT GLU (test code = 6502155934) 128 mg/dL 70-110 H Lab Interpretation (test cod e = 30583-4) Abnormal [facility] GLUCOSE (AUTOMATED)2021-09-15 23:36:41* Test Item Value Reference Range Interpretation Comme nts POCT GLU (test code = 5443723443) 128 mg/dL 70-110 H Lab Interpretation (test cod e = 35125-3) [facility] 22:17:43* Test Item Value Reference Range Interpretation Comme nts Height (test code = 5897547562) in Weight (test code = 7282761757) lbs Systolic BP (test code = 8703191279) mmHg Diastolic BP (test code = 1611428267) mmHg Heart Rate (test code = 0230117572) bpm EF(Teich) (test code = 9001274434) 62.90 % LVIDD (test code = 6003241029) 4.30 cm LVIDS (test code = 7538959479) 2.90 cm IVS (test code = 3343209355) 0.92 cm LVPWD (test code = 6369883871) 0.92 cm LVOT diameter (test code = 3305667308) 1.94 cm FS (test code = 9646050938) 34 % MV Peak E Clarice (test code = 1447731512) 71.6 cm/s MV Peak A Clarice (test code = 3155378159) 59.1 cm/s E/A ratio (test code = 5617901019) ratio E wave decelartion time (test code = 5928775669) 0.15 s LA Volume Index (BP) (test code = 2237545877) 18.6 mL/m2 LA volume (BP) (test code = 8381910711) 31.5 mL LVOT peak clarice (test code = 9632344031) 82.7 cm/s BSA (test code = 3586206746) 1.70 m2 LA size (test code = 8342559811) 4.0 cm LAV(MOD-sp2) (test code = 9418076821) 29.30 mL LAV(MOD-sp4) (test code = 5245920399) 29.70 mL Tapse (test code = 7123253395) 1.02 cm Ao peak clarice (test code = 4788510206) 109.4 cm/s AV LVOT peak gradient (test code = 0124375782) mmHg LVOT peak VTI (test code = 8755798359) 12.5 cm AV area peak clarice (test code = 3243721417) 2.2 cm2 Ao max PG (test code = 9060010500) 4.80 mm[Hg] MV Prop V (test code = 5310803279) 59.00 cm/s TR Peak Clarice (test code = 4647626778) 229.2 cm/s Triscuspid Valve Regurgitation Peak Gradient (test code = 1847490524) mmHg Ao root annulus (test code = 6641503706) 3.0 cm Ao root diam (test code = 2688025124) 3.00 cm AV peak gradient (test code = 2553544090) mmHg Aortic root (test code = 2612495733) 3.0 cm PW (test code = 8918828053) 0.92 cm 0.6-1.1 EF - 2D (test code = 35280450) 62.90 % Interventricular Septum Diastolic Thickness by 2D (test code = 5080271) 0.92 cm Aortic valve mean velocity (test code = 4007248615) 73.0 cm/s Ao VTI (test code = 1212041637) 18.2 cm AV mean gradient (test code = 6749993171) mmHg LVOT stroke volume (test code = 2843839460) 36.70 cm3 LVOT mn grad (test code = 3563889955) mmHg LV V1 mean (test code = 6858385994) 52.10 cm/s Radiology Study observation (narrative) (test code = 64484-4) ANGELA (test code = ANGELA) ?Left?Ventricle: Left [...] 20-25 mmHg. ?RA pressure is 0-5 mmHg. [facility] 22:17:43* Test Item Value Reference Range Interpretation Comme nts Height (test code = 2651781403) in Weight (test code = 1426972831) lbs Systolic BP (test code = 0040412550) mmHg Diastolic BP (test code = 0809575178) mmHg Heart Rate (test code = 3726917629) bpm EF(Teich) (test code = 6796702619) 62.90 % LVIDD (test code = 4024468723) 4.30 cm LVIDS (test code = 2456460817) 2.90 cm IVS (test code = 9353919518) 0.92 cm LVPWD (test code = 7836682875) 0.92 cm LVOT diameter (test code = 4671949617) 1.94 cm FS (test code = 0433026045) 34 % MV Peak E Clarice (test code = 3949007045) 71.6 cm/s MV Peak A Clarice (test code = 1973356521) 59.1 cm/s E/A ratio (test code = 3786243447) ratio E wave decelartion time (test code = 6012640728) 0.15 s LA Volume Index (BP) (test code = 8114498910) 18.6 mL/m2 LA volume (BP) (test code = 7491911368) 31.5 mL LVOT peak clarice (test code = 5216314630) 82.7 cm/s BSA (test code = 6868201974) 1.70 m2 LA size (test code = 3091648305) 4.0 cm LAV(MOD-sp2) (test code = 5800257324) 29.30 mL LAV(MOD-sp4) (test code = 5522637768) 29.70 mL Tapse (test code = 1543753079) 1.02 cm Ao peak clarice (test code = 0478597568) 109.4 cm/s AV LVOT peak gradient (test code = 2632348721) mmHg LVOT peak VTI (test code = 5108773606) 12.5 cm AV area peak clarice (test code = 5348651581) 2.2 cm2 Ao max PG (test code = 6677396921) 4.80 mm[Hg] MV Prop V (test code = 6153595236) 59.00 cm/s TR Peak Clarice (test code = 9511193354) 229.2 cm/s Triscuspid Valve Regurgitation Peak Gradient (test code = 8895799547) mmHg Ao root annulus (test code = 7919859425) 3.0 cm Ao root diam (test code = 3857666103) 3.00 cm AV peak gradient (test code = 7116007722) mmHg Aortic root (test code = 9823515855) 3.0 cm PW (test code = 8358996270) 0.92 cm 0.6-1.1 EF - 2D (test code = 35818022) 62.90 % Interventricular Septum Diastolic Thickness by 2D (test code = 2025232) 0.92 cm Aortic valve mean velocity (test code = 0380428844) 73.0 cm/s Ao VTI (test code = 5603372945) 18.2 cm AV mean gradient (test code = 6400537587) mmHg LVOT stroke volume (test code = 2620523804) 36.70 cm3 LVOT mn grad (test code = 2564077837) mmHg LV V1 mean (test code = 4705192234) 52.10 cm/s Radiology Study observation (narrative) (test code = 03734-2) ANGELA (test code = ANGELA) ?Left?Ventricle: Left [...] 20-25 mmHg. ?RA pressure is 0-5 mmHg. [facility] [id number] 21:21:13* Test Item Value Reference Range Interpretation Comments TROPONIN I (test code = 6425574252) 4.460 ng/mL See_Comment H [Automated message] The system which generated this result transmitted reference range: <=0.034. The reference range was not used to interpret this result as normal/abnormal. ANGELA (test code = ANGELA) Reference (Normal) Range (defined by the 99th percentile reference [...] to patient's use of biotin. Lab Interpretation (test code = 86933-1) Abnormal [facility] [id number] 21:21:13* Test Item Value Reference Range Interpretation Comments TROPONIN I (test code = 5692038813) 4.460 ng/mL See_Comment H [Automated message] The system which generated this result transmitted reference range: <=0.034. The reference range was not used to interpret this result as normal/abnormal. ANGELA (test code = ANGELA) Reference (Normal) Range (defined by the 99th percentile reference [...] to patient's use of biotin. Lab Interpretation (test code = 36421-1) Abnormal [facility] GLUCOSE (AUTOMATED)2021-09-15 17:35:57* Test Item Value Reference Range Interpretation Comme nts POCT GLU (test code = 8480071681) 214 mg/dL 70-110 H Lab Interpretation (test cod e = 26283-5) Abnormal [facility] GLUCOSE (AUTOMATED)2021-09-15 17:35:57* Test Item Value Reference Range Interpretation Comme nts POCT GLU (test code = 9579717717) 214 mg/dL 70-110 H Lab Interpretation (test cod e = 26487-4) [facility]normal [facility] [id number] 17:04:46* Test Item Value Reference Range Interpretation Comments TROPONIN I (test code = 3506520996) 3.170 ng/mL See_Comment H [Automated message] The system which generated this result transmitted reference range: <=0.034. The reference range was not used to interpret this result as normal/abnormal. ANGELA (test code = ANGELA) Reference (Normal) Range (defined by the 99th percentile reference [...] to patient's use of biotin. Lab Interpretation (test code = 66493-3) [facility] [id number] 17:04:46* Test Item Value Reference Range Interpretation Comments TROPONIN I (test code = 5754386619) 3.170 ng/mL See_Comment H [Automated message] The system which generated this result transmitted reference range: <=0.034. The reference range was not used to interpret this result as normal/abnormal. ANGELA (test code = ANGELA) Reference (Normal) Range (defined by the 99th percentile reference [...] to patient's use of biotin. Lab Interpretation (test code = 46872-6) [facility]2021-09-15 16:51:24* Test Item Value Reference Range Interpretation Comme nts APTT Patient (test code = 3173-2) See_Comment H [Automated [employer] The system which generated this result transmitted reference range: 26 - 36 Seconds. The reference range was not used to interpret this result as normal/abnormal. Lab Interpretation (test code = 02627-7) [facility]2021-09-15 16:51:24* Test Item Value Reference Range Interpretation Comme nts APTT Patient (test code = 3173-2) See_Comment H [Automated [employer]] The system which generated this result transmitted reference range: 26 - 36 Seconds. The reference range was not used to interpret this result as normal/abnormal. Lab Interpretation (test code = 35805-4) [facility]normal [facility] [id number] 15:50:09* Test Item Value Reference Range Interpretation Comme nts CRP (test code = 4990296484) 15.8 mg/dL <0.8 H Lab Interpretation (test cod e = 99797-1) [facility]normal [facility] [id number] 15:50:09* Test Item Value Reference Range Interpretation Comme nts CRP (test code = 5581766946) 15.8 mg/dL <0.8 H Lab Interpretation (test cod e = 16948-0) Abnormal [facility] GLUCOSE (AUTOMATED)2021-09-15 14:23:44* Test Item Value Reference Range Interpretation Comme nts POCT GLU (test code = 0798978587) 209 mg/dL 70-110 H Lab Interpretation (test cod e = 84872-1) Abnormal [facility] GLUCOSE (AUTOMATED)2021-09-15 14:23:44* Test Item Value Reference Range Interpretation Comme nts POCT GLU (test code = 3926174069) 209 mg/dL 70-110 H Lab Interpretation (test cod e = 07464-5) [facility] 13:30:32* Test Item Value Reference Range Interpretation Comme nts ACETAMINOP (test code = 7694435468) <10.0 10.0-30.0 L ANGELA (test code = ANGELA) Toxic: Greater esme n 200 ug/mL @ 4 hour post ingestion or greater than 50 ug/mL @ 12 hour post ingestion Lab Interpretation (test code = 99303-5) [facility] 13:30:32* Test Item Value Reference Range Interpretation Comme nts SALICYLATE (test code = 6499323727) <10 mg/L ANGELA (test code = ANGELA) Therapeutic Range: ? Analgesic and Antipyretic Use ? 20-100 mg/L ? ? Anti-Inflammatory Use ? 100-250 mg/L Toxic Range: ? Greater than 300 mg/L [facility] 13:30:32* Test Item Value Reference Range Interpretation Comme nts ACETAMINOP (test code = 1435834599) <10.0 10.0-30.0 L ANGELA (test code = ANGELA) Toxic: Greater esme n 200 ug/mL @ 4 hour post ingestion or greater than 50 ug/mL @ 12 hour post ingestion Lab Interpretation (test code = 57788-7) Abnormal [facility]:30:32* Test Item Value Reference Range Interpretation Comme nts SALICYLATE (test code = 3749265732) <10 mg/L ANGELA (test code = ANGELA) Therapeutic Range: ? Analgesic and Antipyretic Use ? 20-100 mg/L ? ? Anti-Inflammatory Use ? 100-250 mg/L Toxic Range: ? Greater than 300 mg/L [facility]10413[facility]TOTAL CHOLESTEROL, TRIGLYCERIDES, HDL)2021-09-15 12:53:38* Test Item Value Reference Range Interpretation Comme nts CHOL (test code = 4633915462) 86 mg/dL 120-200 L HDL (test code = 5233115474) 40 mg/dL >40 L HDLC RATIO (test code = 5712556114) See_Comment [Automated [employer]] The system which generated this result transmitted reference range: <=5.0. The reference range was not used to interpret this result as normal/abnormal. TRIG (test code = 2712861150) 64 mg/dL 30-170 LDL CHOL (test code = 11306-3) 33 mg/dL See_Comment [Automated [employer]] The system which generated this result transmitted reference range: <=160. The reference range was not used to interpret this result as normal/abnormal. VLDL (test code = 2089202058) 13 mg/dL 5-60 Lab Interpretation (test code = 88767-5) [facility]22882[facility]TOTAL CHOLESTEROL, TRIGLYCERIDES, HDL)2021-09-15 12:53:38* Test Item Value Reference Range Interpretation Comme nts CHOL (test code = 8550714742) 86 mg/dL 120-200 L HDL (test code = 6949014430) 40 mg/dL >40 L HDLC RATIO (test code = 0979743984) See_Comment [Automated [employer]] The system which generated this result transmitted reference range: <=5.0. The reference range was not used to interpret this result as normal/abnormal. TRIG (test code = 1087672799) 64 mg/dL 30-170 LDL CHOL (test code = 86293-3) 33 mg/dL See_Comment [Automated messa ge] The system which generated this result transmitted reference range: <=160. The reference range was not used to interpret this result as normal/abnormal. VLDL (test code = 6047709068) 13 mg/dL 5-60 Lab Interpretation (test code = 21754-7) [facility] 11:04:34* Test Item Value Reference Range Interpretation Comme nts LIPASE (test code = 6619493490) 39 U/L 0-220 Lab Interpretation (test cod e = 70989-8) Normal [facility] 11:04:34* Test Item Value Reference Range Interpretation Comme nts LIPASE (test code = 6911186034) 39 U/L 0-220 Lab Interpretation (test cod e = 14914-8) Normal [facility] [id number] 10:51:53* Test Item Value Reference Range Interpretation Comme nts ESR (test code = 6897155254) See_Comment H [Automated messa ge] The system which generated this result transmitted reference range: 0 - 10 mm/HR. The reference range was not used to interpret this result as normal/abnormal. Lab Interpretation (test code = 71583-7) Abnormal [facility] [id number] 10:51:53* Test Item Value Reference Range Interpretation Comme nts ESR (test code = 5146470466) See_Comment H [Automated messa ge] The system which generated this result transmitted reference range: 0 - 10 mm/HR. The reference range was not used to interpret this result as normal/abnormal. Lab Interpretation (test code = 62788-1) [facility]normal [facility] [id number] 10:45:10 * Test Item Value Reference Range Interpretation Comme nts TSH (test code = 6762042889) See_Comment [Automated messa ge] The system which generated this result transmitted reference range: 0.45 - 4.70 mIU/L. The reference range was not used to interpret this result as normal/abnormal. Lab Interpretation (test code = 48144-7) Normal [facility] [id number] 10:45:10 * Test Item Value Reference Range Interpretation Comme nts TSH (test code = 6839683550) See_Comment [Automated messa ge] The system which generated this result transmitted reference range: 0.45 - 4.70 mIU/L. The reference range was not used to interpret this result as normal/abnormal. Lab Interpretation (test code = 47095-6) Normal [facility] CenterCB WITH [id number] 10:37:17* Test Item Value Reference Range Interpretation Comme nts WBC (test code = 6690-2) See_Comment [Automated message] The system which generated this result transmitted reference range: 4.20 - 10.70 10*3/?L. The reference range was not used to interpret this result as normal/abnormal. RBC (test code = 789-8) See_Comment L [Automated message] The system which generated this result transmitted reference range: 4.26 - 5.52 10*6/?L. The reference range was not used to interpret this result as normal/abnormal. HGB (test code = 718-7) 12.3 g/dL 12.2-16.4 HCT (test code = 4544-3) 36.6 % 38.4-49.3 L MCV (test code = 787-2) 88.4 fL 81.7-95.6 MCH (test code = 785-6) 29.7 pg 26.1-32.7 MCHC (test code = 786-4) 33.6 g/dL 31.2-35.0 RDW-SD (test code = 23904-9) 45.2 fL 38.5-51.6 RDW-CV (test code = 788-0) 14.0 % 12.1-15.4 PLT (test code = 777-3) See_Comment [Automated message] The system which generated this result transmitted reference range: 150 - 328 10*3/?L. The reference range was not used to interpret this result as normal/abnormal. MPV (test code = 53049-8) 10.7 fL 9.8-13.0 NRBC/100 WBC (test code = 4967683616) See_Comment [Automated message] The system which generated this result transmitted reference range: 0.0 - 10.0 /100 WBCs. The reference range was not used to interpret this result as normal/abnormal. NRBC x10^3 (test code = 2839036965) <0.01 See_Comment [Automated message] The system which generated this result transmitted reference range: 10*3/?L. The reference range was not used to interpret this result as normal/abnormal. GRAN MAT (NEUT) % (test code = 770-8) 80.5 % IMM GRAN % (test code = 6726373391) 0.30 % LYMPH % (test code = 736-9) 9.3 % MONO % (test code = 5905-5) 9.6 % EOS % (test code = 713-8) 0.0 % BASO % (test code = 706-2) 0.3 % GRAN MAT x10^3(ANC) (test code = 5635530354) 6.32 10*3/uL 1.99-6.95 IMM GRAN x10^3 (test code = 0344017779) <0.03 0.00-0.06 LYMPH x10^3 (test code = 731-0) 0.73 10*3/uL 1.09-3.23 L MONO x10^3 (test code = 742-7) 0.75 10*3/uL 0.36-1.02 EOS x10^3 (test code = 711-2) <0.03 0.06-0.53 L BASO x10^3 (test code = 704-7) <0.03 0.01-0.09 BANDS (test code = 2491734962) MARKED INCREASED A Lab Interpretation (test code = 89331-4) Abnormal [facility] WITH [id number] 10:37:17* Test Item Value Reference Range Interpretation Comme nts WBC (test code = 6690-2) See_Comment [Automated message] The system which generated this result transmitted reference range: 4.20 - 10.70 10*3/?L. The reference range was not used to interpret this result as normal/abnormal. RBC (test code = 789-8) See_Comment L [Automated message] The system which generated this result transmitted reference range: 4.26 - 5.52 10*6/?L. The reference range was not used to interpret this result as normal/abnormal. HGB (test code = 718-7) 12.3 g/dL 12.2-16.4 HCT (test code = 4544-3) 36.6 % 38.4-49.3 L MCV (test code = 787-2) 88.4 fL 81.7-95.6 MCH (test code = 785-6) 29.7 pg 26.1-32.7 MCHC (test code = 786-4) 33.6 g/dL 31.2-35.0 RDW-SD (test code = 24469-6) 45.2 fL 38.5-51.6 RDW-CV (test code = 788-0) 14.0 % 12.1-15.4 PLT (test code = 777-3) See_Comment [Automated message] The system which generated this result transmitted reference range: 150 - 328 10*3/?L. The reference range was not used to interpret this result as normal/abnormal. MPV (test code = 98895-6) 10.7 fL 9.8-13.0 NRBC/100 WBC (test code = 2381815591) See_Comment [Automated message] The system which generated this result transmitted reference range: 0.0 - 10.0 /100 WBCs. The reference range was not used to interpret this result as normal/abnormal. NRBC x10^3 (test code = 1681288888) <0.01 See_Comment [Automated message] The system which generated this result transmitted reference range: 10*3/?L. The reference range was not used to interpret this result as normal/abnormal. GRAN MAT (NEUT) % (test code = 770-8) 80.5 % IMM GRAN % (test code = 6513677550) 0.30 % LYMPH % (test code = 736-9) 9.3 % MONO % (test code = 5905-5) 9.6 % EOS % (test code = 713-8) 0.0 % BASO % (test code = 706-2) 0.3 % GRAN MAT x10^3(ANC) (test code = 2957682676) 6.32 10*3/uL 1.99-6.95 IMM GRAN x10^3 (test code = 0453151006) <0.03 0.00-0.06 LYMPH x10^3 (test code = 731-0) 0.73 10*3/uL 1.09-3.23 L MONO x10^3 (test code = 742-7) 0.75 10*3/uL 0.36-1.02 EOS x10^3 (test code = 711-2) <0.03 0.06-0.53 L BASO x10^3 (test code = 704-7) <0.03 0.01-0.09 BANDS (test code = 6469751133) MARKED INCREASED A Lab Interpretation (test code = 39234-2) Abnormal [facility]2022-07-05 10:26:33* Test Item Value Reference Range Interpretation Comme nts MAGNESIUM (test code = 6945723494) 1.1 mg/dL 1.7-2.4 L Lab Interpretation (test cod e = 51947-7) Abnormal [facility]2022-07-05 10:26:33* Test Item Value Reference Range Interpretation Comme nts MAGNESIUM (test code = 3960671133) 1.1 mg/dL 1.7-2.4 L Lab Interpretation (test cod e = 65785-2) [facility]normal [facility] CenterTrop[facility] [id number] 10:26:28* Test Item Value Reference Range Interpretation Comments TROPONIN I (test code = 1083896053) 0.786 ng/mL See_Comment H [Automated message] The system which generated this result transmitted reference range: <=0.034. The reference range was not used to interpret this result as normal/abnormal. ANGELA (test code = ANGELA) Reference (Normal) Range (defined by the 99th percentile reference [...] to patient's use of biotin. Lab Interpretation (test code = 89412-0) [facility]normal [facility] CenterTrop[facility] [id number] 10:26:28* Test Item Value Reference Range Interpretation Comments TROPONIN I (test code = 5670600713) 0.786 ng/mL See_Comment H [Automated message] The system which generated this result transmitted reference range: <=0.034. The reference range was not used to interpret this result as normal/abnormal. ANGELA (test code = ANGELA) Reference (Normal) Range (defined by the 99th percentile reference [...] to patient's use of biotin. Lab Interpretation (test code = 96577-5) [facility]normal [facility]HEP[facility] (21349[facility] (ALB,T.PRO,BILI T,BU/BC,ALT,AST,ALK PHOS)2021-09-15 10:13:11* Test Item Value Reference Range Interpretation Comme nts TOTAL BILI (test code = 6245016154) 0.3 mg/dL 0.1-1.1 BILI UNCON (test code = 6364691139) 0.2 mg/dL 0.1-1.1 BILI CONJ (test code = 7291740430) 0.0 mg/dL 0.0-0.3 T PROTEIN (test code = 6773882993) 6.4 g/dL 6.3-8.2 ALBUMIN (test code = 9747967019) 3.8 g/dL 3.5-5.0 ALK PHOS (test code = 5275812869) 67 U/L 34-122 ALTv (test code = 1742-6) 20 U/L 5-50 AST(SGOT) (test code = 5375125646) 30 U/L 13-40 Lab Interpretation (test cod e = 01271-8) Normal [facility] METABOLIC PANEL (NA, K, CL, CO2, GLUCOSE, BUN, CREATININE, CA)2021-09-15 10:13:11* Test Item Value Reference Range Interpretation Comme nts NA (test code = 4492224236) 138 mmol/L 135-145 K (test code = 4810577142) 3.7 mmol/L 3.5-5.0 CL (test code = 5465877294) 110 mmol/L 98-108 H CO2 TOTAL (test code = 1763556151) 17 mmol/L 23-31 L AGAP (test code = 3145294796) 2-16 BUN (test code = 4875247753) 10 mg/dL 7-23 GLUCOSE (test code = 2130872685) 175 mg/dL 70-110 H CREATININE (test code = 8724999490) 0.66 mg/dL 0.60-1.25 CALCIUM (test code = 6600545647) 8.5 mg/dL 8.6-10.6 L eGFR (test code = 0909726334) mL/min/1.73m2 ANGELA (test code = ANGELA) Association of [...] or abnormalities in imaging tests). Lab Interpretation (test code = 16393-1) [facility]normal [facility] (79350[facility] (ALB,T.PRO,BILI T,BU/BC,ALT,AST,ALK PHOS)2021-09-15 10:13:11* Test Item Value Reference Range Interpretation Comme nts TOTAL BILI (test code = 7526009494) 0.3 mg/dL 0.1-1.1 BILI UNCON (test code = 8529729817) 0.2 mg/dL 0.1-1.1 BILI CONJ (test code = 8034321136) 0.0 mg/dL 0.0-0.3 T PROTEIN (test code = 4823676817) 6.4 g/dL 6.3-8.2 ALBUMIN (test code = 2746800108) 3.8 g/dL 3.5-5.0 ALK PHOS (test code = 4354172194) 67 U/L 34-122 ALTv (test code = 1742-6) 20 U/L 5-50 AST(SGOT) (test code = 8060566022) 30 U/L 13-40 Lab Interpretation (test cod e = 20179-6) Normal [facility] (NA, K, CL, CO2, GLUCOSE, BUN, CREATININE, CA)2021-09-15 10:13:11* Test Item Value Reference Range Interpretation Comme nts NA (test code = 6354657780) 138 mmol/L 135-145 K (test code = 8576363195) 3.7 mmol/L 3.5-5.0 CL (test code = 5168690280) 110 mmol/L 98-108 H CO2 TOTAL (test code = 3960661832) 17 mmol/L 23-31 L AGAP (test code = 8865837619) 2-16 BUN (test code = 1509486298) 10 mg/dL 7-23 GLUCOSE (test code = 3603458446) 175 mg/dL 70-110 H CREATININE (test code = 9382775929) 0.66 mg/dL 0.60-1.25 CALCIUM (test code = 2384295220) 8.5 mg/dL 8.6-10.6 L eGFR (test code = 4835961857) mL/min/1.73m2 ANGELA (test code = ANGELA) Association of [...] or abnormalities in imaging tests). Lab Interpretation (test code = 24397-1) Abnormal [facility] CenterProthrombin Time / [id number] 10:12:11* Test Item Value Reference Range Interpretation Comme sneha LINO PATIENT (test code = 5964-2) See_Comment H [Automated [employer] The system which generated this result transmitted reference range: 10.1 - 12.6 Seconds. The reference range was not used to interpret this result as normal/abnormal. INR (test code = 6301-6) Normal INR <1.1; Warfarin Therapeutic range 2.0 to 3.0 or 2.5 to 3.5, depending upon the indications. Lab Interpretation (test code = 47345-8) [facility]normal [facility] 10:12:11* Test Item Value Reference Range Interpretation Comme [facility] APTT Patient (test code = 3173-2) See_Comment [Automated messa ge] The system which generated this result transmitted reference range: 26 - 36 Seconds. The reference range was not used to interpret this result as normal/abnormal. Lab Interpretation (test code = 46727-7) Normal [facility] CenterPro[facility] / [id number] 10:12:11* Test Item Value Reference Range Interpretation Comme [facility] PROTIME PATIENT (test code = 5964-2) See_Comment H [Automated messa ge] The system which generated this result transmitted reference range: 10.1 - 12.6 Seconds. The reference range was not used to interpret this result as normal/abnormal. INR (test code = 6301-6) Normal INR <1.1; Warfarin Therapeutic range 2.0 to 3.0 or 2.5 to 3.5, depending upon the indications. Lab Interpretation (test code = 50444-4) [facility]:12:11* Test Item Value Reference Range Interpretation Comme [facility] APTT Patient (test code = 3173-2) See_Comment [Automated messa [employer]] The system which generated this result transmitted reference range: 26 - 36 Seconds. The reference range was not used to interpret this result as normal/abnormal. Lab Interpretation (test code = 86226-6) Normal [facility] CenterGlycosylated Hemoglobin (A1C)2021-09-15 10:06:37* Test Item Value Reference Range Interpretation Comme [facility] HGB A1C (test code = 4548-4) 8.0 % 4.0-5.7 H ANGELA (test code = ANGELA) Reference RangesNormal: <5.7%Prediabetes: 5.7 - 6.4%Diabetes: > 6.5% Lab Interpretation (test code = 44340-1) Abnormal [facility] CenterGlycosylated Hemoglobin (A1C)2021-09-15 10:06:37* Test Item Value Reference Range Interpretation Comme nts HGB A1C (test code = 4548-4) 8.0 % 4.0-5.7 H ANGELA (test code = ANGELA) Reference RangesNormal: <5.7%Prediabetes: 5.7 - 6.4%Diabetes: > 6.5% Lab Interpretation (test code = 91406-1) [facility] [id number] 09:29:32* Test Item Value Reference Range Interpretation Comme nts LACTIC ACID (test code = 4172098697) 1.87 mmol/L 0.50-2.20 Lab Interpretation (test cod e = 33305-9) Normal [facility] Acid Whole [id number] 09:29:32* Test Item Value Reference Range Interpretation Comme nts LACTIC ACID (test code = 8184286582) 1.87 mmol/L 0.50-2.20 Lab Interpretation (test cod e = 10149-5) Normal [facility] Acid Whole [id number] 05:43:40* Test Item Value Reference Range Interpretation Comme nts LACTIC ACID (test code = 1240017851) 1.52 mmol/L 0.50-2.20 Lab Interpretation (test cod e = 65005-8) [facility] [id number] 05:43:40* Test Item Value Reference Range Interpretation Comme nts LACTIC ACID (test code = 8961294242) 1.52 mmol/L 0.50-2.20 Lab Interpretation (test cod e = 67759-6) [id number] 02:28:48* Test Item Value Reference Range Interpretation Comments TROPONIN I (test code = 1776249845) 0.074 ng/mL See_Comment H [Automated message] The system which generated this result transmitted reference range: <=0.034. The reference range was not used to interpret this result as normal/abnormal. ANGELA (test code = ANGELA) Reference (Normal) Range (defined by the 99th percentile reference [...] to patient's use of biotin. Lab Interpretation (test code = 29380-6) [facility]normal [facility] CenterTROP[facility] [id number] 02:28:48* Test Item Value Reference Range Interpretation Comments TROPONIN I (test code = 4735649149) 0.074 ng/mL See_Comment H [Automated message] The system which generated this result transmitted reference range: <=0.034. The reference range was not used to interpret this result as normal/abnormal. ANGELA (test code = ANGELA) Reference (Normal) Range (defined by the 99th percentile reference [...] to patient's use of biotin. Lab Interpretation (test code = 21327-2) [facility]normal [facility] CenterCOM[facility]OL[facility] (78087)2021-09-15 02:18:46* Test Item Value Reference Range Interpretation Comme nts NA (test code = 3203688938) 135 mmol/L 135-145 K (test code = 0351777456) 4.6 mmol/L 3.5-5.0 CL (test code = 2791279415) 101 mmol/L 98-108 CO2 TOTAL (test code = 4831745325) 17 mmol/L 23-31 L AGAP (test code = 9455593541) 2-16 H BUN (test code = 5275474314) 11 mg/dL 7-23 GLUCOSE (test code = 3034364471) 281 mg/dL 70-110 H CREATININE (test code = 7348349642) 0.80 mg/dL 0.60-1.25 TOTAL BILI (test code = 7897910426) 0.4 mg/dL 0.1-1.1 CALCIUM (test code = 5413112061) 9.2 mg/dL 8.6-10.6 T PROTEIN (test code = 6871323540) 7.1 g/dL 6.3-8.2 ALBUMIN (test code = 7535450387) 4.5 g/dL 3.5-5.0 ALK PHOS (test code = 1733186316) 81 U/L 34-122 ALTv (test code = 1742-6) 25 U/L 5-50 AST(SGOT) (test code = 8166817711) 23 U/L 13-40 eGFR (test code = 5825348121) mL/min/1.73m2 ANGELA (test code = ANGELA) Association of [...] or abnormalities in imaging tests). Lab Interpretation (test code = 97340-8) [facility]normal [facility]COMP[facility] (88776)2021-09-15 02:18:46* Test Item Value Reference Range Interpretation Comme nts NA (test code = 4519638365) 135 mmol/L 135-145 K (test code = 2127351363) 4.6 mmol/L 3.5-5.0 CL (test code = 0289124540) 101 mmol/L 98-108 CO2 TOTAL (test code = 1700914953) 17 mmol/L 23-31 L AGAP (test code = 6753288065) 2-16 H BUN (test code = 0404488481) 11 mg/dL 7-23 GLUCOSE (test code = 6290005429) 281 mg/dL 70-110 H CREATININE (test code = 2977926782) 0.80 mg/dL 0.60-1.25 TOTAL BILI (test code = 1797081463) 0.4 mg/dL 0.1-1.1 CALCIUM (test code = 7403094882) 9.2 mg/dL 8.6-10.6 T PROTEIN (test code = 7848436509) 7.1 g/dL 6.3-8.2 ALBUMIN (test code = 4426968086) 4.5 g/dL 3.5-5.0 ALK PHOS (test code = 1611700579) 81 U/L 34-122 ALTv (test code = 1742-6) 25 U/L 5-50 AST(SGOT) (test code = 6849526587) 23 U/L 13-40 eGFR (test code = 0464880648) mL/min/1.73m2 ANGELA (test code = ANGELA) Association of [...] or abnormalities in imaging tests). Lab Interpretation (test code = 11540-2) [facility]normal [facility] CenterL[facility] Whole Asrrk3985-00-59 01:48:05* Test Item Value Reference Range Interpretation Comme nts LACTIC ACID (test code = 4670804432) 3.89 mmol/L 0.50-2.20 H Lab Interpretation (test cod e = 30108-8) Abnormal [facility] CenterL[facility] Whole Kefwp7938-35-95 01:48:05* Test Item Value Reference Range Interpretation Comme nts LACTIC ACID (test code = 4183799033) 3.89 mmol/L 0.50-2.20 H Lab Interpretation (test cod e = 08915-2) [facility]normal [facility] CenterTROP[facility]IN [id number] 08:09:51* Test Item Value Reference Range Interpretation Comments TROPONIN I (test code = 7100874532) 0.024 ng/mL See_Comment [Automated message] The system which generated this result transmitted reference range: <=0.034. The reference range was not used to interpret this result as normal/abnormal. ANGELA (test code = ANGELA) Reference (Normal) Range (defined by the 99th percentile reference [...] to patient's use of biotin. Lab Interpretation (test code = 69744-6) Normal [facility]. METABOLIC PANEL (17169)2021-09-14 07:58:33* Test Item Value Reference Range Interpretation Comme nts NA (test code = 5714759041) 134 mmol/L 135-145 L K (test code = 5023039987) 4.5 mmol/L 3.5-5.0 CL (test code = 2065628071) 99 mmol/L 98-108 CO2 TOTAL (test code = 8917735610) 18 mmol/L 23-31 L AGAP (test code = 6116367029) 2-16 H BUN (test code = 7046076817) 13 mg/dL 7-23 GLUCOSE (test code = 0941455881) 182 mg/dL 70-110 H CREATININE (test code = 8370819656) 0.69 mg/dL 0.60-1.25 TOTAL BILI (test code = 2937192775) 0.6 mg/dL 0.1-1.1 CALCIUM (test code = 0784204075) 9.5 mg/dL 8.6-10.6 T PROTEIN (test code = 1232938587) 7.4 g/dL 6.3-8.2 ALBUMIN (test code = 2973982726) 4.7 g/dL 3.5-5.0 ALK PHOS (test code = 6039039270) 85 U/L 34-122 ALTv (test code = 1742-6) 22 U/L 5-50 AST(SGOT) (test code = 2293873625) 23 U/L 13-40 eGFR (test code = 7377036120) mL/min/1.73m2 ANGELA (test code = ANGELA) Association of [...] or abnormalities in imaging tests). Lab Interpretation (test code = 52495-4) Abnormal [facility] WITH [id number] 07:42:13* Test Item Value Reference Range Interpretation Comme nts WBC (test code = 6690-2) See_Comment H [[employer]] The system which generated this result transmitted reference range: 4.20 - 10.70 10*3/?L. The reference range was not used to interpret this result as normal/abnormal. RBC (test code = 789-8) See_Comment [[employer]] The system which generated this result transmitted reference range: 4.26 - 5.52 10*6/?L. The reference range was not used to interpret this result as normal/abnormal. HGB (test code = 718-7) 13.2 g/dL 12.2-16.4 HCT (test code = 4544-3) 38.4 % 38.4-49.3 MCV (test code = 787-2) 87.1 fL 81.7-95.6 MCH (test code = 785-6) 29.9 pg 26.1-32.7 MCHC (test code = 786-4) 34.4 g/dL 31.2-35.0 RDW-SD (test code = 27439-9) 43.5 fL 38.5-51.6 RDW-CV (test code = 788-0) 13.5 % 12.1-15.4 PLT (test code = 777-3) See_Comment [Automated messa ge] The system which generated this result transmitted reference range: 150 - 328 10*3/?L. The reference range was not used to interpret this result as normal/abnormal. MPV (test code = 69494-2) 10.6 fL 9.8-13.0 NRBC/100 WBC (test code = 1267538514) See_Comment [Automated [employer]] The system which generated this result transmitted reference range: 0.0 - 10.0 /100 WBCs. The reference range was not used to interpret this result as normal/abnormal. NRBC x10^3 (test code = 5336812044) <0.01 See_Comment [Automated messa ge] The system which generated this result transmitted reference range: 10*3/?L. The reference range was not used to interpret this result as normal/abnormal. GRAN MAT (NEUT) % (test code = 770-8) 80.2 % IMM GRAN % (test code = 1013373075) 0.30 % LYMPH % (test code = 736-9) 13.2 % MONO % (test code = 5905-5) 5.8 % EOS % (test code = 713-8) 0.0 % BASO % (test code = 706-2) 0.5 % GRAN MAT x10^3(ANC) (test code = 4146468686) 8.77 10*3/uL 1.99-6.95 H IMM GRAN x10^3 (test code = 6611874204) 0.03 10*3/uL 0.00-0.06 LYMPH x10^3 (test code = 731-0) 1.44 10*3/uL 1.09-3.23 MONO x10^3 (test code = 742-7) 0.63 10*3/uL 0.36-1.02 EOS x10^3 (test code = 711-2) <0.03 0.06-0.53 L BASO x10^3 (test code = 704-7) 0.05 10*3/uL 0.01-0.09 Lab Interpretation (test code = 28564-3) [facility]"
[2023-03-07] MEDS ORDERED: KETOROLAC 30 MG/ML INJ ONE (11:41)
[2023-03-07] MEDS ORDERED: ONDANSETRON 4 MG/2 ML VIAL ONE (11:41)
[2023-03-07] MEDS ORDERED: NA CHLORIDE 0.9% 1,000 ML ONE (11:42)
[2023-03-07] MEDS ORDERED: FENTANYL CITR 100 MCG/2 ML ONE (11:42)
[2023-03-07 11:45] LABS: Absolute Lymphocytes (CBC) 1.3 K/uL (0.7-4.9); Hematocrit 36.9 % (39.6-49.0); Lymphocytes % 10.9 % (15.3-44.8); MCV 92.6 fL (80-100); MPV 8.5 fL (7.6-11.3); Platelets 232 thou/uL (152-406); RBC Red Blood Cell Count 3.98 M/uL (4.33-5.43)
[2023-03-07 12:06] LABS: Albumin 4.2 g/dL (3.4-5.0); Bilirubin Direct 0.7 mg/dL (0-0.2); Bilirubin Indirect, Calculated 0.3 mg/dL (0.2-0.8); Potassium 4.3 mEq/L (3.5-5.1); Protein, Total 7.4 g/dL (6.4-8.2)
--- NOTE | 2023-03-07 14:31 | RAD REPORT ---
EXAM DESCRIPTION: US - Abdomen Exam Limited - 03/07/2023 1:31 pm CLINICAL HISTORY: ruq pain COMPARISON: Abdomen Pelvis W Contrast dated 02/06/2023 TECHNIQUE: Sonographic grayscale and color flow images of the right upper abdominal quadrant were o btained. FINDINGS: The gallbladder is moderately distended, demonstrates no gallstones. No pericholecystic fl uid or gallbladder wall thickening. The common bile duct is at the upper limit of normal in caliber m easuring 7 mm. The liver demonstrates no findings of intrahepatic biliary dilatation. IMPRESSION: No cholelithiasis or findings to suggest cystitis. Upper limit of normal caliber of the common bile duct, 7 mm.
[2023-03-07] MEDS ORDERED: PIPERACIL/TAZO 3.375 GM VIAL IV ONE (15:10)
[2023-03-07] MEDS ORDERED: NA CHLORIDE 0.9% 100 ML ONE (15:10)
--- NOTE | 2023-03-07 15:11 | ER ---
Nurse's Notes [facility] Name: Ilir Cochran Age: 72 yrs Sex: Male : 1950 Arrival Date: 03/07/2023 Time: 11:07 Bed 5 Private MD: Diagnosis: Acute cholecystitis Presentation: 03/07 11:22 Chief complaint: Patient states: Upper abdominal pain, seeing Dr. Maguire for his ll1 gallbladder. Coronavirus screen: Vaccine status: Patient reports receiving the 2nd dose of the covid vaccine. Client denies travel out of the [place] in the last 14 days. At this time, the client does not indicate any symptoms associated with coronavirus-19. Ebola Screen: Patient denies travel to an Ebola-affected area in the 21 days before illness onset. Initial Sepsis Screen: Does the patient meet any 2 criteria? No. Patient's initial sepsis screen is negative. Does the patient have a suspected source of infection? Yes: Acute abdominal pain. Risk Assessment: Do you want to hurt yourself or someone else? Patient reports no desire to harm self or others. Onset of symptoms was March 05, 2023. 11:22 Method Of Arrival: Ambulatory ll1 11:22 Acuity: GREGORIA 3 ll1 Triage Assessment: 11:23 General: Appears uncomfortable, Behavior is calm, cooperative, appropriate for age. ll1 Pain: Complains of pain in upper abdominal. GI: Reports upper abdominal pain, nausea. Historical: - Allergies: 11:15 No Known Allergies; rs5 - PMHx: 11:15 coronary atherosclerosis; diabetes mellitus; Hypertensive disorder; ll1 - PSHx: 11:15 Coronary artery bypass graft; ll1 - Immunization history:: Adult Immunizations up to date. - Social history:: Smoking status: Patient denies any tobacco usage or history of. - Family history:: not pertinent. Screenin:25 [facility] ED Fall Risk Assessment (Adult) History of falling in the last 3 months, ld1 including since admission No falls in past 3 months (0 pts). Abuse screen: Denies threats or abuse. Denies injuries from another. Nutritional screening: No deficits noted. Tuberculosis screening: No symptoms or risk factors identified. Assessment: 12:25 General: Appears in no apparent distress. comfortable, Behavior is calm, cooperative, ld1 appropriate for age. Pain: Complains of pain in abdomen Pain does not radiate. Pain currently is 7 out of 10 on a pain scale. Quality of pain is described as throbbing. Neuro: Level of Consciousness is awake, alert, obeys commands, Oriented to person, place, time, situation. Cardiovascular: Capillary refill < 3 seconds Patient's skin is warm and dry. Respiratory: Airway is patent Respiratory effort is even, unlabored. GI: Abdomen is round non-distended, Bowel sounds present X 4 quads. Abd is soft Abd is non tender. : No signs and/or symptoms were reported regarding the genitourinary system. EENT: No signs and/or symptoms were reported regarding the EENT system. Derm: No signs and/or symptoms reported regarding the dermatologic system. Musculoskeletal: No signs and/or symptoms reported regarding the musculoskeletal system. 14:00 Reassessment: Patient appears in no apparent distress at this time. No changes from ld1 previously documented assessment. Patient and/or family updated on plan of care and expected duration. Pain level reassessed. 17:13 Reassessment: No changes from previously documented assessment. Patient and/or family ld1 updated on plan of care and expected duration. Pain level reassessed. 19:20 Reassessment: ASSESSMENT CARE OF PT. PT LYING IN BED. NO PAIN OR DISTRESS NOTED. VS jj7 STABLE. CALL LOZANO IN REACH. Vital Signs: 11:22 BP 154 / 61; Pulse 60; Resp 17; Temp 97.9; Pulse Ox 99% ; ll1 12:25 BP 132 / 60; Pulse 59; Resp 18; Pulse Ox 99% ; Pain 7/10; ld1 14:02 BP 125 / 56; Pulse 59; Resp 18; Pulse Ox 99% on R/A; ld1 17:13 BP 157 / 69; Pulse 65; Resp 18; Pulse Ox 99% on R/A; ld1 19:00 BP 130 / 60; Pulse 51; Resp 17; Pulse Ox 99% ; jj7 20:00 BP 135 / 69; Pulse 51; Resp 17; Pulse Ox 99% ; jj7 12:25 Pain Scale: Adult ld1 ED Course: 11:12 Patient arrived in ED. ts1 11:14 Tony Moreira MD is Attending Physician. rt 11:15 Arm band placed on Patient placed in an exam room, on a stretcher. ll1 11:21 Worrell, Nacho, RN is Primary Nurse. rs5 11:23 Triage completed. ll1 12:25 Patient has correct armband on for positive identification. Placed in gown. Bed in low ld1 position. Call light in reach. Side rails up X2. Pulse ox on. NIBP on. Door closed. Noise minimized. Warm blanket given. 12:25 No provider procedures requiring assistance completed. ld1 13:33 US Abdomen Limited In Process Unspecified. EDMS 15:10 Matthew Alexis MD is Hospitalizing Provider. rt 20:39 Patient admitted, IV remains in place. jj7 Administered Medications: 11:50 Drug: Ketorolac IVP 15 mg IVP once Route: IVP; Site: right antecubital; rs5 19:00 Follow up: Response: No adverse reaction j7 11:50 Drug: fentaNYL (PF) IVP 50 mcg IVP once Route: IVP; Site: right antecubital; rs5 19:00 Follow up: Response: Marked relief of symptoms j7 11:50 Drug: NS 0.9% IV 1000 ml IV at 1 bolus Per protocol; 1000 mL bolus Route: IV; Rate: 1 rs5 bolus; Site: right antecubital; 19:00 Follow up: IV Status: Completed infusion jj7 11:50 Drug: Ondansetron IVP 4 mg IVP once; over 2 minutes Route: IVP; Site: right antecubital;rs5 19:00 Follow up: Response: No adverse reaction jj7 15:22 Drug: Piperacillin-Tazobactam IVPB 3.375 grams IVPB once over 60 mins; (mix in NS 100 ld1 mL) Route: IVPB; Infused Over: 60 mins; Site: right antecubital; 19:00 Follow up: IV Status: Completed infusion jj7 Medication: 12:25 VIS not applicable for this client. ld1 Point of Care Testing: Blood Glucose: 12:03 Blood Glucose: 177 mg/dL; rs5 Ranges: Outcome: 15:11 Decision to Hospitalize by Provider. rt 20:39 Admitted to Med/surg accompanied by tech, via wheelchair, room 201, Report called to marisela DICK RN 20:39 Condition: improved 21:34 Patient left the ED. marisela Signatures: Dispatcher [employer] Ritu Whelan, RN RN ll1 Indy Irene RN RN ld1 Tamir Barton RN RN jj7 Tony Moreira MD MD rt Nacho Worrell RN RN rs5 Aminata Sotelo, [facility] ts1
--- NOTE | 2023-03-07 15:12 | EDPHYS ---
Physician Documentation [facility] Name: Ilir Cochran Age: 72 yrs Sex: Male : 1950 Arrival Date: 03/07/2023 Time: 11:07 Bed 5 Private MD: ED Physician Tony Moreira HPI: 03/07 13:32 This 72 yrs old Male presents to ER via Ambulatory with complaints of rt Abdominal Pain. 13:32 Patient has known cholelithiasis, scheduled surgery performed Dr. Maguire of his rt gallbladder removed. Patient came to the ED with worsening right upper quadrant pain as well as nausea starting today. Denies other acute complaints at this time, symptoms are moderate in severity, no other aggravating or alleviating factors. Pain is aching nature, nonradiating. Historical: - Allergies: 11:15 No Known Allergies; rs5 - PMHx: 11:15 coronary atherosclerosis; diabetes mellitus; Hypertensive disorder; ll1 - PSHx: 11:15 Coronary artery bypass graft; ll1 - Immunization history:: Adult Immunizations up to date. - Social history:: Smoking status: Patient denies any tobacco usage or history of. - Family history:: not pertinent. ROS: 13:32 Constitutional: Negative for fever, chills, and weight loss, Cardiovascular: Negative rt for chest pain, palpitations, and edema, Respiratory: Negative for shortness of breath, cough, wheezing, and pleuritic chest pain, MS/Extremity: Negative for injury and deformity, Skin: Negative for injury, rash, and discoloration, Neuro: Negative for headache, weakness, numbness, tingling, and seizure, Psych: Negative for depression, anxiety, suicide ideation, homicidal ideation, and hallucinations, 13:32 Abdomen/GI: Positive for abdominal pain, nausea, Exam: 13:32 Constitutional: This is a well developed, well nourished patient who is awake, alert, rt and in no acute distress. Head/Face: Normocephalic, atraumatic. Chest/axilla: Normal chest wall appearance and motion. Nontender with no deformity. No lesions are appreciated. Cardiovascular: Regular rate and rhythm with a normal S1 and S2. No gallops, murmurs, or rubs. Normal PMI, no JVD. No pulse deficits. Respiratory: Lungs have equal breath sounds bilaterally, clear to auscultation and percussion. No rales, rhonchi or wheezes noted. No increased work of breathing, no retractions or nasal flaring. Skin: Warm, dry with normal turgor. Normal color with no rashes, no lesions, and no evidence of cellulitis. MS/ Extremity: Pulses equal, no cyanosis. Neurovascular intact. Full, normal range of motion. Neuro: Awake and alert, GCS 15, oriented to person, place, time, and situation. Cranial nerves II-XII grossly intact. Motor strength 5/5 in all extremities. Sensory grossly intact. Cerebellar exam normal. Normal gait. 13:32 Abdomen/GI: Tenderness to the right upper quadrant without guarding, rebound, distention, Vital Signs: 11:22 BP 154 / 61; Pulse 60; Resp 17; Temp 97.9; Pulse Ox 99% ; ll1 12:25 BP 132 / 60; Pulse 59; Resp 18; Pulse Ox 99% ; Pain 7/10; ld1 14:02 BP 125 / 56; Pulse 59; Resp 18; Pulse Ox 99% on R/A; ld1 17:13 BP 157 / 69; Pulse 65; Resp 18; Pulse Ox 99% on R/A; ld1 19:00 BP 130 / 60; Pulse 51; Resp 17; Pulse Ox 99% ; jj7 20:00 BP 135 / 69; Pulse 51; Resp 17; Pulse Ox 99% ; jj7 12:25 Pain Scale: Adult ld1 MDM: 11:17 Patient medically screened. rt 17:27 Differential Diagnosis Biliary colic, cholecystitis, gallstone pancreatitis. Data rt reviewed: vital signs, nurses notes, lab test result(s), radiologic studies. Consideration of Admission/Observation Patient was admitted/placed on observation. Management of patient was discussed with the following: Electrician Sound: Discussed with patient's surgeon, request the patient be admitted, MRCP to be performed tomorrow. I considered the following discharge prescriptions or medication management in the emergency department Medications were administered in the Emergency Department. See MAR. Care significantly affected by the following chronic conditions: Diabetes. Counseling: I had a detailed discussion with the patient and/or guardian regarding the historical points, exam findings, and any diagnostic results supporting the discharge/admit diagnosis, lab results, radiology results, the need for further work-up and treatment in the hospital. Response to treatment: the patient's symptoms have markedly improved after treatment. 03/07 11:24 Order name: CBC with Diff; Complete Time: 12:10 rt 03/07 11:24 Order name: BMP; Complete Time: 12:10 rt 03/07 11:24 Order name: LFT's; Complete Time: 12:10 rt 03/07 12:14 Order name: Glucose, Ancillary Testing; Complete Time: 12:16 EDMS 03/07 16:19 Order name: Acute Hepatitis Panel EDMS 03/07 16:19 Order name: Acute Hepatitis Panel EDMS 03/07 16:19 Order name: CBC with Automated Diff EDMS 03/07 16:19 Order name: CBC with Automated Diff EDMS 03/07 16:19 Order name: Comprehensive Metabolic Panel EDMS 03/07 16:19 Order name: Comprehensive Metabolic Panel EDMS 03/07 16:19 Order name: Protime (+INR) EDMS 03/07 16:19 Order name: Protime (+INR) EDMS 03/07 16:19 Order name: PTT, Activated Partial Thromb EDMS 03/07 16:19 Order name: PTT, Activated Partial Thromb EDMS 03/07 17:55 Order name: Glucose, Ancillary Testing EDMS 03/07 12:13 Order name: US Abdomen Limited; Complete Time: 14:33 rt 03/07 16:19 Order name: Cholangiogram EDMS 03/07 16:19 Order name: Cholangiogram EDMS 03/07 16:19 Order name: CONS Physician Consult EDMS Administered Medications: 11:50 Drug: Ketorolac IVP 15 mg IVP once Route: IVP; Site: right antecubital; rs5 19:00 Follow up: Response: No adverse reaction jj7 11:50 Drug: fentaNYL (PF) IVP 50 mcg IVP once Route: IVP; Site: right antecubital; rs5 19:00 Follow up: Response: Marked relief of symptoms jj7 11:50 Drug: NS 0.9% IV 1000 ml IV at 1 bolus Per protocol; 1000 mL bolus Route: IV; Rate: 1 rs5 bolus; Site: right antecubital; 19:00 Follow up: IV Status: Completed infusion jj7 11:50 Drug: Ondansetron IVP 4 mg IVP once; over 2 minutes Route: IVP; Site: right antecubital;rs5 19:00 Follow up: Response: No adverse reaction jj7 15:22 Drug: Piperacillin-Tazobactam IVPB 3.375 grams IVPB once over 60 mins; (mix in NS 100 ld1 mL) Route: IVPB; Infused Over: 60 mins; Site: right antecubital; 19:00 Follow up: IV Status: Completed infusion jj7 Point of Care Testing: Blood Glucose: 12:03 Blood Glucose: 177 mg/dL; rs5 Ranges: Critical Glucose Levels:Adult <50 mg/dl or >400 mg/dl <40 mg/dl or >180 mg/dl Disposition Summary: 03/07/23 15:11 Hospitalization Ordered Notes: Hospitalization Status: Observation rt Provider: Matthew Alexis rt Condition: Stable rt Problem: new rt Symptoms: have improved rt Bed/Room Type: Standard rt Location: Telemetry/MedSurg (Inpatient)(03/07/23 20:02) rv1 Room Assignment: [facility](03/07/23 20:02) rv1 Diagnosis - Acute cholecystitis rt Forms: - Medication Reconciliation Form rt - SBAR form rt - Leadership Thank You Letter rt Signatures: Dispatcher [employer] Geovanny Chapin em1 Ritu Washington RN RN ll1 Indy Irene RN RN ld1 Tony Moreira MD MD rt Racheal Robles rv1 Nacho Worrell RN RN rs5 Tamir Barton RN jj7 Corrections: (The following items were deleted from the chart) 16:46 15:11 Telemetry/MedSurg (observation) rt em1 16:46 15:11 rt em1 20:02 16:46 [facility] ER HOLD em1 rv1 20:02 16:46 ERHOLD- em1 rv1
[2023-03-07] MEDS ORDERED: ONDANSETRON 4 MG/2 ML VIAL IV PRN (16:14)
[2023-03-07] MEDS ORDERED: MORPHINE 2 MG/ML SYR IV PRN (16:14)
[2023-03-07] MEDS ORDERED: ACETAMINOPHEN 500 MG TAB PO PRN (16:14)
--- NOTE | 2023-03-07 16:19 | P.HP ---
Certification for Inpatient Patient admitted to: Inpatient With expected LOS: >2 Midnights Patient will require the following post-hospital care: None Practitioner: I am a practitioner with admitting privileges, knowledge of patient current condition, hospital course, and medical plan of care. Services: Services provided to patient in accordance with Admission requirements found in Title 42 Section 412.3 of the Code of Federal Regulations Patient History Date of Service: 03/07/23 Reason for admission: Acute cholecystitis History of Present Illness: Patient is a 72yo Physical Examination - Studies Laboratory Data (last 24 hrs) 03/07/23 03/07/23 11:35 11:35 WBC 11.60 H Hgb 12.6 L Hct 36.9 L Plt Count 232 Sodium 135 L Potassium 4.3 BUN 17 Creatinine 0.89 Glucose 193 H Total Bilirubin 1.0 AST 574 H ALT 489 H Alkaline Phosphatase 134 H Assessment & Plan - Advance Directives Does patient have a Living Will: No Does patient have a Durable POA for Healthcare: No
[2023-03-07] MEDS: D5 0.9 NS 1,000 ML IV SCH (23:52)
[2023-03-08] MEDS: PIPER TAZO 3.375 GM in NA CHLORIDE 0.9% 100 ML IV SCH ×3 (01:00→17:00)
[2023-03-08 05:30] VITALS: BMI 26.4
[2023-03-08 07:13] LABS: Absolute Lymphocytes (CBC) 1.3 K/uL (0.7-4.9); Hematocrit 38.8 % (39.6-49.0); Lymphocytes % 19.1 % (15.3-44.8); MCV 93.1 fL (80-100); MPV 9.2 fL (7.6-11.3); Platelets 237 thou/uL (152-406); RBC Red Blood Cell Count 4.17 M/uL (4.33-5.43)
[2023-03-08 07:22] LABS: Protime INR 1.04
[2023-03-08 07:39] LABS: Albumin 3.7 g/dL (3.4-5.0); Bilirubin Total 0.5 mg/dL (0.2-1.0); Potassium 4.2 mEq/L (3.5-5.1); Protein, Total 7.2 g/dL (6.4-8.2)
[2023-03-08 08:39] LABS: Hepatitis B Core IgM Nonreactive (Nonreactive); Hepatitis B surface AG Interp. Nonreactive (Nonreactive); Hepatitis C Virus Ab Nonreactive (Nonreactive)
[2023-03-08] MEDS: D5 0.9 NS 1,000 ML IV SCH (08:58)
[2023-03-08] MEDS ORDERED: NA CHLORIDE 0.9% 1,000 ML ONE (11:21)
[2023-03-08] MEDS ORDERED: ROCURONIUM 50 MG/5 ML VIAL IV ONE (11:25)
[2023-03-08] MEDS ORDERED: KETOROLAC 30 MG/ML INJ ONE (11:25)
[2023-03-08] MEDS ORDERED: ONDANSETRON 4 MG/2 ML VIAL ONE (11:25)
[2023-03-08] MEDS ORDERED: propofoL 200 MG/20 ML VIAL IV ONE (11:26)
[2023-03-08] MEDS ORDERED: LIDOCAINE 2% MPF 5 ML VIAL ONE (11:26)
[2023-03-08] MEDS ORDERED: FENTANYL CITR 100 MCG/2 ML ONE (11:26)
[2023-03-08] MEDS ORDERED: MIDAZOLAM HCL 2 MG/2 ML INJ ONE (11:26)
--- NOTE | 2023-03-08 11:57 | RAD REPORT ---
EXAM DESCRIPTION: RAD - Chest Pa And Lat (2 Views) - 03/08/2023 11:42 am CLINICAL HISTORY: preop. Hypertension COMPARISON: Chest Single View dated 02/06/2023 TECHNIQUE: PA and lateral views of the chest were obtained. FINDINGS: The lungs are clear. Heart size is normal and central vasculature is within normal limits. Sequelae of prior CABG. No pleural effusion or pneumothorax seen. No acute bony finding noted. IMPRESSION: No acute cardiopulmonary process.
--- NOTE | 2023-03-08 12:25 | RAD REPORT ---
EXAM DESCRIPTION: MRI - Cholangiogram - 03/08/2023 10:04 am CLINICAL HISTORY: Acute cholecystitis COMPARISON: Abdomen Exam Limited dated 03/07/2023; Abdomen Pelvis W Contrast dated 02/06/2023 TECHNIQUE: Multiplanar multisequence MRI of the abdomen, obtained without IV contrast, utilizing M NETBACKUP ADMIN sequences. FINDINGS: Gallbladder wall thickening and mild pericholecystic fluid. No appreciable calculi. No intrahepatic biliary ductal dilation. Common bile duct is normal in caliber, 4 millimeter. No filling defects to suggest choledocholithiasi s. Smooth tapering at the ampulla. Main pancreatic duct is not dilated. The visualized aspects of the liver, spleen, adrenal glands, pancreas, and kidneys are unremarkable. Visualized aspects of the bowel are unremarkable. No suspicious osseous lesions. Trace bilateral pleural effusions IMPRESSION: Gallbladder wall thickening and mild pericholecystic fluid suggestive of acute cholecyst itis. No intra or extrahepatic biliary ductal dilation. No findings to suggest choledocholithiasis. Trace bilateral pleural effusions.
[2023-03-08] MEDS ORDERED: EPHEDRINE SULF 50 MG/ML VIAL ONE (13:00)
[2023-03-08] MEDS ORDERED: GLYCOPYRROLATE 0.2 MG/ML SYR ONE (13:02)
[2023-03-08] MEDS ORDERED: LABETALOL 20 MG/4ML SYRINGE IV ONE (13:12)
[2023-03-08] MEDS ORDERED: SUGAMMADEX SODIUM 200 MG/2 ML VIAL IV ONE (13:19)
--- NOTE | 2023-03-08 13:35 | P.BOP ---
Preoperative diagnosis: Acute cholecystitis, symptomatic cholelithiasis Postoperative diagnosis: umbilical hernia Primary procedure: 1. Laparoscopic cholecystectomy Secondary procedure: 2. Open umbilical hernia repair Estimated blood loss: <10cc Specimen: GB, sac Findings: as above Anesthesia: General Complications: None Transferred to: Recovery Room Condition: Good
[2023-03-08] MEDS ORDERED: HYDROCODONE/APAP 5/325 MG TAB PO PRN (13:37)
--- NOTE | 2023-03-08 16:08 | CON ---
Date of Consultation: 03/08/2023 Reason For Service: Acute cholecystitis and symptomatic cholelithiasis. DICTATION ENDS HERE. KENIA/CASSIE Voice ID: [id number] Report ID: [id number]
--- NOTE | 2023-03-08 17:58 | CON ---
Date of Consultation: 03/08/2023 Diagnoses: Acute cholecystitis, symptomatic cholelithiasis, right upper quadrant abdominal pain. History Of Present Illness: This is the case of a 72-year-old patient with history of abdominal pain . He was scheduled for today for cholecystectomy after found to have sludge and at times some sympto ms of biliary colic. The last night he ate some food, it was Connor, and basically in the afterno on, has some grease on it and the pain started again, epigastric right upper quadrant area, radiating to the back, associated with nausea and vomiting and bloating. The patient was admitted to the hosp [facility] with history of gallbladder disease and then a surgical consult was obtained. Part of blood wor k shows also some increase in INR, is 1.04, but the LFTs were slightly elevated. Bilirubin was luis eduardo l 1.0, alkaline phosphatase 134, ALT 49, AST 574. He was admitted to the hospital for observation, h ydration, and then after that, scheduled for the cholecystectomy. The patient also underwent an MRCP . I just discussed the MRCP with the radiologist and shows no evidence of choledocholithiasis. Past Medical History: Cardiac disease, we have a cardiac clearance by Dr. Mauricio on the chart. Ple ase refer to the paper and the H and P, it is on the chart already, which come from my office describ ed in the medical history and medications which include blood thinners, Plavix, and aspirin. Social Habits: No smoke. No drinking alcohol. Family History: Already there, noncontributory. Review of Systems: Once again, see HPI above. Nausea, vomiting, bloating, right upper quadrant pain postprandial. No f ever. No shortness of breath. No chest pain. Physical Examination: General: The patient is awake, alert. Eyes: Pupils are equal and reactive. Anicteric. Neck: Supple. Chest: Clear. Heart: S1, S2. Abdomen: Soft and depressible. Epigastric right upper quadrant pain with Chappell sign positive. Rectal: Deferred. Breasts: Deferred. Extremities: Good capillary refill. Laboratory Data: Blood work shows sodium is 136, potassium is 4.2, total bilirubin of 1 with indirec t bilirubin of 0.3, AST 574, ALT 49, alkaline phosphatase 134. INR 1.04. The chest x-ray is read by Dr. Johnosn as no acute cardiopulmonary process. With that, we had a cardiac clearance in place. We have EKG in the chart. MRCP once again discussed with Dr. Johnson as to the details above. Assessment: Symptomatic cholelithiasis, acute cholecystitis, Chappell sign positive. Plan: Continue with the same plan as before. I discussed that with the primary doctor and we have c learance to proceed with surgery since we believe that is the one causing this trouble. The benefits , alternatives, and risks of laparoscopic possible open cholecystectomy fully explained to the patien t in [place] and Bulgarian again with benefits, alternatives, and risks including, but not limited to i nfection, bleeding, damage to adjacent structures, anesthesia complication, choledocholithiasis, bile leak, pancreatitis, ME, and even . He also understands this may not relieve symptoms. He migh t need more than one surgical intervention. I understand he has to follow with his primary doctor as an outpatient. KENIA/CASSIE Voice ID: [id number] Report ID: [id number]
[2023-03-08] MEDS: NACHLORIDE 0.45% 1,000 ML IV SCH (19:40)
[2023-03-08 19:47] VITALS: O2SAT 98
[2023-03-09] MEDS: PIPER TAZO 3.375 GM in NA CHLORIDE 0.9% 100 ML IV SCH ×2 (00:37→08:41)
[2023-03-09] MEDS: NACHLORIDE 0.45% 1,000 ML IV SCH ×2 (03:20→08:42)
[2023-03-09 10:26] VITALS: BP 142/65; TEMP 98.1
--- NOTE | 2023-03-09 13:41 | OP ---
Date of Procedure: 03/09/2023 Surgeon: Angel Maguire MD Preoperative Diagnosis: Acute cholecystitis, symptomatic cholelithiasis. Postoperative Diagnoses: Acute cholecystitis, symptomatic cholelithiasis plus umbilical hernia. Procedures: 1.Laparoscopic cholecystectomy. 2.Open umbilical hernia repair. Estimated Blood Loss: Less than 10 cc. Specimen: Gallbladder and hernia sac. Anesthesia: General plus local. Indication: This is a case of a male, who came to us with acute abdominal pain. He was already sche duled for cholecystectomy, but the night before, he ate some food. It was Connor and unfortunatel y he got an attack, came to the ER. Admitted to the hospital. The benefits, alternatives, and risks were explained to him once again, laparoscopic possible open cholecystectomy, which include, but not limited to, infection, bleeding, damage to adjacent structures, anesthesia complication, choledochol ithiasis, bile leak, pancreatitis, MS, and even . He also understood this may not relieve any s ymptoms. He might need more than one surgical intervention. He understood, signed a consent. Description Of Procedure: The patient was brought to the operating room, placed in supine position. Anesthesia was done without complication. Abdominal area was prepped and draped in the usual steril e fashion. Marcaine 0.5% was injected for local anesthetic followed by sharp incision of the skin in the periumbilical region. Immediately, we noticed the patient to have a hernia, so we had to separa te the hernia sac from umbilical skin, removed the hernia sac, cleaned the fascial edges, put Vicryl #1 inside of the fascia multiple times and then Brianna trocar was placed in, and pneumoperitoneum was obtained. I placed 3 more trocars, 5 mm each one of them in the epigastric, right upper quadrant ar ea under direct visualization. This allowed me to put a grasper in the fundus of the gallbladder, an other grasper in the infundibulum, retracting the gallbladder in the inferolateral fashion exposing t he triangle of Calot and obtaining critical view. Cystic duct and cystic artery were clearly isolate d, freed circumferentially and a connection between those and the gallbladder were clearly identified . I proceeded to ligate those by using at least 3 clips proximal, 1 clip distal, ligation in the mid dle. Same was done with the cystic artery. No bile leak. No bleeding. The gallbladder was removed from the liver using Bovie cauterizer and removed from abdominal cavity using an EndoCatch through t he umbilical incision. At that moment, I proceeded to obtain the pneumoperitoneum again, put the cam eras in, took a look at the liver. The gallbladder fossa was intact. No bile leak. No bleeding. A t that moment, I proceeded to remove the trocars under direct vision. Deflated the pneumoperitoneum. Closed the fascia and the umbilical hernia with #1 Vicryl. Irrigated subcutaneous tissue, closed t hat with 3-0 chromic and the skin with rickey. Sponge counts and instrument counts were correct. P atient tolerated the procedure well. Patient was sent to Recovery in stable condition. KENIA/CASSIE Voice ID: [id number] Report ID: [id number]
== END 2023-03-09 12:30 | disposition home or self-care (01) | DRG 419 ==
LOC: ER 11:07 → ERHOLD 16:14 → 2ND 20:42
PROVIDERS: ADMIT Hospitalist; ATTEND Hospitalist
PROC: 0WJF4ZZ Inspection of Abdominal Wall, Percutaneous Endoscopic Approach (ICD-10-PCS; 2023-03-08)
PROC: 0FT44ZZ Resection of Gallbladder, Percutaneous Endoscopic Approach (ICD-10-PCS; principal; 2023-03-08 13:15)
PROC: 0WQF0ZZ Repair Abdominal Wall, Open Approach (ICD-10-PCS; 2023-03-08 13:15)
DX: K80.00 Calculus of gallbladder with acute cholecystitis without obstruction (principal); K42.9 Umbilical hernia without obstruction or gangrene; I25.10 Atherosclerotic heart disease of native coronary artery without angina pectoris; I10 Essential (primary) hypertension; Z95.1 Presence of aortocoronary bypass graft; E11.9 Type 2 diabetes mellitus without complications; Z79.4 Long term (current) use of insulin
CPT/HCPCS: 36415; 71046; 74181; 76705; 80048; 80053; 80074; 80076; 82947; 85025; 85610; 85730; 88302; 88304; 94010; 96361; 96365; 96366; 96375; 99285; J2001; J2250; J2405; J2543; J2704; J3010; J7030; J7042